=== PATIENT | female | born 1950 | race Hispanic/Latino ===

== ENCOUNTER 2017-02-19 12:37 | Emergency (ER) | payer MEDICARE, BC ==
[2017-02-19 12:37] VITALS: BMI 25.0
[2017-02-20] MEDS ORDERED: Acetaminophen 650mg/20.3ml solution UD ONE (06:51)
== END 2017-02-19 12:44 | disposition left against medical advice (07) ==
LOC: C.ER 12:37
DX: Z04.8 Encounter for examination and observation for other specified reasons (principal); Z02.9 Encounter for administrative examinations, unspecified

== ENCOUNTER 2017-02-20 06:12 | Inpatient (IN) | payer MEDICARE, BC ==
[2017-02-20 06:12] VITALS: BMI 25.0
[2017-02-20] MEDS ORDERED: Sodium Chloride 0.9% 1,000 ML IV ONE (06:46)
[2017-02-20] MEDS ORDERED: Acetaminophen 650mg/20.3ml solution UD PO STA (06:50)
--- NOTE | 2017-02-20 06:51 | C.PDOC ---
Time Seen by Provider: 02/20/17 06:46 Chief Complaint (Nursing): Trauma Past Medical History Vital Signs: Last Vital Signs Temp 97.5 F L 02/20/17 06:27 Pulse 76 02/20/17 06:27 Resp 16 02/20/17 06:27 BP 189/100 H 02/20/17 06:27 Pulse Ox 100 02/20/17 06:57 - Medical History PMH: Anemia, Anxiety, Arthritis, Bipolar Disorder, Dementia, Depression, HTN, Hypercholesterolemia, Migraine Denies: Diabetes, Hepatitis, Chronic Kidney Disease Surgical History: Tonsillectomy - [facility] Procedures VENTRICL SHUNT-ABDOMEN (02/10/14) Family History: States: Unknown Family Hx - Social History Hx Tobacco Use: No Hx Alcohol Use: No Hx Substance Use: No - Immunization History Hx Tetanus Toxoid Vaccination: No Hx Influenza Vaccination: Yes Hx Pneumococcal Vaccination: Yes ( is not sure) ED Course And Treatment O2 Sat by Pulse Oximetry: 100 Disposition Counseled Patient/Family Regarding: Studies Performed, Diagnosis - Disposition Disposition Time: 06:46
--- NOTE | 2017-02-20 06:53 | C.PDOC ---
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 Patient states she now has left hip pain and denies LOC, head injury, chest pain, or any other complaints at this time. Time Seen by Provider: 02/20/17 06:46 Chief Complaint (Nursing): Trauma History Per: Patient History/Exam Limitations: no limitations Onset/Duration Of Symptoms: Hrs Current Symptoms Are (Timing): Still Present Severity: Mild - Hip Description Of Injury: Tripped Past Medical History Reviewed: Historical Data, Nursing Documentation, Vital Signs Vital Signs: Last Vital Signs Temp 97.5 F L 02/20/17 06:27 Pulse 76 02/20/17 06:27 Resp 16 02/20/17 06:27 BP 189/100 H 02/20/17 06:27 Pulse Ox 100 02/20/17 06:58 - Medical History PMH: Anemia, Anxiety, Arthritis, Bipolar Disorder, Dementia, Depression, HTN, Hypercholesterolemia, Migraine Surgical History: Tonsillectomy - [facility] Procedures VENTRICL SHUNT-ABDOMEN (02/10/14) Family History: States: Unknown Family Hx - Social History Hx Tobacco Use: No Hx Alcohol Use: No Hx Substance Use: No - Immunization History Hx Tetanus Toxoid Vaccination: No Hx Influenza Vaccination: Yes Hx Pneumococcal Vaccination: Yes ( is not sure) Review Of Systems Constitutional: Negative for: Fever, Chills Cardiovascular: Negative for: Chest Pain, Palpitations Respiratory: Negative for: Cough, Shortness of Breath Gastrointestinal: Negative for: Nausea, Vomiting, Abdominal Pain Genitourinary: Negative for: Dysuria, Frequency Musculoskeletal: Positive for: Other (+left hip pain). Negative for: Neck Pain , Back Pain Neurological: Negative for: Weakness, Numbness Physical Exam - Physical Exam Appears: Non-toxic, No Acute Distress Skin: Warm, Dry Head: Atraumatic, Normacephalic Eye(s): bilateral: Normal Inspection Oral Mucosa: Moist Neck: Supple Chest: Symmetrical Respiratory: No Accessory Muscle Use Gastrointestinal/Abdominal: Soft, No Tenderness Extremity: Tenderness (+Tenderness to left leg), Capillary Refill (< 2 seconds) , Other (+Left leg is externally rotated) Pulses: Left Dorsalis Pedis: Normal, Right Dorsalis Pedis: Normal Neurological/Psych: Oriented x3, Normal Speech ED Course And Treatment O2 Sat by Pulse Oximetry: 100 (Room air) Pulse Ox Interpretation: Normal Progress Note: Hip X-ray, CXR, and Blood work ordered and reviewed. Patient treated with Tylenol and IV fluids. Disposition Counseled Patient/Family Regarding: Studies Performed, Diagnosis - Disposition Disposition Time: 06:46 Condition: UNKNOWN - Clinical Impression Clinical Impression: Fall - Scribe Statement The provider has reviewed the documentation as recorded by the Scribe Joyce Ford. Provider Attestation: All medical record entries made by the Scribe were at my direction and personally dictated by me. I have reviewed the chart and agree that the record accurately reflects my personal performance of the history, physical exam, medical decision making, and the department course for this patient. I have also personally directed, reviewed, and agree with the discharge instructions and disposition. Physician Patient Turnover Patient Signed Over To: Angelica Flores Handoff Comments: pending labs , xray and disposition
[2017-02-20] MEDS ORDERED: Sodium Chloride 0.9% 1,000 ML ONE (06:58)
[2017-02-20 07:21] LABS: BASO # 0.1 K/uL (0.0-0.2); BASO % 0.5 % (0.0-2.0); EOS # 0.2 K/uL (0.0-0.7); EOS % 1.3 % (0.0-4.0); HEMATOCRIT 34.7 % (34.0-47.0); LYMPH # 1.3 K/uL (1.0-4.3); LYMPH % 10.1 % (20.0-40.0); MEAN CELL VOLUME 89.9 fL (81.0-99.0); MEAN CORPUSCULAR HEMOGLOBIN 28.7 pg (27.0-31.0); MEAN PLATELET VOLUME 9.3 fL (7.2-11.7); MONO # 0.7 K/uL (0.0-0.8); MONO % 5.2 % (0.0-10.0); RED CELL DISTRIBUTION WIDTH 14.4 % (11.5-14.5); WHITE BLOOD COUNT 12.7 K/uL (4.8-10.8)
[2017-02-20 07:33] LABS: INR 0.9
[2017-02-20 07:41] LABS: CHLORIDE 101 mmol/L (98-107); POTASSIUM 4.9 mmol/L (3.6-5.2); SODIUM 142 mmol/L (132-148)
[2017-02-20 07:43] LABS: ALB/GLOB RATIO 1.2 (1.0-2.1); AST/SGOT 33 U/L (14-36); BILIRUBIN,TOTAL 0.6 mg/dL (0.2-1.3); BLOOD UREA NITROGEN 18 mg/dL (7-17); CARBON DIOXIDE 28 mmol/L (22-30); GFR AFRICAN-AMERICAN > 60; TOTAL PROTEIN 7.4 g/dL (6.3-8.3)
[2017-02-20 07:44] LABS: ALKALINE PHOSPHATASE 72 U/L (38-126); ALT/SGPT 18 U/L (9-52); CALCIUM 8.2 mg/dl (8.6-10.4); GLUCOSE,RANDOM 92 mg/dL (65-105)
[2017-02-20] MEDS ORDERED: Morphine 4 MG/ML VIAL ONE (08:07)
[2017-02-20 10:11] LABS: URINE BILIRUBIN NEGATIVE (NEGATIVE); URINE BLOOD NEGATIVE (NEGATIVE); URINE COLOR Colorless (YELLOW); URINE GLUCOSE (UA) NORMAL (Normal); URINE KETONE NEGATIVE (NEGATIVE); URINE LEUKOCYTE ESTERASE NEG Leu/uL (Negative); URINE PROTEIN NEGATIVE (NEGATIVE); URINE UROBILINOGEN NORMAL mg/dL (0.2-1.0); WBC URINE < 1 /hpf (0-5)
[2017-02-20] MEDS ORDERED: Dextrose 5%/0.45% NS 1,000 ML IV SCH (11:30)
--- NOTE | 2017-02-20 13:02 | CP.PCM.HP ---
History of Present Illness - History of Present Illness History of Present Illness: COMPREHENSIVE HISTORY & PHYSICAL EXAM HPI PT. FELL TODAY SUSTAINED INTERTRONCHERTRIC LEFT HIP FRACTURE. PER PT WAS OVERDOSING HER PSYCH. MEDS AND FELL 2 TIMES THIS AM PAST HIST. HTN/ANXIETY/DEPRESSION/R. SHOULDER INJURY/ PERSONAL HIST: Smoking. N Alcohol. N Allergy N Travel_- . FAMILY HIST : ROS : Constitutional: Negative for weight change, chills, night sweats, Eyes: Negative for redness, swelling, itching, discharge, vision changes, blurry vision, double vision, glaucoma, cataracts, Ears: Negative for hearing loss, ringing, , tinnitus, vertigo Nose: Negative for rhinorrhea, stuffiness, sniffing, itching, postnasal drip, discoloration, nasal congestion and epistaxis. Throat: Negative for throat clearing, sore throat, hoarseness, difficulty swallowing and difficulty speaking. Respiratory: Negative for cough, chest tightness, sputum or phlegm, chronic cough, hemoptysis, wheezing, snoring at night, pleuritic chest pain and daytime somnolence. Cardiovascular: Negative for chest pain, palpitations, orthopnea, PND, Edema of legs, leg cramps, angina, claudication, , irregular heartbeat, Neurology: Negative for irritability, muscle weakness, numbness and tingling, seizures, tremors, migraines, slurred speech, syncope, memory loss, mood changes , recurrent headaches Gastrointestinal: Negative for difficulty swallowing, diarrhea, constipation, black stools, rectal bleeding, nausea, flatulence, reflux, poor appetite, changes in bowel habits, abdominal pain Genitourinary: Negative for frequent urination, hematuria, discharge, incontinence, urinary retention, frequent UTI, Psychiatric: Negative for depression, anxiety/panic, suicidal tendencies, Musculoskeletal LEFT HIP PAIN Skin: Negative for rash, ulcers, itching, dry skin and pigmented lesions. P/E: Constitutional: Appears stated age and in no apparent distress. Head: Normocephalic. Ears: External ear canals patent without inflammation. Tympanic membranes intact with normal light reflex and landmark. Eyes: Pupils are central, bilaterally equal, symmetrical and reacts to light with normal movements and no icterus or pallor. Nose: External nares are patent. Mucosa is pink Mouth-Throat: Good general appearance and condition. No post-pharyngeal/oropharyngeal erythema and tonsillar hypertrophy. Good dental hygiene. Neck-Lymphatic: Neck is supple with normal ROM, no thyromegaly, lymph nodes or masses. JVD is normal with no carotid bruit. Lungs: Clear to percussion and auscultation with bilateral normal air entry. Cardiovascular: S1 and S2 are normal with no murmurs, gallops and rub. GI Exam: No hepatomegaly. Abdomen is soft and non-tender. No Organomegaly , masses or hernias are evident and bowel sounds are normal and active. Neurology: Higher function and all cranial nerves intact, with no gross motor or sensory deficit. Superficial and deep reflexes are normal with downwards planters. No cerebellar deficit with normal gait. Musculoskeletal LEFT HIP DECREASE ROM WITH PAIN PULSES INTAKE Extremities: Homans sign absent. Intact pulses with no pitting edema, calf tenderness or skin color changes. Skin: No rash, eruptions or abnormal skin pigmentation LAB/RADIOLOGY: ASSESMENT : LEFT HIP FRACTURE HTN ANXIETY PLAN: ORTHO EVAL FOR LEFT HIP REPLACEMENT/REPAIR PSYCH. EVAL FOR ADJUSTEMENT OF MEDS Present on Admission - Present on Admission Any Indicators Present on Admission: No Past Patient History - Past Medical History & Family History Past Medical History?: Yes - Past Social History Smoking Status: Never Smoked - CARDIAC Hx Hypercholesterolemia: Yes Hx Hypertension: Yes - PULMONARY Hx Respiratory Disorders: No Hx Tuberculosis: No - NEUROLOGICAL Hx Dementia: Yes Hx Migraine: Yes - HEENT Hx HEENT Problems: No Hx Deafness: Yes (Bilateral hearing loss, doesn't wear hearing aids) - RENAL Hx Chronic Kidney Disease: No - ENDOCRINE/METABOLIC Hx Endocrine Disorders: No - HEMATOLOGICAL/ONCOLOGICAL Hx Anemia: Yes - INTEGUMENTARY Hx Dermatological Problems: No - MUSCULOSKELETAL/RHEUMATOLOGICAL Hx Arthritis: Yes Hx Falls: Yes - PSYCHIATRIC Hx Anxiety: Yes Hx Bipolar Disorder: Yes Hx Depression: Yes Hx Substance Use: No - SURGICAL HISTORY Hx Tonsillectomy: Yes Other/Comment: Ventroperitoneal shunt, bunion sx - ANESTHESIA Hx Anesthesia: Yes Hx Anesthesia Reactions: No Hx Malignant Hyperthermia: No Meds Allergies/Adverse Reactions: Allergies Allergy/AdvReac Type Severity Reaction Status Date / Time pregabalin [From Lyrica] Allergy RASH Verified 02/20/17 06:38 Results - Vital Signs Recent Vital Signs: Last Vital Signs Temp 97.5 F L 02/20/17 10:30 Pulse 79 04/05/17 10:30 Resp 20 02/20/17 10:30 BP 186/98 H 02/20/17 10:30 Pulse Ox 98 02/20/17 10:30 - Labs Result Diagrams: 02/20/17 07:17 02/20/17 07:17 Labs: Laboratory Results - last 24 hr 02/20/17 02/20/17 08:19 08:38 Urine Color Colorless Urine Clarity Clear Urine pH 7.0 Ur Specific [place] 1.008 Urine Protein Negative Urine Glucose (UA) Normal Urine Ketones Negative Urine Blood Negative Urine Nitrate Negative Urine Bilirubin Negative Urine Urobilinogen Normal Ur Leukocyte Esterase Neg Urine WBC (Auto) < 1 Blood Type O POSITIVE Antibody Screen Negative
--- NOTE | 2017-02-20 13:11 | CP.PCM.PN ---
Subjective - Date & Time of Evaluation Date of Evaluation: 02/20/17 Time of Evaluation: 13:08 - Subjective Subjective: 66F complains of left hip pain after fall at home. She was unable to walk after the fall. Denies pain in other extremities. Denies neck or back or pain. Denies CP/SOB/LOC/dizziness preceding fall. PMH: HTN, chol, bipolar Objective - Vital Signs/Intake and Output Vital Signs (last 24 hours): Temp Pulse Resp BP Pulse Ox 97.5 F L 79 20 186/98 H 98 02/20/17 10:30 02/20/17 10:30 02/20/17 10:30 02/20/17 10:30 02/20/17 10:30 - Medications Medications: Current Medications Gabapentin (Neurontin) 600 mg PO TID [facility] Dextrose/Sodium Chloride (Dextrose 5%/0.45% Ns 1000 Ml) 1,000 mls @ 100 mls/hr IV .Q10H [facility] Last Admin: 02/20/17 11:59 Dose: 100 mls/hr Lisinopril (Zestril) 20 mg PO DAILY [facility] Last Admin: 02/20/17 12:00 Dose: 20 mg Morphine Sulfate (Morphine) 2 mg IVP Q4 PRN PRN Reason: Pain, moderate (4-7) Last Admin: 02/20/17 12:10 Dose: 2 mg Pantoprazole Sodium (Protonix Inj) 40 mg IVP DAILY [facility] Last Admin: 02/20/17 11:59 Dose: 40 mg Rosuvastatin Calcium (Crestor) 10 mg PO HS [facility] - Labs Labs: PT 10.5 SECONDS (9.7-12.2) 02/20/17 07:17 INR 0.9 02/20/17 07:17 APTT 34 SECONDS (21-34) 02/20/17 07:17 - Constitutional Appears: Well, No Acute Distress - Head Exam Head Exam: ATRAUMATIC, NORMAL INSPECTION - Extremities Exam Additional comments: Sensation intact +DP/PT pulses calves soft NT neg homans - Neurological Exam Neurological Exam: Alert, Awake, Oriented x3 Neuro motor strength exam: Left Lower Extremity: 5 (+ROM ankle/toes, sensation intact) - Psychiatric Exam Psychiatric exam: Normal Affect, Normal Mood - Skin Skin Exam: Dry, Intact, Normal Color, Warm Assessment and Plan - Assessment and Plan (Free Text) Assessment: left intertrochanteric hip fracture -NPO for ORIF today awaiting medical clearance -labs reviewed -nabil d/w Dr. García, agrees with above
--- NOTE | 2017-02-20 14:21 | RAD ---
PROCEDURE: Left Knee Radiographs. HISTORY: Pain. COMPARISON: None. FINDINGS: BONES: There is irregularity of the posterior tibial cortex in the lateral projection. There is no clear fracture evident in the frontal view. Cannot rule out nondisplaced fracture. No other fracture identified. JOINTS: Normal. No osteoarthritis. JOINT EFFUSION: None. OTHER FINDINGS: None. IMPRESSION: Questionable nondisplaced fracture posterior tibia. In the absence of a joint effusion/ hemarthrosis, this seems less likely. Nevertheless, additional radiographic evaluation is suggested.
--- NOTE | 2017-02-20 15:04 | RAD ---
PROCEDURE: Left femur HISTORY: s/p fall , r/o fx COMPARISON: Not available TECHNIQUE: Two views obtained portably FINDINGS: Comminuted mildly displaced intertrochanteric fracture of the left hip. No other fracture identified. No dislocation. IMPRESSION: Comminuted mildly displaced intertrochanteric fracture of the left hip.
--- NOTE | 2017-02-20 15:06 | RAD ---
PROCEDURE: Left Hip X-ray Radiographs. HISTORY: fall , left hip pain COMPARISON: None. FINDINGS: BONES: Comminuted, mildly displaced intertrochanteric fracture of the left hip. No significant angulation. No other pelvic fracture identified. JOINTS: Normal. SOFT TISSUES: Normal. OTHER FINDINGS: None. IMPRESSION: Comminuted mildly displaced intertrochanteric fracture of the left hip.
--- NOTE | 2017-02-20 15:07 | RAD ---
PROCEDURE: CHEST RADIOGRAPH, 1 VIEW HISTORY: SOB COMPARISON: 12/19/2014 FINDINGS: LUNGS: Clear. PLEURA: No pneumothorax or pleural fluid seen. CARDIOVASCULAR: Normal. OSSEOUS STRUCTURES: No significant abnormalities. VISUALIZED UPPER ABDOMEN: Normal. OTHER FINDINGS: None. IMPRESSION: No active disease.
--- NOTE | 2017-02-20 15:09 | CON ---
DATE: 02/20/2017 CHIEF COMPLAINT AND REASON FOR CONSULTATION: The patient referred by Dr. Pereyra for comanagement and evaluation. The patient has history of bipolar disorder. The patient was admitted here after she had fallen twice at home. The patient had left hip fracture and also referred for comanagement as patient is on multiple psych meds. HISTORY OF PRESENT ILLNESS: This is the case of a 66-year-old female who is well known to me with a long history of bipolar disorder. The patient was admitted after she fell twice at home and was noted also by her , Cyril , to have increasing periods of confusion. The patient has history of taking too much medication when she is more confused. She was recently readmitted at [facility], discharged 1 week ago when she was admitted there for increasing confusion as patient was taking too much psych medication. At home, after her discharge from the hospital, she was taking Seroquel 50 mg twice a day and also Neurontin and was also given brain medication. The patient tends to take more than was prescribed increasing her confusion. The patient also used to take before Neurontin 600 mg 6 times a day. The patient today will be going to the OR as the patient has left hip fracture. She is complaining of pain on moving her left hip, but less confused today. She was seen recently in my office and also complaining of pain and confusion. She was advised not to take too much Seroquel as her Seroquel dose was recently increased from 50 daily at bedtime to 50 mg twice a day. PAST PSYCHIATRIC HISTORY: Long history of bipolar disorder, multiple psych admissions, history of 3 at least suicidal attempts in the past, usually from drug overdose. ALLERGIES: THE PATIENT IS ALLERGIC TO LYRICA. DRUG AND ALCOHOL HISTORY: Denies any. PSYCHOSOCIAL HISTORY: The patient lives with her , Cyril. They have been for many years. The patient is disabled secondary to her psych problems. LIST OF CURRENT MEDICATIONS: The patient is on Crestor, morphine, Neurontin 600 mg 3 times a day, Protonix and Zestril. VITAL SIGNS: Temperature is 97.5, pulse rate is 92, blood pressure is 184/80, respirations 20, oxygen saturation is 98%. REVIEW OF LABORATORIES: The patient's WBCs 12.7. Creatinine 0.7. Liver function tests are within normal limits. UA is negative. REVIEW OF SYSTEMS: GENERAL: The patient is more alert, verbal, less confused. The patient will be going for OR today. SKIN: No diaphoresis. HEENT: No headache. No blurring of vision. NECK: Supple. RESPIRATORY: No dyspnea. CARDIOVASCULAR: No chest pain. GASTROINTESTINAL: No nausea, no vomiting. EXTREMITIES: The patient complained of left hip pain. MUSCULOSKELETAL: Feels weak. NEUROLOGIC: Alert, oriented x 3. GENITOURINARY: No urinary problems. MENTAL STATUS EXAMINATION: Elderly female who looks stated age, alert, oriented x 3, was 5 feet 5 inches and weighs 145 pounds. Mood is calm. Affect is reactive. Speech spontaneous. Thought process coherent when seen. Thought content, the patient has agreed to go for surgery. No overt paranoia. No suicidal or homicidal ideation. No hallucinations. Attention and memory seem to be fair. Insight and judgment limited. Impulse control is fair at this time. IMPRESSION: History of left hip fracture as well as history of bipolar disorder , mixed, and possible metabolic encephalopathy secondary to excessive intake of her psych medication. PLAN AND RECOMMENDATION: The patient seen, meds reviewed. The patient will be going for OR today. We will discontinue all of her psych. We will keep her off Seroquel as well as Neurontin for now. The patient will be taking morphine for pain. The patient is manageable at this time. I will follow her up as needed. For now, we will keep her off her psych meds. Marciano Powell MD cc: [id number] TT: 02/20/2017 15:08:38 Confirmation # [id number] Dictation # [id number] en MTDD
[2017-02-20] MEDS ORDERED: Bupivacaine HCl 0.5% PF (10 ml) Inj ONE (18:01)
[2017-02-20] MEDS ORDERED: ceFAZolin IV 1 gm in Dextrose 50 ML IVPB ONE (18:01)
[2017-02-20] MEDS ORDERED: Dextrose 5%/0.45% NS 1,000 ML IV ONE (18:10)
[2017-02-20] MEDS ORDERED: Midazolam 2 MG/2 ML VIAL ONE (18:12)
[2017-02-20] MEDS ORDERED: Propofol 10 mg/ml Inj (20 ML) ONE (18:12)
[2017-02-20] MEDS ORDERED: Succinylcholine Chloride 20 mg/ml Syr (5 ml) IV ONE (18:38)
[2017-02-20] MEDS ORDERED: Rocuronium 10 mg/ml (5 ml) ONE (18:38)
[2017-02-20] MEDS ORDERED: Lactated Ringer's 1,000 ML IV ONE (19:33)
[2017-02-20] MEDS ORDERED: HYDROmorphone 0.5 mg/0.5 ml ISec IVP PRN (20:07)
[2017-02-20] MEDS ORDERED: Lactated Ringer's 1,000 ML IV SCH (20:15)
[2017-02-20 21:02] LABS: HEMATOCRIT 29.7 % (34.0-47.0); MEAN CELL VOLUME 89.6 fL (81.0-99.0); MEAN CORPUSCULAR HEMOGLOBIN 29.3 pg (27.0-31.0); MEAN CORPUSCULAR HGB CONC 32.7 g/dL (33.0-37.0); MEAN PLATELET VOLUME 9.1 fL (7.2-11.7); RED CELL DISTRIBUTION WIDTH 14.4 % (11.5-14.5); WHITE BLOOD COUNT 15.2 K/uL (4.8-10.8)
--- NOTE | 2017-02-20 21:10 | OP ---
PROCEDURE DATE: 02/20/2017 PREOPERATIVE DIAGNOSIS: Intertrochanteric fracture of the left hip. POSTOPERATIVE DIAGNOSES: Severely comminuted intertrochanteric fracture of the left hip with severe osteoporosis and osteopenia. PROCEDURE: Open reduction internal fixation of a comminuted intertrochanteric fracture of the hip with Synthes TFNA nail, insertion of a lag screw and insertion of distal interlocking screw. PROCEDURE: Prior to the procedure, the risks and benefits of surgery, problems and complications explained including malunion, nonunion, need for future surgery, permanent weakness, permanent numbness, possible loss of life and limb , failure of fixation, leg length difference, and need for future surgical procedures, blood clots, etc. The patient fully understood, agreeable, and all the complications were explained to the patient and the patient's , Cyril. The patient was brought to the operating room. The left hip was identified as the hip to be operated. The patient was placed on the fracture table. After induction of general anesthesia, the left hip was prepped and draped in the usual manner and the multiplanar fluoroscopy was used. At this point, an incision was made proximal to the greater trochanter of the left hip after identifying it on fluoroscopy. Dissection was carried down in layers and the tip of the greater trochanter was identified and a guidewire __for___ Synthes TFN nail was introduced into the trochanter into the shaft of the femur. The position of the guidewire was confirmed on x-ray. At this point, the proximal femur was reamed with a proximal entry of TFN nail. Reaming was done up to the lesser trochanter. At this point, the guidewire was removed and a flexible guidewire was introduced into the femur and a Synthes nail, 130 degree nail, 10 mm in diameter and 170 mm in length was introduced into the trochanter into the proximal shaft of the femur. Once the position of the anai was confirmed, using the proximal targeting device , a guidewire was introduced through the neck and head of the femur. A guidewire was introduced through the targeting device into the neck and head of the femur, into the subchondral bone. Position of the guidewire was confirmed on multiplanar fluoroscopy. At this point, the neck and head of the femur was reamed and under multiplanar fluoroscopy. It was decided to use an 85 mm lag screw, which was measured prior to reaming. The lag screw was introduced and locking of the proximal lag screw was inserted into the proximal targeting sleeve. Once the lag screw was locked, the lag screw could not be rotated. At this point, using a distal targeting sleeve, . Drilling was done. A 32 mm screw was introduced through the distal interlocking hole. The multiplanar fluoroscopy revealed satisfactory position of the distal interlocking screw. At this point, the wounds were thoroughly irrigated. Wounds were closed in layers. The patient tolerated the procedure well. The patient left the operating room to the recovery room in satisfactory condition. The wound was closed in layers. The multiplanar fluoroscopy revealed at the end of the procedure satisfactory internal fixation of the fracture. The patient tolerated the procedure well and left the operating room to the recovery room in satisfactory condition. Jolly García MD cc: [id number] TT: 02/20/2017 21:08:59 [employer] TRAN
[2017-02-21] MEDS: ceFAZolin IV 2 gm in Dextrose 50 ML IVPB SCH ×2 (02:03→11:45)
[2017-02-21] MEDS: Oxycodone/Acetaminophen 5/325 mg Tab PO PRN ×3 (03:27→18:10)
--- NOTE | 2017-02-21 07:23 | CP.PCM.PN ---
Subjective - Date & Time of Evaluation Date of Evaluation: 02/21/17 Time of Evaluation: 07:22 - Subjective Subjective: Patient complaining of low back pain. Tearful. Expressing herself poorly, and difficult to get her to explain what is wrong or localize pain. Denies CP/SOB/ dizziness, says pain in hip is ok. RN overnight said she was intermittently tearful, but stated then she didn't know why she was crying. Objective - Vital Signs/Intake and Output Vital Signs (last 24 hours): Temp Pulse Resp BP Pulse Ox 98.6 F 101 H 20 136/73 97 02/21/17 04:00 02/21/17 04:00 02/21/17 04:00 02/21/17 04:00 02/21/17 04:00 Intake and Output: 02/21/17 02/21/17 06:59 18:59 Intake Total 850 Output Total 1125 Balance -275 - Medications Medications: Current Medications Acetaminophen (Tylenol 325mg Tab) 650 mg PO Q4 PRN PRN Reason: Fever 101 degrees fahrenheit Docusate Sodium (Colace) 100 mg PO BID [facility] Enoxaparin Sodium (Lovenox) 40 mg SC Q24H [facility] Dextrose/Sodium Chloride (Dextrose 5%/0.45% Ns 1000 Ml) 1,000 mls @ 100 mls/hr IV .Q10H [facility] Last Admin: 02/20/17 11:59 Dose: 100 mls/hr Cefazolin Sodium/Dextrose (Ancef Iv 2 Gm Duplex) 50 mls @ 100 mls/hr IVPB Q8H [facility] Stop: 02/21/17 11:29 Last Admin: 02/21/17 02:03 Dose: 100 mls/hr Lactated Ringer's (Lactated Ringer's) 1,000 mls @ 100 mls/hr IV .Q10H [facility] Last Admin: 02/21/17 06:58 Dose: 100 mls/hr Lisinopril (Zestril) 20 mg PO DAILY [facility] Last Admin: 02/20/17 12:00 Dose: 20 mg Morphine Sulfate (Morphine) 2 mg IVP Q4 PRN PRN Reason: Pain, moderate (4-7) Last Admin: 02/21/17 01:38 Dose: 2 mg Ondansetron HCl (Zofran Inj) 4 mg IVP Q6H PRN PRN Reason: Nausea/Vomiting Oxycodone/Acetaminophen (Percocet 5/325 Mg Tab) 1 tab PO Q4 PRN PRN Reason: Pain, moderate (4-7) Stop: 02/23/17 18:59 Last Admin: 02/21/17 03:27 Dose: 1 tab Pantoprazole Sodium (Protonix Inj) 40 mg IVP DAILY [facility] Last Admin: 02/20/17 11:59 Dose: 40 mg Rosuvastatin Calcium (Crestor) 10 mg PO HS [facility] - Labs Labs: 02/20/17 20:57 PT 10.5 SECONDS (9.7-12.2) 02/20/17 07:17 INR 0.9 02/20/17 07:17 APTT 34 SECONDS (21-34) 02/20/17 07:17 - Extremities Exam Additional comments: sensation intact LLE, dressing intact, thigh soft, +DP pulse, calves soft NT neg homans low back: no swelling/discoloration/deformity. TTP to upper lumbar spine, no crepitus. NVID BLE, sensation intact 5/5 great toe ext/DF/PF, knee flex/ext to right - Neurological Exam Neuro motor strength exam: Left Lower Extremity: 5 (+DF/PF ankle, toes) Assessment and Plan (1) Displaced intertrochanteric fracture of left femur Assessment & Plan: POD#1 s/p left hip ORIF -PT/OT -VTE proph -d/c planning to rehab -OOB -d/w Dr. García, agrees with above -f/u am labs Status: Acute (2) Back pain Assessment & Plan: xrays ordered new complaint ? due to OR positioning Status: Acute
[2017-02-21 07:35] LABS: CHLORIDE 102 mmol/L (98-107); POTASSIUM 3.7 mmol/L (3.6-5.2); SODIUM 140 mmol/L (132-148)
[2017-02-21 07:37] LABS: BILIRUBIN,TOTAL 0.5 mg/dL (0.2-1.3); GFR AFRICAN-AMERICAN > 60
[2017-02-21 07:38] LABS: ALB/GLOB RATIO 1.2 (1.0-2.1); ALKALINE PHOSPHATASE 55 U/L (38-126); ALT/SGPT 22 U/L (9-52); AST/SGOT 22 U/L (14-36); BLOOD UREA NITROGEN 11 mg/dL (7-17); CARBON DIOXIDE 27 mmol/L (22-30); GLUCOSE,RANDOM 147 mg/dL (65-105); HEMATOCRIT 23.7 % (34.0-47.0); MEAN CELL VOLUME 88.7 fL (81.0-99.0); MEAN CORPUSCULAR HEMOGLOBIN 29.7 pg (27.0-31.0); MEAN CORPUSCULAR HGB CONC 33.5 g/dL (33.0-37.0); MEAN PLATELET VOLUME 9.6 fL (7.2-11.7); RED CELL DISTRIBUTION WIDTH 14.4 % (11.5-14.5); TOTAL PROTEIN 5.8 g/dL (6.3-8.3); WHITE BLOOD COUNT 10.7 K/uL (4.8-10.8)
[2017-02-21 07:39] LABS: CALCIUM 7.4 mg/dl (8.6-10.4)
--- NOTE | 2017-02-21 08:43 | RAD ---
PROCEDURE: HISTORY: post of ORIF COMPARISON: 02/20/2017 portable study at 11:48 hours TECHNIQUE: Four portable images postop FINDINGS: Patient is status post open reduction and internal fixation of a comminuted previously mildly displaced intertrochanteric left hip fracture. The intramedullary anai is distally transfixed by a horizontal single screw. An oblique compression screw transfixes the comminuted fracture with the proximal intramedullary anai. Less displacement of the prior mildly displaced lesser trochanteric fragment now Skin ruth and left subcutaneous mottled gas consistent with the recent post operative procedure. Arterial calcifications are noted. The distal femur is intact . IMPRESSION: Open reduction internal fixation of a prior left intertrochanteric fracture as detailed above
--- NOTE | 2017-02-21 09:02 | RAD ---
PROCEDURE: HISTORY: s/p left hip nail, pt in pacu COMPARISON: Left femur portable view same-day 2034 hours TECHNIQUE: Single portable view postop FINDINGS: Patient is status post open reduction and internal fixation of a comminuted previously mildly displaced intertrochanteric left hip fracture. The intramedullary anai is distally transfixed by a horizontal single screw. An oblique compression screw transfixes the comminuted fracture with the proximal intramedullary aani. Less displacement of the prior mildly displaced lesser trochanteric fragment now IMPRESSION: Status post open reduction and internal fixation of a comminuted previously mildly displaced intertrochanteric left hip fracture
--- NOTE | 2017-02-21 11:00 | RAD ---
PROCEDURE: Radiographs of the Lumbar Spine. HISTORY: low back pain, fall COMPARISON: No prior. FINDINGS: BONES: No compression vertebral body fracture suggest There is a vertical lucency over the superior L5 endplate on the lateral view. These images are limited. This is not an appearance of a typical vertebral body fracture. An artifact is statistically believe unlikely. When patient can tolerate consider rib repeat lumbar spine imaging Facet sclerotic arthrosis at L4-5 and L5-S1 suggested Partially visualized is a treated left intertrochanteric fracture with orthopedic hardware partially visualized DISC SPACES: Fairly well preserved OTHER FINDINGS: The thin tube projecting over the is consistent with a ventriculoperitoneal shunt IMPRESSION: No typical vertebral body compression fracture. The superior vertical lucency over the L5 is described above. If needed consider repeat lumbar spine imaging
--- NOTE | 2017-02-21 13:08 | CP.PCM.PN ---
Subjective - Date & Time of Evaluation Date of Evaluation: 02/21/17 Time of Evaluation: 13:06 - Subjective Subjective: CHIEF COMPLAINTS TODAY : POST OP PAIN HG DOWN TO 7.9 ROS. HEENT : N. Resp : No cough, wheezing ,pleuritic CP ,or hemoptysis Cardio : No anginal CP, PND, orthopnea, palpitation GI : No abd.pain, n/v ,diarrhea or GI bleeding . JACQUARD FIXER : No headache, vertigo, focal deficit. Musculoskel : No joint swelling , Derm : No rash Psych : Normal affect. Ext : No swelling ,calf pain PE. Pt. is alert awake in no distress. V.S As noted in the chart Head ,ear nose,throat and eyes : Normal. Neck : Supple with normal carotids. Lungs: Clear air entry. Heart : S1 & S2 normal with S4. No murmur. Abd : Soft non tender with normal bowel sounds. Neuro : Moves all ext. with no localized deficit. Ext : No edema with intact pulses.Non tender calves LEFT LEG POST OP Derm : No rashes or decubitus ulcer. LABS/RADIOLOGY: ASSESSMENT/PLAN : CHECK H/H [facility] Objective - Vital Signs/Intake and Output Vital Signs (last 24 hours): Temp Pulse Resp BP Pulse Ox 98.8 F 98 H 20 120/68 96 02/21/17 08:34 02/21/17 08:34 02/21/17 08:34 02/21/17 08:34 02/21/17 08:34 Intake and Output: 02/21/17 02/21/17 11:59 23:59 Intake Total 850 Output Total 450 Balance 400 - Medications Medications: Current Medications Acetaminophen (Tylenol 325mg Tab) 650 mg PO Q4 PRN PRN Reason: Fever 101 degrees fahrenheit Acetaminophen (Tylenol 325mg Tab) 650 mg PO ONCE ONE Stop: 02/21/17 14:01 Diphenhydramine HCl (Benadryl) 25 mg PO ONCE ONE Stop: 02/21/17 14:01 Docusate Sodium (Colace) 100 mg PO BID [facility] Last Admin: 02/21/17 10:12 Dose: 100 mg Enoxaparin Sodium (Lovenox) 40 mg SC Q24H [facility] Lisinopril (Zestril) 20 mg PO DAILY [facility] Last Admin: 04/06/17 10:13 Dose: 20 mg Morphine Sulfate (Morphine) 2 mg IVP Q4 PRN PRN Reason: Pain, moderate (4-7) Last Admin: 02/21/17 08:25 Dose: 2 mg Ondansetron HCl (Zofran Inj) 4 mg IVP Q6H PRN PRN Reason: Nausea/Vomiting Oxycodone/Acetaminophen (Percocet 5/325 Mg Tab) 1 tab PO Q4 PRN PRN Reason: Pain, moderate (4-7) Stop: 02/23/17 18:59 Last Admin: 02/21/17 10:59 Dose: 1 tab Pantoprazole Sodium (Protonix Inj) 40 mg IVP DAILY [facility] Last Admin: 02/20/17 11:59 Dose: 40 mg Pneumococcal Polyvalent Vaccine (Pneumovax 23 Vaccine) 0.5 ml IM .ONCE ONE Stop: 02/22/17 10:01 Rosuvastatin Calcium (Crestor) 10 mg PO HS [facility] - Labs Labs: 02/21/17 07:09 02/21/17 07:09 PT 10.5 SECONDS (9.7-12.2) 02/20/17 07:17 INR 0.9 02/20/17 07:17 APTT 34 SECONDS (21-34) 02/20/17 07:17
--- NOTE | 2017-02-21 13:49 | RAD ---
PROCEDURE: Intraoperative Fluoroscopy. HISTORY: LEFT HIP fracture FINDINGS: Fluoroscopic assistance was provided for left hip fracture repair.
--- NOTE | 2017-02-21 20:16 | PN ---
DATE: 02/21/2017 SUBJECTIVE: The patient is seen. The patient is crying today when seen, having labile mood, but les s confused. The patient is asking for psych medication. According to the staff, she has been very r estless, agitated. The patient is status post left hip fracture, status post ORIF and taking morphin e for pain. The patient has history of chronic neuropathy and was taking massive doses of Neurontin in the past. The patient was taking 600 mg of Neurontin 6 times a day and was recently given Seroque l 50 mg p.o. b.i.d., which made her confused. The patient was taken off psych meds prior to surgery, but needs to resume her medications slowly, as patient has history of bipolar disorder to avoid fart her decompensation. The patient states that she is not sleeping well and her mood is starting to bec ome very labile. VITAL SIGNS: Temperature 97.4, pulse rate is 102, blood pressure 135/68, respirations 20, oxygen sat s 97%. CURRENT MEDICATIONS: The patient is on morphine IV q. 4 p.r.n. The patient also is on oxycodone/acet aminophen 1 tab p.o. q. 4 hours p.r.n. VITAL SIGNS: Temperature is 97.4, pulse rate is 102, blood pressure 135/68, respirations 20, oxygen s at is 97%. REVIEW OF SYSTEMS: GENERAL: The patient is alert, verbal, crying, less confused, is complaining of pain in the left hip . SKIN: No diaphoresis. HEENT: No headache, no dizziness. NECK: Supple. RESPIRATORY: No dyspnea. CARDIOVASCULAR: No chest pain. GASTROINTESTINAL: No nausea, no vomiting. EXTREMITIES: Complaining of moderate pain in the left hip area. The patient is status post surgery. MUSCULOSKELETAL: Feels weak. NEUROLOGIC: Alert, oriented x 3, but mood is very labile. GENITOURINARY: No dysuria. MENTAL STATUS EXAMINATION: Elderly female, looks stated age, oriented x 3. Mood is labile. Affect is reactive, complaining of pain. Thought process is less confused. Thought content: The patient i s complaining of anxiety and severe pain, wants to resume Neurontin as well as the psych meds as juan ent is not sleeping. No paranoia. No suicidal or homicidal ideation. Attention and memory seem to be fair. Insight and judgment limited. Impulse control is fair at this time. IMPRESSION: History of bipolar disorder, mixed, as well as possible delirium from drug induced, impr oving, status post left hip fracture, status post open reduction internal fixation. PLAN AND RECOMMENDATIONS: The patient seen, meds reviewed. Will slowly introduce her psych meds. C ontinue her pain meds as ordered. However, will put her back on Neurontin 600 mg q. 8 hours for now, titrate accordingly. The patient used to take 600 six times a day before and they will put her back on her Seroquel XR 50 mg at bedtime. The patient needs her Seroquel for treatment for bipolar. Sam gical followup as needed. Continue treatment plan as outlined. Marciano Powell MD cc: [id number] TT: 02/21/2017 20:16:05 Confirmation # [id number] Dictation # [id number]
[2017-02-21] MEDS: Enoxaparin 40 mg Syringe SC SCH ×2 (20:41→20:47)
[2017-02-21] MEDS: Lidocaine 5% Patch TD SCH (20:41)
--- NOTE | 2017-02-21 20:52 | CON ---
DATE: 02/21/2017 Afebrile. No calf tenderness. Dressing is dry, and Homans' sign is negative. No palpable cords. The patient is receiving Lovenox. Hemoglobin is 7.9. At this point, will transfuse 2 units of packed RBC. The x-rays of the lumbar spine did not reveal any evidence of definite fractures or dislocations. X- rays of the left knee did not reveal any evidence of fractures____or_ dislocations. Subjective complaints of pain over the patellar area of the left knee. No swelling noted. X-rays are negative for fractures or dislocations. At this point, I will continue physical therapy. Will apply Lidoderm patches to the left knee. Will follow, and the plan is to give 2 units blood, and rehab planning. Will follow the patient. Jolly García MD cc: [id number] TT: 02/21/2017 20:51:45 Confirmation # [id number] Dictation # [id number] MTDD
[2017-02-21] MEDS ORDERED: QUEtiapine 50 mg XR Tab PO SCH (22:00)
--- NOTE | 2017-02-22 03:53 | CP.PCM.PN ---
Subjective - Date & Time of Evaluation Date of Evaluation: 02/22/17 Time of Evaluation: 02:00 - Subjective Subjective: House Doctor Note: Patient is post op with mckeon discontinued at 6 am this morning. As per nursing , patient only voided 40 cc or urine since. Patient encouraged to drink. On bladder scan 500 cc noted. Patient denies needing to pee. Straight cath order to empty bladder. If symptoms persist, patient many need mckeon placed. Dante Pineda, DO- PGY 2 Objective - Vital Signs/Intake and Output Vital Signs (last 24 hours): Temp Pulse Resp BP Pulse Ox 98.2 F 101 H 20 102/66 96 02/21/17 23:15 02/21/17 23:15 02/21/17 23:15 02/21/17 23:15 02/21/17 23:15 Intake and Output: 02/21/17 02/22/17 18:59 06:59 Intake Total 0 Balance 0 - Medications Medications: Current Medications Acetaminophen (Tylenol 325mg Tab) 650 mg PO Q4 PRN PRN Reason: Fever 101 degrees fahrenheit Docusate Sodium (Colace) 100 mg PO BID [facility] Last Admin: 02/21/17 18:11 Dose: 100 mg Enoxaparin Sodium (Lovenox) 40 mg SC Q24H [facility] Last Admin: 02/21/17 20:47 Dose: Not Given Gabapentin (Neurontin) 600 mg PO Q8 [facility] Last Admin: 02/21/17 21:34 Dose: 600 mg Lidocaine (Lidoderm) 1 ea TD DAILY [facility] Last Admin: 02/21/17 20:41 Dose: 1 ea Lisinopril (Zestril) 20 mg PO DAILY [facility] Last Admin: 02/21/17 10:13 Dose: 20 mg Morphine Sulfate (Morphine) 2 mg IVP Q4 PRN PRN Reason: Pain, moderate (4-7) Last Admin: 02/21/17 23:57 Dose: 2 mg Ondansetron HCl (Zofran Inj) 4 mg IVP Q6H PRN PRN Reason: Nausea/Vomiting Oxycodone/Acetaminophen (Percocet 5/325 Mg Tab) 1 tab PO Q4 PRN PRN Reason: Pain, moderate (4-7) Stop: 02/23/17 18:59 Last Admin: 02/21/17 18:10 Dose: 1 tab Pantoprazole Sodium (Protonix Inj) 40 mg IVP DAILY [facility] Last Admin: 02/21/17 11:30 Dose: Not Given Pneumococcal Polyvalent Vaccine (Pneumovax 23 Vaccine) 0.5 ml IM .ONCE ONE Stop: 02/22/17 10:01 Quetiapine Fumarate (Seroquel Xr) 50 mg PO HS [facility] Last Admin: 02/21/17 21:34 Dose: 50 mg Rosuvastatin Calcium (Crestor) 10 mg PO HS [facility] Last Admin: 02/21/17 21:34 Dose: 10 mg - Labs Labs: 02/21/17 07:09 02/21/17 07:09 PT 10.5 SECONDS (9.7-12.2) 02/20/17 07:17 INR 0.9 02/20/17 07:17 APTT 34 SECONDS (21-34) 02/20/17 07:17
[2017-02-22 07:30] LABS: MONO # 0.8 K/uL (0.0-0.8)
[2017-02-22 07:37] LABS: BASO % 0.2 % (0.0-2.0); EOS % 0.3 % (0.0-4.0); HEMATOCRIT 27.4 % (34.0-47.0); LYMPH # 0.9 K/uL (1.0-4.3); MEAN CORPUSCULAR HEMOGLOBIN 28.6 pg (27.0-31.0); MEAN CORPUSCULAR HGB CONC 33.3 g/dL (33.0-37.0); MEAN PLATELET VOLUME 9.6 fL (7.2-11.7); MONO % 7.5 % (0.0-10.0); NRBC % 0.1 % (0.0-2.0); PLATELET COUNT 119 K/uL (130-400); RED CELL DISTRIBUTION WIDTH 16.3 % (11.5-14.5); WHITE BLOOD COUNT 11.3 K/uL (4.8-10.8)
[2017-02-22 07:42] LABS: CHLORIDE 99 mmol/L (98-107)
[2017-02-22 07:43] LABS: POTASSIUM 3.4 mmol/L (3.6-5.2); SODIUM 137 mmol/L (132-148)
[2017-02-22 07:45] LABS: ALB/GLOB RATIO 1.1 (1.0-2.1); ALKALINE PHOSPHATASE 64 U/L (38-126); AST/SGOT 27 U/L (14-36); BILIRUBIN,TOTAL 0.6 mg/dL (0.2-1.3); BLOOD UREA NITROGEN 13 mg/dL (7-17); CARBON DIOXIDE 27 mmol/L (22-30); GFR AFRICAN-AMERICAN > 60; GLUCOSE,RANDOM 116 mg/dL (65-105); MEAN CELL VOLUME 85.8 fL (81.0-99.0); TOTAL PROTEIN 5.6 g/dL (6.3-8.3)
[2017-02-22 07:46] LABS: ALT/SGPT 22 U/L (9-52); CALCIUM 7.7 mg/dl (8.6-10.4)
[2017-02-22 08:32] LABS: NEUTROPHIL 79 % (50-75); TOTAL CELLS COUNTED 100
[2017-02-22 08:34] LABS: LARGE PLATELETS PRESENT
[2017-02-22] MEDS: Lidocaine 5% Patch TD SCH (09:43)
[2017-02-22] MEDS ORDERED: Pneumococcal 23-Valent Vaccine IM ONE (10:00)
--- NOTE | 2017-02-22 13:26 | CP.PCM.PN ---
Subjective - Date & Time of Evaluation Date of Evaluation: 02/22/17 Time of Evaluation: 13:22 - Subjective Subjective: CHIEF COMPLAINTS TODAY : POST OP PAIN HG up 9.1 after 1pc HAD URINARY RETENTION RELIEVED WITH ST. CATH 500 CC EXCESS CRYING ROS. HEENT : N. Resp : No cough, wheezing ,pleuritic CP ,or hemoptysis Cardio : No anginal CP, PND, orthopnea, palpitation GI : No abd.pain, n/v ,diarrhea or GI bleeding . 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 Musculoskel : No joint swelling , Derm : No rash Psych : Normal affect. Ext : No swelling ,calf pain PE. Pt. is alert awake in no distress. V.S As noted in the chart Head ,ear nose,throat and eyes : Normal. Neck : Supple with normal carotids. Lungs: Clear air entry. Heart : S1 & S2 normal with S4. No murmur. Abd : Soft non tender with normal bowel sounds. Neuro : Moves all ext. with no localized deficit. Ext : No edema with intact pulses.Non tender calves LEFT LEG POST OP Derm : No rashes or decubitus ulcer. LABS/RADIOLOGY: ASSESSMENT/PLAN : [facility] Objective - Vital Signs/Intake and Output Vital Signs (last 24 hours): Temp Pulse Resp BP Pulse Ox 98.4 F 104 H 20 145/72 97 02/22/17 07:58 02/22/17 07:58 02/22/17 07:58 02/22/17 07:58 02/22/17 07:58 Intake and Output: 02/22/17 02/22/17 11:59 23:59 Intake Total 150 Output Total 500 Balance -350 - Medications Medications: Current Medications Acetaminophen (Tylenol 325mg Tab) 650 mg PO Q4 PRN PRN Reason: Fever 101 degrees fahrenheit Docusate Sodium (Colace) 100 mg PO BID [facility] Last Admin: 02/22/17 09:53 Dose: 100 mg Enoxaparin Sodium (Lovenox) 40 mg SC Q24H [facility] Last Admin: 02/21/17 20:47 Dose: Not Given Gabapentin (Neurontin) 600 mg PO Q8 [facility] Last Admin: 02/22/17 09:52 Dose: 600 mg Lidocaine (Lidoderm) 1 ea TD DAILY [facility] Last Admin: 02/22/17 09:43 Dose: 1 ea Lisinopril (Zestril) 20 mg PO DAILY [facility] Last Admin: 02/22/17 09:53 Dose: 20 mg Morphine Sulfate (Morphine) 2 mg IVP Q4 PRN PRN Reason: Pain, moderate (4-7) Last Admin: 02/22/17 12:37 Dose: 2 mg Ondansetron HCl (Zofran Inj) 4 mg IVP Q6H PRN PRN Reason: Nausea/Vomiting Oxycodone/Acetaminophen (Percocet 5/325 Mg Tab) 1 tab PO Q4 PRN PRN Reason: Pain, moderate (4-7) Stop: 02/23/17 18:59 Last Admin: 02/21/17 18:10 Dose: 1 tab Pantoprazole Sodium (Protonix Inj) 40 mg IVP DAILY [facility] Last Admin: 02/22/17 09:53 Dose: 40 mg Quetiapine Fumarate (Seroquel Xr) 50 mg PO HS [facility] Last Admin: 02/21/17 21:34 Dose: 50 mg Rosuvastatin Calcium (Crestor) 10 mg PO HS [facility] Last Admin: 02/21/17 21:34 Dose: 10 mg - Labs Labs: 02/22/17 07:21 02/22/17 07:21 PT 10.5 SECONDS (9.7-12.2) 02/20/17 07:17 INR 0.9 02/20/17 07:17 APTT 34 SECONDS (21-34) 02/20/17 07:17
--- NOTE | 2017-02-22 14:48 | PN ---
DATE: 02/22/2017 SUBJECTIVE: The patient is seen. The patient is still exhibiting lability of mood, confusion and co mplaining of pain. The patient states she did not sleep well last night and was asking for readjustm ent of her psych meds. She also said she is also pain, but she cooperated with physical therapist to day; however, the nurse reported that patient was making some inappropriate remarks. VITAL SIGNS: Temperature is 98.4, pulse is 104, blood pressure is 145/72, respiration is 20, oxygen sat s 97%. REVIEW OF SYSTEMS: GENERAL: The patient is alert, verbal, less confused, complaining of pain, seen in her room. SKIN: No pruritus. HEENT: No headache, no dizziness. NECK: Supple. RESPIRATORY: No dyspnea. CARDIOVASCULAR: No chest pain. GASTROINTESTINAL: The patient is not complaining of nausea, vomiting. EXTREMITIES: Complaining of left hip pain. The patient is status post left hip fracture, status pos t ORIF. MUSCULOSKELETAL: Feels weak. NEUROLOGIC: Alert with periods of confusion. She is more alert today. MENTAL STATUS EXAMINATION: Elderly female, looks stated age, oriented x 3, less confused. Mood is i rritable. Affect is reactive. Speech spontaneous. Thought process is less confused. Thought harinder nt: The patient still asking for pain meds asking to have her psych medications readjusted as she is not sleeping. The patient is still exhibiting lability of mood, but less confused. No paranoia. N o suicidal or homicidal ideation. Attention and memory seem to be limited. Insight and judgment murillo ited. Impulse control is fair at this time. IMPRESSION: History of bipolar disorder with psychosis as well as left hip fracture, status post ope n reduction internal fixation, history of delirium, metabolic encephalopathy from excessive intake of her psychiatric medications. PLAN AND RECOMMENDATIONS: The patient seen, meds reviewed. Continue present management. Continue m orphine p.r.n. as ordered. Continue Neurontin 600 mg 3 times a day. I will not increase it to her p revious dose of 600 mg 6 times a day as the patient is on morphine. However, we continue her oxycodo ne for pain and also we will change the dose of the Seroquel to 100 mg at bedtime. Continue treatmen t plan as outlined. The patient is amenable to go for subacute rehab once medically cleared. Linda salazar, her mental status is still fluctuating at this time. I will recommend the patient to stay in the hospital for a few more days to have her meds readjusted psych avila as well as also once patient is m edically cleared. Marciano Powell MD cc: [phone] TT: 02/22/2017 14:48:17 Confirmation # [id number] Dictation # [id number]
--- NOTE | 2017-02-22 15:59 | VASCLAB ---
PROCEDURE: Lower Extremity Venous Duplex Exam. HISTORY: R/O DVT/clots/s/p ORIF to be done today PRIORS: None. TECHNIQUE: Bilateral common femoral, femoral, popliteal and posterior tibial, peroneal and great saphenous veins were evaluated. Flow was assessed with color Doppler, compressibility, assessment of phasic flow and augmentation response. Report prepared by food technologist. FINDINGS: RIGHT: 1. Common Femoral Vein: 1.1. Compressibility - Fully compressible: Thrombus - None : Flow - Phasic: Augmentation -Normal: Reflux - None. 2. Femoral Vein: 2.1. Compressibility - Fully compressible: Thrombus - None : Flow - Phasic: Augmentation -Normal: Reflux - None. 3. Popliteal Vein: 3.1. Compressibility - Fully compressible: Thrombus - None : Flow - Phasic: Augmentation -Normal: Reflux - None. 4. Posterior Tibial Vein: (distal view only) 4.1. Compressibility - Fully compressible: Thrombus - None: Flow - Phasic: Augmentation -Normal: Reflux - None. 5. Peroneal Vein: 5.1. Compressibility - not visualized 6. Great Saphenous Vein: 6.1. Compressibility - Fully compressible: Thrombus - None: Flow - Phasic: Augmentation - Normal: Reflux - None. LEFT: 1. Common Femoral Vein: 1.1. Compressibility - Fully compressible: Thrombus - None: Flow - Phasic: Augmentation -Normal: Reflux - None. 2. Femoral Vein: 2.1. Compressibility - Fully compressible: Thrombus - None: Flow - Phasic: Augmentation -Normal: Reflux - None. 3. Popliteal Vein: 3.1. Compressibility - Fully compressible: Thrombus - None : Flow - Phasic: Augmentation -Normal: Reflux - None. 4. Posterior Tibial Vein: (distal view only) 4.1. Compressibility - Fully compressible: Thrombus - None: Flow - Phasic: Augmentation -Normal: Reflux - None. 5. Peroneal Vein: 5.1. Compressibility - Fully compressible: Thrombus - None: Flow - Phasic: Augmentation -Normal: Reflux - None. 6. Great Saphenous Vein: 6.1. Compressibility - Fully compressible: Thrombus - None: Flow - Phasic: Augmentation - Normal: Reflux - None. OTHER FINDINGS: Right: Right posterior tibial veins could not be imaged proximally, due to small caliber vessels. Unable to visualize the right peroneal veins. Left: Left posterior tibial veins could not be imaged proximally, due to small caliber vessels. IMPRESSION: Right: No evidence of deep or superficial vein thrombosis of the right lower extremity. Normal valve function noted of the right side. Left: No evidence of deep or superficial vein thrombosis of the left lower extremity. Normal valve function noted of the left side.
[2017-02-22] MEDS: Oxycodone/Acetaminophen 5/325 mg Tab PO PRN ×2 (17:39→21:57)
[2017-02-22] MEDS: Enoxaparin 40 mg Syringe SC SCH (18:01)
--- NOTE | 2017-02-22 21:50 | CON ---
DATE: 02/22/2017 Dressings are changed. Surgical sites are clean. No drainage noted. No calf tenderness. Homans si gn is negative. No palpable cords. The patient is being mobilized in physical therapy. She may amb ulate weightbearing as tolerated, and no palpable cords. Venous labs are negative. I will discuss with regarding orthopedic management, and possible di scharge planning. Jolly García MD cc: [id number] TT: 02/22/2017 21:49:17 Confirmation # [id number] Dictation # [id number]
[2017-02-23] MEDS: Lidocaine 5% Patch TD SCH (09:27)
[2017-02-23] MEDS: Oxycodone/Acetaminophen 5/325 mg Tab PO PRN (12:58)
--- NOTE | 2017-02-23 13:32 | CP.PCM.PN ---
Subjective - Date & Time of Evaluation Date of Evaluation: 02/23/17 Time of Evaluation: 13:31 - Subjective Subjective: CHIEF COMPLAINTS TODAY : POST OP PAIN HG up 9.1 after 1pc ROS. HEENT : N. Resp : No cough, wheezing ,pleuritic CP ,or hemoptysis Cardio : No anginal CP, PND, orthopnea, palpitation GI : No abd.pain, n/v ,diarrhea or GI bleeding . PROJECT SYSTEMS ENGINEER : No headache, vertigo, focal deficit. Musculoskel : No joint swelling , Derm : No rash Psych : Normal affect. Ext : No swelling ,calf pain PE. Pt. is alert awake in no distress. V.S As noted in the chart Head ,ear nose,throat and eyes : Normal. Neck : Supple with normal carotids. Lungs: Clear air entry. Heart : S1 & S2 normal with S4. No murmur. Abd : Soft non tender with normal bowel sounds. Neuro : Moves all ext. with no localized deficit. Ext : No edema with intact pulses.Non tender calves LEFT LEG POST OP Derm : No rashes or decubitus ulcer. LABS/RADIOLOGY: ASSESSMENT/PLAN : [facility] Objective Objective - Vital Signs/Intake and Output Vital Signs (last 24 hours): Temp Pulse Resp BP Pulse Ox 98.6 F 107 H 20 116/69 100 02/23/17 08:49 02/23/17 08:49 02/23/17 08:49 02/23/17 08:49 02/23/17 08:49 Intake and Output: 02/23/17 02/23/17 11:59 23:59 Intake Total 50 Balance 50 - Medications Medications: Current Medications Acetaminophen (Tylenol 325mg Tab) 650 mg PO Q4 PRN PRN Reason: Fever 101 degrees fahrenheit Docusate Sodium (Colace) 100 mg PO BID [facility] Last Admin: 02/23/17 09:30 Dose: 100 mg Enoxaparin Sodium (Lovenox) 40 mg SC Q24H [facility] Last Admin: 02/22/17 18:01 Dose: 40 mg Gabapentin (Neurontin) 600 mg PO Q8 [facility] Last Admin: 02/23/17 05:13 Dose: 600 mg Lidocaine (Lidoderm) 1 ea TD DAILY [facility] Last Admin: 02/23/17 09:27 Dose: 1 ea Lisinopril (Zestril) 20 mg PO DAILY [facility] Last Admin: 02/23/17 09:30 Dose: 20 mg Morphine Sulfate (Morphine) 2 mg IVP Q4 PRN PRN Reason: Pain, moderate (4-7) Last Admin: 02/23/17 09:34 Dose: 2 mg Ondansetron HCl (Zofran Inj) 4 mg IVP Q6H PRN PRN Reason: Nausea/Vomiting Oxycodone/Acetaminophen (Percocet 5/325 Mg Tab) 1 tab PO Q4 PRN PRN Reason: Pain, moderate (4-7) Stop: 02/23/17 18:59 Last Admin: 02/23/17 12:58 Dose: 1 tab Pantoprazole Sodium (Protonix Inj) 40 mg IVP DAILY [facility] Last Admin: 02/23/17 09:26 Dose: 40 mg Quetiapine Fumarate (Seroquel) 100 mg PO [facility] Last Admin: 02/22/17 21:58 Dose: 100 mg Rosuvastatin Calcium (Crestor) 10 mg PO [facility] Last Admin: 02/22/17 21:58 Dose: 10 mg - Labs Labs: 02/22/17 07:21 02/22/17 07:21 PT 10.5 SECONDS (9.7-12.2) 02/20/17 07:17 INR 0.9 02/20/17 07:17 APTT 34 SECONDS (21-34) 02/20/17 07:17
--- NOTE | 2017-02-23 13:51 | PN ---
DATE: 02/23/2017 SUBJECTIVE: The patient is seen. The patient slept well last night and mood avila, she is much evelyne r, coherent. The patient states that she is feeling much better and mood is more stabilized with her current psych meds. The patient also is still willing to go for subacute rehab. She said she will be going to [facility] once medically cleared. Psych avila, the patient is improving and may go to the subacute rehab if she continues to improve in a day or 2. VITAL SIGNS: Temperature is 98.6, pulse rate is 107, blood pressure 116/69, respirations 20, oxygen sat is 100%. CURRENT MEDICATIONS: The patient is currently taking Neurontin 600 mg q. 8 hours as well as taking h er Seroquel 100 mg at bedtime for bipolar. The patient prefers to take Percocet instead of morphine, claiming that the morphine does not work, but she has been cooperative with physical therapy. REVIEW OF SYSTEMS: GENERAL: The patient is alert, oriented x 3, seen in her room. Pleasant, smiling when seen. SKIN: No diaphoresis. HEENT: No headache, no dizziness. NECK: Supple. RESPIRATORY: No dyspnea. CARDIOVASCULAR: No chest pain. GASTROINTESTINAL: No nausea, no vomiting. EXTREMITIES: Complaining of mild to moderate pain on her left lower extremity. The patient is statu s post surgery, but states that the pain is bearable now. She stated she prefers to take Percocet. No behavioral problems. MUSCULOSKELETAL: Still feels weak. NEUROLOGIC: Alert, oriented x 3. MENTAL STATUS EXAMINATION: Elderly female, looks stated age. Alert, oriented x 3. Mood is much catalina augustine. Affect is reactive. Speech spontaneous. Thought process coherent. Thought content: The juan ent is still willing to go for subacute rehab. No psychosis. No suicidal or homicidal ideation. At tention and memory seem to be fair. Insight and judgment fair. Impulse control is fair. IMPRESSION: History of bipolar disorder with psychosis as well as superimposed metabolic encephalopa thy secondary to excessive ingestion of psychiatric medications, status post left hip fracture, statu s post open reduction internal fixation. PLAN AND RECOMMENDATIONS: The patient seen, meds reviewed. Continue present psych meds. The patien t is stable to go for subacute rehab to [facility] once medically cleared. Marciano Powell MD cc: [id number] TT: 02/23/2017 13:50:00 Confirmation # [id number] Dictation # [id number]
[2017-02-23] MEDS ORDERED: Potassium Chloride 20 mEq ER Tab PO ONE (18:00)
[2017-02-23] MEDS: Enoxaparin 40 mg Syringe SC SCH (19:14)
[2017-02-23] MEDS ORDERED: Oxycodone/Acetaminophen 5/325 mg Tab PO STA (19:50)
[2017-02-24 07:51] LABS: CHLORIDE 100 mmol/L (98-107); SODIUM 141 mmol/L (132-148)
[2017-02-24 07:54] LABS: BLOOD UREA NITROGEN 16 mg/dL (7-17); CALCIUM 7.7 mg/dl (8.6-10.4); CARBON DIOXIDE 28 mmol/L (22-30); GFR AFRICAN-AMERICAN > 60; GLUCOSE,RANDOM 119 mg/dL (65-105)
--- NOTE | 2017-02-24 09:21 | CARD ---
APPROVED REPORT EKG Measurement Heart [id number] <Conclusion> Normal sinus rhythm Normal ECG
[2017-02-24] MEDS: Lidocaine 5% Patch TD SCH (09:39)
--- NOTE | 2017-02-24 12:12 | CON ---
DATE: 02/24/2017 Afebrile. No calf tenderness. No palpable clots. Bee's sign is negative. Ambulating in physical therapy, and the venous Dopplers are negative. This morning, the patient, from orthopedic point of view is ready for transfer to rehab center. We will follow Jolly García MD cc: [id number] TT: 02/24/2017 12:11:53 Confirmation # [id number] Dictation # [id number]
--- NOTE | 2017-02-24 14:23 | CP.PCM.PN ---
Subjective - Date & Time of Evaluation Date of Evaluation: 02/24/17 Time of Evaluation: 14:23 - Subjective Subjective: CHIEF COMPLAINTS TODAY : POST OP PAIN HG up 9.1 after 1pc ROS. HEENT : N. Resp : No cough, wheezing ,pleuritic CP ,or hemoptysis Cardio : No anginal CP, PND, orthopnea, palpitation GI : No abd.pain, n/v ,diarrhea or GI bleeding . 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 Musculoskel : No joint swelling , Derm : No rash Psych : Normal affect. Ext : No swelling ,calf pain PE. Pt. is alert awake in no distress. V.S As noted in the chart Head ,ear nose,throat and eyes : Normal. Neck : Supple with normal carotids. Lungs: Clear air entry. Heart : S1 & S2 normal with S4. No murmur. Abd : Soft non tender with normal bowel sounds. Neuro : Moves all ext. with no localized deficit. Ext : No edema with intact pulses.Non tender calves LEFT LEG POST OP Derm : No rashes or decubitus ulcer. LABS/RADIOLOGY: ASSESSMENT/PLAN : [facility] Objective - Vital Signs/Intake and Output Vital Signs (last 24 hours): Temp Pulse Resp BP Pulse Ox 98.6 F 100 H 20 118/66 100 02/24/17 07:00 02/24/17 07:30 02/24/17 07:00 02/24/17 07:00 02/24/17 07:00 - Medications Medications: Current Medications Acetaminophen (Tylenol 325mg Tab) 650 mg PO Q4 PRN PRN Reason: Fever 101 degrees fahrenheit Docusate Sodium (Colace) 100 mg PO BID [facility] Last Admin: 02/24/17 09:37 Dose: 100 mg Enoxaparin Sodium (Lovenox) 40 mg SC Q24H [facility] Last Admin: 02/23/17 19:14 Dose: 40 mg Gabapentin (Neurontin) 600 mg PO Q8 [facility] Last Admin: 02/24/17 13:18 Dose: 600 mg Lidocaine (Lidoderm) 1 ea TD DAILY [facility] Last Admin: 02/24/17 09:39 Dose: 1 ea Lisinopril (Zestril) 20 mg PO DAILY [facility] Last Admin: 02/24/17 09:37 Dose: 20 mg Ondansetron HCl (Zofran Inj) 4 mg IVP Q6H PRN PRN Reason: Nausea/Vomiting Oxycodone/Acetaminophen (Percocet 5/325 Mg Tab) 1 tab PO Q4H PRN PRN Reason: Pain, moderate (4-7) Stop: 02/27/17 11:43 Pantoprazole Sodium (Protonix Inj) 40 mg IVP DAILY [facility] Last Admin: 02/24/17 09:37 Dose: 40 mg Quetiapine Fumarate (Seroquel) 100 mg PO HS [facility] Last Admin: 02/23/17 21:59 Dose: 100 mg Rosuvastatin Calcium (Crestor) 10 mg PO HS [facility] Last Admin: 02/23/17 22:04 Dose: 10 mg - Labs Labs: 02/22/17 07:21 02/24/17 07:36 PT 10.5 SECONDS (9.7-12.2) 02/20/17 07:17 INR 0.9 02/20/17 07:17 APTT 34 SECONDS (21-34) 02/20/17 07:17
[2017-02-24] MEDS: Oxycodone/Acetaminophen 5/325 mg Tab PO PRN ×2 (14:33→20:42)
--- NOTE | 2017-02-24 15:11 | PN ---
DATE: 02/24/2017 SUBJECTIVE: The patient is seen. The patient states that she did not have a good night. She was co mplaining of pain. According to the patient, she was given morphine and she was asking for Percocet, because the patient states that morphine gives her side effects. She states she became confused las t night and was looking for her mother because she did not know where she was. The patient is back t o baseline. She said she only wants to take Percocet for pain in conjunction with her psych meds whi ch is Seroquel 100 mg at bedtime, and Neurontin 600 mg 3 times a day. The patient is awaiting medica l clearance to go to [facility] for subacute rehab, still complaining of left hip pain. PHYSICAL EXAMINATION: VITAL SIGNS: Temperature is 98.6, pulse is 100, blood pressure 118/66, respirations 20, oxygen sat i s 100%. REVIEW OF SYSTEMS: GENERAL: Alert, oriented x 3, seen in her room eating, still complaining of left hip pain. SKIN: No diaphoresis. HEENT: No headache, no dizziness. NECK: Supple. RESPIRATORY: No dyspnea. CARDIOVASCULAR: No chest pain. GASTROINTESTINAL: The patient is eating better. No nausea, no vomiting. EXTREMITIES: Complaining of left hip pain. MUSCULOSKELETAL: Feels weak. NEUROLOGIC: Alert, oriented x 3. GENITOURINARY: No urinary problems. MENTAL STATUS EXAMINATION: Elderly female who looks stated age, oriented x 3. Speech spontaneous. Mood is calmer. Affect is reactive. Speech spontaneous. Thought process coherent. Thought content : The patient states she did not have a good night because she was in pain. No paranoia. No suicid al or homicidal ideation. Attention and memory seems to be fair. Insight and judgment fair. Impuls e control is fair. IMPRESSION: History of bipolar disorder, mixed with psychosis as well as history of metabolic enceph alopathy due to excessive intake of her psych meds, left hip fracture, status post fall, status post open reduction internal fixation. PLAN AND RECOMMENDATIONS: The patient seen, meds reviewed. Continue present psych meds. We will sug gest not to give morphine p.r.n. for this patient as the morphine seems to make her more confused. T he patient may continue the Percocet p.r.n. which she has been taking in the past. Percocet seems to do well with her other psych medications. Psych avila, the patient can be transferred to [facility] for subacute rehab once cleared. Marciano Powell MD cc: [phone] TT: 02/24/2017 14:40:00 Confirmation # [id number] Dictation # [id number]
[2017-02-24] MEDS: Enoxaparin 40 mg Syringe SC SCH (19:04)
[2017-02-25] MEDS: Oxycodone/Acetaminophen 5/325 mg Tab PO PRN ×3 (03:03→17:52)
[2017-02-25 08:33] VITALS: RESP 18
[2017-02-25] MEDS: Lidocaine 5% Patch TD SCH (09:19)
[2017-02-25 11:34] LABS: BASO # 0.1 K/uL (0.0-0.2); BASO % 0.7 % (0.0-2.0); EOS # 0.2 K/uL (0.0-0.7); EOS % 1.5 % (0.0-4.0); LYMPH # 0.9 K/uL (1.0-4.3); MEAN CELL VOLUME 86.7 fL (81.0-99.0); MEAN CORPUSCULAR HEMOGLOBIN 27.9 pg (27.0-31.0); MEAN CORPUSCULAR HGB CONC 32.2 g/dL (33.0-37.0); MONO # 0.7 K/uL (0.0-0.8); MONO % 6.2 % (0.0-10.0); NRBC % 0.1 % (0.0-2.0); RED CELL DISTRIBUTION WIDTH 15.6 % (11.5-14.5); WHITE BLOOD COUNT 11.6 K/uL (4.8-10.8)
[2017-02-25 11:36] LABS: PLATELET COUNT 277 K/uL (130-400)
[2017-02-25 11:46] LABS: CHLORIDE 93 mmol/L (98-107)
[2017-02-25 11:47] LABS: SODIUM 137 mmol/L (132-148)
[2017-02-25 11:49] LABS: GFR AFRICAN-AMERICAN > 60
[2017-02-25 11:50] LABS: ALKALINE PHOSPHATASE 123 U/L (38-126); AST/SGOT 72 U/L (14-36); BILIRUBIN,TOTAL 0.8 mg/dL (0.2-1.3); BLOOD UREA NITROGEN 20 mg/dL (7-17); CARBON DIOXIDE 29 mmol/L (22-30); TOTAL PROTEIN 6.9 g/dL (6.3-8.3)
[2017-02-25 11:51] LABS: ALT/SGPT 63 U/L (9-52); CALCIUM 8.6 mg/dl (8.6-10.4); GLUCOSE,RANDOM 128 mg/dL (65-105)
[2017-02-25 11:56] LABS: EOSINOPHIL 2 % (0-4); NEUTROPHIL 84 % (50-75); TOTAL CELLS COUNTED 100
--- NOTE | 2017-02-25 12:55 | PN ---
DATE: 02/25/2017 SUBJECTIVE: The patient is seen. The patient is seen with her , Cyril. The patient will b e going hopefully today to [facility] for subacute. The patient is still complaining of left hip pain, but seems to be doing better with present meds. The patient is on Percocet and also Neurontin and taking also Seroquel for her bipolar and claims she is sleeping much better. VITAL SIGNS: Temperature is 98.5, pulse rate is 98, blood pressure 116/72, respirations 18, oxygen s aturation 95%. The patient is seen today sitting in a chair and wants to go back to bed. REVIEW OF SYSTEMS: GENERAL: The patient is alert, oriented x 3, seen in her room, still a little irritable. SKIN: No diaphoresis. HEENT: No headache, no dizziness. NECK: Supple. RESPIRATORY: No dyspnea. CARDIOVASCULAR: No chest pain. GASTROINTESTINAL: No nausea, no vomiting, no constipation. EXTREMITIES: Complaining of left hip pain. The patient is status post surgery. MUSCULOSKELETAL: Still feels weak. NEUROLOGIC: Alert, oriented x 3. GENITOURINARY: Not complaining of urinary problems. MENTAL STATUS EXAMINATION: Elderly female, looks stated age, alert, oriented x 3. Mood is calmer. Affect is reactive. Speech spontaneous. Thought process coherent. Thought content: The patient st ill wants to go to [facility] for subacute rehab. No paranoia. No suicidal or homicid al ideation. Attention and memory seem to be fair. Insight and judgment fair. Impulse control is f air. IMPRESSION: History of bipolar disorder with psychosis, stable, as well status post left hip fractur e, status post open reduction internal fixation, history of fall. PLAN AND RECOMMENDATIONS: The patient seen, meds reviewed. Continue present management. The patien t is stable to go for subacute rehab. I do suggest again to keep patient off morphine p.r.n., but ma y have Percocet p.r.n. for pain. The patient also can stay on Neurontin 800 mg t.i.d. The patient, as stated, used to take higher doses of Neurontin. With her condition and history of falls, patient may continue to have Neurontin 800 mg t.i.d. as well as Seroquel 100 mg at bedtime. I will follow he r in the correction as needed. Marciano Powell MD cc: [id number] TT: 02/25/2017 12:54:25 Confirmation # [id number] Dictation # [id number]
--- NOTE | 2017-02-25 13:39 | CP.PCM.PN ---
Subjective - Date & Time of Evaluation Date of Evaluation: 02/25/17 Time of Evaluation: 13:39 - Subjective Subjective: CHIEF COMPLAINTS TODAY : POST OP PAIN HG up 9.0 after 1pc ROS. HEENT : N. Resp : No cough, wheezing ,pleuritic CP ,or hemoptysis Cardio : No anginal CP, PND, orthopnea, palpitation GI : No abd.pain, n/v ,diarrhea or GI bleeding . 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 Musculoskel : No joint swelling , Derm : No rash Psych : Normal affect. Ext : No swelling ,calf pain PE. Pt. is alert awake in no distress. V.S As noted in the chart Head ,ear nose,throat and eyes : Normal. Neck : Supple with normal carotids. Lungs: Clear air entry. Heart : S1 & S2 normal with S4. No murmur. Abd : Soft non tender with normal bowel sounds. Neuro : Moves all ext. with no localized deficit. Ext : No edema with intact pulses.Non tender calves LEFT LEG POST OP Derm : No rashes or decubitus ulcer. LABS/RADIOLOGY: ASSESSMENT/PLAN : [facility] Objective - Vital Signs/Intake and Output Vital Signs (last 24 hours): Temp Pulse Resp BP Pulse Ox 98.5 F 98 H 18 116/72 95 02/25/17 07:25 02/25/17 07:30 02/25/17 07:25 02/25/17 07:25 02/25/17 07:25 - Medications Medications: Current Medications Acetaminophen (Tylenol 325mg Tab) 650 mg PO Q4 PRN PRN Reason: Fever 101 degrees fahrenheit Docusate Sodium (Colace) 100 mg PO BID [facility] Last Admin: 02/25/17 09:18 Dose: 100 mg Enoxaparin Sodium (Lovenox) 40 mg SC Q24H [facility] Last Admin: 02/24/17 19:04 Dose: 40 mg Gabapentin (Neurontin) 600 mg PO Q8 [facility] Last Admin: 02/25/17 13:33 Dose: 600 mg Lidocaine (Lidoderm) 1 ea TD DAILY [facility] Last Admin: 02/25/17 09:19 Dose: 1 ea Lisinopril (Zestril) 20 mg PO DAILY [facility] Last Admin: 02/25/17 09:18 Dose: 20 mg Ondansetron HCl (Zofran Inj) 4 mg IVP Q6H PRN PRN Reason: Nausea/Vomiting Oxycodone/Acetaminophen (Percocet 5/325 Mg Tab) 1 tab PO Q4H PRN PRN Reason: Pain, moderate (4-7) Stop: 02/27/17 11:43 Last Admin: 02/25/17 08:22 Dose: 1 tab Pantoprazole Sodium (Protonix Inj) 40 mg IVP DAILY [facility] Last Admin: 02/25/17 09:18 Dose: 40 mg Quetiapine Fumarate (Seroquel) 100 mg PO HS [facility] Last Admin: 02/24/17 21:44 Dose: 100 mg Rosuvastatin Calcium (Crestor) 10 mg PO HS [facility] Last Admin: 02/24/17 21:33 Dose: 10 mg - Labs Labs: 02/25/17 11:20 02/25/17 11:20 PT 10.5 SECONDS (9.7-12.2) 02/20/17 07:17 INR 0.9 02/20/17 07:17 APTT 34 SECONDS (21-34) 02/20/17 07:17
[2017-02-25 16:15] VITALS: BP 131/63; PULSE 96; TEMP 98.4; O2SAT 100
[2017-02-25] MEDS: Enoxaparin 40 mg Syringe SC SCH (19:29)
--- NOTE | 2017-02-26 07:58 | CP.PCM.PN ---
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 Pereyra pt stable for discharge to rehab D/W with Dr. Muñoz, stable for discharge to rehab from ortho standpoint , continue levenox 40 q x 4 weeks , repeat x-ray left hip 1 week from today and fax result to Dr. Muñoz office , ruth can be removed 1 week from now at rehab and f/u with Dr. Muñoz office after discharge from rehab All informations sent to Rehab facility to f/u Objective - Vital Signs/Intake and Output Vital Signs (last 24 hours): Temp Pulse Resp BP Pulse Ox 98.4 F 96 H 18 131/63 100 02/25/17 16:12 02/25/17 16:12 02/25/17 16:12 02/25/17 16:12 02/25/17 16:12 - Labs Labs: 02/25/17 11:20 02/25/17 11:20 PT 10.5 SECONDS (9.7-12.2) 02/20/17 07:17 INR 0.9 02/20/17 07:17 APTT 34 SECONDS (21-34) 02/20/17 07:17
--- NOTE | 2017-02-26 13:47 | CP.PCM.DIS ---
Provider - Provider Date of Admission: 02/20/17 08:08 Attending physician: Yanni Pereyra MD Time Spent in preparation of Discharge (in minutes): 35 Hospital Course - Lab Results Lab Results: Most Recent Lab Values WBC 11.6 K/uL (4.8-10.8) H 02/25/17 11:20 RBC 3.23 Mil/uL (3.80-5.20) L 02/25/17 11:20 Hgb 9.0 g/dL (11.0-16.0) L 02/25/17 11:20 Hct 28.0 % (34.0-47.0) L 02/25/17 11:20 MCV 86.7 fL (81.0-99.0) 02/25/17 11:20 MCH 27.9 pg (27.0-31.0) 02/25/17 11:20 MCHC 32.2 g/dL (33.0-37.0) L 02/25/17 11:20 RDW 15.6 % (11.5-14.5) H 02/25/17 11:20 Plt Count 277 K/uL (130-400) D 02/25/17 11:20 MPV 9.0 fL (7.2-11.7) 02/25/17 11:20 Neut % (Auto) 83.6 % (50.0-75.0) H 02/25/17 11:20 Lymph % (Auto) 8.0 % (20.0-40.0) L 02/25/17 11:20 Wood % (Auto) 6.2 % (0.0-10.0) 02/25/17 11:20 Eos % (Auto) 1.5 % (0.0-4.0) 02/25/17 11:20 Baso % (Auto) 0.7 % (0.0-2.0) 02/25/17 11:20 Neut # 9.7 K/uL (1.8-7.0) H 02/25/17 11:20 Lymph # 0.9 K/uL (1.0-4.3) L 02/25/17 11:20 Wood # 0.7 K/uL (0.0-0.8) 02/25/17 11:20 Eos # 0.2 K/uL (0.0-0.7) 02/25/17 11:20 Baso # 0.1 K/uL (0.0-0.2) 02/25/17 11:20 Neutrophils % (Manual) 84 % (50-75) H 02/25/17 11:20 Band Neutrophils % 1 % (0-2) 02/25/17 11:20 Lymphocytes % (Manual) 4 % (20-40) L 02/25/17 11:20 Monocytes % (Manual) 9 % (0-10) 02/25/17 11:20 Eosinophils % (Manual) 2 % (0-4) 02/25/17 11:20 Platelet Estimate Normal (NORMAL) 02/25/17 11:20 Large Platelets Present 02/22/17 07:21 Hypochromasia (manual) Slight 02/22/17 07:21 Poikilocytosis (manual Slight 02/22/17 07:21 Anisocytosis (manual) Slight 02/25/17 11:20 Ovalocytes Slight 02/25/17 11:20 Maggie Cells Slight 02/22/17 07:21 PT 10.5 SECONDS (9.7-12.2) 02/20/17 07:17 INR 0.9 02/20/17 07:17 APTT 34 SECONDS (21-34) 02/20/17 07:17 Sodium 137 mmol/L (132-148) 02/25/17 11:20 Potassium 4.0 mmol/L (3.6-5.2) 02/25/17 11:20 Chloride 93 mmol/L (98-107) L 02/25/17 11:20 Carbon Dioxide 29 mmol/L (22-30) 02/25/17 11:20 Anion Gap 19 (10-20) 02/25/17 11:20 BUN 20 mg/dL (7-17) H 02/25/17 11:20 Creatinine 0.7 MG/DL (0.7-1.2) 02/25/17 11:20 Est GFR ( Amer) > 60 02/25/17 11:20 Est GFR (Non-Af Amer) > 60 02/25/17 11:20 Random Glucose 128 mg/dL (65-105) H 02/25/17 11:20 Calcium 8.6 mg/dl (8.6-10.4) 02/25/17 11:20 Total Bilirubin 0.8 mg/dL (0.2-1.3) 02/25/17 11:20 AST 72 U/L (14-36) H D 02/25/17 11:20 ALT 63 U/L (9-52) H D 02/25/17 11:20 Alkaline Phosphatase 123 U/L (38-126) 02/25/17 11:20 Total Protein 6.9 g/dL (6.3-8.3) 02/25/17 11:20 Albumin 3.5 g/dL (3.5-5.0) 02/25/17 11:20 Globulin 3.4 gm/dL (2.2-3.9) 02/25/17 11:20 Albumin/Globulin Ratio 1.0 (1.0-2.1) 02/25/17 11:20 Urine Color Colorless (YELLOW) 02/20/17 08:38 Urine Clarity Clear (Clear) 02/20/17 08:38 Urine pH 7.0 (5.0-8.0) 02/20/17 08:38 Ur Specific [place] 1.008 (1.003-1.030) 02/20/17 08:38 Urine Protein Negative mg/dL (NEGATIVE) 02/20/17 08:38 Urine Glucose (UA) Normal mg/dL (Normal) 02/20/17 08:38 Urine Ketones Negative mg/dL (NEGATIVE) 02/20/17 08:38 Urine Blood Negative (NEGATIVE) 02/20/17 08:38 Urine Nitrate Negative (NEGATIVE) 02/20/17 08:38 Urine Bilirubin Negative (NEGATIVE) 02/20/17 08:38 Urine Urobilinogen Normal mg/dL (0.2-1.0) 02/20/17 08:38 Ur Leukocyte Esterase Neg [place]/uL (Negative) 02/20/17 08:38 Urine WBC (Auto) < 1 /hpf (0-5) 02/20/17 08:38 Blood Type O POSITIVE 02/20/17 08:19 Antibody Screen Negative 02/20/17 08:19 - Hospital Course Hospital Course: PT. FELL TODAY SUSTAINED INTERTRONCHERTRIC LEFT HIP FRACTURE. PER PT WAS OVERDOSING HER PSYCH. MEDS AND FELL 2 TIMES THIS AM PT UNDERWENT L ORIF AND REQUIRED 2 NITIS IF PC POST OP. PT RECOVERING ANDTRANS. TO DEBO Discharge Exam - Head Exam Head Exam: ATRAUMATIC, NORMAL INSPECTION Discharge Plan - Discharge Medications Prescriptions: Pantoprazole [Protonix EC Tab] 20 mg PO DAILY #30 ect - Follow Up Plan Condition: GOOD Disposition: HOME/ ROUTINE Instructions: Heart Healthy Diet (DC), Pain Management After Surgery (DC), Hip Fracture (GEN), ORIF of Hip Fracture (DC) Additional Instructions: Please admit patietn under Dr. Pereyra service Continue medication as pe r Med. REc Please f/u with office AFTER DISCHARGE FROM REHAB PLEASE REPEAT LEFT HIP AND PELVIS X -RAY 1 WEEK AFTER TODAY AND FAX RESULT TO DR. CASTANO OFFICE CAN REMOVE JITENDRA WHEN IS READY - 3 WEEKS FROM NOW . Referrals: Yanni Pereyra MD [Family Provider] - Jolly García MD [Staff Provider] -
== END 2017-02-25 21:00 | DRG 480 ==
LOC: C.ER 06:12 → C.9E 08:08 → C.6T 09:35
PROVIDERS: ADMIT Internal Medicine Cardiovascular Disease; ATTEND Internal Medicine Cardiovascular Disease
PROC: 0QS704Z Reposition Left Upper Femur with Internal Fixation Device, Open Approach (ICD-10-PCS; principal; 2017-02-20 15:30)
PROC: 30233N1 Transfusion of Nonautologous Red Blood Cells into Peripheral Vein, Percutaneous Approach (ICD-10-PCS; 2017-02-21)
DX: S72.142A Displaced intertrochanteric fracture of left femur, initial encounter for closed fracture (principal); G92 Toxic encephalopathy; T43.95XA Adverse effect of unspecified psychotropic drug, initial encounter; M25.562 Pain in left knee; F31.60 Bipolar disorder, current episode mixed, unspecified; G89.18 Other acute postprocedural pain; D64.9 Anemia, unspecified; M85.852 Other specified disorders of bone density and structure, left thigh; M81.0 Age-related osteoporosis without current pathological fracture; G62.9 Polyneuropathy, unspecified; I10 Essential (primary) hypertension; E78.00 Pure hypercholesterolemia, unspecified; M19.90 Unspecified osteoarthritis, unspecified site; G43.909 Migraine, unspecified, not intractable, without status migrainosus; W01.0XXA Fall on same level from slipping, tripping and stumbling without subsequent striking against object, initial encounter; Y92.009 Unspecified place in unspecified non-institutional (private) residence as the place of occurrence of the external cause; Z91.81 History of falling

== ENCOUNTER 2017-06-28 09:58 | Inpatient (IN) | payer MEDICARE, BC ==
[2017-06-28 09:59] VITALS: BMI 25.0
[2017-06-28] MEDS ORDERED: Sodium Chloride 0.9% 1,000 ML IV STA (10:36)
[2017-06-28 10:58] LABS: BASO # 0.1 K/uL (0.0-0.2); BASO % 0.5 % (0.0-2.0); EOS % 0.3 % (0.0-4.0); HEMATOCRIT 44.6 % (34.0-47.0); LYMPH # 1.5 K/uL (1.0-4.3); LYMPH % 10.5 % (20.0-40.0); MEAN CELL VOLUME 87.1 fL (81.0-99.0); MEAN CORPUSCULAR HGB CONC 32.1 g/dL (33.0-37.0); MONO # 0.9 K/uL (0.0-0.8); MONO % 6.2 % (0.0-10.0); NRBC % 0.1 % (0.0-2.0); RED CELL DISTRIBUTION WIDTH 14.7 % (11.5-14.5); WHITE BLOOD COUNT 14.5 K/uL (4.8-10.8)
[2017-06-28 11:10] LABS: ALB/GLOB RATIO 1.1 (1.0-2.1); ALKALINE PHOSPHATASE 124 U/L (38-126); ALT/SGPT 20 U/L (9-52); AST/SGOT 18 U/L (14-36); BILIRUBIN,TOTAL 0.9 mg/dL (0.2-1.3); BLOOD UREA NITROGEN 44 mg/dL (7-17); CALCIUM 9.5 mg/dl (8.6-10.4); CARBON DIOXIDE 18 mmol/L (22-30); CHLORIDE 105 mmol/L (98-107); GFR AFRICAN-AMERICAN 45; GLUCOSE,RANDOM 175 mg/dL (65-105); POTASSIUM 3.6 mmol/L (3.6-5.2); SODIUM 147 mmol/L (132-148); TOTAL PROTEIN 7.7 g/dL (6.3-8.3)
[2017-06-28] MEDS ORDERED: Sodium Chloride 0.9% 1,000 ML ONE (11:19)
--- NOTE | 2017-06-28 11:26 | CT ---
PROCEDURE: CT HEAD WITHOUT CONTRAST. HISTORY: ? syncope, fall, left amish eccymosis COMPARISON: Head CT without contrast 08/01/2015 TECHNIQUE: Axial computed tomography images were obtained through the head/brain without intravenous contrast. Radiation dose: Total exam DLP = 930 mGy-cm. This CT exam was performed using one or more of the following dose reduction techniques: Automated exposure control, adjustment of the mA and/or kV according to patient size, and/or use of iterative reconstruction technique. FINDINGS: HEMORRHAGE: There is no apparent acute intracranial hemorrhage identified although Trace bilateral subacute to chronic subdural hematomas are identified without significant mass effect. Both measure approximately limited chronic microangiopathy is reiterated as well as prior right parietal shunt catheter terminating at the medial left basal ganglia crossing the 3rd ventricle. No interval change in the ventricular volume is appreciated throughout. There is no hydrocephalus identified. Posterior fossa contents appear unremarkable the brainstem initially these appearance sinuses orbits and skullbase appear unremarkable. 4 mm greatest thickness. BRAIN: No mass effect or edema. As discussed above. VENTRICLES: As above. CALVARIUM: As above. PARANASAL SINUSES: Unremarkable as visualized. No significant inflammatory changes. MASTOID AIR CELLS: Unremarkable as visualized. No inflammatory changes. OTHER FINDINGS: None. IMPRESSION: 1. Stable unenhanced head CT without definite acute intracranial findings. Interval but subacute to chronic smooth minimal bilateral subdural hematomas are some appreciated without significant mass effect exerted on the bilateral frontal lobes. No acute intracranial hemorrhage. 2. No hydrocephalus appreciated. Ventricular shunt unchanged in appearance including termination. 3. Mild diffuse chronic microangiopathy again evident. No cortical edema appreciated at this time.
[2017-06-28 11:37] LABS: INR 1.1
--- NOTE | 2017-06-28 12:14 | C.PDOC ---
History Of Present Illness 67 year old female presents to the emergency department accompanied with her son for evaluation of possible syncopal episode two days ago. As per patient, she has a history of Bipolar Disorder and is taking many medications that can cause dizziness and lightheadedness. Patient lives alone and two days ago syncopized at home with no one to witness it. Patient's son states yesterday he took the patient home and saw ecchymosis on left temporal area. Patient notes right hip and lower back pain but denies headache, nausea, or vomiting. Time Seen by Provider: 06/28/17 10:22 Chief Complaint (Nursing): Hip Pain History Per: Patient, Family (son) History/Exam Limitations: no limitations Onset/Duration Of Symptoms: Days (2 days ago ) Current Symptoms Are (Timing): Still Present Recent travel outside of the [place]: No Additional History Per: Prior Records - Hip Description Of Injury: Other (syncopized) Past Medical History Reviewed: Historical Data, Nursing Documentation, Vital Signs Vital Signs: Last Vital Signs Temp 97.4 F L 06/28/17 10:07 Pulse 95 H 06/28/17 15:46 Resp 20 06/28/17 15:46 BP 151/70 H 06/28/17 15:46 Pulse Ox 99 06/28/17 15:46 - Medical History PMH: Anemia, Anxiety, Arthritis, Back Problems, Bipolar Disorder, Dementia, Depression, HTN, Hypercholesterolemia, Migraine Surgical History: Back Surgery, Tonsillectomy - [facility] Procedures REPOSITION LEFT UPPER FEMUR WITH INT FIX, OPEN APPROACH (02/20/17) TRANSFUSE NONAUT RED BLOOD CELLS IN PERIPH VEIN, PERC (02/20/17) VENTRICL SHUNT-ABDOMEN (02/10/14) Family History: States: Unknown Family Hx - Social History Hx Tobacco Use: No Hx Alcohol Use: No Hx Substance Use: No - Immunization History Hx Tetanus Toxoid Vaccination: No Hx Influenza Vaccination: Yes Hx Pneumococcal Vaccination: Yes ( is not sure) Review Of Systems Constitutional: Negative for: Fever, Chills Cardiovascular: Negative for: Chest Pain, Palpitations Respiratory: Negative for: Cough, Shortness of Breath Gastrointestinal: Negative for: Nausea, Vomiting, Abdominal Pain, Diarrhea Musculoskeletal: Positive for: Leg Pain (right hip pain ) Skin: Positive for: Bruising (left temportal area) Neurological: Positive for: Other (Unwitnessed syncope at home ). Negative for : Weakness, Numbness, Headache Psych: Positive for: Other (Bipolar disorder history) Physical Exam - Physical Exam Appears: Non-toxic, No Acute Distress, Other (Fruity smell from mouth ) Skin: Warm, Dry, Pale, Ecchymosis (to the left temporal area) Head: Atraumatic Eye(s): bilateral: Normal Inspection, PERRL, EOMI Oral Mucosa: Moist Neck: Supple Chest: Symmetrical Cardiovascular: Other (Sinus Tachycardia 113 bpm) Respiratory: Normal Breath Sounds, No Rhonchi, No Wheezing Gastrointestinal/Abdominal: Soft, No Tenderness, No Distention, No Guarding, No Rebound Back: Paraspinal Tenderness (right paralumbar tenderness ) Extremity: Tenderness (tenderness to the right buttock ), No Calf Tenderness, Capillary Refill (good capillary refill, less than two seconds ), No Swelling, Other (Left hip scar from previous surgery ) Neurological/Psych: Oriented x3, Normal Speech, Normal Cognition, Normal Cranial Nerves, Normal Motor, Normal Sensation, Normal Reflexes ED Course And Treatment - Laboratory Results Result Diagrams: 06/28/17 10:54 06/28/17 10:54 ECG Rhythm: Sinus Tachycardia (113 bpm, frequent PVC. ) ECG Interpretation: Abnormal Interpretation Of ECG: EKG is different from EKG on 02/24/2017 that was normal sinus rhythm. O2 Sat by Pulse Oximetry: 100 (room air ) - Radiology CXR: Interpreted by Me, Viewed By Me CXR Interpretation: Yes: No Acute Disease Nexus Criteria: Negative - Other Rad Right Hip X-Ray X-Ray: Interpreted by Me, Viewed By Me Interpretation: No fractures or dislocations. - CT Scan/US Head CT Other Rad Studies (CT/US): Read By Radiologist, Radiology Report Reviewed CT/US Interpretation: Accession No. : [id number]. Patient Name / ID : SIDNEY Dykes / [id number]. Exam Date : 06/28/2017 11:04:03 ( Approved ). Study Comment : Sex / Age : F / 67Y. Creator : Valdemar Rao MD. Dictator : Valdemar Rao MD. Headmaster/Mistress : Corporate Quality Manager : Valdemar Rao MD. Approver2 : Report Date : 06/28/2017 11:24:56. My Comment : . PROCEDURE: CT HEAD WITHOUT CONTRAST. HISTORY: ? syncope, fall, left samaritan eccymosis. COMPARISON: Head CT without contrast 08/01/2015. TECHNIQUE : Axial computed tomography images were obtained through the head/brain without intravenous contrast. Radiation dose: Total exam DLP = 930 mGy-cm. This CT exam was performed using one or more of the following dose reduction techniques: Automated exposure control, adjustment of the mA and/or kV according to patient size, and/or use of iterative reconstruction technique. FINDINGS: HEMORRHAGE: There is no apparent acute intracranial hemorrhage identified although Trace bilateral subacute to chronic subdural hematomas are identified without significant mass effect. Both measure approximately limited chronic microangiopathy is reiterated as well as prior right parietal shunt catheter terminating at the medial left basal ganglia crossing the 3rd ventricle. No interval change in the ventricular volume is appreciated throughout. There is no hydrocephalus identified. Posterior fossa contents appear unremarkable the brainstem initially these appearance sinuses orbits and skullbase appear unremarkable. 4 mm greatest thickness. BRAIN: No mass effect or edema. As discussed above. VENTRICLES: As above. CALVARIUM: As above. PARANASAL SINUSES: Unremarkable as visualized. No significant inflammatory changes. MASTOID AIR CELLS: Unremarkable as visualized. No inflammatory changes. OTHER FINDINGS: None. IMPRESSION: 1. Stable unenhanced head CT without definite acute intracranial findings. Interval but subacute to chronic smooth minimal bilateral subdural hematomas are some appreciated without significant mass effect exerted on the bilateral frontal lobes. No acute intracranial hemorrhage. 2. No hydrocephalus appreciated. Ventricular shunt unchanged in appearance including termination. 3. Mild diffuse chronic microangiopathy again evident. No cortical edema appreciated at this time. Progress Note: Full work up, CXR, EKG, UA, and Hip X-ray was ordered. Troponin test was positive. Case was d/w pt's PMD who accepted patient to telemetry. - Physician Consult Information Time Consulting Physician Contacted: 12:20 Physician Contacted: Yanni Pereyra Outcome Of Conversation: Dr. Pereyra is patient's PMD and assembler equipment and recommends to admits to Telemetry. Disposition - Disposition Disposition: HOSPITALIZED Disposition Time: 12:14 Condition: SERIOUS - Clinical Impression Clinical Impression: NSTEMI (non-ST elevated myocardial infarction), Subacute subdural hematoma, Renal insufficiency - Scribe Statement The provider has reviewed the documentation as recorded by the Scribe Terri Caputo All medical record entries made by the Scribe were at my direction and personally dictated by me. I have reviewed the chart and agree that the record accurately reflects my personal performance of the history, physical exam, medical decision making, and the department course for this patient. I have also personally directed, reviewed, and agree with the discharge instructions and disposition. Decision To Admit - Pt Status Changed To: Hospital Disposition Of: Inpatient - Admit Certification Admit to Inpatient:: After my assessment, the patient will require hospitalization for at least two midnights. This is because of the severity of symptoms shown, intensity of services needed, and/or the medical risk in this patient being treated as an outpatient. - InPatient: Physician Admission Certification: I certify that this patient requires 2 or more midnights of care for the following reason:: Patient with acute PR will need full admission. - . Bed Request Type: Telemetry Admitting Physician: Yanni Pereyra Patient Diagnosis: NSTEMI (non-ST elevated myocardial infarction), Subacute subdural hematoma, Renal insufficiency
--- NOTE | 2017-06-28 12:17 | RAD ---
PROCEDURE: Radiographs of the Lumbar Spine. HISTORY: fall COMPARISON: No prior. FINDINGS: BONES: Normal alignment. No listhesis. No fracture. DISC SPACES: Unremarkable. OTHER FINDINGS: DEMAND MANAGER shunt catheter IMPRESSION: Unremarkable radiographs of the lumbar spine.
--- NOTE | 2017-06-28 12:24 | RAD ---
PROCEDURE: Right Hip Radiographs. HISTORY: fall COMPARISON: None. FINDINGS: BONES: Normal. No fracture. Orthopedic hardware status post ORIF left intertrochanteric hip fracture. JOINTS: No evidence of arthritis. SOFT TISSUES: Normal. OTHER FINDINGS: None. IMPRESSION: No acute fracture.
--- NOTE | 2017-06-28 12:25 | RAD ---
PROCEDURE: CHEST RADIOGRAPH, 1 VIEW HISTORY: SOB COMPARISON: 02/20/2017 FINDINGS: LUNGS: Clear. PLEURA: No pneumothorax or pleural fluid seen. CARDIOVASCULAR: Normal. OSSEOUS STRUCTURES: No significant abnormalities. VISUALIZED UPPER ABDOMEN: Normal. OTHER FINDINGS: Ventriculoperitoneal shunt seen in soft tissues right-sided neck traveling right parasagittal likely over anterior chest wall. IMPRESSION: No active disease.
--- NOTE | 2017-06-28 13:49 | CP.PCM.HP ---
History of Present Illness - History of Present Illness History of Present Illness: COMPREHENSIVE HISTORY & PHYSICAL EXAM HPI 67 year old female presents to the emergency department accompanied with her son for evaluation of possible syncopal episode two days ago. As per patient, she has a history of Bipolar Disorder and is taking many medications that can cause dizziness and lightheadedness. CT HEAD SHOWED SUACUTE SUBDURAL AND TAILOR HELPER SHUNT TNI MILDLY POS THERE IS POSSIBILITY PT. IS OVERDOSING MEDS SHE HAS DONE IN PAST PAST HIST. TAILOR HELPER SHUNT IN 2014 FOR HYDROCEPHALUS /HTN/BIPOLAR /DEPRESSION /RECENT HIP FRACTURE PERSONAL HIST: Smoking. N Alcohol. N Allergy N Travel_- . FAMILY HIST : ROS : Constitutional: Negative for weight change, chills, night sweats Eyes: Negative for redness, swelling, itching, discharge, vision changes, blurry vision, double vision, glaucoma, cataracts, Ears: Negative for hearing loss, ringing, , tinnitus, vertigo Nose: Negative for rhinorrhea, stuffiness, sniffing, itching, postnasal drip, discoloration, nasal congestion and epistaxis. Throat: Negative for throat clearing, sore throat, hoarseness, difficulty swallowing and difficulty speaking. Respiratory: Negative for cough, , sputum production, chest tightness, wheezing, pleuritic chest pain ,daytime somnolence, chronic cough, hemoptysis, snoring at night, Cardiovascular: Negative for chest pain, palpitations, orthopnea, PND, Edema of legs, leg cramps, angina, claudication, , irregular heartbeat, Neurology: Negative for irritability, muscle weakness, numbness and tingling, seizures, tremors, migraines, slurred speech, syncope, memory loss, mood changes , recurrent headaches Gastrointestinal: Negative for difficulty swallowing, diarrhea, constipation, black stools, rectal bleeding, nausea, flatulence, reflux, poor appetite, changes in bowel habits, abdominal pain Genitourinary: Negative for frequent urination, hematuria, discharge, incontinence, urinary retention, frequent UTI, Psychiatric: Negative for depression, anxiety/panic, suicidal tendencies, Musculoskeletal: Negative for swollen joints, back pain, , neck pain, morning stiffness of joints, . Skin: Negative for rash, ulcers, itching, dry skin and pigmented lesions. P/E: Constitutional: Appears stated age and in no apparent distress. Head: Normocephalic. Ears: External ear canals patent without inflammation. Tympanic membranes intact with normal light reflex and landmark. Eyes: Pupils are central, bilaterally equal, symmetrical and reacts to light with normal movements and no icterus or pallor. Nose: External nares are patent. Mucosa is pink Mouth-Throat: Good general appearance and condition. No post-pharyngeal/oropharyngeal erythema and tonsillar hypertrophy. Good dental hygiene. Neck-Lymphatic: Neck is supple with normal ROM, no thyromegaly, lymph nodes or masses. JVD is normal with no carotid bruit. Lungs: Clear to percussion and auscultation with bilateral normal air entry. Cardiovascular: S1 and S2 are normal with no murmurs, gallops and rub. GI Exam: No hepatomegaly. Abdomen is soft and non-tender. No Organomegaly , masses or hernias are evident and bowel sounds are normal and active. Neurology: Higher function and all cranial nerves intact, with no gross motor or sensory deficit. Superficial and deep reflexes are normal with downwards planters. No cerebellar deficit with normal gait. Musculoskeletal: No tender spots with normal curvature of the spine with no swelling or restricted ROM of the small and large joints. Extremities: Homans sign absent. Intact pulses with no pitting edema, calf tenderness or skin color changes. Skin: No rash, eruptions or abnormal skin pigmentation LAB/RADIOLOGY: ASSESMENT : RECURRENT FALL NSTMI HTN BIPOLAR PLAN: SEE ORDERS Present on Admission - Present on Admission Any Indicators Present on Admission: No Past Patient History - Infectious Disease Hx of Infectious Diseases: None - Past Medical History & Family History Past Medical History?: Yes - Past Social History Smoking Status: Never Smoked - CARDIAC Hx Hypercholesterolemia: Yes Hx Hypertension: Yes - PULMONARY Hx Respiratory Disorders: No Hx Tuberculosis: No - NEUROLOGICAL Hx Dementia: Yes Hx Migraine: Yes - HEENT Hx HEENT Problems: Yes Hx Deafness: Yes (Bilateral hearing loss, doesn't wear hearing aids) - RENAL Hx Chronic Kidney Disease: No - ENDOCRINE/METABOLIC Hx Endocrine Disorders: No - HEMATOLOGICAL/ONCOLOGICAL Hx Anemia: Yes - INTEGUMENTARY Hx Dermatological Problems: No - MUSCULOSKELETAL/RHEUMATOLOGICAL Hx Arthritis: Yes - PSYCHIATRIC Hx Anxiety: Yes Hx Bipolar Disorder: Yes Hx Depression: Yes Hx Substance Use: No - SURGICAL HISTORY Hx Tonsillectomy: Yes - ANESTHESIA Hx Anesthesia: Yes Hx Anesthesia Reactions: No Hx Malignant Hyperthermia: No Meds Allergies/Adverse Reactions: Allergies Allergy/AdvReac Type Severity Reaction Status Date / Time pregabalin [From Lyrica] Allergy RASH Verified 06/28/17 10:08 Results - Vital Signs Recent Vital Signs: Last Vital Signs Temp 97.4 F L 06/28/17 10:07 Pulse 91 H 06/28/17 12:01 Resp 20 06/28/17 12:01 BP 173/92 H 06/28/17 12:01 Pulse Ox 100 06/28/17 12:54 - Labs Result Diagrams: 06/28/17 10:54 06/28/17 10:54
[2017-06-28] MEDS: Pantoprazole 20 mg EC Tab PO SCH (15:18)
[2017-06-28] MEDS: Sodium Chloride 0.45% 1,000 ML IV SCH ×2 (15:39→20:11)
[2017-06-28] MEDS: Lidocaine 5% Patch TD SCH (15:39)
[2017-06-28] MEDS ORDERED: Sodium Chloride 0.45% 1,000 ML IV ONE (15:41)
[2017-06-28] MEDS: Latanoprost 2.5 ml Opht Soln OU SCH (21:35)
[2017-06-28 23:05] LABS: RBC URINE 3 /hpf (0-3); TRANSITIONAL EPITHIAL 1 /hpf (0-3); URINE BACTERIA RARE (<OCC); URINE BILIRUBIN NEGATIVE (NEGATIVE); URINE BLOOD NEGATIVE (NEGATIVE); URINE COLOR Yellow (YELLOW); URINE GLUCOSE (UA) NORMAL (Normal); URINE KETONE 1+ mg/dL (NEGATIVE); URINE LEUKOCYTE ESTERASE 1+ Leu/uL (Negative); URINE PROTEIN NEGATIVE (NEGATIVE); URINE UROBILINOGEN NORMAL mg/dL (0.2-1.0); WBC URINE 23 /hpf (0-5)
[2017-06-29] MEDS: Sodium Chloride 0.45% 1,000 ML IV SCH ×3 (02:31→15:00)
[2017-06-29 08:06] LABS: BASO # 0.1 K/uL (0.0-0.2); BASO % 0.9 % (0.0-2.0); EOS # 0.2 K/uL (0.0-0.7); EOS % 1.6 % (0.0-4.0); HEMATOCRIT 37.9 % (34.0-47.0); LYMPH # 2.2 K/uL (1.0-4.3); LYMPH % 20.8 % (20.0-40.0); MEAN CELL VOLUME 86.6 fL (81.0-99.0); MEAN CORPUSCULAR HEMOGLOBIN 28.7 pg (27.0-31.0); MEAN CORPUSCULAR HGB CONC 33.1 g/dL (33.0-37.0); MEAN PLATELET VOLUME 9.8 fL (7.2-11.7); MONO # 0.9 K/uL (0.0-0.8); MONO % 8.4 % (0.0-10.0); RED CELL DISTRIBUTION WIDTH 14.6 % (11.5-14.5); WHITE BLOOD COUNT 10.5 K/uL (4.8-10.8)
[2017-06-29 08:35] LABS: ALKALINE PHOSPHATASE 87 U/L (38-126); ALT/SGPT 19 U/L (9-52); AST/SGOT 17 U/L (14-36); BILIRUBIN,TOTAL 0.5 mg/dL (0.2-1.3); BLOOD UREA NITROGEN 20 mg/dL (7-17); CALCIUM 8.6 mg/dl (8.6-10.4); CARBON DIOXIDE 25 mmol/L (22-30); CHLORIDE 109 mmol/L (98-107); GFR AFRICAN-AMERICAN > 60; GLUCOSE,RANDOM 102 mg/dL (65-105); POTASSIUM 3.6 mmol/L (3.6-5.2); SODIUM 146 mmol/L (132-148)
[2017-06-29] MEDS: Pantoprazole 20 mg EC Tab PO SCH (09:34)
[2017-06-29] MEDS: Lidocaine 5% Patch TD SCH (09:34)
--- NOTE | 2017-06-29 13:46 | CP.PCM.PN ---
Subjective - Date & Time of Evaluation Date of Evaluation: 06/29/17 Time of Evaluation: 13:43 - Subjective Subjective: CHIEF COMPLAINTS TODAY : LESS HEADACHE NO CP ROS. HEENT : N. Resp : No cough, wheezing ,pleuritic CP ,or hemoptysis Cardio : No anginal CP, PND, orthopnea, palpitation GI : No abd.pain, n/v ,diarrhea or GI bleeding . 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 Musculoskel : No joint swelling , Derm : No rash Psych : Normal affect. Ext : No swelling ,calf pain PE. Pt. is alert awake in no distress. V.S As noted in the chart Head ,ear nose,throat and eyes : Normal. BRUISES NOTED Neck : Supple with normal carotids. Lungs: Clear air entry. Heart : S1 & S2 normal with S4. No murmur. Abd : Soft non tender with normal bowel sounds. Neuro : Moves all ext. with no localized deficit. Ext : No edema with intact pulses.Non tender calves Derm : No rashes or decubitus ulcer. LABS/RADIOLOGY: [facility] ALL SETS POS ASSESSMENT/PLAN : NON STMI , NO CP, STABLE . ANTICOAGULATION ON HOLD DUE TO SUBDURAL SUBACTE LUKE SUBDURAL : CLEARANCE FROM NEUROSURGICAL PSYCH DISORDER ; MEDICATIONS PER PSYCH Objective - Vital Signs/Intake and Output Vital Signs (last 24 hours): Temp Pulse Resp BP Pulse Ox 97.5 F L 81 20 133/82 97 06/29/17 07:00 06/29/17 08:49 06/29/17 07:00 06/29/17 07:00 06/29/17 07:00 - Medications Medications: Current Medications Docusate Sodium (Colace) 100 mg PO BID [facility] Last Admin: 06/29/17 09:34 Dose: 100 mg Gabapentin (Neurontin) 600 mg PO Q8 [facility] Last Admin: 06/29/17 06:05 Dose: 600 mg Sodium Chloride (Sodium Chloride 0.45%) 1,000 mls @ 80 mls/hr IV .[id number] [facility] Last Admin: 06/29/17 11:14 Dose: 80 mls/hr Latanoprost (Xalatan Opht) 0 ml OU HS [facility] Last Admin: 06/28/17 21:35 Dose: 2.5 ml Lidocaine (Lidoderm) 1 ea TD DAILY [facility] Last Admin: 06/29/17 09:34 Dose: 1 ea Lisinopril (Zestril) 20 mg PO DAILY [facility] Last Admin: 06/29/17 09:34 Dose: 20 mg Pantoprazole Sodium (Protonix Ec Tab) 20 mg PO DAILY [facility] Last Admin: 06/29/17 09:34 Dose: 20 mg Quetiapine Fumarate (Seroquel) 100 mg PO HS [facility] Last Admin: 06/28/17 21:35 Dose: 100 mg Rosuvastatin Calcium (Crestor) 10 mg PO HS [facility] Last Admin: 06/28/17 21:34 Dose: 10 mg - Labs Labs: 06/29/17 07:56 06/29/17 07:56 PT 12.1 SECONDS (9.7-12.2) 06/28/17 11:26 INR 1.1 06/28/17 11:26 APTT 34 SECONDS (21-34) 06/28/17 11:26
[2017-06-29] MEDS: Latanoprost 2.5 ml Opht Soln OU SCH (21:47)
--- NOTE | 2017-06-29 23:12 | CP.PCM.PN ---
Subjective - Date & Time of Evaluation Date of Evaluation: 06/29/17 Time of Evaluation: 23:09 - Subjective Subjective: asked to eval FAMILY SERVICES COORDINATOR shunt CT shows no hydrocephalus, shunt in place bilat subdural hygromas present often seen withshunt in place no evidence that either shunt or subdural hygromas caused her complaints no indication of shunt failure or the subdural collection reqire evacuation Objective - Vital Signs/Intake and Output Vital Signs (last 24 hours): Temp Pulse Resp BP Pulse Ox 98.1 F 82 20 125/72 98 06/29/17 16:03 06/29/17 16:03 06/29/17 16:03 06/29/17 16:03 06/29/17 16:03 - Medications Medications: Current Medications Docusate Sodium (Colace) 100 mg PO BID [facility] Last Admin: 06/29/17 18:46 Dose: 100 mg Gabapentin (Neurontin) 600 mg PO Q8 [facility] Last Admin: 06/29/17 21:46 Dose: 600 mg Sodium Chloride (Sodium Chloride 0.45%) 1,000 mls @ 80 mls/hr IV .[id number] [facility] Last Admin: 06/29/17 15:00 Dose: Not Given Latanoprost (Xalatan Opht) 0 ml OU HS [facility] Last Admin: 06/29/17 21:47 Dose: 2.5 ml Lidocaine (Lidoderm) 1 ea TD DAILY [facility] Last Admin: 06/29/17 09:34 Dose: 1 ea Lisinopril (Zestril) 20 mg PO DAILY [facility] Last Admin: 06/29/17 09:34 Dose: 20 mg Pantoprazole Sodium (Protonix Ec Tab) 20 mg PO DAILY [facility] Last Admin: 06/29/17 09:34 Dose: 20 mg Quetiapine Fumarate (Seroquel) 100 mg PO HS [facility] Last Admin: 06/29/17 21:47 Dose: 100 mg Rosuvastatin Calcium (Crestor) 10 mg PO HS [facility] Last Admin: 06/29/17 21:47 Dose: 10 mg - Labs Labs: 06/29/17 07:56 06/29/17 07:56 PT 12.1 SECONDS (9.7-12.2) 06/28/17 11:26 INR 1.1 06/28/17 11:26 APTT 34 SECONDS (21-34) 06/28/17 11:26
[2017-06-30] MEDS: Sodium Chloride 0.45% 1,000 ML IV SCH ×3 (00:37→20:19)
[2017-06-30] MEDS: Pantoprazole 20 mg EC Tab PO SCH (10:58)
[2017-06-30] MEDS: Lidocaine 5% Patch TD SCH (11:13)
--- NOTE | 2017-06-30 14:19 | CP.PCM.PN ---
Subjective - Date & Time of Evaluation Date of Evaluation: 06/30/17 Time of Evaluation: 14:18 - Subjective Subjective: CHIEF COMPLAINTS TODAY : LESS HEADACHE NO CP ROS. HEENT : N. Resp : No cough, wheezing ,pleuritic CP ,or hemoptysis Cardio : No anginal CP, PND, orthopnea, palpitation GI : No abd.pain, n/v ,diarrhea or GI bleeding . 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 Musculoskel : No joint swelling , Derm : No rash Psych : Normal affect. Ext : No swelling ,calf pain PE. Pt. is alert awake in no distress. V.S As noted in the chart Head ,ear nose,throat and eyes : Normal. BRUISES NOTED Neck : Supple with normal carotids. Lungs: Clear air entry. Heart : S1 & S2 normal with S4. No murmur. Abd : Soft non tender with normal bowel sounds. Neuro : Moves all ext. with no localized deficit. Ext : No edema with intact pulses.Non tender calves Derm : No rashes or decubitus ulcer. LABS/RADIOLOGY: [facility] ALL SETS POS ASSESSMENT/PLAN : NEUROSURGICAL EVAL NOTED START ON SC HEPARIN CATH NEXT WEEK Objective - Vital Signs/Intake and Output Vital Signs (last 24 hours): Temp Pulse Resp BP Pulse Ox 97.4 F L 93 H 18 153/75 H 98 06/30/17 07:25 06/30/17 10:58 06/30/17 07:25 06/30/17 10:58 06/30/17 07:25 Intake and Output: 06/30/17 06/30/17 11:59 23:59 Intake Total 760 Balance 760 - Medications Medications: Current Medications Docusate Sodium (Colace) 100 mg PO BID [facility] Last Admin: 06/30/17 10:58 Dose: 100 mg Gabapentin (Neurontin) 600 mg PO Q8 [facility] Last Admin: 06/30/17 05:41 Dose: 600 mg Heparin Sodium (Porcine) (Heparin) 5,000 units SC Q8 [facility] Sodium Chloride (Sodium Chloride 0.45%) 1,000 mls @ 80 mls/hr IV .[id number] [facility] Last Admin: 06/30/17 00:37 Dose: 80 mls/hr Latanoprost (Xalatan Opht) 0 ml OU HS [facility] Last Admin: 06/29/17 21:47 Dose: 2.5 ml Lidocaine (Lidoderm) 1 ea TD DAILY [facility] Last Admin: 06/30/17 11:13 Dose: 1 ea Lisinopril (Zestril) 20 mg PO DAILY [facility] Last Admin: 06/30/17 10:58 Dose: 20 mg Pantoprazole Sodium (Protonix Ec Tab) 20 mg PO DAILY [facility] Last Admin: 06/30/17 10:58 Dose: 20 mg Quetiapine Fumarate (Seroquel) 100 mg PO HS [facility] Last Admin: 06/29/17 21:47 Dose: 100 mg Rosuvastatin Calcium (Crestor) 10 mg PO HS [facility] Last Admin: 06/29/17 21:47 Dose: 10 mg - Labs Labs: 06/29/17 07:56 06/29/17 07:56 PT 12.1 SECONDS (9.7-12.2) 06/28/17 11:26 INR 1.1 06/28/17 11:26 APTT 34 SECONDS (21-34) 06/28/17 11:26
--- NOTE | 2017-06-30 18:24 | CP.PCM.CON ---
History of Present Illness - History of Present Illness History of Present Illness: This is a 67 year old female who was consulted for Bipolar d/o to psychiatry. Chart was reviewed. Time Spend: 10 minutes. Pt stated that she does not want to talk with psychiatry and refuse the psychiatry help/consultation. This policy writer sales collaborate the information with the staff nurse Betty. Past Patient History - Infectious Disease Hx of Infectious Diseases: None - Past Medical History & Family History Past Medical History?: Yes - Past Social History Smoking Status: Never Smoked - CARDIAC Hx Cardiac Disorders: Yes Hx Hypercholesterolemia: Yes Hx Hypertension: Yes - PULMONARY Hx Respiratory Disorders: No - NEUROLOGICAL Hx Dementia: Yes Hx Migraine: Yes - HEENT Hx HEENT Problems: Yes Hx Deafness: Yes (Bilateral hearing loss, doesn't wear hearing aids) - RENAL Hx Chronic Kidney Disease: No - ENDOCRINE/METABOLIC Hx Endocrine Disorders: No - HEMATOLOGICAL/ONCOLOGICAL Hx Anemia: Yes - INTEGUMENTARY Hx Dermatological Problems: No - MUSCULOSKELETAL/RHEUMATOLOGICAL Hx Arthritis: Yes Hx Falls: Yes - PSYCHIATRIC Hx Anxiety: Yes Hx Bipolar Disorder: Yes Hx Depression: Yes Hx Substance Use: No - SURGICAL HISTORY Hx Tonsillectomy: Yes - ANESTHESIA Hx Anesthesia: Yes Hx Anesthesia Reactions: No Hx Malignant Hyperthermia: No Meds Allergies/Adverse Reactions: Allergies Allergy/AdvReac Type Severity Reaction Status Date / Time pregabalin [From Lyrica] Allergy RASH Verified 06/28/17 10:08 - Medications Medications: Current Medications Docusate Sodium (Colace) 100 mg PO BID [facility] Last Admin: 06/30/17 17:19 Dose: 100 mg Gabapentin (Neurontin) 600 mg PO Q8 [facility] Last Admin: 06/30/17 14:34 Dose: 600 mg Heparin Sodium (Porcine) (Heparin) 5,000 units SC Q8 [facility] Last Admin: 06/30/17 14:35 Dose: 5,000 units Sodium Chloride (Sodium Chloride 0.45%) 1,000 mls @ 80 mls/hr IV .[id number] [facility] Last Admin: 06/30/17 14:34 Dose: 80 mls/hr Latanoprost (Xalatan Opht) 0 ml OU HS [facility] Last Admin: 06/29/17 21:47 Dose: 2.5 ml Lidocaine (Lidoderm) 1 ea TD DAILY [facility] Last Admin: 06/30/17 11:13 Dose: 1 ea Lisinopril (Zestril) 20 mg PO DAILY [facility] Last Admin: 06/30/17 10:58 Dose: 20 mg Pantoprazole Sodium (Protonix Ec Tab) 20 mg PO DAILY [facility] Last Admin: 06/30/17 10:58 Dose: 20 mg Quetiapine Fumarate (Seroquel) 100 mg PO HS [facility] Last Admin: 06/29/17 21:47 Dose: 100 mg Rosuvastatin Calcium (Crestor) 10 mg PO HS [facility] Last Admin: 06/29/17 21:47 Dose: 10 mg Results - Vital Signs Recent Vital Signs: Last Vital Signs Temp 98.3 F 06/30/17 15:24 Pulse 82 06/30/17 15:30 Resp 20 06/30/17 15:24 BP 149/71 06/30/17 15:24 Pulse Ox 98 06/30/17 15:24 - Labs Result Diagrams: 06/29/17 07:56 06/29/17 07:56 Labs: Laboratory Results - last 24 hr 06/30/17 14:24 Urine Opiates Screen Negative Urine Methadone Screen Negative Ur Barbiturates Screen Negative Ur Phencyclidine Scrn Negative Ur Amphetamines Screen Negative U Benzodiazepines Scrn Negative U Oth Cocaine Metabols Negative U Cannabinoids Screen Negative Assessment & Plan - Assessment and Plan (Free Text) Plan: This is a 67 year old female who was consulted for Bipolar d/o to psychiatry. Chart was reviewed. Time Spend: 10 minutes. Pt stated that she does not want to talk with psychiatry and refuse the psychiatry help/consultation. This policy writer sales collaborate the information with the staff nurse Betty Please call Psych C/L if pt is in agreement for psychiatry help. - Date & Time Date: 06/30/17 Time: 16:30
[2017-06-30] MEDS: Latanoprost 2.5 ml Opht Soln OU SCH (21:15)
[2017-07-01] MEDS: Sodium Chloride 0.45% 1,000 ML IV SCH ×2 (03:29→18:21)
[2017-07-01] MEDS: Pantoprazole 20 mg EC Tab PO SCH (09:48)
[2017-07-01] MEDS: Lidocaine 5% Patch TD SCH (09:48)
--- NOTE | 2017-07-01 13:55 | CP.PCM.PN ---
Subjective - Date & Time of Evaluation Date of Evaluation: 07/01/17 Time of Evaluation: 13:54 - Subjective Subjective: CHIEF COMPLAINTS TODAY : LESS HEADACHE NO CP REFUSED PSYCH EVAL ROS. HEENT : N. Resp : No cough, wheezing ,pleuritic CP ,or hemoptysis Cardio : No anginal CP, PND, orthopnea, palpitation GI : No abd.pain, n/v ,diarrhea or GI bleeding . 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 Musculoskel : No joint swelling , Derm : No rash Psych : Normal affect. Ext : No swelling ,calf pain PE. Pt. is alert awake in no distress. V.S As noted in the chart Head ,ear nose,throat and eyes : Normal. BRUISES NOTED Neck : Supple with normal carotids. Lungs: Clear air entry. Heart : S1 & S2 normal with S4. No murmur. Abd : Soft non tender with normal bowel sounds. Neuro : Moves all ext. with no localized deficit. Ext : No edema with intact pulses.Non tender calves Derm : No rashes or decubitus ulcer. LABS/RADIOLOGY: [facility] ALL SETS POS ASSESSMENT/PLAN : NEUROSURGICAL EVAL NOTED START ON SC HEPARIN CATH IN AM Objective - Vital Signs/Intake and Output Vital Signs (last 24 hours): Temp Pulse Resp BP Pulse Ox 98.0 F 88 20 150/75 97 07/01/17 08:30 07/01/17 08:30 07/01/17 08:30 07/01/17 08:30 07/01/17 08:30 Intake and Output: 07/01/17 07/01/17 11:59 23:59 Intake Total 880 Balance 880 - Medications Medications: Current Medications Docusate Sodium (Colace) 100 mg PO BID [facility] Last Admin: 07/01/17 09:48 Dose: 100 mg Gabapentin (Neurontin) 600 mg PO Q8 [facility] Last Admin: 07/01/17 13:14 Dose: 600 mg Heparin Sodium (Porcine) (Heparin) 5,000 units SC Q8 [facility] Last Admin: 07/01/17 13:14 Dose: 5,000 units Sodium Chloride (Sodium Chloride 0.45%) 1,000 mls @ 80 mls/hr IV .[id number] [facility] Last Admin: 07/01/17 03:29 Dose: 80 mls/hr Latanoprost (Xalatan Opht) 0 ml OU HS [facility] Last Admin: 06/30/17 21:15 Dose: 2.5 ml Lidocaine (Lidoderm) 1 ea TD DAILY [facility] Last Admin: 07/01/17 09:48 Dose: 1 ea Lisinopril (Zestril) 20 mg PO DAILY [facility] Last Admin: 07/01/17 09:48 Dose: 20 mg Pantoprazole Sodium (Protonix Ec Tab) 20 mg PO DAILY [facility] Last Admin: 07/01/17 09:48 Dose: 20 mg Quetiapine Fumarate (Seroquel) 100 mg PO HS [facility] Last Admin: 06/30/17 21:15 Dose: 100 mg Rosuvastatin Calcium (Crestor) 10 mg PO HS [facility] Last Admin: 06/30/17 21:15 Dose: 10 mg - Labs Labs: 06/29/17 07:56 06/29/17 07:56 PT 12.1 SECONDS (9.7-12.2) 06/28/17 11:26 INR 1.1 06/28/17 11:26 APTT 34 SECONDS (21-34) 06/28/17 11:26
--- NOTE | 2017-07-01 21:02 | CARD ---
APPROVED REPORT EKG Measurement Heart [id number] <Conclusion> Sinus tachycardia with frequent premature ventricular complexes Left ventricular hypertrophy with repolarization abnormality Abnormal ECG
[2017-07-01] MEDS: Latanoprost 2.5 ml Opht Soln OU SCH (22:52)
[2017-07-02] MEDS: Sodium Chloride 0.45% 1,000 ML IV SCH (06:44)
[2017-07-02] MEDS: Lidocaine 5% Patch TD SCH (09:04)
[2017-07-02] MEDS: Pantoprazole 20 mg EC Tab PO SCH (12:43)
--- NOTE | 2017-07-02 13:59 | CP.PCM.PN ---
Subjective - Date & Time of Evaluation Date of Evaluation: 07/02/17 Time of Evaluation: 13:59 - Subjective Subjective: CHIEF COMPLAINTS TODAY : LESS HEADACHE NO CP REFUSED PSYCH EVAL ROS. HEENT : N. Resp : No cough, wheezing ,pleuritic CP ,or hemoptysis Cardio : No anginal CP, PND, orthopnea, palpitation GI : No abd.pain, n/v ,diarrhea or GI bleeding . 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 Musculoskel : No joint swelling , Derm : No rash Psych : Normal affect. Ext : No swelling ,calf pain PE. Pt. is alert awake in no distress. V.S As noted in the chart Head ,ear nose,throat and eyes : Normal. BRUISES NOTED Neck : Supple with normal carotids. Lungs: Clear air entry. Heart : S1 & S2 normal with S4. No murmur. Abd : Soft non tender with normal bowel sounds. Neuro : Moves all ext. with no localized deficit. Ext : No edema with intact pulses.Non tender calves Derm : No rashes or decubitus ulcer. LABS/RADIOLOGY: [facility] ALL SETS POS ASSESSMENT/PLAN : NEUROSURGICAL EVAL NOTED START ON SC HEPARIN CATH Objective - Vital Signs/Intake and Output Vital Signs (last 24 hours): Temp Pulse Resp BP Pulse Ox 98.1 F 85 18 162/88 H 97 07/02/17 08:15 07/02/17 12:00 07/02/17 08:15 07/02/17 08:15 07/02/17 08:15 Intake and Output: 07/02/17 07/02/17 11:59 23:59 Intake Total 760 Balance 760 - Medications Medications: Current Medications Docusate Sodium (Colace) 100 mg PO BID [facility] Last Admin: 07/02/17 12:42 Dose: Not Given Gabapentin (Neurontin) 600 mg PO Q8 [facility] Last Admin: 07/02/17 06:44 Dose: 600 mg Heparin Sodium (Porcine) (Heparin) 5,000 units SC Q8 [facility] Last Admin: 07/01/17 22:37 Dose: 5,000 units Latanoprost (Xalatan Opht) 0 ml OU HS [facility] Last Admin: 07/01/17 22:52 Dose: 2.5 ml Lidocaine (Lidoderm) 1 ea TD DAILY [facility] Last Admin: 07/02/17 09:04 Dose: 1 ea Lisinopril (Zestril) 20 mg PO DAILY [facility] Last Admin: 07/02/17 12:43 Dose: Not Given Pantoprazole Sodium (Protonix Ec Tab) 20 mg PO DAILY [facility] Last Admin: 07/02/17 12:43 Dose: Not Given Quetiapine Fumarate (Seroquel) 100 mg PO HS [facility] Last Admin: 07/01/17 22:38 Dose: 100 mg Rosuvastatin Calcium (Crestor) 10 mg PO HS [facility] Last Admin: 07/01/17 22:36 Dose: 10 mg Timolol Maleate (Timoptic 0.5% [facility]) 1 drop OD DAILY [facility] Last Admin: 07/02/17 09:04 Dose: 1 drop - Labs Labs: 06/29/17 07:56 06/29/17 07:56 PT 12.1 SECONDS (9.7-12.2) 06/28/17 11:26 INR 1.1 06/28/17 11:26 APTT 34 SECONDS (21-34) 06/28/17 11:26
[2017-07-02] MEDS ORDERED: Iohexol 350mg/ml 100 ML ONE (16:17)
[2017-07-02] MEDS: Latanoprost 2.5 ml Opht Soln OU SCH (21:10)
--- NOTE | 2017-07-02 22:49 | CARDCATH ---
INDICATION: The patient was admitted, 67 years old white woman with positive cardiac enzymes. The patient underwent left heart catheterization. DESCRIPTION OF PROCEDURE: Left heart catheterization was done to the right femoral artery and Angio-Seal was used post cath. A #6 introducer sheath was inserted without any complication. Toby were used for the right and left and pigtail for the LV angiogram. The left main is a normal vessel. LAD in the proximally, there is 30% lesion and then subsequently, there is moderate to high grade lesion of about 65%. The rest of the LAD is normal. Circumflex appears normal. There is no lesion in the main trunk or the branches. The ostia is the dominant vessel. There are no lesions in the main trunk or any of its branches. LV gram is normal. EF, more than 50%. ASSESSMENT: Proximal left anterior descending significant lesion with normal left ventriculogram. PLAN: We will get electric motor repairman to evaluate for angioplasty and stent. Yanni Pereyra MD
[2017-07-03] MEDS: Lidocaine 5% Patch TD SCH (09:06)
[2017-07-03] MEDS: Pantoprazole 20 mg EC Tab PO SCH (09:06)
--- NOTE | 2017-07-03 10:47 | CP.PCM.PN ---
Subjective - Date & Time of Evaluation Date of Evaluation: 07/03/17 Time of Evaluation: 10:44 - Subjective Subjective: Patient seen and evaluated Needs LAD intervention Needs clearance for ASA, Plavix and IV Heparin from Neuro surgeon Objective - Vital Signs/Intake and Output Vital Signs (last 24 hours): Temp Pulse Resp BP Pulse Ox 98 F 102 H 20 116/76 97 07/03/17 07:00 07/03/17 09:05 07/03/17 07:00 07/03/17 09:05 07/03/17 07:00 Intake and Output: 07/03/17 07/03/17 06:59 18:59 Intake Total 350 Output Total 1000 Balance -650 - Medications Medications: Current Medications Docusate Sodium (Colace) 100 mg PO BID [facility] Last Admin: 07/03/17 09:05 Dose: 100 mg Gabapentin (Neurontin) 600 mg PO Q8 [facility] Last Admin: 07/03/17 05:55 Dose: 600 mg Heparin Sodium (Porcine) (Heparin) 5,000 units SC Q8 [facility] Last Admin: 07/01/17 22:37 Dose: 5,000 units Heparin Sodium (Porcine) (Heparin) 5,000 units SC Q8 [facility] Last Admin: 07/03/17 05:55 Dose: 5,000 units Latanoprost (Xalatan Opht) 0 ml OU HS [facility] Last Admin: 07/02/17 21:10 Dose: 2.5 ml Lidocaine (Lidoderm) 1 ea TD DAILY [facility] Last Admin: 07/03/17 09:06 Dose: 1 ea Lisinopril (Zestril) 20 mg PO DAILY [facility] Last Admin: 07/03/17 09:05 Dose: 20 mg Pantoprazole Sodium (Protonix Ec Tab) 20 mg PO DAILY [facility] Last Admin: 07/03/17 09:06 Dose: 20 mg Quetiapine Fumarate (Seroquel) 100 mg PO HS [facility] Last Admin: 07/02/17 21:09 Dose: 100 mg Rosuvastatin Calcium (Crestor) 10 mg PO HS [facility] Last Admin: 07/02/17 21:08 Dose: 10 mg Timolol Maleate (Timoptic 0.5% Ophth Soln) 1 drop OD DAILY [facility] Last Admin: 07/03/17 09:06 Dose: 1 drop Tramadol HCl (Ultram) 50 mg PO Q8 PRN PRN Reason: headache /pain Last Admin: 07/02/17 19:54 Dose: 50 mg - Labs Labs: 06/29/17 07:56 06/29/17 07:56 PT 12.1 SECONDS (9.7-12.2) 06/28/17 11:26 INR 1.1 06/28/17 11:26 APTT 34 SECONDS (21-34) 06/28/17 11:26
--- NOTE | 2017-07-03 13:47 | CP.PCM.PN ---
Subjective - Date & Time of Evaluation Date of Evaluation: 07/03/17 Time of Evaluation: 13:45 - Subjective Subjective: CHIEF COMPLAINTS TODAY : S/P CATH SIG . LAD LESION FOR STENT ROS. HEENT : N. Resp : No cough, wheezing ,pleuritic CP ,or hemoptysis Cardio : No anginal CP, PND, orthopnea, palpitation GI : No abd.pain, n/v ,diarrhea or GI bleeding . 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 Musculoskel : No joint swelling , Derm : No rash Psych : Normal affect. Ext : No swelling ,calf pain PE. Pt. is alert awake in no distress. V.S As noted in the chart Head ,ear nose,throat and eyes : Normal. BRUISES NOTED Neck : Supple with normal carotids. Lungs: Clear air entry. Heart : S1 & S2 normal with S4. No murmur. Abd : Soft non tender with normal bowel sounds. Neuro : Moves all ext. with no localized deficit. Ext : No edema with intact pulses.Non tender calves R. GROIN OK, NO HEMATOMA Derm : No rashes or decubitus ulcer. LABS/RADIOLOGY: [facility] ALL SETS POS ASSESSMENT/PLAN : ONCE THE NEUROSURGERY CLEARS PT FOR HIGH DOSE ANTICOAGULATION , PT WILL GO FOR STENT PLACEMENT Objective - Vital Signs/Intake and Output Vital Signs (last 24 hours): Temp Pulse Resp BP Pulse Ox 98 F 81 20 116/76 97 07/03/17 07:00 07/03/17 12:15 07/03/17 07:00 07/03/17 09:05 07/03/17 07:00 Intake and Output: 07/03/17 07/03/17 11:59 23:59 Intake Total 100 Balance 100 - Medications Medications: Current Medications Docusate Sodium (Colace) 100 mg PO BID [facility] Last Admin: 07/03/17 09:05 Dose: 100 mg Gabapentin (Neurontin) 600 mg PO Q8 [facility] Last Admin: 07/03/17 05:55 Dose: 600 mg Heparin Sodium (Porcine) (Heparin) 5,000 units SC Q8 [facility] Last Admin: 07/01/17 22:37 Dose: 5,000 units Heparin Sodium (Porcine) (Heparin) 5,000 units SC Q8 [facility] Last Admin: 07/03/17 05:55 Dose: 5,000 units Latanoprost (Xalatan Opht) 0 ml OU HS [facility] Last Admin: 07/02/17 21:10 Dose: 2.5 ml Lidocaine (Lidoderm) 1 ea TD DAILY [facility] Last Admin: 07/03/17 09:06 Dose: 1 ea Lisinopril (Zestril) 20 mg PO DAILY [facility] Last Admin: 07/03/17 09:05 Dose: 20 mg Pantoprazole Sodium (Protonix Ec Tab) 20 mg PO DAILY [facility] Last Admin: 07/03/17 09:06 Dose: 20 mg Quetiapine Fumarate (Seroquel) 100 mg PO HS [facility] Last Admin: 07/02/17 21:09 Dose: 100 mg Rosuvastatin Calcium (Crestor) 10 mg PO HS [facility] Last Admin: 07/02/17 21:08 Dose: 10 mg Timolol Maleate (Timoptic 0.5% Oph Soln) 1 drop OD DAILY [facility] Last Admin: 07/03/17 09:06 Dose: 1 drop Tramadol HCl (Ultram) 50 mg PO Q8 PRN PRN Reason: headache /pain Last Admin: 07/02/17 19:54 Dose: 50 mg - Labs Labs: 06/29/17 07:56 06/29/17 07:56 PT 12.1 SECONDS (9.7-12.2) 06/28/17 11:26 INR 1.1 06/28/17 11:26 APTT 34 SECONDS (21-34) 06/28/17 11:26
[2017-07-03] MEDS: Latanoprost 2.5 ml Opht Soln OU SCH (22:18)
--- NOTE | 2017-07-04 14:08 | CP.PCM.PN ---
Subjective - Date & Time of Evaluation Date of Evaluation: 07/04/17 Time of Evaluation: 13:25 - Subjective Subjective: GAS WELL PUMPER NOTES 67 YR OLD FEMALE S/P CARDIAC CATH WITH SIGNIFICANT LAD LESION AND NEED PCI D/W DR. NAIR AND DR. GUERRA , SCHEDULE FOR PCI AT [facility] TOMORROW D/W [employer] PAT REF. TRANSPORTATION AND ANY AUTH . NEED FOR TRANSFER FOR PROCEDURE TO [facility] Objective - Vital Signs/Intake and Output Vital Signs (last 24 hours): Temp Pulse Resp BP Pulse Ox 97.9 F 85 20 135/76 95 07/04/17 07:10 07/04/17 07:10 07/04/17 07:10 07/04/17 07:10 07/04/17 07:10 - Medications Medications: Current Medications Docusate Sodium (Colace) 100 mg PO BID [facility] Last Admin: 07/03/17 18:38 Dose: 100 mg Gabapentin (Neurontin) 600 mg PO Q8 [facility] Last Admin: 07/04/17 06:04 Dose: 600 mg Heparin Sodium (Porcine) (Heparin) 5,000 units SC Q8 [facility] Last Admin: 07/01/17 22:37 Dose: 5,000 units Heparin Sodium (Porcine) (Heparin) 5,000 units SC Q8 [facility] Last Admin: 07/04/17 06:04 Dose: 5,000 units Latanoprost (Xalatan Opht) 0 ml OU HS [facility] Last Admin: 07/03/17 22:18 Dose: 2.5 ml Lidocaine (Lidoderm) 1 ea TD DAILY [facility] Last Admin: 07/03/17 09:06 Dose: 1 ea Lisinopril (Zestril) 20 mg PO DAILY [facility] Last Admin: 07/03/17 09:05 Dose: 20 mg Pantoprazole Sodium (Protonix Ec Tab) 20 mg PO DAILY [facility] Last Admin: 07/03/17 09:06 Dose: 20 mg Quetiapine Fumarate (Seroquel) 100 mg PO HS [facility] Last Admin: 07/03/17 22:15 Dose: 100 mg Rosuvastatin Calcium (Crestor) 10 mg PO HS [facility] Last Admin: 07/03/17 22:15 Dose: 10 mg Timolol Maleate (Timoptic 0.5% Ophth Soln) 1 drop OD DAILY [facility] Last Admin: 07/03/17 09:06 Dose: 1 drop Tramadol HCl (Ultram) 50 mg PO Q8 PRN PRN Reason: headache /pain Last Admin: 07/02/17 19:54 Dose: 50 mg - Labs Labs: 06/29/17 07:56 06/29/17 07:56 PT 12.1 SECONDS (9.7-12.2) 06/28/17 11:26 INR 1.1 06/28/17 11:26 APTT 34 SECONDS (21-34) 06/28/17 11:26
--- NOTE | 2017-07-04 14:16 | CP.PCM.PN ---
Subjective - Date & Time of Evaluation Date of Evaluation: 07/04/17 Time of Evaluation: 14:13 - Subjective Subjective: ANGIOPLASTY POSTPONED [facility] DECLINED TO DO THE PROCEDURE DUE TO PREEXISTING CRITERIA FOR [facility] PT. IS RESCHEDULED FOR AM IN [facility] [place] NO CP DOCUMENTED OF NOW GROIN STABLE Objective - Vital Signs/Intake and Output Vital Signs (last 24 hours): Temp Pulse Resp BP Pulse Ox 97.9 F 85 20 135/76 95 07/04/17 07:10 07/04/17 07:10 07/04/17 07:10 07/04/17 07:10 07/04/17 07:10 - Medications Medications: Current Medications Docusate Sodium (Colace) 100 mg PO BID [facility] Last Admin: 07/03/17 18:38 Dose: 100 mg Gabapentin (Neurontin) 600 mg PO Q8 [facility] Last Admin: 07/04/17 06:04 Dose: 600 mg Heparin Sodium (Porcine) (Heparin) 5,000 units SC Q8 [facility] Last Admin: 07/01/17 22:37 Dose: 5,000 units Heparin Sodium (Porcine) (Heparin) 5,000 units SC Q8 [facility] Last Admin: 07/04/17 06:04 Dose: 5,000 units Latanoprost (Xalatan Opht) 0 ml OU HS [facility] Last Admin: 07/03/17 22:18 Dose: 2.5 ml Lidocaine (Lidoderm) 1 ea TD DAILY [facility] Last Admin: 07/03/17 09:06 Dose: 1 ea Lisinopril (Zestril) 20 mg PO DAILY [facility] Last Admin: 07/03/17 09:05 Dose: 20 mg Pantoprazole Sodium (Protonix Ec Tab) 20 mg PO DAILY [facility] Last Admin: 07/03/17 09:06 Dose: 20 mg Quetiapine Fumarate (Seroquel) 100 mg PO HS [facility] Last Admin: 07/03/17 22:15 Dose: 100 mg Rosuvastatin Calcium (Crestor) 10 mg PO HS [facility] Last Admin: 07/03/17 22:15 Dose: 10 mg Timolol Maleate (Timoptic 0.5% Ophth Soln) 1 drop OD DAILY [facility] Last Admin: 07/03/17 09:06 Dose: 1 drop Tramadol HCl (Ultram) 50 mg PO Q8 PRN PRN Reason: headache /pain Last Admin: 07/02/17 19:54 Dose: 50 mg - Labs Labs: 06/29/17 07:56 06/29/17 07:56 PT 12.1 SECONDS (9.7-12.2) 06/28/17 11:26 INR 1.1 06/28/17 11:26 APTT 34 SECONDS (21-34) 06/28/17 11:26
[2017-07-04] MEDS: Lidocaine 5% Patch TD SCH (14:22)
--- NOTE | 2017-07-04 15:37 | PCM.PSYCH ---
Initial Psychiatric Evaluation - Initial Psychiatric Evaluation Type of Admission: Voluntary Legal Status: Capacity Chief Complaint (in patient's own words): I was having chest pain.' History of Present Illness and Precipitating Events: Pt is a 67 y/o CF female was admitted on the medical floor because of chest pain. She has a h/o Bipolar disorder with psychosis, dementia disorder and medical history of AV shunt, hypercholesterolemia, HTN, and hearing loss. As per the pt has been compliant with the medications and follow up. However she developed chest pain so she was escorted to the hospital. Pt reports anxiety but denies any feelings of hopelessness and helplessness. She denies any suicidal ideation or homicidal ideation. Patient denies any auditory or visual hallucinations or any psychotic symptoms. She denies any manic symptoms and denies any other substance abuse. PPHx: H/o multiple psychiatric admissions, h/o 3 suicide attempts. FHx: Father w/ bipolar disorder MHx: AV shunt, hypercholesterolemia, HTN, hearing loss (patient does not give an accurate medical history) All: Pregabalin SHx: Lives with her , has 1 adult son. d Current Medications: Active Medications Generic Name Dose Route Start Last Admin Trade Name Freq PRN Reason Stop Dose Admin Docusate Sodium 100 mg 06/28/17 18:00 07/04/17 14:19 Colace PO 100 mg BID [facility]TIS Administration Gabapentin 600 mg 06/28/17 14:00 07/04/17 14:19 Neurontin PO 600 mg Q8 [facility]TIS Administration Heparin Sodium (Porcine) 5,000 units 06/30/17 14:30 07/01/17 22:37 Heparin SC 5,000 units Q8 [facility]TIS Administration Heparin Sodium (Porcine) 5,000 units 07/02/17 22:00 07/04/17 14:19 Heparin SC 5,000 units Q8 [facility]TIS Administration Latanoprost 0 ml 06/28/17 22:00 07/03/17 22:18 Xalatan Opht OU 2.5 ml HS [facility]TIS Administration Lidocaine 1 ea 06/28/17 14:00 07/04/17 14:22 Lidoderm TD 1 ea DAILY [facility]TIS Administration Lisinopril 20 mg 06/28/17 14:00 07/04/17 14:19 Zestril PO 20 mg DAILY [facility]IS Administration Pantoprazole Sodium 20 mg 06/28/17 14:00 07/03/17 09:06 Protonix Ec Tab PO 20 mg DAILY [facility]IS Administration Quetiapine Fumarate 100 mg 06/28/17 22:00 07/03/17 22:15 Seroquel PO 100 mg HS [facility]TIS Administration Rosuvastatin Calcium 10 mg 06/28/17 22:00 07/03/17 22:15 Crestor PO 10 mg HS [facility]TIS Administration Timolol Maleate 1 drop 07/01/17 17:00 07/03/17 09:06 Timoptic 0.5% Ophth Soln OD 1 drop DAILY [facility] Administration Tramadol HCl 50 mg 07/02/17 19:10 07/02/17 19:54 Ultram PO 50 mg Q8 PRN Administration headache /pain Past Psychiatric History - Past Psychiatric History Previous Treatment History: Inpatient Pertinent Medical Hx (Current Medical&Sleep Prob, Allergies): Allergies Allergy/AdvReac Type Severity Reaction Status Date / Time pregabalin [From Lyrica] Allergy RASH Verified 06/28/17 10:08 Atorvastatin [Lipitor] 20 mg PO DAILY 10/21/16 Travoprost [Travatan Z] 2 drop OP DAILY 10/21/16 Acetaminophen [Tylenol 325mg tab] 650 mg PO Q4 PRN #0 tab 02/25/17 Docusate [Colace] 100 mg PO BID cap 02/25/17 Enoxaparin [Lovenox] 40 mg SC Q24H syr 02/25/17 Gabapentin [Neurontin] 600 mg PO Q8 tab 02/25/17 Lidocaine 5% [Lidoderm] 1 ea TD DAILY patch 02/25/17 Lisinopril [Zestril] 20 mg PO DAILY tab 02/25/17 Pantoprazole [Protonix EC Tab] 20 mg PO DAILY #30 ect 02/25/17 QUEtiapine [Seroquel] 100 mg PO HS tab 02/25/17 oxyCODONE/Acetaminophen [Percocet 5/325 mg Tab] 1 tab PO Q4H PRN #0 tab Timolol 0.5% Ophth [Timoptic 0.5% Ophth Soln] 1 drop OP DAILY 07/01/17 Review of Systems - Review of Systems All systems: reviewed and no additional remarkable complaints except - Psychiatric Psychiatric: Anxiety Mental Status Examination - Personal Presentation Personal Presentation: Looks stated age - Affect Affect: Constricted - Motor Activity Motor Activity: Calm - Reliability in Providing Information Reliability in Providing Information: Good - Speech Speech: Organized - Mood Mood: Anxious - Formal Thought Process Formal Thought Process: No Impairment - Obsessions/Compulsions Obsessions: No Compulsions: No - Cognitive Functions Orientation: Person, Place, Situation, Time Sensorium: Alert Attention/Concentration: Attentive Abstract Thinking: [place] Estimate of Intelligence: Below average Judgement: Imparied, as evidence by: Poor judgement, Imparied, as evidence by: Lack of insight into illness - Risk Risk: Diminished functioning - Strength & Assets Inventory Strength & Assets Inventory: Family support DSM 5 DX - DSM 5 DSM 5 Diagnosis: Bipolar disorder with psychosis Dementia d/o NOS - Recommended/Plan of Treatment Treatment Recommendations and Plan of Treatment: Bipolar disorder with psychosis Dementia d/o NOS Hold all psychotropics until her chest pain is ruled out. - Smoking Cessation Smoking Cessation Initiated: No
[2017-07-04] MEDS: Latanoprost 2.5 ml Opht Soln OU SCH (21:54)
[2017-07-04] MEDS: Pantoprazole 20 mg EC Tab PO SCH (21:54)
--- NOTE | 2017-07-04 22:05 | CP.PCM.PN ---
Subjective - Date & Time of Evaluation Date of Evaluation: 07/04/17 Time of Evaluation: 18:35 - Subjective Subjective: Patient seen and evaluated Denies chest pain and dyspnea [facility] did not accept the patient for PCI as patient has the diagnosis of Dementia( C Port contra indication) Patient re scheduled for PCI at [facility] Objective - Vital Signs/Intake and Output Vital Signs (last 24 hours): Temp Pulse Resp BP Pulse Ox 98.1 F 97 H 20 132/71 96 07/04/17 15:57 07/04/17 16:00 07/04/17 15:57 07/04/17 15:57 07/04/17 15:57 - Medications Medications: Current Medications Aspirin (Ecotrin) 81 mg PO DAILY [facility] Clopidogrel Bisulfate (Plavix) 75 mg PO DAILY [facility] Docusate Sodium (Colace) 100 mg PO BID [facility] Last Admin: 07/04/17 18:05 Dose: 100 mg Gabapentin (Neurontin) 600 mg PO Q8 [facility] Last Admin: 07/04/17 21:54 Dose: 600 mg Heparin Sodium (Porcine) (Heparin) 5,000 units SC Q8 [facility] Last Admin: 07/01/17 22:37 Dose: 5,000 units Heparin Sodium (Porcine) (Heparin) 5,000 units SC Q8 [facility] Last Admin: 07/04/17 21:55 Dose: Not Given Latanoprost (Xalatan Opht) 0 ml OU HS [facility] Last Admin: 07/04/17 21:54 Dose: 1 ml Lidocaine (Lidoderm) 1 ea TD DAILY [facility] Last Admin: 07/04/17 14:22 Dose: 1 ea Lisinopril (Zestril) 20 mg PO DAILY [facility] Last Admin: 07/04/17 14:19 Dose: 20 mg Pantoprazole Sodium (Protonix Ec Tab) 20 mg PO DAILY [facility] Last Admin: 07/04/17 21:54 Dose: 20 mg Quetiapine Fumarate (Seroquel) 100 mg PO HS [facility] Last Admin: 07/04/17 21:54 Dose: 100 mg Rosuvastatin Calcium (Crestor) 10 mg PO HS [facility] Last Admin: 07/04/17 21:54 Dose: 10 mg Timolol Maleate (Timoptic 0.5% Oph Soln) 1 drop OD DAILY [facility] Last Admin: 07/04/17 18:05 Dose: 1 drop Tramadol HCl (Ultram) 50 mg PO Q8 PRN PRN Reason: headache /pain Last Admin: 07/02/17 19:54 Dose: 50 mg - Labs Labs: 06/29/17 07:56 06/29/17 07:56 PT 12.1 SECONDS (9.7-12.2) 06/28/17 11:26 INR 1.1 06/28/17 11:26 APTT 34 SECONDS (21-34) 06/28/17 11:26 - Head Exam Head Exam: ATRAUMATIC, NORMAL INSPECTION, NORMOCEPHALIC - Eye Exam Eye Exam: EOMI, Normal appearance, PERRL - ENT Exam ENT Exam: Mucous Membranes Moist, Normal Exam - Neck Exam Neck Exam: Full ROM - Respiratory Exam Respiratory Exam: Clear to Ausculation Bilateral, NORMAL BREATHING PATTERN - Cardiovascular Exam Cardiovascular Exam: REGULAR RHYTHM, +S1, +S2 - GI/Abdominal Exam GI & Abdominal Exam: Soft, Normal Bowel Sounds - Extremities Exam Extremities Exam: Full ROM - Neurological Exam Neurological Exam: Alert, Awake, CN II-XII Intact, Oriented x3 - Psychiatric Exam Psychiatric exam: Normal Mood - Skin Skin Exam: Normal Color, Warm Assessment and Plan - Assessment and Plan (Free Text) Assessment: CAD s/p Cath For LAD PCI tomorrow Patient being taken to [facility] as [facility] refused to take the patient for PCI as patient does not meet C Port criteria (Dementia)
[2017-07-05 06:28] LABS: HEMATOCRIT 34.9 % (34.0-47.0); MEAN CELL VOLUME 86.9 fL (81.0-99.0); MEAN CORPUSCULAR HEMOGLOBIN 28.8 pg (27.0-31.0); MEAN CORPUSCULAR HGB CONC 33.1 g/dL (33.0-37.0); MEAN PLATELET VOLUME 9.6 fL (7.2-11.7); RED CELL DISTRIBUTION WIDTH 14.3 % (11.5-14.5); WHITE BLOOD COUNT 10.1 K/uL (4.8-10.8)
[2017-07-05 06:45] LABS: BLOOD UREA NITROGEN 17 mg/dL (7-17); CALCIUM 8.7 mg/dl (8.6-10.4); CARBON DIOXIDE 29 mmol/L (22-30); CHLORIDE 103 mmol/L (98-107); GFR AFRICAN-AMERICAN > 60; GLUCOSE,RANDOM 87 mg/dL (65-105); POTASSIUM 3.8 mmol/L (3.6-5.2); SODIUM 142 mmol/L (132-148)
[2017-07-05] MEDS: Lidocaine 5% Patch TD SCH (09:51)
[2017-07-05] MEDS: Pantoprazole 20 mg EC Tab PO SCH (09:52)
--- NOTE | 2017-07-05 13:49 | CP.PCM.DIS ---
Provider - Provider Date of Admission: 06/28/17 12:06 Attending physician: Yanni Pereyra MD Time Spent in preparation of Discharge (in minutes): 30 Hospital Course - Lab Results Lab Results: Most Recent Lab Values WBC 10.1 K/uL (4.8-10.8) 07/05/17 06:21 RBC 4.01 Mil/uL (3.80-5.20) 07/05/17 06:21 Hgb 11.5 g/dL (11.0-16.0) 07/05/17 06:21 Hct 34.9 % (34.0-47.0) 07/05/17 06:21 MCV 86.9 fL (81.0-99.0) 07/05/17 06:21 MCH 28.8 pg (27.0-31.0) 07/05/17 06:21 MCHC 33.1 g/dL (33.0-37.0) 07/05/17 06:21 RDW 14.3 % (11.5-14.5) 07/05/17 06:21 Plt Count 153 K/uL (130-400) 07/05/17 06:21 MPV 9.6 fL (7.2-11.7) 07/05/17 06:21 Neut % (Auto) 68.3 % (50.0-75.0) 06/29/17 07:56 Lymph % (Auto) 20.8 % (20.0-40.0) 06/29/17 07:56 [place] % (Auto) 8.4 % (0.0-10.0) 06/29/17 07:56 Eos % (Auto) 1.6 % (0.0-4.0) 06/29/17 07:56 Baso % (Auto) 0.9 % (0.0-2.0) 06/29/17 07:56 Neut # 7.2 K/uL (1.8-7.0) H 06/29/17 07:56 Lymph # 2.2 K/uL (1.0-4.3) 06/29/17 07:56 [place] # 0.9 K/uL (0.0-0.8) H 06/29/17 07:56 Eos # 0.2 K/uL (0.0-0.7) 06/29/17 07:56 Baso # 0.1 K/uL (0.0-0.2) 06/29/17 07:56 PT 11.5 SECONDS (9.7-12.2) 07/05/17 08:04 INR 1.0 07/05/17 08:04 APTT 34 SECONDS (21-34) 06/28/17 11:26 Sodium 142 mmol/L (132-148) 07/05/17 06:21 Potassium 3.8 mmol/L (3.6-5.2) 07/05/17 06:21 Chloride 103 mmol/L (98-107) 07/05/17 06:21 Carbon Dioxide 29 mmol/L (22-30) 07/05/17 06:21 Anion Gap 13 (10-20) 07/05/17 06:21 BUN 17 mg/dL (7-17) 07/05/17 06:21 Creatinine 0.7 MG/DL (0.7-1.2) 07/05/17 06:21 Est GFR ( Amer) > 60 07/05/17 06:21 Est GFR (Non-Af Amer) > 60 07/05/17 06:21 Random Glucose 87 mg/dL (65-105) 07/05/17 06:21 Calcium 8.7 mg/dl (8.6-10.4) 07/05/17 06:21 Total Bilirubin 0.5 mg/dL (0.2-1.3) 06/29/17 07:56 AST 17 U/L (14-36) 06/29/17 07:56 ALT 19 U/L (9-52) 06/29/17 07:56 Alkaline Phosphatase 87 U/L (38-126) 06/29/17 07:56 Total Creatine Kinase 130 U/L (30-135) 06/28/17 22:42 CK-MB (Mass) 7.25 ng/mL (0.0-3.38) H 06/28/17 22:42 Troponin I 0.2730 ng/mL (0.00-0.120) H* 06/28/17 10:54 Troponin I, Quant 1.0100 ng/mL (0.00-0.120) H* 06/28/17 22:42 Total Protein 6.0 g/dL (6.3-8.3) L 06/29/17 07:56 Albumin 3.0 g/dL (3.5-5.0) L D 06/29/17 07:56 Globulin 3.0 gm/dL (2.2-3.9) 06/29/17 07:56 Albumin/Globulin Ratio 1.0 (1.0-2.1) 06/29/17 07:56 Urine Color Yellow (YELLOW) 06/28/17 22:38 Urine Clarity Hazy (Clear) 06/28/17 22:38 Urine pH 5.0 (5.0-8.0) 06/28/17 22:38 Ur Specific [place] 1.016 (1.003-1.030) 06/28/17 22:38 Urine Protein Negative mg/dL (NEGATIVE) 06/28/17 22:38 Urine Glucose (UA) Normal mg/dL (Normal) 06/28/17 22:38 Urine Ketones 1+ mg/dL (NEGATIVE) H 06/28/17 22:38 Urine Blood Negative (NEGATIVE) 06/28/17 22:38 Urine Nitrate Negative (NEGATIVE) 06/28/17 22:38 Urine Bilirubin Negative (NEGATIVE) 06/28/17 22:38 Urine Urobilinogen Normal mg/dL (0.2-1.0) 06/28/17 22:38 Ur Leukocyte Esterase 1+ [place]/uL (Negative) H 06/28/17 22:38 Urine WBC (Auto) 23 /hpf (0-5) H 06/28/17 22:38 Urine RBC (Auto) 3 /hpf (0-3) 06/28/17 22:38 Ur Squamous Epith Cells 4 /hpf (0-5) 06/28/17 22:38 Ur Transition Epith Cell 1 /hpf (0-3) 06/28/17 22:38 Urine Bacteria Rare (<OCC) 06/28/17 22:38 Urine Opiates Screen Negative (NEGATIVE) 06/30/17 14:24 Urine Methadone Screen Negative (NEGATIVE) 06/30/17 14:24 Ur Barbiturates Screen Negative (NEGATIVE) 06/30/17 14:24 Ur Phencyclidine Scrn Negative (NEGATIVE) 06/30/17 14:24 Ur Amphetamines Screen Negative (NEGATIVE) 06/30/17 14:24 U Benzodiazepines Scrn Negative (NEGATIVE) 06/30/17 14:24 U Oth Cocaine Metabols Negative (NEGATIVE) 06/30/17 14:24 U Cannabinoids Screen Negative (NEGATIVE) 06/30/17 14:24 Serum Ketones Small (NEGATIVE) 06/28/17 10:54 - Hospital Course Hospital Course: 67 year old female presents to the emergency department accompanied with her son for evaluation of possible syncopal episode two days ago. As per patient, she has a history of Bipolar Disorder and is taking many medications that can cause dizziness and lightheadedness. CT HEAD SHOWED [employer] [facility] [employer] [facility] ATTENDANT SHUNT TNI MILDLY POS THERE IS POSSIBILITY PT. IS OVERDOSING MEDS SHE HAS DONE IN PAST PT. REFUSED PSYCH EVAL TNI WERE POS CARDIAC CATH SHOWED PROX. LAD PT TRANSFERRED TO [facility] FOR STENT Discharge Exam - Head Exam Head Exam: ATRAUMATIC, NORMAL INSPECTION, NORMOCEPHALIC Discharge Plan - Follow Up Plan Condition: SERIOUS Disposition: HOME/ ROUTINE
[2017-07-05] MEDS: Latanoprost 2.5 ml Opht Soln OU SCH (22:53)
[2017-07-06] MEDS ORDERED: Oxycodone/Acetaminophen 5/325 mg Tab PO ONE (08:00)
[2017-07-06] MEDS ORDERED: Lidocaine 1% Inj (20ml) INFIL ONE ×2 (08:00→08:17)
[2017-07-06] MEDS: Lidocaine 5% Patch TD SCH (09:40)
[2017-07-06] MEDS: Pantoprazole 20 mg EC Tab PO SCH (09:51)
--- NOTE | 2017-07-06 13:48 | CP.PCM.PN ---
Subjective - Date & Time of Evaluation Date of Evaluation: 07/06/17 Time of Evaluation: 13:47 - Subjective Subjective: DUE TO BED SITUATION ,PT WAS BROUGHT BACK TO HAD SMALL LEAK IN GROIN WILL OBSERVE 48 HRS DUE TO HIGH DOSE ANTICOAGULATION AND CH. SUBDURAL Objective - Vital Signs/Intake and Output Vital Signs (last 24 hours): Temp Pulse Resp BP Pulse Ox 98.1 F 80 20 107/72 97 07/06/17 08:58 07/06/17 08:58 07/06/17 08:58 07/06/17 08:58 07/06/17 08:58 Intake and Output: 07/06/17 07/06/17 11:59 23:59 Intake Total 120 Balance 120 - Medications Medications: Current Medications Aspirin (Ecotrin) 81 mg PO DAILY [facility] Last Admin: 07/06/17 09:51 Dose: 81 mg Clopidogrel Bisulfate (Plavix) 75 mg PO DAILY [facility] Last Admin: 07/05/17 09:52 Dose: 75 mg Docusate Sodium (Colace) 100 mg PO BID [facility] Last Admin: 07/06/17 09:50 Dose: 100 mg Gabapentin (Neurontin) 600 mg PO Q8H [facility] Last Admin: 07/06/17 06:22 Dose: 600 mg Heparin Sodium (Porcine) (Heparin) 5,000 units SC Q12 [facility] Last Admin: 07/06/17 09:15 Dose: Not Given Latanoprost (Xalatan Opht) 0 ml OU HS [facility] Last Admin: 07/05/17 22:53 Dose: 2.5 ml Lidocaine (Lidoderm) 1 ea TD DAILY [facility] Last Admin: 07/06/17 09:40 Dose: 1 ea Lisinopril (Zestril) 20 mg PO DAILY [facility] Last Admin: 07/06/17 09:50 Dose: 20 mg Pantoprazole Sodium (Protonix Ec Tab) 20 mg PO DAILY [facility] Last Admin: 07/06/17 09:51 Dose: 20 mg Quetiapine Fumarate (Seroquel) 100 mg PO HS [facility] Last Admin: 07/05/17 22:52 Dose: 100 mg Rosuvastatin Calcium (Crestor) 10 mg PO HS [facility] Last Admin: 07/05/17 22:52 Dose: 10 mg Timolol Maleate (Timoptic 0.5% Ophth Soln) 1 drop OD DAILY [facility] Last Admin: 07/06/17 09:40 Dose: 1 drop Tramadol HCl (Ultram) 50 mg PO Q8 PRN PRN Reason: headache /pain - Labs Labs: 07/05/17 06:21 07/05/17 06:21 PT 11.5 SECONDS (9.7-12.2) 07/05/17 08:04 INR 1.0 07/05/17 08:04 APTT 34 SECONDS (21-34) 06/28/17 11:26
[2017-07-06] MEDS: Latanoprost 2.5 ml Opht Soln OU SCH (22:08)
--- NOTE | 2017-07-06 23:47 | CP.PCM.PN ---
Subjective - Date & Time of Evaluation Date of Evaluation: 07/06/17 Time of Evaluation: 07:30 - Subjective Subjective: Called as patient having oozing from the Groin Applied one stich and oozing stopped Denies chest pain and dyspnea Objective - Vital Signs/Intake and Output Vital Signs (last 24 hours): Temp Pulse Resp BP Pulse Ox 98.5 F 82 20 113/61 97 07/06/17 15:20 07/06/17 15:20 07/06/17 15:20 07/06/17 15:20 07/06/17 15:20 - Medications Medications: Current Medications Aspirin (Ecotrin) 81 mg PO DAILY [facility] Last Admin: 07/06/17 09:51 Dose: 81 mg Clopidogrel Bisulfate (Plavix) 75 mg PO DAILY [facility] Last Admin: 07/05/17 09:52 Dose: 75 mg Docusate Sodium (Colace) 100 mg PO BID [facility] Last Admin: 07/06/17 18:00 Dose: 100 mg Gabapentin (Neurontin) 600 mg PO Q8H [facility] Last Admin: 07/06/17 22:18 Dose: 600 mg Heparin Sodium (Porcine) (Heparin) 5,000 units SC Q12 [facility] Last Admin: 07/06/17 22:09 Dose: 5,000 units Latanoprost (Xalatan Opht) 0 ml OU HS [facility] Last Admin: 07/06/17 22:08 Dose: 2.5 ml Lidocaine (Lidoderm) 1 ea TD DAILY [facility] Last Admin: 07/06/17 09:40 Dose: 1 ea Lisinopril (Zestril) 20 mg PO DAILY [facility] Last Admin: 07/06/17 09:50 Dose: 20 mg Pantoprazole Sodium (Protonix Ec Tab) 20 mg PO DAILY [facility] Last Admin: 07/06/17 09:51 Dose: 20 mg Quetiapine Fumarate (Seroquel) 100 mg PO HS [facility] Last Admin: 07/06/17 22:12 Dose: 100 mg Rosuvastatin Calcium (Crestor) 10 mg PO HS [facility] Last Admin: 07/06/17 22:09 Dose: 10 mg Timolol Maleate (Timoptic 0.5% Ophth Soln) 1 drop OD DAILY [facility] Last Admin: 07/06/17 09:40 Dose: 1 drop Tramadol HCl (Ultram) 50 mg PO Q8 PRN PRN Reason: headache /pain - Labs Labs: 08/18/17 06:21 07/05/17 06:21 PT 11.5 SECONDS (9.7-12.2) 07/05/17 08:04 INR 1.0 07/05/17 08:04 APTT 34 SECONDS (21-34) 06/28/17 11:26 - Head Exam Head Exam: ATRAUMATIC, NORMAL INSPECTION, NORMOCEPHALIC - Eye Exam Eye Exam: EOMI, Normal appearance, PERRL Pupil Exam: NORMAL ACCOMODATION, PERRL - ENT Exam ENT Exam: Mucous Membranes Moist, Normal Exam - Neck Exam Neck Exam: Full ROM, Normal Inspection - Respiratory Exam Respiratory Exam: Clear to Ausculation Bilateral, NORMAL BREATHING PATTERN - Cardiovascular Exam Cardiovascular Exam: REGULAR RHYTHM, RRR, +S1, +S2 - GI/Abdominal Exam GI & Abdominal Exam: Soft, Normal Bowel Sounds - Extremities Exam Extremities Exam: Full ROM, Normal Capillary Refill, Normal Inspection - Neurological Exam Neurological Exam: Alert, Awake, CN II-XII Intact, Oriented x3 - Skin Skin Exam: Dry, Warm (Left groin oozing which stopped after a stich) Assessment and Plan - Assessment and Plan (Free Text) Assessment: 1. CAD s/p LAD stent 2. HTN 3. Hyperlipidemia ASA 81, Statins for life Plavix 75 daily for 1 year Further mgt as per Dr. Pereyra
[2017-07-07] MEDS: Pantoprazole 20 mg EC Tab PO SCH (09:29)
[2017-07-07] MEDS: Lidocaine 5% Patch TD SCH (10:10)
--- NOTE | 2017-07-07 15:05 | CP.PCM.PN ---
Subjective - Date & Time of Evaluation Date of Evaluation: 07/07/17 Time of Evaluation: 15:04 - Subjective Subjective: NO FURTHER LEAK IN GROIN NO CP D/C HOME PER IC Objective - Vital Signs/Intake and Output Vital Signs (last 24 hours): Temp Pulse Resp BP Pulse Ox 98.4 F 109 H 20 102/70 96 07/07/17 10:09 07/07/17 10:09 07/07/17 10:09 07/07/17 10:09 07/07/17 10:09 Intake and Output: 07/07/17 07/07/17 11:59 23:59 Intake Total 240 Balance 240 - Medications Medications: Current Medications Aspirin (Ecotrin) 81 mg PO DAILY [facility] Last Admin: 07/07/17 09:26 Dose: 81 mg Clopidogrel Bisulfate (Plavix) 75 mg PO DAILY [facility] Last Admin: 07/05/17 09:52 Dose: 75 mg Docusate Sodium (Colace) 100 mg PO BID [facility] Last Admin: 07/07/17 09:26 Dose: 100 mg Gabapentin (Neurontin) 600 mg PO Q8H [facility] Last Admin: 07/07/17 14:25 Dose: 600 mg Heparin Sodium (Porcine) (Heparin) 5,000 units SC Q12 [facility] Last Admin: 07/07/17 10:12 Dose: 5,000 units Latanoprost (Xalatan Opht) 0 ml OU HS [facility] Last Admin: 07/06/17 22:08 Dose: 2.5 ml Lidocaine (Lidoderm) 1 ea TD DAILY [facility] Last Admin: 07/07/17 10:10 Dose: 1 ea Lisinopril (Zestril) 20 mg PO DAILY [facility] Last Admin: 07/07/17 09:26 Dose: 20 mg Pantoprazole Sodium (Protonix Ec Tab) 20 mg PO DAILY [facility] Last Admin: 07/07/17 09:29 Dose: 20 mg Quetiapine Fumarate (Seroquel) 100 mg PO HS [facility] Last Admin: 07/06/17 22:12 Dose: 100 mg Rosuvastatin Calcium (Crestor) 10 mg PO HS [facility] Last Admin: 07/06/17 22:09 Dose: 10 mg Timolol Maleate (Timoptic 0.5% Ophth Soln) 1 drop OD DAILY [facility] Last Admin: 07/07/17 10:15 Dose: 1 drop Tramadol HCl (Ultram) 50 mg PO Q8 PRN PRN Reason: headache /pain Last Admin: 07/07/17 02:57 Dose: 50 mg - Labs Labs: 07/05/17 06:21 07/05/17 06:21 PT 11.5 SECONDS (9.7-12.2) 07/05/17 08:04 INR 1.0 07/05/17 08:04 APTT 34 SECONDS (21-34) 06/28/17 11:26
[2017-07-07] MEDS: Latanoprost 2.5 ml Opht Soln OU SCH (21:44)
--- NOTE | 2017-07-07 23:09 | CP.PCM.PN ---
Subjective - Date & Time of Evaluation Date of Evaluation: 07/07/17 Time of Evaluation: 08:30 - Subjective Subjective: Patient seen and evaluated Denies chest pain and dyspnea Left groin suture removed No hematoma or bleeding noted Objective - Vital Signs/Intake and Output Vital Signs (last 24 hours): Temp Pulse Resp BP Pulse Ox 98.1 F 87 18 112/66 97 07/07/17 16:08 07/07/17 16:08 07/07/17 16:08 07/07/17 16:08 07/07/17 16:08 - Medications Medications: Current Medications Aspirin (Ecotrin) 81 mg PO DAILY [facility] Last Admin: 07/07/17 09:26 Dose: 81 mg Clopidogrel Bisulfate (Plavix) 75 mg PO DAILY [facility] Last Admin: 07/05/17 09:52 Dose: 75 mg Docusate Sodium (Colace) 100 mg PO BID [facility] Last Admin: 07/07/17 18:00 Dose: 100 mg Gabapentin (Neurontin) 600 mg PO Q8H [facility] Last Admin: 07/07/17 22:25 Dose: 600 mg Heparin Sodium (Porcine) (Heparin) 5,000 units SC Q12 [facility] Last Admin: 07/07/17 21:45 Dose: 5,000 units Latanoprost (Xalatan Opht) 0 ml OU HS [facility] Last Admin: 07/07/17 21:44 Dose: 2.5 ml Lidocaine (Lidoderm) 1 ea TD DAILY [facility] Last Admin: 07/07/17 10:10 Dose: 1 ea Lisinopril (Zestril) 20 mg PO DAILY [facility] Last Admin: 07/07/17 09:26 Dose: 20 mg Pantoprazole Sodium (Protonix Ec Tab) 20 mg PO DAILY [facility] Last Admin: 07/07/17 09:29 Dose: 20 mg Quetiapine Fumarate (Seroquel) 100 mg PO HS [facility] Last Admin: 07/07/17 21:44 Dose: 100 mg Rosuvastatin Calcium (Crestor) 10 mg PO HS [facility] Last Admin: 07/07/17 21:44 Dose: 10 mg Timolol Maleate (Timoptic 0.5% Ophth Soln) 1 drop OD DAILY [facility] Last Admin: 07/07/17 10:15 Dose: 1 drop Tramadol HCl (Ultram) 50 mg PO Q8 PRN PRN Reason: headache /pain Last Admin: 07/07/17 02:57 Dose: 50 mg - Labs Labs: 07/05/17 06:21 07/05/17 06:21 PT 11.5 SECONDS (9.7-12.2) 07/05/17 08:04 INR 1.0 07/05/17 08:04 APTT 34 SECONDS (21-34) 06/28/17 11:26 - Head Exam Head Exam: ATRAUMATIC, NORMAL INSPECTION - Eye Exam Eye Exam: EOMI, Normal appearance, PERRL - ENT Exam ENT Exam: Mucous Membranes Moist, Normal Exam - Neck Exam Neck Exam: Normal Inspection - Respiratory Exam Respiratory Exam: Clear to Ausculation Bilateral, NORMAL BREATHING PATTERN - Cardiovascular Exam Cardiovascular Exam: REGULAR RHYTHM, +S1, +S2 - GI/Abdominal Exam GI & Abdominal Exam: Soft, Normal Bowel Sounds - Extremities Exam Extremities Exam: Full ROM, Normal Capillary Refill - Psychiatric Exam Psychiatric exam: Normal Mood - Skin Skin Exam: Warm Assessment and Plan - Assessment and Plan (Free Text) Assessment: CAD s/p LAD PCI Follow up with Dr. Pereyra for cardiology and medicine
[2017-07-08 00:31] VITALS: RESP 20
[2017-07-08 01:08] VITALS: O2SAT 97
[2017-07-08 08:16] VITALS: BP 102/64; TEMP 98
[2017-07-08 09:47] VITALS: PULSE 87
[2017-07-08] MEDS: Lidocaine 5% Patch TD SCH (11:36)
[2017-07-08] MEDS: Pantoprazole 20 mg EC Tab PO SCH (11:41)
--- NOTE | 2017-07-08 12:05 | CP.PCM.PN ---
Subjective - Date & Time of Evaluation Date of Evaluation: 07/08/17 Time of Evaluation: 12:03 - Subjective Subjective: PT CLEARED FOR D/C BY DR GUERRA. RX GIVEN FOR ASA, PLAVIX; ALREADY ON A STATIN. PT STATES SHE DOES NOT NEED REFILL RX . WILL SEE DR. NAIR IN THE OFFICE THIS WEEK. NO BLEEDING NOTED TO LEFT GROIN, NONTENDER. NO FURTHER ORDERS. WAITING FOR TO PICK HER UP. Objective - Vital Signs/Intake and Output Vital Signs (last 24 hours): Temp Pulse Resp BP Pulse Ox 98.0 F 87 20 102/64 97 07/08/17 07:10 07/08/17 07:55 07/08/17 07:10 07/08/17 07:10 07/08/17 07:10 Intake and Output: 07/08/17 07/08/17 06:59 18:59 Intake Total 560 Balance 560 - Medications Medications: Current Medications Aspirin (Ecotrin) 81 mg PO DAILY [facility] Last Admin: 07/08/17 11:35 Dose: 81 mg Clopidogrel Bisulfate (Plavix) 75 mg PO DAILY [facility] Last Admin: 07/05/17 09:52 Dose: 75 mg Docusate Sodium (Colace) 100 mg PO BID [facility] Last Admin: 07/08/17 11:35 Dose: 100 mg Gabapentin (Neurontin) 600 mg PO Q8H [facility] Last Admin: 07/08/17 06:35 Dose: 600 mg Heparin Sodium (Porcine) (Heparin) 5,000 units SC Q12 [facility] Last Admin: 07/08/17 11:34 Dose: 5,000 units Latanoprost (Xalatan Opht) 0 ml OU HS [facility] Last Admin: 07/07/17 21:44 Dose: 2.5 ml Lidocaine (Lidoderm) 1 ea TD DAILY [facility] Last Admin: 07/08/17 11:36 Dose: 1 ea Lisinopril (Zestril) 20 mg PO DAILY [facility] Last Admin: 07/08/17 11:35 Dose: 20 mg Pantoprazole Sodium (Protonix Ec Tab) 20 mg PO DAILY [facility] Last Admin: 07/08/17 11:41 Dose: 20 mg Quetiapine Fumarate (Seroquel) 100 mg PO HS [facility] Last Admin: 07/07/17 21:44 Dose: 100 mg Rosuvastatin Calcium (Crestor) 10 mg PO HS [facility] Last Admin: 07/07/17 21:44 Dose: 10 mg Timolol Maleate (Timoptic 0.5% Oph Soln) 1 drop OD DAILY [facility] Last Admin: 07/08/17 11:42 Dose: 1 drop Tramadol HCl (Ultram) 50 mg PO Q8 PRN PRN Reason: headache /pain Last Admin: 07/08/17 11:33 Dose: 50 mg - Labs Labs: 07/05/17 06:21 07/05/17 06:21 PT 11.5 SECONDS (9.7-12.2) 07/05/17 08:04 INR 1.0 07/05/17 08:04 APTT 34 SECONDS (21-34) 06/28/17 11:26
--- NOTE | 2017-07-08 14:02 | CP.PCM.DIS ---
Provider - Provider Date of Admission: 06/28/17 12:06 Attending physician: Yanni Pereyra MD Time Spent in preparation of Discharge (in minutes): 30 Hospital Course - Lab Results Lab Results: Most Recent Lab Values WBC 10.1 K/uL (4.8-10.8) 07/05/17 06:21 RBC 4.01 Mil/uL (3.80-5.20) 07/05/17 06:21 Hgb 11.5 g/dL (11.0-16.0) 07/05/17 06:21 Hct 34.9 % (34.0-47.0) 07/05/17 06:21 MCV 86.9 fL (81.0-99.0) 07/05/17 06:21 MCH 28.8 pg (27.0-31.0) 07/05/17 06:21 MCHC 33.1 g/dL (33.0-37.0) 07/05/17 06:21 RDW 14.3 % (11.5-14.5) 07/05/17 06:21 Plt Count 153 K/uL (130-400) 07/05/17 06:21 MPV 9.6 fL (7.2-11.7) 07/05/17 06:21 Neut % (Auto) 68.3 % (50.0-75.0) 06/29/17 07:56 Lymph % (Auto) 20.8 % (20.0-40.0) 06/29/17 07:56 [place] % (Auto) 8.4 % (0.0-10.0) 06/29/17 07:56 Eos % (Auto) 1.6 % (0.0-4.0) 06/29/17 07:56 Baso % (Auto) 0.9 % (0.0-2.0) 06/29/17 07:56 Neut # 7.2 K/uL (1.8-7.0) H 06/29/17 07:56 Lymph # 2.2 K/uL (1.0-4.3) 06/29/17 07:56 [place] # 0.9 K/uL (0.0-0.8) H 06/29/17 07:56 Eos # 0.2 K/uL (0.0-0.7) 06/29/17 07:56 Baso # 0.1 K/uL (0.0-0.2) 06/29/17 07:56 PT 11.5 SECONDS (9.7-12.2) 07/05/17 08:04 INR 1.0 07/05/17 08:04 APTT 34 SECONDS (21-34) 06/28/17 11:26 Sodium 142 mmol/L (132-148) 07/05/17 06:21 Potassium 3.8 mmol/L (3.6-5.2) 07/05/17 06:21 Chloride 103 mmol/L (98-107) 07/05/17 06:21 Carbon Dioxide 29 mmol/L (22-30) 07/05/17 06:21 Anion Gap 13 (10-20) 07/05/17 06:21 BUN 17 mg/dL (7-17) 07/05/17 06:21 Creatinine 0.7 MG/DL (0.7-1.2) 07/05/17 06:21 Est GFR ( Amer) > 60 07/05/17 06:21 Est GFR (Non-Af Amer) > 60 07/05/17 06:21 Random Glucose 87 mg/dL (65-105) 07/05/17 06:21 Calcium 8.7 mg/dl (8.6-10.4) 07/05/17 06:21 Total Bilirubin 0.5 mg/dL (0.2-1.3) 06/29/17 07:56 AST 17 U/L (14-36) 06/29/17 07:56 ALT 19 U/L (9-52) 06/29/17 07:56 Alkaline Phosphatase 87 U/L (38-126) 06/29/17 07:56 Total Creatine Kinase 130 U/L (30-135) 06/28/17 22:42 CK-MB (Mass) 7.25 ng/mL (0.0-3.38) H 06/28/17 22:42 Troponin I 0.2730 ng/mL (0.00-0.120) H* 06/28/17 10:54 Troponin I, Quant 1.0100 ng/mL (0.00-0.120) H* 06/28/17 22:42 Total Protein 6.0 g/dL (6.3-8.3) L 06/29/17 07:56 Albumin 3.0 g/dL (3.5-5.0) L D 06/29/17 07:56 Globulin 3.0 gm/dL (2.2-3.9) 06/29/17 07:56 Albumin/Globulin Ratio 1.0 (1.0-2.1) 06/29/17 07:56 Urine Color Yellow (YELLOW) 06/28/17 22:38 Urine Clarity Hazy (Clear) 06/28/17 22:38 Urine pH 5.0 (5.0-8.0) 06/28/17 22:38 Ur Specific [place] 1.016 (1.003-1.030) 06/28/17 22:38 Urine Protein Negative mg/dL (NEGATIVE) 06/28/17 22:38 Urine Glucose (UA) Normal mg/dL (Normal) 06/28/17 22:38 Urine Ketones 1+ mg/dL (NEGATIVE) H 06/28/17 22:38 Urine Blood Negative (NEGATIVE) 06/28/17 22:38 Urine Nitrate Negative (NEGATIVE) 06/28/17 22:38 Urine Bilirubin Negative (NEGATIVE) 06/28/17 22:38 Urine Urobilinogen Normal mg/dL (0.2-1.0) 06/28/17 22:38 Ur Leukocyte Esterase 1+ [place]/uL (Negative) H 06/28/17 22:38 Urine WBC (Auto) 23 /hpf (0-5) H 06/28/17 22:38 Urine RBC (Auto) 3 /hpf (0-3) 06/28/17 22:38 Ur Squamous Epith Cells 4 /hpf (0-5) 06/28/17 22:38 Ur Transition Epith Cell 1 /hpf (0-3) 06/28/17 22:38 Urine Bacteria Rare (<OCC) 06/28/17 22:38 Urine Opiates Screen Negative (NEGATIVE) 06/30/17 14:24 Urine Methadone Screen Negative (NEGATIVE) 06/30/17 14:24 Ur Barbiturates Screen Negative (NEGATIVE) 06/30/17 14:24 Ur Phencyclidine Scrn Negative (NEGATIVE) 06/30/17 14:24 Ur Amphetamines Screen Negative (NEGATIVE) 06/30/17 14:24 U Benzodiazepines Scrn Negative (NEGATIVE) 06/30/17 14:24 U Oth Cocaine Metabols Negative (NEGATIVE) 06/30/17 14:24 U Cannabinoids Screen Negative (NEGATIVE) 06/30/17 14:24 Serum Ketones Small (NEGATIVE) 06/28/17 10:54 - Hospital Course Hospital Course: 67 year old female presents to the emergency department accompanied with her son for evaluation of possible syncopal episode two days ago. As per patient, she has a history of Bipolar Disorder and is taking many medications that can cause dizziness and lightheadedness. 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 IS OVERDOSING MEDS SHE HAS DONE IN PAST PT. REFUSED PSYCH EVAL TNI WERE POS CARDIAC CATH SHOWED PROX. LAD PT TRANSFERRED TO [facility] FOR STENT POST CATH PT HAD MILD OOZING FROM GROIN REQUIRING A STICH IC CLEARED PT FOR DISCHRAGE WITH NO BLEEDING OR HEMATOMA Discharge Exam - Head Exam Head Exam: ATRAUMATIC, NORMAL INSPECTION Discharge Plan - Discharge Medications Prescriptions: Aspirin [Ecotrin] 81 mg PO DAILY #30 Clopidogrel [Plavix] 75 mg PO DAILY #30 tab - Follow Up Plan Condition: SERIOUS Disposition: HOME/ ROUTINE Instructions: Aspirin (By mouth), Clopidogrel (By mouth), Myocardial Infarction (DC), Coronary Artery Disease (DC), Left Heart Catheterization (DC), Acute Kidney Injury (DC), Heart Healthy Diet (DC), Subdural Hematoma (DC) Additional Instructions: FOLLOW UP WITH DR. PEREYRA IN THE OFFICE THIS WEEK---CALL TO MAKE YOUR APPT. CONTINUE YOUR HOME MEDICATIONS USUAL. DUE TO YOU HEART, YOU NEED TO CONTINUE A BABY ASPIRIN, PLAVIX, AND LIPITOR ONCE A DAY. BEFORE YOU ARE DUE FOR A REFILL, CONTACT DR. PEREYRA. FOR ANY OTHER CONCERNS OR QUESTIONS, CONTACT DR. PEREYRA'S OFFICE. Referrals: Valdemar Parikh MD [Staff Provider] - Radha Nam MD [Staff Provider] - Yanni Pereyra MD [Staff Provider] - Derick Mauro MD [Staff Provider] -
== END 2017-07-08 13:14 | disposition home or self-care (01) | DRG 281 ==
LOC: C.ER 09:58 → C.9E 12:06 → C.6T 18:03
PROVIDERS: ADMIT Internal Medicine Cardiovascular Disease; ATTEND Internal Medicine Cardiovascular Disease
PROC: B2151ZZ Fluoroscopy of Left Heart using Low Osmolar Contrast (ICD-10-PCS; 2017-07-02)
PROC: B2111ZZ Fluoroscopy of Multiple Coronary Arteries using Low Osmolar Contrast (ICD-10-PCS; 2017-07-02)
PROC: 4A023N7 Measurement of Cardiac Sampling and Pressure, Left Heart, Percutaneous Approach (ICD-10-PCS; principal; 2017-07-02 15:30)
DX: I21.4 Non-ST elevation (NSTEMI) myocardial infarction (principal); I97.410 Intraoperative hemorrhage and hematoma of a circulatory system organ or structure complicating a cardiac catheterization; F03.90 Unspecified dementia, unspecified severity, without behavioral disturbance, psychotic disturbance, mood disturbance, and anxiety; I25.10 Atherosclerotic heart disease of native coronary artery without angina pectoris; I10 Essential (primary) hypertension; D18.1 Lymphangioma, any site; F29 Unspecified psychosis not due to a substance or known physiological condition; F31.9 Bipolar disorder, unspecified; F41.9 Anxiety disorder, unspecified; N28.9 Disorder of kidney and ureter, unspecified; E78.5 Hyperlipidemia, unspecified; H91.93 Unspecified hearing loss, bilateral; Z79.02 Long term (current) use of antithrombotics/antiplatelets; Z98.2 Presence of cerebrospinal fluid drainage device; M19.90 Unspecified osteoarthritis, unspecified site; D64.9 Anemia, unspecified

== ENCOUNTER 2018-01-24 08:22 | Inpatient (IN) | payer MEDICARE, BC ==
[2018-01-24 08:23] VITALS: BMI 25.0
[2018-01-24 09:50] LABS: BASO % 0.4 % (0.0-2.0); EOS # 0.1 K/uL (0.0-0.7); HEMOGLOBIN 12.4 g/dL (11.0-16.0); LYMPH # 1.4 K/uL (1.0-4.3); LYMPH % 10.9 % (20.0-40.0); MEAN CELL VOLUME 86.9 fL (81.0-99.0); MEAN CORPUSCULAR HEMOGLOBIN 28.8 pg (27.0-31.0); MEAN CORPUSCULAR HGB CONC 33.2 g/dL (33.0-37.0); MEAN PLATELET VOLUME 9.6 fL (7.2-11.7); MONO # 0.6 K/uL (0.0-0.8); MONO % 4.7 % (0.0-10.0); NEUT # 10.4 K/uL (1.8-7.0); RBC 4.31 Mil/uL (3.80-5.20); WHITE BLOOD COUNT 12.6 K/uL (4.8-10.8)
[2018-01-24 09:58] LABS: INR 1.1; PROTHROMBIN TIME 11.8 SECONDS (9.7-12.2)
[2018-01-24 10:04] LABS: ALB/GLOB RATIO 1.1 (1.0-2.1); ALBUMIN 3.9 g/dL (3.5-5.0); ALT/SGPT 22 U/L (9-52); AST/SGOT 23 U/L (14-36); BLOOD UREA NITROGEN 17 mg/dL (7-17); GFR AFRICAN-AMERICAN > 60; GFR NON-AFRICAN AMERICAN > 60; LIPASE 73 U/L (23-300)
--- NOTE | 2018-01-24 10:20 | C.PDOC ---
History Of Present Illness 67 y/o female with a PMHx of CVA, bipolar, and depression, presents complaining of blood in the stool for 1 day. Reports 4-5 episodes over the past 24 hours. Patient describes blood as gelatinous with clotting, bright red in color. Bleeding is associated with diffuse abdominal pain. Otherwise denies fevers, chills, nausea, vomiting, or diarrhea. Also reports having intermittent chest pain yesterday, but no pain today. Patient has been taking Ibuprofen and Tylenol for a shoulder injury, denies taking any blood thinners. Also reports feeling weak and dizzy when attempting bowel movements. Time Seen by Provider: 01/24/18 08:57 Chief Complaint (Nursing): Abdominal Pain History Per: Patient History/Exam Limitations: no limitations Onset/Duration Of Symptoms: Days (x1) Current Symptoms Are (Timing): Still Present Past Medical History Reviewed: Historical Data, Nursing Documentation, Vital Signs Vital Signs: Last Vital Signs Temp 97.4 F L 01/27/18 08:43 Pulse 87 01/27/18 08:43 Resp 20 01/27/18 08:43 BP 158/81 H 01/27/18 08:43 Pulse Ox 100 01/27/18 08:43 - Medical History PMH: Anemia, Anxiety, Arthritis, Back Problems, Bipolar Disorder, CVA, Dementia , Depression, HTN, Hypercholesterolemia, Migraine Denies: Diabetes, Hepatitis, Chronic Kidney Disease Surgical History: Back Surgery, Tonsillectomy - [facility] Procedures FLUOROSCOPY OF LEFT HEART USING LOW OSMOLAR CONTRAST (06/28/17) FLUOROSCOPY OF MULT COR ART USING L OSM CONTRAST (06/28/17) MEASURE OF CARDIAC SAMPL & PRESSURE, L HEART, PERC APPROACH (06/28/17) REPOSITION LEFT UPPER FEMUR WITH INT FIX, OPEN APPROACH (02/20/17) TRANSFUSE NONAUT RED BLOOD CELLS IN PERIPH VEIN, PERC (02/20/17) VENTRICL SHUNT-ABDOMEN (02/10/14) Family History: States: Unknown Family Hx - Social History Hx Tobacco Use: No Hx Alcohol Use: No Hx Substance Use: No - Immunization History Hx Tetanus Toxoid Vaccination: (unk) Hx Influenza Vaccination: Yes Hx Pneumococcal Vaccination: (unk) Review Of Systems Except As Marked, All Systems Reviewed And Found Negative. Cardiovascular: Positive for: Chest Pain (intermittent) Gastrointestinal: Positive for: Abdominal Pain, Hematochezia Physical Exam - Physical Exam Appears: Non-toxic, No Acute Distress Skin: Normal Color, Warm, Dry Head: Atraumatic, Normacephalic Eye(s): bilateral: Normal Inspection, PERRL, EOMI Nose: Normal Oral Mucosa: Moist Neck: Normal ROM, Supple Chest: Symmetrical Cardiovascular: Rhythm Regular, No Murmur Respiratory: Normal Breath Sounds, No Accessory Muscle Use Gastrointestinal/Abdominal: Soft, Tenderness (to left lower quadrant), No Distention, No Guarding, No Rebound Rectal: Rectal Tone (Normal sphincter tone), Heme Positive, Hemorrhoids ( External hemorrhoids, non-bleeding) Extremity: Bilateral: Atraumatic, Normal Color And Temperature, Normal ROM Neurological/Psych: Oriented x3, Normal Speech ED Course And Treatment - Laboratory Results Result Diagrams: 01/27/18 07:24 01/27/18 07:24 ECG: Interpreted By Me, Viewed By Me ECG Rhythm: Sinus Rhythm (at 93 bpm, with normal intervals, normal axis. No ST or T wave abnormalities) O2 Sat by Pulse Oximetry: 96 (RA) Pulse Ox Interpretation: Normal - CT Scan/US CT abd/pelvis Other Rad Studies (CT/US): Read By Radiologist, Radiology Report Reviewed CT/US Interpretation: FINDINGS: There is limited evaluation of the solid organs without the administration of IV contrast. LOWER THORAX: No visible consolidation, pleural effusion, or pneumothorax. Dense mitral annulus calcification. Small hiatal hernia/distal esophageal wall thickening. LIVER: Unremarkable unenhanced appearance. GALLBLADDER AND BILE DUCTS: Decompressed gallbladder appears otherwise unremarkable. PANCREAS: Unremarkable unenhanced appearance. SPLEEN: Unremarkable unenhanced appearance. ADRENALS: Unremarkable unenhanced appearance. KIDNEYS AND URETERS: No hydronephrosis or obstructing renal calculus. BLADDER: Decompressed urinary bladder limits evaluation. REPRODUCTIVE: Uterus is present. APPENDIX: The appendix appears within normal limits of caliber. No secondary signs of acute appendicitis. BOWEL: The stomach is nondistended. Lack of oral contrast limits evaluation for bowel pathology. The bowel loops appear within normal limits of caliber without evidence of intestinal obstruction. Marked wall thickening of the left/ rectosigmoid colon appears consistent with colitis (i.e. Infectious, inflammatory, ischemic) ; correlate clinically. PERITONEUM: Small pelvic free fluid. No definite free air. LYMPH NODES: No bulky lymphadenopathy identified. VASCULATURE: Atherosclerotic calcifications the aorta branches. No aortic aneurysm. BONES: Intratrochanteric anai and screw fixation partially imaged, left hip. OTHER FINDINGS: Partially imaged catheter, likely related to BOARDMARKER shunt. IMPRESSION: Marked wall thickening of the left/rectosigmoid colon appears consistent with colitis (i.e. Infectious, inflammatory, ischemic) ; correlate clinically. Additional findings as above. Medical Decision Making Medical Decision Making: Guaiac positive. Initial Impression: Abdominal pain Time: 9:32 Initial Plan: * EKG * CMP * Lipase * Troponin I * CBC * PTT * Prothrombin time * Urinalysis * Protonix 40 mg IVP * CT abd/pelvis 10:46 Urine shows (+) leuks and RBC. Patient started on IV zosyn. Labs reviewed: Troponin positive. 11:21 Discussed case w/ Dr. Pereyra, patient will be admitted inpatient to his service for colitis, UTI, and NSTEMI. Infectious disease, Dr. Phylicia Holliday, will consult pt in the hospital. Disposition Counseled Patient/Family Regarding: Studies Performed, Diagnosis - Disposition Disposition: HOSPITALIZED Disposition Time: 11:25 Condition: FAIR - Clinical Impression Clinical Impression: NSTEMI (non-ST elevated myocardial infarction), Colitis - Scribe Statement The provider has reviewed the documentation as recorded by the Scribe (Liza Loza) Provider Attestation: All medical record entries made by the Scribe were at my direction and personally dictated by me. I have reviewed the chart and agree that the record accurately reflects my personal performance of the history, physical exam, medical decision making, and the department course for this patient. I have also personally directed, reviewed, and agree with the discharge instructions and disposition. Decision To Admit - Pt Status Changed To: Hospital Disposition Of: Inpatient - Admit Certification Admit to Inpatient:: After my assessment, the patient will require hospitalization for at least two midnights. This is because of the severity of symptoms shown, intensity of services needed, and/or the medical risk in this patient being treated as an outpatient. - InPatient: Physician Admission Certification:: patient admitted to telemetry - . Bed Request Type: Telemetry Patient Diagnosis: NSTEMI (non-ST elevated myocardial infarction), Colitis
[2018-01-24 10:29] LABS: SQUAMOUS EPITHIAL 11 /hpf (0-5); URINE AMORPHOUS SEDIMENT RARE /ul (<OCC); URINE BACTERIA RARE (<OCC); URINE BILIRUBIN 1+ (NEGATIVE); URINE BLOOD 1+ (NEGATIVE); URINE CLARITY Hazy (Clear); URINE COLOR Yellow (YELLOW); URINE GLUCOSE (UA) NORMAL (Normal); URINE LEUKOCYTE ESTERASE 2+ Leu/uL (Negative); URINE PROTEIN 1+ mg/dL (NEGATIVE); URINE UROBILINOGEN NORMAL mg/dL (0.2-1.0)
[2018-01-24] MEDS ORDERED: Piperacillin/Tazobact 3.375 GM in Sodium Chloride 100 ML IVPB STA (10:46)
--- NOTE | 2018-01-24 11:09 | CT ---
PROCEDURE: CT Abdomen and Pelvis without Oral or IV contrast. HISTORY: abd pain COMPARISON: None available TECHNIQUE: Contiguous axial images of the abdomen and pelvis. No oral or IV contrast administered. Coronal and Sagittal reformats generated and reviewed. Radiation dose: Total exam DLP = 379.39 mGy-cm. This CT exam was performed using one or more of the following dose reduction techniques: Automated exposure control, adjustment of the mA and/or kV according to patient size, and/or use of iterative reconstruction technique. FINDINGS: There is limited evaluation of the solid organs without the administration of IV contrast. LOWER THORAX: No visible consolidation, pleural effusion, or pneumothorax. Dense mitral annulus calcification. Small hiatal hernia/distal esophageal wall thickening. LIVER: Unremarkable unenhanced appearance. GALLBLADDER AND BILE DUCTS: Decompressed gallbladder appears otherwise unremarkable. PANCREAS: Unremarkable unenhanced appearance. SPLEEN: Unremarkable unenhanced appearance. ADRENALS: Unremarkable unenhanced appearance. KIDNEYS AND URETERS: No hydronephrosis or obstructing renal calculus. BLADDER: Decompressed urinary bladder limits evaluation. REPRODUCTIVE: Uterus is present. APPENDIX: The appendix appears within normal limits of caliber. No secondary signs of acute appendicitis. BOWEL: The stomach is nondistended. Lack of oral contrast limits evaluation for bowel pathology. The bowel loops appear within normal limits of caliber without evidence of intestinal obstruction. Marked wall thickening of the left/rectosigmoid colon appears consistent with colitis (i.e. Infectious, inflammatory, ischemic) ; correlate clinically. PERITONEUM: Small pelvic free fluid. No definite free air. LYMPH NODES: No bulky lymphadenopathy identified. VASCULATURE: Atherosclerotic calcifications the aorta branches. No aortic aneurysm. BONES: Intratrochanteric anai and screw fixation partially imaged, left hip. 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 IMPRESSION: Marked wall thickening of the left/rectosigmoid colon appears consistent with colitis (i.e. Infectious, inflammatory, ischemic) ; correlate clinically. Additional findings as above.
--- NOTE | 2018-01-24 11:31 | RAD ---
HISTORY: chest pain COMPARISON: Chest x-ray performed 06/28/17 TECHNIQUE: Chest, one view. 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 LUNGS: No focal consolidation. Please note that chest x-ray has limited sensitivity for the detection of pulmonary masses. PLEURA: No significant pleural effusion identified. No definite pneumothorax . CARDIOVASCULAR: Heart size appears within normal limits. Dense atherosclerotic calcification of the aortic knob. OSSEOUS STRUCTURES: No acute osseous abnormality identified. VISUALIZED UPPER ABDOMEN: Unremarkable. OTHER FINDINGS: None. IMPRESSION: No acute findings identified. See above.
[2018-01-24] MEDS ORDERED: Piperacillin/Tazobact 3.375 gm 100 ML IVPB ONE (11:34)
--- NOTE | 2018-01-24 14:06 | CP.PCM.HP ---
History of Present Illness - History of Present Illness History of Present Illness: COMPREHENSIVE HISTORY & PHYSICAL EXAM HPI COUPLE OF DAYS C/O DIARRHEA MIXED WITH BLOOD . NO PAIN /N/V . EVALUATED IN ER , CT SHOWED COLITIS IN SIGMOID AREA ALSO HAS ATYPICAL CP WITH POS TNI PAST HIST. H/O CAD WITH STENT IN LAD , LAST YEAR HTN BIPOLAR WITH MAJOR DEPRESSIVE DISORDER WITH PAST SUICIDAL ATTEMPT MULTIPLE JT PAINS ON NARCOTICS FROZEN SHOULDER PERSONAL HIST: Smoking. N Alcohol. N Allergy N Travel_- . FAMILY HIST : ROS : Constitutional: Negative for weight change, chills, night sweats, fatigue and usage of assist device. Eyes: Negative for redness, swelling, itching, discharge, vision changes, blurry vision, double vision, glaucoma, cataracts, Ears: Negative for hearing loss, ringing, , tinnitus, vertigo Nose: Negative for rhinorrhea, stuffiness, sniffing, itching, postnasal drip, discoloration, nasal congestion and epistaxis. Throat: Negative for throat clearing, sore throat, hoarseness, difficulty swallowing and difficulty speaking. Respiratory: Negative for cough, , sputum production, chest tightness, wheezing, pleuritic chest pain ,daytime somnolence, chronic cough, hemoptysis, snoring at night, Cardiovascular: Negative for , Edema of legs, leg cramps, angina, claudication , , irregular heartbeat, Neurology: Negative for irritability, muscle weakness, numbness and tingling, seizures, tremors, migraines, slurred speech, syncope, memory loss, mood changes , recurrent headaches Gastrointestinal: Negative for difficulty swallowing, diarrhea, constipation, nausea, flatulence, reflux, poor appetite, changes in bowel habits, abdominal pain Genitourinary: Negative for frequent urination, hematuria, discharge, incontinence, urinary retention, frequent UTI, Psychiatric: Negative for depression, anxiety/panic, suicidal tendencies, Musculoskeletal: Negative for swollen joints, back pain, , neck pain, morning stiffness of joints, . Skin: Negative for rash, ulcers, itching, dry skin and pigmented lesions. P/E: Constitutional: Appears stated age and in no apparent distress. Head: Normocephalic. Ears: External ear canals patent without inflammation. Tympanic membranes intact with normal light reflex and landmark. Eyes: Pupils are central, bilaterally equal, symmetrical and reacts to light with normal movements and no icterus or pallor. Nose: External nares are patent. Mucosa is pink Mouth-Throat: Good general appearance and condition. No post-pharyngeal/oropharyngeal erythema and tonsillar hypertrophy. Good dental hygiene. Neck-Lymphatic: Neck is supple with normal ROM, no thyromegaly, lymph nodes or masses. JVD is normal with no carotid bruit. Lungs: Clear to percussion and auscultation with bilateral normal air entry. Cardiovascular: S1 and S2 are normal with no murmurs, gallops and rub. GI Exam: No hepatomegaly. Abdomen is soft and non-tender. No Organomegaly , masses or hernias are evident and bowel sounds are normal and active. Neurology: Higher function and all cranial nerves intact, with no gross motor or sensory deficit. Superficial and deep reflexes are normal with downwards planters. No cerebellar deficit with normal gait. Musculoskeletal: No tender spots with normal curvature of the spine with no swelling . BOTH SHOULDER RESTRICTED ROM Extremities: Homans sign absent. Intact pulses with no pitting edema, calf tenderness or skin color changes. Skin: No rash, eruptions or abnormal skin pigmentation LAB/RADIOLOGY: ASSESMENT : COLITIS A/W BLOODY DIARRHEA, INFECTIOUS VS INFLAMMATORY POS TNI WITH CP , PAST H/O LAD STENT HTN MULTIPLE JOINT PAINS PLAN: SEE ORDERS Past Patient History - Infectious Disease Hx of Infectious Diseases: None - Past Medical History & Family History Past Medical History?: Yes - Past Social History Smoking Status: Never Smoked - CARDIAC Hx Hypercholesterolemia: Yes Hx Hypertension: Yes - PULMONARY Hx Respiratory Disorders: No - NEUROLOGICAL Hx Dementia: Yes Hx Migraine: Yes - HEENT Hx HEENT Problems: Yes Hx Deafness: Yes (Bilateral hearing loss, doesn't wear hearing aids) - RENAL Hx Chronic Kidney Disease: No - ENDOCRINE/METABOLIC Hx Endocrine Disorders: No - HEMATOLOGICAL/ONCOLOGICAL Hx Anemia: Yes - INTEGUMENTARY Hx Dermatological Problems: No - MUSCULOSKELETAL/RHEUMATOLOGICAL Hx Arthritis: Yes - PSYCHIATRIC Hx Anxiety: Yes Hx Bipolar Disorder: Yes Hx Depression: Yes Hx Substance Use: No - SURGICAL HISTORY Hx Tonsillectomy: Yes - ANESTHESIA Hx Anesthesia: Yes Hx Anesthesia Reactions: No Hx Malignant Hyperthermia: No Meds Allergies/Adverse Reactions: Allergies Allergy/AdvReac Type Severity Reaction Status Date / Time pregabalin [From Lyrica] Allergy RASH Verified 01/24/18 08:30 Results - Vital Signs Recent Vital Signs: Last Vital Signs Temp 98 F 01/24/18 08:29 Pulse 92 H 01/24/18 11:24 Resp 14 01/24/18 11:24 BP 166/87 H 01/24/18 11:24 Pulse Ox 96 01/24/18 11:49 - Labs Result Diagrams: 01/24/18 09:44 01/24/18 09:44 Labs: Laboratory Results - last 24 hr 01/24/18 01/24/18 01/24/18 09:44 09:44 09:44 WBC 12.6 H RBC 4.31 Hgb 12.4 Hct 37.5 MCV 86.9 MCH 28.8 MCHC 33.2 RDW 15.0 H Plt Count 219 MPV 9.6 Neut % (Auto) 83.0 H Lymph % (Auto) 10.9 L [place] % (Auto) 4.7 Eos % (Auto) 1.0 Baso % (Auto) 0.4 Neut # (Auto) 10.4 H Lymph # (Auto) 1.4 [place] # (Auto) 0.6 Eos # (Auto) 0.1 Baso # (Auto) 0.0 PT 11.8 INR 1.1 APTT 41 H Sodium 146 Potassium 4.0 Chloride 105 Carbon Dioxide 26 Anion Gap 19 BUN 17 Creatinine 0.7 Est GFR ( Amer) > 60 Est GFR (Non-Af Amer) > 60 Random Glucose 118 H Calcium 9.0 Total Bilirubin 0.4 AST 23 ALT 22 Alkaline Phosphatase 103 Troponin I 0.3050 H* Total Protein 7.3 Albumin 3.9 Globulin 3.4 Albumin/Globulin Ratio 1.1 Lipase 73 Urine Color Urine Clarity Urine pH Ur Specific [place] Urine Protein Urine Glucose (UA) Urine Ketones Urine Blood Urine Nitrate Urine Bilirubin Urine Urobilinogen Ur Leukocyte Esterase Urine WBC (Auto) Urine RBC (Auto) Ur Squamous Epith Cells Amorphous Sediment Urine Bacteria 01/24/18 10:12 WBC RBC Hgb Hct MCV MCH MCHC RDW Plt Count MPV Neut % (Auto) Lymph % (Auto) [place] % (Auto) Eos % (Auto) Baso % (Auto) Neut # (Auto) Lymph # (Auto) [place] # (Auto) Eos # (Auto) Baso # (Auto) PT INR APTT Sodium Potassium Chloride Carbon Dioxide Anion Gap BUN Creatinine Est GFR ( Amer) Est GFR (Non-Af Amer) Random Glucose Calcium Total Bilirubin AST ALT Alkaline Phosphatase Troponin I Total Protein Albumin Globulin Albumin/Globulin Ratio Lipase Urine Color Yellow Urine Clarity Hazy Urine pH 5.0 Ur Specific [place] 1.025 Urine Protein 1+ H Urine Glucose (UA) Normal Urine Ketones Negative Urine Blood 1+ H Urine Nitrate Negative Urine Bilirubin 1+ H Urine Urobilinogen Normal Ur Leukocyte Esterase 2+ H Urine WBC (Auto) 8 H Urine RBC (Auto) 5 H Ur Squamous Epith Cells 11 H Amorphous Sediment Rare H Urine Bacteria Rare
[2018-01-24 17:40] LABS: CK-MB 2.49 ng/mL (0.0-3.38); TROPONIN I 0.227 ng/mL (0.00-0.120)
[2018-01-24] MEDS: Acetaminophen-Codeine 300/30 mg Tab PO PRN (19:24)
--- NOTE | 2018-01-24 20:39 | CP.PCM.CON ---
History of Present Illness - History of Present Illness History of Present Illness: INFECTIOUS DISEASE CONSULT; HPI; 67 y/o female with a PMHx of CVA, bipolar, and depression, presents complaining of blood in the stool for 1 day. Reports 4-5 episodes over the past 24 hours. Patient describes blood as gelatinous with clotting, bright red in color. Bleeding is associated with diffuse abdominal pain. Patient denies fevers, chills, nausea, vomiting, or diarrhea. Also reports having intermittent chest pain since yesterday, but no pain today. Patient has been taking Ibuprofen and Tylenol for a shoulder injury, denies taking any blood thinners. Also reports feeling weak and dizzy when attempting bowel movements. Patient presently complaining of abdominal pain mainly localized left lower quadrant. PATIENT DENIES ANY PREVIOUS SUCH EPISODES IN THE PAST OR ANY HISTORY OF INFLAMMATORY BOWEL DISEASE. INFECTIOUS DISEASE CONSULTATION REQUESTED BY PMD FOR BLOODY DIARRHEAND LOWER ABDOMINAL PAIN. CT ABDOMEN AND PELVIS W/O BY MOUTH OR iv CONTRAST 01/24/18 CONSISTENT WITH MARKED WALL THICKENING OF LEFT RECTOSIGMOID COLON :? -COLITIS QUESTIONABLE INFECTIOUS/ INFLAMMATORY OR ISCHEMIC. PATIENT WAS GIVEN A DOSE OF zOSYN 3.3751. ALSO PATIENT'S TRIPONIN ARE +VE X2. pATIENT PRESENTLY DENIES CHEST PAIN OR SHORTNESS OF BREATH PMH: Anemia, Anxiety, Arthritis, Back Problems, Bipolar Disorder, CVA, Dementia , Depression, HTN, Hypercholesterolemia, Migraine Denies: Diabetes, Hepatitis, Chronic Kidney Disease Surgical History: Back Surgery, Tonsillectomy - [facility] Procedures FLUOROSCOPY OF LEFT HEART USING LOW OSMOLAR CONTRAST (06/28/17) FLUOROSCOPY OF MULT COR ART USING L OSM CONTRAST (06/28/17) MEASURE OF CARDIAC SAMPL & PRESSURE, L HEART, PERC APPROACH (06/28/17) REPOSITION LEFT UPPER FEMUR WITH INT FIX, OPEN APPROACH (02/20/17) TRANSFUSE NONAUT RED BLOOD CELLS IN PERIPH VEIN, PERC (02/20/17) VENTRICL SHUNT-ABDOMEN (02/10/14) Family History: States: Unknown Family Hx - Social History Hx Tobacco Use: No Hx Alcohol Use: No Hx Substance Use: No - Immunization History Hx Tetanus Toxoid Vaccination: (unk) Hx Influenza Vaccination: Yes Hx Pneumococcal Vaccination: (unk). Allergies; Pregabalin. Review of Systems - Constitutional Constitutional: absent: Chills, Fever - EENT Nose/Mouth/Throat: absent: Mouth Lesions, Sore Throat - Cardiovascular Cardiovascular: Chest Pain, Lightheadedness. absent: Dyspnea, Leg Edema - Respiratory Respiratory: absent: Cough, Hemoptysis - Gastrointestinal Gastrointestinal: Abdominal Pain, Bloating, Diarrhea, Excessive Flatus, Melena. absent: Nausea, Vomiting - Musculoskeletal Musculoskeletal: absent: Arthralgias - Neurological Neurological: Weakness - Psychiatric Psychiatric: Anxiety, Depression - Hematologic/Lymphatic Hematologic: As Per HPI. absent: Easy Bleeding, Lymphadenopathy Past Patient History - Infectious Disease Hx of Infectious Diseases: None - Past Medical History & Family History Past Medical History?: Yes - Past Social History Smoking Status: Never Smoked - CARDIAC Hx Hypercholesterolemia: Yes Hx Hypertension: Yes - PULMONARY Hx Respiratory Disorders: No - NEUROLOGICAL Hx Dementia: Yes Hx Migraine: Yes - HEENT Hx HEENT Problems: Yes Hx Deafness: Yes (Bilateral hearing loss, doesn't wear hearing aids) - RENAL Hx Chronic Kidney Disease: No - ENDOCRINE/METABOLIC Hx Endocrine Disorders: No - HEMATOLOGICAL/ONCOLOGICAL Hx Anemia: Yes - INTEGUMENTARY Hx Dermatological Problems: No - MUSCULOSKELETAL/RHEUMATOLOGICAL Hx Arthritis: Yes - PSYCHIATRIC Hx Anxiety: Yes Hx Bipolar Disorder: Yes Hx Depression: Yes Hx Substance Use: No - SURGICAL HISTORY Hx Tonsillectomy: Yes - ANESTHESIA Hx Anesthesia: Yes Hx Anesthesia Reactions: No Hx Malignant Hyperthermia: No Meds Allergies/Adverse Reactions: Allergies Allergy/AdvReac Type Severity Reaction Status Date / Time pregabalin [From Lyrica] Allergy RASH Verified 01/24/18 08:30 - Medications Medications: Current Medications Acetaminophen/Codeine Phosphate (Tylenol/Codeine 300 Mg/30 Mg) 1 ea PO Q6 PRN PRN Reason: Pain, moderate (4-7) Last Admin: 01/24/18 19:24 Dose: 1 ea Famotidine (Pepcid) 40 mg IVP Q12 [facility] Gabapentin (Neurontin) 600 mg PO Q8 [facility] Last Admin: 01/24/18 14:25 Dose: 600 mg Latanoprost (Xalatan Opht) 0 ml OU HS [facility] Lisinopril (Zestril) 20 mg PO DAILY [facility] Last Admin: 01/24/18 14:25 Dose: 20 mg Quetiapine Fumarate (Seroquel) 100 mg PO HS [facility] Rosuvastatin Calcium (Crestor) 10 mg PO HS [facility] Zolpidem Tartrate (Ambien) 5 mg PO HS PRN PRN Reason: Insomnia Physical Exam - Constitutional Appears: No Acute Distress - Head Exam Head Exam: NORMAL INSPECTION - Eye Exam Eye Exam: EOMI, PERRL. absent: Nystagmus - ENT Exam ENT Exam: Normal Oropharynx - Neck Exam Neck exam: Positive for: Normal Inspection - Respiratory Exam Respiratory Exam: Clear to Auscultation Bilateral, NORMAL BREATHING PATTERN - Cardiovascular Exam Cardiovascular Exam: REGULAR RHYTHM, +S1, +S2 - GI/Abdominal Exam GI & Abdominal Exam: Distended, Hypoactive Bowel Sounds, Soft, Tenderness (LLQ / LOWER ABDOMEN) - Extremities Exam Extremities exam: Positive for: pedal pulses present. Negative for: calf tenderness, pedal edema - Neurological Exam Neurological exam: Alert, CN II-XII Intact, Oriented x3 - Psychiatric Exam Psychiatric exam: Normal Mood - Skin Skin Exam: Normal Color, Warm Results - Vital Signs Recent Vital Signs: Last Vital Signs Temp 98.1 F 01/24/18 15:24 Pulse 86 01/24/18 16:00 Resp 20 01/24/18 15:24 BP 157/82 H 01/24/18 15:24 Pulse Ox 97 01/24/18 15:24 - Labs Result Diagrams: 01/24/18 09:44 01/24/18 09:44 Labs: Laboratory Results - last 24 hr 01/24/18 01/24/18 01/24/18 09:44 09:44 09:44 WBC 12.6 H RBC 4.31 Hgb 12.4 Hct 37.5 MCV 86.9 MCH 28.8 MCHC 33.2 RDW 15.0 H Plt Count 219 MPV 9.6 Neut % (Auto) 83.0 H Lymph % (Auto) 10.9 L [place] % (Auto) 4.7 Eos % (Auto) 1.0 Baso % (Auto) 0.4 Neut # (Auto) 10.4 H Lymph # (Auto) 1.4 [place] # (Auto) 0.6 Eos # (Auto) 0.1 Baso # (Auto) 0.0 PT 11.8 INR 1.1 APTT 41 H Sodium 146 Potassium 4.0 Chloride 105 Carbon Dioxide 26 Anion Gap 19 BUN 17 Creatinine 0.7 Est GFR ( Amer) > 60 Est GFR (Non-Af Amer) > 60 Random Glucose 118 H Calcium 9.0 Total Bilirubin 0.4 AST 23 ALT 22 Alkaline Phosphatase 103 Total Creatine Kinase CK-MB (Mass) Troponin I 0.3050 H* Total Protein 7.3 Albumin 3.9 Globulin 3.4 Albumin/Globulin Ratio 1.1 Lipase 73 Urine Color Urine Clarity Urine pH Ur Specific [place] Urine Protein Urine Glucose (UA) Urine Ketones Urine Blood Urine Nitrate Urine Bilirubin Urine Urobilinogen Ur Leukocyte Esterase Urine WBC (Auto) Urine RBC (Auto) Ur Squamous Epith Cells Amorphous Sediment Urine Bacteria 01/24/18 01/24/18 10:12 16:47 WBC RBC Hgb Hct MCV MCH MCHC RDW Plt Count MPV Neut % (Auto) Lymph % (Auto) [place] % (Auto) Eos % (Auto) Baso % (Auto) Neut # (Auto) Lymph # (Auto) [place] # (Auto) Eos # (Auto) Baso # (Auto) PT INR APTT Sodium Potassium Chloride Carbon Dioxide Anion Gap BUN Creatinine Est GFR ( Amer) Est GFR (Non-Af Amer) Random Glucose Calcium Total Bilirubin AST ALT Alkaline Phosphatase Total Creatine Kinase 45 CK-MB (Mass) 2.49 Troponin I 0.2270 H* Total Protein Albumin Globulin Albumin/Globulin Ratio Lipase Urine Color Yellow Urine Clarity Hazy Urine pH 5.0 Ur Specific [place] 1.025 Urine Protein 1+ H Urine Glucose (UA) Normal Urine Ketones Negative Urine Blood 1+ H Urine Nitrate Negative Urine Bilirubin 1+ H Urine Urobilinogen Normal Ur Leukocyte Esterase 2+ H Urine WBC (Auto) 8 H Urine RBC (Auto) 5 H Ur Squamous Epith Cells 11 H Amorphous Sediment Rare H Urine Bacteria Rare - Imaging and Cardiology CT scan - abdomen Status: Report reviewed by me (see report.) Assessment & Plan (1) Colitis Assessment and Plan: w/u for blood diarrhoea ordered. enteric precautions. PANCULTURES bLOOD CULTURES 2 SETS STAT STOOLS FOR c. DIFFICILE TOXIN. Patient got one dose of Zosyn 3.375 g x1 dosein ER. START iv ROCEPHIN 1 G EVERY 12 HOURLY 01/24/18. ADD IV fLAGYL 500 iv PIGGYBACK EVERY 8 HOURLY 01/24/18. FOLLOW-UP CULTURES TO ADJUST ANTIBIOTI. Status: Acute (2) NSTEMI (non-ST elevated myocardial infarction) Assessment and Plan: PATIENT HAS POSITIVE TROPONINS. PER PMD . Status: Acute (3) Hypertension Status: Acute (4) Mixed anxiety and depressive disorder Status: Acute (5) Depression Status: Acute
[2018-01-24] MEDS: Latanoprost 2.5 ml Opht Soln OU SCH (21:40)
[2018-01-24] MEDS: metroNIDAZOLE IV 500 mg/100 ml 500 MG/100 ML BAG IVPB SCH (22:53)
[2018-01-25 00:25] LABS: CK-MB 1.76 ng/mL (0.0-3.38); TROPONIN I 0.196 ng/mL (0.00-0.120)
[2018-01-25] MEDS: metroNIDAZOLE IV 500 mg/100 ml 500 MG/100 ML BAG IVPB SCH ×3 (05:28→21:46)
[2018-01-25 07:24] LABS: BASO # 0.1 K/uL (0.0-0.2); BASO % 0.7 % (0.0-2.0); EOS # 0.2 K/uL (0.0-0.7); EOS % 2.8 % (0.0-4.0); HEMOGLOBIN 11.6 g/dL (11.0-16.0); LYMPH # 1.9 K/uL (1.0-4.3); LYMPH % 24.2 % (20.0-40.0); MEAN CELL VOLUME 87.4 fL (81.0-99.0); MEAN CORPUSCULAR HEMOGLOBIN 29.7 pg (27.0-31.0); MEAN PLATELET VOLUME 9.5 fL (7.2-11.7); MONO # 0.7 K/uL (0.0-0.8); MONO % 8.6 % (0.0-10.0); NEUT # 5.1 K/uL (1.8-7.0); NEUT % 63.7 % (50.0-75.0); RBC 3.9 Mil/uL (3.80-5.20); RED CELL DISTRIBUTION WIDTH 14.5 % (11.5-14.5)
[2018-01-25 08:42] LABS: ALB/GLOB RATIO 1.2 (1.0-2.1); ALBUMIN 3.5 g/dL (3.5-5.0); ALT/SGPT 24 U/L (9-52); AST/SGOT 17 U/L (14-36); BLOOD UREA NITROGEN 14 mg/dL (7-17); CALCIUM 8.7 mg/dl (8.6-10.4); CK-MB 1.33 ng/mL (0.0-3.38); GFR AFRICAN-AMERICAN > 60; GFR NON-AFRICAN AMERICAN > 60
--- NOTE | 2018-01-25 09:20 | CP.PCM.CON ---
<Amber Ruiz - Last Filed: 01/25/18 11:35> History of Present Illness - History of Present Illness History of Present Illness: GI Fellow PGY4 Consult Note This is a 67 y/o female with a PMHx of CAD s/p LAD stent one year ago on aspirin and plavix, HTN, CVA, bipolar, and depression, presents to the ER with complaints of bloody diarrhea for one day duration. Reports 4-5 episodes over the past 24 hours. Patient describes blood as gelatinous with clotting, bright red in color. Bleeding is associated with diffuse abdominal pain. Also reports feeling weak and dizzy when having bowel movements. She also reports abdominal pain in left lower quadrant. CT imaging with rectosigmoid mural wall thickening concerning for colitis. Patient denies fevers, chills, nausea, vomiting, or constipation. She has also been having intermittent chest pain since yesterday, but no pain today. Patient does take Ibuprofen and Tylenol for a shoulder injury , but is not on any OAC and is taking plavix and aspirin at home. ROS: A 12pt ROS was negative except as above PmHx: As stated in HPI PsHx: As stated in HPI SHx: Denies tobacco, etoh or drugs FHx: Neg for colon cancer Past Patient History - Infectious Disease Hx of Infectious Diseases: None - Past Medical History & Family History Past Medical History?: Yes - Past Social History Smoking Status: Never Smoked - CARDIAC Hx Hypercholesterolemia: Yes Hx Hypertension: Yes - PULMONARY Hx Respiratory Disorders: No - NEUROLOGICAL Hx Dementia: Yes Hx Migraine: Yes - HEENT Hx HEENT Problems: Yes Hx Deafness: Yes (Bilateral hearing loss, doesn't wear hearing aids) - RENAL Hx Chronic Kidney Disease: No - ENDOCRINE/METABOLIC Hx Endocrine Disorders: No - HEMATOLOGICAL/ONCOLOGICAL Hx Anemia: Yes - INTEGUMENTARY Hx Dermatological Problems: No - MUSCULOSKELETAL/RHEUMATOLOGICAL Hx Arthritis: Yes - PSYCHIATRIC Hx Anxiety: Yes Hx Bipolar Disorder: Yes Hx Depression: Yes Hx Substance Use: No - SURGICAL HISTORY Hx Tonsillectomy: Yes - ANESTHESIA Hx Anesthesia: Yes Hx Anesthesia Reactions: No Hx Malignant Hyperthermia: No Meds Allergies/Adverse Reactions: Allergies Allergy/AdvReac Type Severity Reaction Status Date / Time pregabalin [From Lyrica] Allergy RASH Verified 01/24/18 08:30 - Medications Medications: Current Medications Acetaminophen/Codeine Phosphate (Tylenol/Codeine 300 Mg/30 Mg) 1 ea PO Q6 PRN PRN Reason: Pain, moderate (4-7) Last Admin: 01/24/18 19:24 Dose: 1 ea Famotidine (Pepcid) 40 mg IVP Q12 [facility] Last Admin: 01/25/18 09:03 Dose: 40 mg Gabapentin (Neurontin) 600 mg PO Q8 [facility] Last Admin: 01/25/18 05:28 Dose: 600 mg Metronidazole (Flagyl) 500 mg in 100 mls @ 100 mls/hr IVPB Q8H [facility] PRN Reason: Protocol Last Admin: 01/25/18 05:28 Dose: 100 mls/hr Ceftriaxone Sodium 1 gm/ (Sodium Chloride) 100 mls @ 100 mls/hr IVPB Q12H [facility] PRN Reason: Protocol Last Admin: 01/25/18 09:03 Dose: 100 mls/hr Latanoprost (Xalatan Opht) 0 ml OU HS [facility] Last Admin: 01/24/18 21:40 Dose: 2.5 ml Lisinopril (Zestril) 20 mg PO DAILY [facility] Last Admin: 01/25/18 09:03 Dose: 20 mg Quetiapine Fumarate (Seroquel) 100 mg PO HS [facility] Last Admin: 01/24/18 21:40 Dose: 100 mg Rosuvastatin Calcium (Crestor) 10 mg PO HS [facility] Last Admin: 01/24/18 21:40 Dose: 10 mg Zolpidem Tartrate (Ambien) 5 mg PO HS PRN PRN Reason: Insomnia Physical Exam - Constitutional Appears: Well, Non-toxic - Head Exam Head Exam: ATRAUMATIC, NORMAL INSPECTION, NORMOCEPHALIC - Eye Exam Eye Exam: EOMI, Normal appearance, PERRL Pupil Exam: PERRL - ENT Exam ENT Exam: Mucous Membranes Moist - Respiratory Exam Respiratory Exam: Clear to Auscultation Bilateral, NORMAL BREATHING PATTERN - Cardiovascular Exam Cardiovascular Exam: REGULAR RHYTHM - GI/Abdominal Exam GI & Abdominal Exam: Normal Bowel Sounds, Soft, Tenderness. absent: Distended, Firm, Guarding, Organomegaly - Extremities Exam Extremities exam: Positive for: full ROM, normal inspection - Back Exam Back exam: NORMAL INSPECTION - Neurological Exam Neurological exam: Alert, Oriented x3 - Psychiatric Exam Psychiatric exam: Normal Affect, Normal Mood - Skin Skin Exam: Dry, Intact, Normal Color, Warm Results - Vital Signs Recent Vital Signs: Last Vital Signs Temp 97.7 F 01/25/18 08:28 Pulse 82 01/25/18 08:28 Resp 20 01/25/18 08:28 BP 133/77 01/25/18 08:28 Pulse Ox 98 01/25/18 08:28 - Labs Result Diagrams: 01/25/18 07:00 01/25/18 07:00 Labs: Laboratory Results - last 24 hr 01/24/18 01/24/18 01/24/18 09:44 09:44 09:44 WBC 12.6 H RBC 4.31 Hgb 12.4 Hct 37.5 MCV 86.9 MCH 28.8 MCHC 33.2 RDW 15.0 H Plt Count 219 MPV 9.6 Neut % (Auto) 83.0 H Lymph % (Auto) 10.9 L [place] % (Auto) 4.7 Eos % (Auto) 1.0 Baso % (Auto) 0.4 Neut # (Auto) 10.4 H Lymph # (Auto) 1.4 [place] # (Auto) 0.6 Eos # (Auto) 0.1 Baso # (Auto) 0.0 PT 11.8 INR 1.1 APTT 41 H Sodium 146 Potassium 4.0 Chloride 105 Carbon Dioxide 26 Anion Gap 19 BUN 17 Creatinine 0.7 Est GFR ( Amer) > 60 Est GFR (Non-Af Amer) > 60 Random Glucose 118 H Calcium 9.0 Total Bilirubin 0.4 AST 23 ALT 22 Alkaline Phosphatase 103 Total Creatine Kinase CK-MB (Mass) Troponin I 0.3050 H* Total Protein 7.3 Albumin 3.9 Globulin 3.4 Albumin/Globulin Ratio 1.1 Lipase 73 Urine Color Urine Clarity Urine pH Ur Specific [place] Urine Protein Urine Glucose (UA) Urine Ketones Urine Blood Urine Nitrate Urine Bilirubin Urine Urobilinogen Ur Leukocyte Esterase Urine WBC (Auto) Urine RBC (Auto) Ur Squamous Epith Cells Amorphous Sediment Urine Bacteria 01/24/18 01/24/18 01/24/18 10:12 16:47 23:44 WBC RBC Hgb Hct MCV MCH MCHC RDW Plt Count MPV Neut % (Auto) Lymph % (Auto) [place] % (Auto) Eos % (Auto) Baso % (Auto) Neut # (Auto) Lymph # (Auto) [place] # (Auto) Eos # (Auto) Baso # (Auto) PT INR APTT Sodium Potassium Chloride Carbon Dioxide Anion Gap BUN Creatinine Est GFR ( Amer) Est GFR (Non-Af Amer) Random Glucose Calcium Total Bilirubin AST ALT Alkaline Phosphatase Total Creatine Kinase 45 39 CK-MB (Mass) 2.49 1.76 Troponin I 0.2270 H* 0.1960 H* Total Protein Albumin Globulin Albumin/Globulin Ratio Lipase Urine Color Yellow Urine Clarity Hazy Urine pH 5.0 Ur Specific [place] 1.025 Urine Protein 1+ H Urine Glucose (UA) Normal Urine Ketones Negative Urine Blood 1+ H Urine Nitrate Negative Urine Bilirubin 1+ H Urine Urobilinogen Normal Ur Leukocyte Esterase 2+ H Urine WBC (Auto) 8 H Urine RBC (Auto) 5 H Ur Squamous Epith Cells 11 H Amorphous Sediment Rare H Urine Bacteria Rare 01/25/18 01/25/18 07:00 07:00 WBC 8.0 RBC 3.90 Hgb 11.6 Hct 34.1 MCV 87.4 MCH 29.7 MCHC 34.0 RDW 14.5 Plt Count 185 MPV 9.5 Neut % (Auto) 63.7 Lymph % (Auto) 24.2 [place] % (Auto) 8.6 Eos % (Auto) 2.8 Baso % (Auto) 0.7 Neut # (Auto) 5.1 Lymph # (Auto) 1.9 [place] # (Auto) 0.7 Eos # (Auto) 0.2 Baso # (Auto) 0.1 PT INR APTT Sodium 148 Potassium 4.3 Chloride 108 H Carbon Dioxide 27 Anion Gap 17 BUN 14 Creatinine 0.7 Est GFR ( Amer) > 60 Est GFR (Non-Af Amer) > 60 Random Glucose 98 Calcium 8.7 Total Bilirubin 0.2 AST 17 ALT 24 Alkaline Phosphatase 88 Total Creatine Kinase 31 CK-MB (Mass) 1.33 Troponin I 0.1350 H* Total Protein 6.5 Albumin 3.5 Globulin 3.0 Albumin/Globulin Ratio 1.2 Lipase Urine Color Urine Clarity Urine pH Ur Specific [place] Urine Protein Urine Glucose (UA) Urine Ketones Urine Blood Urine Nitrate Urine Bilirubin Urine Urobilinogen Ur Leukocyte Esterase Urine WBC (Auto) Urine RBC (Auto) Ur Squamous Epith Cells Amorphous Sediment Urine Bacteria Assessment & Plan - Assessment and Plan (Free Text) Assessment: This is a 67yF presenting with abdominal pain and bloody diarrhea for one day. 1. Colitis-rectosigmoid mural thickening- ischemic vs infectious? 2. Abdominal pain and bloody diarrhea 3. Hx of CAD s/p LAD stent 1yr ago on plavix/aspirin 4. Elevated troponins, NSTEMI? Plan: -Continue supportive care with pain control and anti-emetics -Stool studies to r/o infectious etiology -IV abx Rocephin/Flagyl per ID -If continues to have rectal bleeding, recommend CT angio of abdomen -Elevated troponins NSTEMI?, further recs per cardiology -Okay to resume anti platelet plavix with hx of LAD stent, Hgb stable -Pt will need eventual colonoscopy -Will continue to follow closely <Stephen Conner - Last Filed: 01/25/18 16:11> Meds - Medications Medications: Current Medications Acetaminophen/Codeine Phosphate (Tylenol/Codeine 300 Mg/30 Mg) 1 ea PO Q6 PRN PRN Reason: Pain, moderate (4-7) Last Admin: 01/24/18 19:24 Dose: 1 ea Aspirin (Ecotrin) 81 mg PO DAILY [facility] Last Admin: 01/25/18 14:20 Dose: 81 mg Ciprofloxacin (Ciloxan 0.3% Oph Soln) 1 drop OU BID [facility] Last Admin: 01/25/18 12:09 Dose: 1 drop Clopidogrel Bisulfate (Plavix) 75 mg PO DAILY [facility] Last Admin: 01/25/18 14:20 Dose: 75 mg Famotidine (Pepcid) 40 mg IVP Q12 [facility] Last Admin: 01/25/18 09:03 Dose: 40 mg Gabapentin (Neurontin) 600 mg PO Q8 [facility] Last Admin: 01/25/18 13:42 Dose: 600 mg Metronidazole (Flagyl) 500 mg in 100 mls @ 100 mls/hr IVPB Q8H [facility] PRN Reason: Protocol Last Admin: 01/25/18 13:42 Dose: 100 mls/hr Ceftriaxone Sodium 1 gm/ (Sodium Chloride) 100 mls @ 100 mls/hr IVPB Q12H [facility] PRN Reason: Protocol Last Admin: 01/25/18 09:03 Dose: 100 mls/hr Vancomycin/Sodium Chloride (Vancomycin 1 Gm/Ns 200 Ml) 1 gm in 200 mls @ 133 mls/hr IVPB Q12H [facility] PRN Reason: Protocol Stop: 01/30/18 12:01 Last Admin: 01/25/18 12:09 Dose: 133 mls/hr Latanoprost (Xalatan Opht) 0 ml OU HS [facility] Last Admin: 01/24/18 21:40 Dose: 2.5 ml Lisinopril (Zestril) 20 mg PO DAILY [facility] Last Admin: 01/25/18 09:03 Dose: 20 mg Quetiapine Fumarate (Seroquel) 100 mg PO HS [facility] Last Admin: 01/24/18 21:40 Dose: 100 mg Rosuvastatin Calcium (Crestor) 10 mg PO HS [facility] Last Admin: 01/24/18 21:40 Dose: 10 mg Zolpidem Tartrate (Ambien) 5 mg PO HS PRN PRN Reason: Insomnia Results - Vital Signs Recent Vital Signs: Last Vital Signs Temp 97.7 F 01/25/18 08:28 Pulse 82 01/25/18 08:28 Resp 20 01/25/18 08:28 BP 133/77 01/25/18 08:28 Pulse Ox 98 01/25/18 08:28 - Labs Result Diagrams: 01/25/18 07:00 01/25/18 07:00 Labs: Laboratory Results - last 24 hr 01/24/18 01/24/18 01/25/18 16:47 23:44 07:00 WBC 8.0 RBC 3.90 Hgb 11.6 Hct 34.1 MCV 87.4 MCH 29.7 MCHC 34.0 RDW 14.5 Plt Count 185 MPV 9.5 Neut % (Auto) 63.7 Lymph % (Auto) 24.2 [place] % (Auto) 8.6 Eos % (Auto) 2.8 Baso % (Auto) 0.7 Neut # (Auto) 5.1 Lymph # (Auto) 1.9 [place] # (Auto) 0.7 Eos # (Auto) 0.2 Baso # (Auto) 0.1 Sodium Potassium Chloride Carbon Dioxide Anion Gap BUN Creatinine Est GFR ( Amer) Est GFR (Non-Af Amer) Random Glucose Calcium Total Bilirubin AST ALT Alkaline Phosphatase Total Creatine Kinase 45 39 CK-MB (Mass) 2.49 1.76 Troponin I 0.2270 H* 0.1960 H* Total Protein Albumin Globulin Albumin/Globulin Ratio 01/25/18 07:00 WBC RBC Hgb Hct MCV MCH MCHC RDW Plt Count MPV Neut % (Auto) Lymph % (Auto) [place] % (Auto) Eos % (Auto) Baso % (Auto) Neut # (Auto) Lymph # (Auto) [place] # (Auto) Eos # (Auto) Baso # (Auto) Sodium 148 Potassium 4.3 Chloride 108 H Carbon Dioxide 27 Anion Gap 17 BUN 14 Creatinine 0.7 Est GFR ( Amer) > 60 Est GFR (Non-Af Amer) > 60 Random Glucose 98 Calcium 8.7 Total Bilirubin 0.2 AST 17 ALT 24 Alkaline Phosphatase 88 Total Creatine Kinase 31 CK-MB (Mass) 1.33 Troponin I 0.1350 H* Total Protein 6.5 Albumin 3.5 Globulin 3.0 Albumin/Globulin Ratio 1.2 Attending/Attestation - Attestation I have personally seen and examined this patient.: Yes I have fully participated in the care of the patient.: Yes I have reviewed all pertinent clinical information: Yes Notes (Text): 01/25/18 16:03 Patient seen with GI fellow. In a nutshell this is a 67 year old F presenting with abdominal pain and bloody diarrhea. CT reviewed showing rectosigmoid mural thickening- ischemic vs infectious? Will send stool infectious work up and continue antibiotics. Supportive care with pain control and anti-emetics. If continues to have rectal bleeding, recommend CT angio of abdomen. Will recommend resuming anti platelet plavix with hx of LAD stent, Hgb stable. Counselled regarding eventual colonoscopy in 6-8 months. Will continue to follow closely
[2018-01-25] MEDS: Vancomycin 1 gm/NS 200 ml 1 GM/200 ML BAG IVPB SCH (12:09)
[2018-01-25] MEDS: Ciprofloxacin 0.3% OPTH SOLN OU SCH ×2 (12:09→17:17)
--- NOTE | 2018-01-25 14:13 | CP.PCM.PN ---
Subjective - Date & Time of Evaluation Date of Evaluation: 01/25/18 Time of Evaluation: 14:11 - Subjective Subjective: CHIEF COMPLAINTS TODAY : NO CP NO BLOODY DIARRHEA ROS. HEENT : N. Resp : No cough, wheezing ,pleuritic CP ,or hemoptysis Cardio : No anginal CP, PND, orthopnea, palpitation GI : No abd.pain, n/v ,diarrhea or GI bleeding . 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 Musculoskel : No joint swelling , Derm : No rash Psych : Normal affect. Ext : No swelling ,calf pain PE. Pt. is alert awake in no distress. V.S As noted in the chart Head ,ear nose,throat and eyes : Normal. Neck : Supple with normal carotids. Lungs: Clear air entry. Heart : S1 & S2 normal with S4. No murmur. Abd : Soft non tender with normal bowel sounds. Neuro : Moves all ext. with no localized deficit. Ext : No edema with intact pulses.Non tender calves Derm : No rashes or decubitus ulcer. LABS/RADIOLOGY: BLD. CULT. POS , TNI POS , BORDERLINE ASSESSMENT/PLAN : IV AB CHANGED ASA+PLAVIX REORDERED SEPSIS , ETIOLOGY UNCLEAR Objective - Vital Signs/Intake and Output Vital Signs (last 24 hours): Temp Pulse Resp BP Pulse Ox 97.7 F 82 20 133/77 98 01/25/18 08:28 01/25/18 08:28 01/25/18 08:28 01/25/18 08:28 01/25/18 08:28 Intake and Output: 01/25/18 01/25/18 11:59 23:59 Intake Total 130 Balance 130 - Medications Medications: Current Medications Acetaminophen/Codeine Phosphate (Tylenol/Codeine 300 Mg/30 Mg) 1 ea PO Q6 PRN PRN Reason: Pain, moderate (4-7) Last Admin: 01/24/18 19:24 Dose: 1 ea Aspirin (Ecotrin) 81 mg PO DAILY [facility] Ciprofloxacin (Ciloxan 0.3% [facility] Soln) 1 drop OU BID [facility] Last Admin: 01/25/18 12:09 Dose: 1 drop Clopidogrel Bisulfate (Plavix) 75 mg PO DAILY [facility] Famotidine (Pepcid) 40 mg IVP Q12 [facility] Last Admin: 01/25/18 09:03 Dose: 40 mg Gabapentin (Neurontin) 600 mg PO Q8 [facility] Last Admin: 01/25/18 13:42 Dose: 600 mg Metronidazole (Flagyl) 500 mg in 100 mls @ 100 mls/hr IVPB Q8H [facility] PRN Reason: Protocol Last Admin: 01/25/18 13:42 Dose: 100 mls/hr Ceftriaxone Sodium 1 gm/ (Sodium Chloride) 100 mls @ 100 mls/hr IVPB Q12H [facility] PRN Reason: Protocol Last Admin: 01/25/18 09:03 Dose: 100 mls/hr Vancomycin/Sodium Chloride (Vancomycin 1 Gm/Ns 200 Ml) 1 gm in 200 mls @ 133 mls/hr IVPB Q12H [facility] PRN Reason: Protocol Stop: 01/30/18 12:01 Last Admin: 01/25/18 12:09 Dose: 133 mls/hr Latanoprost (Xalatan Opht) 0 ml OU HS [facility] Last Admin: 01/24/18 21:40 Dose: 2.5 ml Lisinopril (Zestril) 20 mg PO DAILY [facility] Last Admin: 01/25/18 09:03 Dose: 20 mg Quetiapine Fumarate (Seroquel) 100 mg PO HS [facility] Last Admin: 01/24/18 21:40 Dose: 100 mg Rosuvastatin Calcium (Crestor) 10 mg PO HS [facility] Last Admin: 01/24/18 21:40 Dose: 10 mg Zolpidem Tartrate (Ambien) 5 mg PO HS PRN PRN Reason: Insomnia - Labs Labs: 01/25/18 07:00 01/25/18 07:00 PT 11.8 SECONDS (9.7-12.2) 01/24/18 09:44 INR 1.1 01/24/18 09:44 APTT 41 SECONDS (21-34) H 01/24/18 09:44
--- NOTE | 2018-01-25 20:02 | CP.PCM.PN ---
Subjective - Date & Time of Evaluation Date of Evaluation: 01/25/18 Time of Evaluation: 20:02 - Subjective Subjective: CHIEF COMPLAINTS TODAY : AFEBRILE. c/o less abdominal pain and bloating. denies any further GI bleeding. ROS. HEENT : N. Resp : No cough, wheezing ,pleuritic CP ,or hemoptysis Cardio : No anginal CP, PND, orthopnea, palpitation GI : +VE ABDOMINAL PAIN, DIARRHOEA / RECTAL BLEEDING . 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 Musculoskel : No joint swelling , Derm : No rash Psych : Normal affect. Ext : No swelling ,calf pain PE. Pt. is alert awake in no distress. V.S As noted in the chart Head ,ear nose,throat and eyes : Normal. Neck : Supple with normal carotids. Lungs: Clear air entry. Heart : S1 & S2 normal with S4. No murmur. Abd : SOFT , MILD TENDERNESS LOWER ABDOMEN /LLQ with normal bowel sounds. Neuro : Moves all ext. with no localized deficit. Ext : No edema with intact pulses.Non tender calves Derm : No rashes or decubitus ulcer. LABS/RADIOLOGY: BLOOD CULTURE 1:2 SETS +VE GM +VE COOCI IN CHAINS? STREPTOCOCCI WBC 8.0 H/H STABLE Objective - Vital Signs/Intake and Output Vital Signs (last 24 hours): Temp Pulse Resp BP Pulse Ox 97.7 F 78 20 162/78 H 98 01/25/18 08:28 01/25/18 17:20 01/25/18 08:28 01/25/18 17:20 01/25/18 08:28 - Medications Medications: Current Medications Acetaminophen/Codeine Phosphate (Tylenol/Codeine 300 Mg/30 Mg) 1 ea PO Q6 PRN PRN Reason: Pain, moderate (4-7) Last Admin: 01/24/18 19:24 Dose: 1 ea Aspirin (Ecotrin) 81 mg PO DAILY [facility] Last Admin: 01/25/18 14:20 Dose: 81 mg Ciprofloxacin (Ciloxan 0.3% Op[facility] Soln) 1 drop OU BID [facility] Last Admin: 01/25/18 17:17 Dose: 1 drop Clopidogrel Bisulfate (Plavix) 75 mg PO DAILY [facility] Last Admin: 01/25/18 14:20 Dose: 75 mg Famotidine (Pepcid) 40 mg IVP Q12 [facility] Last Admin: 01/25/18 09:03 Dose: 40 mg Gabapentin (Neurontin) 600 mg PO Q8 [facility] Last Admin: 01/25/18 13:42 Dose: 600 mg Metronidazole (Flagyl) 500 mg in 100 mls @ 100 mls/hr IVPB Q8H [facility] PRN Reason: Protocol Last Admin: 01/25/18 13:42 Dose: 100 mls/hr Ceftriaxone Sodium 1 gm/ (Sodium Chloride) 100 mls @ 100 mls/hr IVPB Q12H [facility] PRN Reason: Protocol Last Admin: 01/25/18 09:03 Dose: 100 mls/hr Vancomycin/Sodium Chloride (Vancomycin 1 Gm/Ns 200 Ml) 1 gm in 200 mls @ 133 mls/hr IVPB Q12H [facility] PRN Reason: Protocol Stop: 01/30/18 12:01 Last Admin: 01/25/18 12:09 Dose: 133 mls/hr Latanoprost (Xalatan Opht) 0 ml OU HS [facility] Last Admin: 01/24/18 21:40 Dose: 2.5 ml Lisinopril (Zestril) 20 mg PO DAILY [facility] Last Admin: 01/25/18 09:03 Dose: 20 mg Quetiapine Fumarate (Seroquel) 100 mg PO HS [facility] Last Admin: 01/24/18 21:40 Dose: 100 mg Rosuvastatin Calcium (Crestor) 10 mg PO HS [facility] Last Admin: 01/24/18 21:40 Dose: 10 mg Zolpidem Tartrate (Ambien) 5 mg PO HS PRN PRN Reason: Insomnia - Labs Labs: 01/25/18 07:00 01/25/18 07:00 PT 11.8 SECONDS (9.7-12.2) 01/24/18 09:44 INR 1.1 01/24/18 09:44 APTT 41 SECONDS (21-34) H 01/24/18 09:44 Assessment and Plan (1) Colitis Status: Acute (2) NSTEMI (non-ST elevated myocardial infarction) Status: Acute (3) Hypertension Status: Acute (4) Mixed anxiety and depressive disorder Status: Acute (5) Depression Status: Acute - Assessment and Plan (Free Text) Assessment: IMPRESSION; -GRAM +VE BACTEREMIA ? STREPTOCOCCI. -COLITIS RECTOSIGMOID. -GI BLEEDING. -NSTEMI +VE TROPININS -HTN -ANXIETY /DEPRESSIVE DISORDER. PLAN; F/U CULTURES TO ADJUST ABX. CONTINUE iv ROCEPHIN 1 G EVERY 12 HOURLY 01/24/18 CONTINUE iv FLAGYL 500 EVERY 8 HOURLY.01/24/18 ADD iv VANCOMYCIN 1 G EVERY 12 HOURLY FOR GRAM-POSITIVE BACTEREMIA. ( identification pending.).01/25/18. F/U VANCO TROUGH 30 MIN PRIOR TO 4TH DOSE AND KEEP BETWEEN 10- 20MG/DL F/U DIARRHOEA W/U. GI ON BOARD.
[2018-01-25] MEDS: Latanoprost 2.5 ml Opht Soln OU SCH (21:49)
[2018-01-26] MEDS: Vancomycin 1 gm/NS 200 ml 1 GM/200 ML BAG IVPB SCH ×3 (00:19→23:28)
[2018-01-26] MEDS: metroNIDAZOLE IV 500 mg/100 ml 500 MG/100 ML BAG IVPB SCH ×3 (05:30→21:49)
[2018-01-26 08:11] LABS: BASO # 0.1 K/uL (0.0-0.2); BASO % 0.8 % (0.0-2.0); EOS # 0.3 K/uL (0.0-0.7); EOS % 2.8 % (0.0-4.0); HEMOGLOBIN 11.7 g/dL (11.0-16.0); LYMPH # 1.7 K/uL (1.0-4.3); LYMPH % 18.6 % (20.0-40.0); MEAN CELL VOLUME 87.4 fL (81.0-99.0); MEAN CORPUSCULAR HEMOGLOBIN 29.4 pg (27.0-31.0); MEAN CORPUSCULAR HGB CONC 33.7 g/dL (33.0-37.0); MEAN PLATELET VOLUME 9.1 fL (7.2-11.7); MONO # 0.6 K/uL (0.0-0.8); MONO % 6.6 % (0.0-10.0); NEUT # 6.4 K/uL (1.8-7.0); NEUT % 71.2 % (50.0-75.0); RBC 3.96 Mil/uL (3.80-5.20); RED CELL DISTRIBUTION WIDTH 14.7 % (11.5-14.5)
[2018-01-26 08:39] LABS: ALB/GLOB RATIO 1.1 (1.0-2.1); ALBUMIN 3.6 g/dL (3.5-5.0); ALT/SGPT 19 U/L (9-52); AST/SGOT 16 U/L (14-36); BLOOD UREA NITROGEN 20 mg/dL (7-17); CALCIUM 8.5 mg/dl (8.6-10.4); GFR AFRICAN-AMERICAN > 60; GFR NON-AFRICAN AMERICAN > 60
--- NOTE | 2018-01-26 09:27 | CP.PCM.PN ---
<Amber Ruiz - Last Filed: 01/26/18 11:38> Subjective - Date & Time of Evaluation Date of Evaluation: 01/26/18 Time of Evaluation: 10:30 - Subjective Subjective: GI Fellow PGY 4 Progress Note Pt seen and evaluated at bedside, pt doing a little better. No rectal bleeding per pt. Tolerating diet. ROS: A 12pt ROS was negative except above. Objective - Vital Signs/Intake and Output Vital Signs (last 24 hours): Temp Pulse Resp BP Pulse Ox 97.9 F 94 H 20 145/80 99 01/26/18 09:10 01/26/18 09:10 01/26/18 09:10 01/26/18 09:10 01/26/18 09:10 Intake and Output: 01/26/18 01/26/18 06:59 18:59 Intake Total Balance - Medications Medications: Current Medications Acetaminophen/Codeine Phosphate (Tylenol/Codeine 300 Mg/30 Mg) 1 ea PO Q6 PRN PRN Reason: Pain, moderate (4-7) Last Admin: 01/24/18 19:24 Dose: 1 ea Aspirin (Ecotrin) 81 mg PO DAILY [facility] Last Admin: 01/25/18 14:20 Dose: 81 mg Ciprofloxacin (Ciloxan 0.3% Oph Soln) 1 drop OU BID [facility] Last Admin: 01/25/18 17:17 Dose: 1 drop Clopidogrel Bisulfate (Plavix) 75 mg PO DAILY [facility] Last Admin: 01/25/18 14:20 Dose: 75 mg Famotidine (Pepcid) 40 mg IVP Q12 [facility] Last Admin: 01/25/18 21:47 Dose: 40 mg Gabapentin (Neurontin) 600 mg PO Q8 [facility] Last Admin: 01/26/18 05:30 Dose: 600 mg Metronidazole (Flagyl) 500 mg in 100 mls @ 100 mls/hr IVPB Q8H [facility] PRN Reason: Protocol Last Admin: 01/26/18 05:30 Dose: 100 mls/hr Ceftriaxone Sodium 1 gm/ (Sodium Chloride) 100 mls @ 100 mls/hr IVPB Q12H [facility] PRN Reason: Protocol Last Admin: 01/25/18 20:16 Dose: 100 mls/hr Vancomycin/Sodium Chloride (Vancomycin 1 Gm/Ns 200 Ml) 1 gm in 200 mls @ 133 mls/hr IVPB Q12H [facility] PRN Reason: Protocol Stop: 01/30/18 12:01 Last Admin: 01/26/18 00:19 Dose: 133 mls/hr Latanoprost (Xalatan Opht) 0 ml OU HS [facility] Last Admin: 01/25/18 21:49 Dose: 1 ml Lisinopril (Zestril) 20 mg PO DAILY [facility] Last Admin: 01/25/18 09:03 Dose: 20 mg Quetiapine Fumarate (Seroquel) 100 mg PO HS [facility] Last Admin: 01/25/18 21:49 Dose: 100 mg Rosuvastatin Calcium (Crestor) 10 mg PO HS [facility] Last Admin: 01/25/18 21:46 Dose: 10 mg Zolpidem Tartrate (Ambien) 5 mg PO HS PRN PRN Reason: Insomnia Last Admin: 01/25/18 21:45 Dose: 5 mg - Labs Labs: 01/26/18 08:02 01/26/18 08:02 PT 11.8 SECONDS (9.7-12.2) 01/24/18 09:44 INR 1.1 01/24/18 09:44 APTT 41 SECONDS (21-34) H 01/24/18 09:44 - Constitutional Appears: Non-toxic, No Acute Distress - Head Exam Head Exam: ATRAUMATIC, NORMAL INSPECTION, NORMOCEPHALIC - Eye Exam Eye Exam: EOMI, Normal appearance, PERRL - ENT Exam ENT Exam: Mucous Membranes Moist - Neck Exam Neck Exam: Full ROM, Normal Inspection - Respiratory Exam Respiratory Exam: Clear to Ausculation Bilateral, NORMAL BREATHING PATTERN - Cardiovascular Exam Cardiovascular Exam: REGULAR RHYTHM, RRR, +S1, +S2 - GI/Abdominal Exam GI & Abdominal Exam: Soft, Tenderness, Normal Bowel Sounds. absent: Distended, Guarding, Rigid, Organomegaly - Rectal Exam Rectal Exam: Deferred - Extremities Exam Extremities Exam: Full ROM, Normal Inspection - Back Exam Back Exam: NORMAL INSPECTION - Neurological Exam Neurological Exam: Alert, Awake, Oriented x3 - Psychiatric Exam Psychiatric exam: Normal Affect, Normal Mood - Skin Skin Exam: Dry, Intact, Normal Color, Warm Assessment and Plan - Assessment and Plan (Free Text) Assessment: This is a 67yF presenting with abdominal pain and bloody diarrhea for one day. 1. Colitis-rectosigmoid mural thickening- ischemic vs infectious? 2. Abdominal pain and bloody diarrhea 3. Hx of CAD s/p LAD stent 1yr ago on plavix/aspirin 4. Elevated troponins Plan: -Continue supportive care with pain control and anti-emetics -Stool studies pending infectious etiology -IV abx Rocephin/Flagyl/Vancomycin per ID, gram positive bacteremia -If continues to have rectal bleeding, recommend CT angio of abdomen -Elevated troponins, further recs per cardiology -Okay to resume anti platelet plavix with hx of LAD stent, Hgb stable -Pt will need outpt colonoscopy -Please call with any questions or concerns <Stephen Conner - Last Filed: 01/26/18 12:37> Objective - Vital Signs/Intake and Output Vital Signs (last 24 hours): Temp Pulse Resp BP Pulse Ox 97.9 F 94 H 20 145/80 99 01/26/18 09:10 01/26/18 09:10 01/26/18 09:10 01/26/18 09:10 01/26/18 09:10 Intake and Output: 01/26/18 01/26/18 06:59 18:59 Intake Total Balance - Medications Medications: Current Medications Acetaminophen/Codeine Phosphate (Tylenol/Codeine 300 Mg/30 Mg) 1 ea PO Q6 PRN PRN Reason: Pain, moderate (4-7) Last Admin: 01/26/18 10:22 Dose: 1 ea Aspirin (Ecotrin) 81 mg PO DAILY [facility] Last Admin: 01/26/18 10:19 Dose: 81 mg [facility] 1 drop OU BID [facility] Last Admin: 01/26/18 10:22 Dose: 1 drop Clopidogrel Bisulfate (Plavix) 75 mg PO DAILY [facility] Last Admin: 01/26/18 10:19 Dose: 75 mg Famotidine (Pepcid) 40 mg IVP Q12 [facility] Last Admin: 01/26/18 10:19 Dose: 40 mg Gabapentin (Neurontin) 600 mg PO Q8 [facility] Last Admin: 01/26/18 05:30 Dose: 600 mg Metronidazole (Flagyl) 500 mg in 100 mls @ 100 mls/hr IVPB Q8H [facility] PRN Reason: Protocol Last Admin: 01/26/18 05:30 Dose: 100 mls/hr Ceftriaxone Sodium 1 gm/ (Sodium Chloride) 100 mls @ 100 mls/hr IVPB Q12H [facility] PRN Reason: Protocol Last Admin: 01/26/18 10:19 Dose: 100 mls/hr Vancomycin/Sodium Chloride (Vancomycin 1 Gm/Ns 200 Ml) 1 gm in 200 mls @ 133 mls/hr IVPB Q12H [facility] PRN Reason: Protocol Stop: 01/30/18 12:01 Last Admin: 01/26/18 11:38 Dose: 133 mls/hr Latanoprost (Xalatan Opht) 0 ml OU HS [facility] Last Admin: 01/25/18 21:49 Dose: 1 ml Lisinopril (Zestril) 20 mg PO DAILY [facility] Last Admin: 01/26/18 10:19 Dose: 20 mg Quetiapine Fumarate (Seroquel) 100 mg PO HS [facility] Last Admin: 01/25/18 21:49 Dose: 100 mg Rosuvastatin Calcium (Crestor) 10 mg PO HS [facility] Last Admin: 01/25/18 21:46 Dose: 10 mg Zolpidem Tartrate (Ambien) 5 mg PO HS PRN PRN Reason: Insomnia Last Admin: 01/25/18 21:45 Dose: 5 mg - Labs Labs: 01/26/18 08:02 01/26/18 08:02 PT 11.8 SECONDS (9.7-12.2) 01/24/18 09:44 INR 1.1 01/24/18 09:44 APTT 41 SECONDS (21-34) H 01/24/18 09:44 Attending/Attestation - Attestation I have personally seen and examined this patient.: Yes I have fully participated in the care of the patient.: Yes I have reviewed all pertinent clinical information, including history, physical exam and plan: Yes Notes (Text): 01/26/18 12:36 Patient seen with GI fellow. In a nutshell this is a 67 year old F presenting with abdominal pain and bloody diarrhea which has since admission resolved. CT reviewed showing rectosigmoid mural thickening- ischemic vs infectious? Stool C diff is negative. Blood cultures positive for gram positive cocci. Supportive care with pain control and anti-emetics. Urine cultures pending. Will recommend resuming anti platelet plavix with hx of LAD stent, Hgb stable. Counselled regarding eventual colonoscopy in 6-8 months. Will continue to follow closely
[2018-01-26 09:30] LABS: C DIFF TOXIN A B NEGATIVE (NEGATIVE)
[2018-01-26] MEDS: Acetaminophen-Codeine 300/30 mg Tab PO PRN (10:22)
[2018-01-26] MEDS: Ciprofloxacin 0.3% OPTH SOLN OU SCH ×2 (10:22→17:44)
[2018-01-26 12:38] LABS: FECAL LEUKOCYTES NEGATIVE (NEGATIVE)
--- NOTE | 2018-01-26 15:42 | CP.PCM.PN ---
Subjective - Date & Time of Evaluation Date of Evaluation: 01/26/18 Time of Evaluation: 15:40 - Subjective Subjective: CHIEF COMPLAINTS TODAY : NO CP NO FURTHER BLOODY DIARRHEA ROS. HEENT : N. Resp : No cough, wheezing ,pleuritic CP ,or hemoptysis Cardio : No anginal CP, PND, orthopnea, palpitation GI : No abd.pain, n/v ,diarrhea or GI bleeding . 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 Musculoskel : No joint swelling , Derm : No rash Psych : Normal affect. Ext : No swelling ,calf pain PE. Pt. is alert awake in no distress. V.S As noted in the chart Head ,ear nose,throat and eyes : Normal. Neck : Supple with normal carotids. Lungs: Clear air entry. Heart : S1 & S2 normal with S4. No murmur. Abd : Soft non tender with normal bowel sounds. Neuro : Moves all ext. with no localized deficit. Ext : No edema with intact pulses.Non tender calves Derm : No rashes or decubitus ulcer. LABS/RADIOLOGY: BLD. CULT. POS , TNI POS , BORDERLINE ASSESSMENT/PLAN : IV AB FOR SEPSIS , ?ETIOLOGY FURTHER GI W/U ON HOLD IV AB Objective - Vital Signs/Intake and Output Vital Signs (last 24 hours): Temp Pulse Resp BP Pulse Ox 97.4 F L 76 20 163/88 H 95 01/26/18 15:19 01/26/18 15:19 01/26/18 15:19 01/26/18 15:19 01/26/18 15:19 Intake and Output: 01/26/18 01/26/18 11:59 23:59 Intake Total Balance - Medications Medications: Current Medications Acetaminophen/Codeine Phosphate (Tylenol/Codeine 300 Mg/30 Mg) 1 ea PO Q6 PRN PRN Reason: Pain, moderate (4-7) Last Admin: 01/26/18 10:22 Dose: 1 ea Aspirin (Ecotrin) 81 mg PO DAILY [facility] Last Admin: 01/26/18 10:19 Dose: 81 mg Ciprofloxacin (Ciloxan 0.3% Oph Soln) 1 drop OU BID [facility] Last Admin: 01/26/18 10:22 Dose: 1 drop Clopidogrel Bisulfate (Plavix) 75 mg PO DAILY [facility] Last Admin: 01/26/18 10:19 Dose: 75 mg Famotidine (Pepcid) 40 mg IVP Q12 [facility] Last Admin: 01/26/18 10:19 Dose: 40 mg Gabapentin (Neurontin) 600 mg PO Q8 [facility] Last Admin: 01/26/18 13:25 Dose: 600 mg Metronidazole (Flagyl) 500 mg in 100 mls @ 100 mls/hr IVPB Q8H [facility] PRN Reason: Protocol Last Admin: 01/26/18 13:26 Dose: 100 mls/hr Ceftriaxone Sodium 1 gm/ (Sodium Chloride) 100 mls @ 100 mls/hr IVPB Q12H [facility] PRN Reason: Protocol Last Admin: 01/26/18 10:19 Dose: 100 mls/hr Vancomycin/Sodium Chloride (Vancomycin 1 Gm/Ns 200 Ml) 1 gm in 200 mls @ 133 mls/hr IVPB Q12H [facility] PRN Reason: Protocol Stop: 01/30/18 12:01 Last Admin: 01/26/18 11:38 Dose: 133 mls/hr Latanoprost (Xalatan Opht) 0 ml OU HS [facility] Last Admin: 01/25/18 21:49 Dose: 1 ml Lisinopril (Zestril) 20 mg PO DAILY [facility] Last Admin: 01/26/18 10:19 Dose: 20 mg Quetiapine Fumarate (Seroquel) 100 mg PO HS [facility] Last Admin: 01/25/18 21:49 Dose: 100 mg Rosuvastatin Calcium (Crestor) 10 mg PO HS [facility] Last Admin: 01/25/18 21:46 Dose: 10 mg Zolpidem Tartrate (Ambien) 5 mg PO HS PRN PRN Reason: Insomnia Last Admin: 01/25/18 21:45 Dose: 5 mg - Labs Labs: 01/26/18 08:02 01/26/18 08:02 PT 11.8 SECONDS (9.7-12.2) 01/24/18 09:44 INR 1.1 01/24/18 09:44 APTT 41 SECONDS (21-34) H 01/24/18 09:44
[2018-01-26] MEDS: Latanoprost 2.5 ml Opht Soln OU SCH (21:48)
--- NOTE | 2018-01-26 23:01 | CARD ---
APPROVED REPORT EKG Measurement Heart [id number] <Conclusion> Normal sinus rhythm Normal ECG
--- NOTE | 2018-01-26 23:05 | CP.PCM.PN ---
Subjective - Date & Time of Evaluation Date of Evaluation: 01/26/18 Time of Evaluation: 23:05 - Subjective Subjective: CHIEF COMPLAINTS TODAY : AFEBRILE. c/o less abdominal pain . denies any further GI bleeding. DENIES DIARRHOEA. ROS. HEENT : N. 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 Musculoskel : No joint swelling , Derm : No rash Psych : Normal affect. Ext : No swelling ,calf pain PE. Pt. is alert awake in no distress. V.S As noted in the chart Head ,ear nose,throat and eyes : Normal. Neck : Supple with normal carotids. Lungs: Clear air entry. Heart : S1 & S2 normal with S4. No murmur. Abd : SOFT , MILD TENDERNESS LOWER ABDOMEN /LLQ with normal bowel sounds. Neuro : Moves all ext. with no localized deficit. Ext : No edema with intact pulses.Non tender calves Derm : No rashes or decubitus ulcer. LABS/RADIOLOGY: BLOOD CULTURE 1:2 SETS +VE GM +VE COOCI IN CHAINS? STREPTOCOCCI AND GRAM +VE BACILLI WBC 9.0 H/H 11.7 PLT 171 LFTS N STOOL -LEUKOCYTES/-VE. C.DIFFICILE TOXIN -VE Objective - Vital Signs/Intake and Output Vital Signs (last 24 hours): Temp Pulse Resp BP Pulse Ox 97.4 F L 76 20 163/88 H 95 01/26/18 15:19 01/26/18 15:19 01/26/18 15:19 01/26/18 15:19 01/26/18 15:19 - Medications Medications: Current Medications Acetaminophen/Codeine Phosphate (Tylenol/Codeine 300 Mg/30 Mg) 1 ea PO Q6 PRN PRN Reason: Pain, moderate (4-7) Last Admin: 01/26/18 10:22 Dose: 1 ea Aspirin (Ecotrin) 81 mg PO DAILY [facility] Last Admin: 01/26/18 10:19 Dose: 81 mg Ciprofloxacin (Ciloxan 0.3% Oph Soln) 1 drop OU BID [facility] Last Admin: 01/26/18 17:44 Dose: 1 drop Clopidogrel Bisulfate (Plavix) 75 mg PO DAILY [facility] Last Admin: 01/26/18 10:19 Dose: 75 mg Famotidine (Pepcid) 40 mg IVP Q12 [facility] Last Admin: 01/26/18 21:48 Dose: 40 mg Gabapentin (Neurontin) 600 mg PO Q8 [facility] Last Admin: 01/26/18 21:49 Dose: 600 mg Metronidazole (Flagyl) 500 mg in 100 mls @ 100 mls/hr IVPB Q8H [facility] PRN Reason: Protocol Last Admin: 01/26/18 21:49 Dose: 100 mls/hr Ceftriaxone Sodium 1 gm/ (Sodium Chloride) 100 mls @ 100 mls/hr IVPB Q12H [facility] PRN Reason: Protocol Last Admin: 01/26/18 21:46 Dose: 100 mls/hr Vancomycin/Sodium Chloride (Vancomycin 1 Gm/Ns 200 Ml) 1 gm in 200 mls @ 133 mls/hr IVPB Q12H [facility] PRN Reason: Protocol Stop: 01/30/18 12:01 Last Admin: 01/26/18 11:38 Dose: 133 mls/hr Latanoprost (Xalatan Opht) 0 ml OU HS [facility] Last Admin: 01/26/18 21:48 Dose: 1 ml Lisinopril (Zestril) 20 mg PO DAILY [facility] Last Admin: 01/26/18 10:19 Dose: 20 mg Quetiapine Fumarate (Seroquel) 100 mg PO HS [facility] Last Admin: 01/26/18 21:47 Dose: 100 mg Rosuvastatin Calcium (Crestor) 10 mg PO HS [facility] Last Admin: 01/26/18 21:45 Dose: 10 mg Zolpidem Tartrate (Ambien) 5 mg PO HS PRN PRN Reason: Insomnia Last Admin: 01/26/18 21:45 Dose: 5 mg - Labs Labs: 01/26/18 08:02 01/26/18 08:02 PT 11.8 SECONDS (9.7-12.2) 01/24/18 09:44 INR 1.1 01/24/18 09:44 APTT 41 SECONDS (21-34) H 01/24/18 09:44 Assessment and Plan (1) Colitis Status: Acute (2) NSTEMI (non-ST elevated myocardial infarction) Status: Acute (3) Hypertension Status: Acute (4) Mixed anxiety and depressive disorder Status: Acute (5) Depression Status: Acute - Assessment and Plan (Free Text) Assessment: IMPRESSION; -GRAM +VE BACTEREMIA ? STREPTOCOCCI. -COLITIS RECTOSIGMOID. -GI BLEEDING. -NSTEMI +VE TROPININS RT. EYE CONJUCTIVITIS -HTN -ANXIETY /DEPRESSIVE DISORDER. PLAN; F/U CULTURES TO ADJUST ABX. CONTINUE iv ROCEPHIN 1 G EVERY 12 HOURLY 01/24/18 CONTINUE iv FLAGYL 500 EVERY 8 HOURLY.01/24/18 ADD iv VANCOMYCIN 1 G EVERY 12 HOURLY FOR GRAM-POSITIVE BACTEREMIA. ( identification pending.).01/25/18. F/U VANCO TROUGH 30 MIN PRIOR TO 4TH DOSE AND KEEP BETWEEN 10- 20MG/DL CIPRO EYE DROPS 2 DROPS EACH EYE BID 01/25/18 X 5 DAYS F/U DIARRHOEA W/U. GI ON BOARD.
[2018-01-27] MEDS: metroNIDAZOLE IV 500 mg/100 ml 500 MG/100 ML BAG IVPB SCH ×3 (05:48→21:14)
[2018-01-27 07:34] LABS: BASO # 0.1 K/uL (0.0-0.2); BASO % 1.2 % (0.0-2.0); EOS # 0.3 K/uL (0.0-0.7); EOS % 4.4 % (0.0-4.0); HEMOGLOBIN 11.3 g/dL (11.0-16.0); LYMPH # 1.6 K/uL (1.0-4.3); LYMPH % 26.4 % (20.0-40.0); MEAN CORPUSCULAR HEMOGLOBIN 29.2 pg (27.0-31.0); MEAN CORPUSCULAR HGB CONC 33.6 g/dL (33.0-37.0); MEAN PLATELET VOLUME 9.1 fL (7.2-11.7); MONO # 0.4 K/uL (0.0-0.8); MONO % 7.4 % (0.0-10.0); NEUT # 3.6 K/uL (1.8-7.0); NEUT % 60.6 % (50.0-75.0); NRBC % 0.1 % (0.0-2.0); RBC 3.86 Mil/uL (3.80-5.20); RED CELL DISTRIBUTION WIDTH 14.4 % (11.5-14.5); WHITE BLOOD COUNT 5.9 K/uL (4.8-10.8)
[2018-01-27 07:48] LABS: ALB/GLOB RATIO 1.2 (1.0-2.1); ALBUMIN 3.3 g/dL (3.5-5.0); ALT/SGPT 23 U/L (9-52); AST/SGOT 13 U/L (14-36); BLOOD UREA NITROGEN 18 mg/dL (7-17); CALCIUM 8.2 mg/dl (8.6-10.4); GFR AFRICAN-AMERICAN > 60; GFR NON-AFRICAN AMERICAN > 60
[2018-01-27] MEDS: Ciprofloxacin 0.3% OPTH SOLN OU SCH ×2 (09:25→19:00)
[2018-01-27] MEDS: Acetaminophen-Codeine 300/30 mg Tab PO PRN ×2 (09:37→20:13)
[2018-01-27] MEDS: Vancomycin 1 gm/NS 200 ml 1 GM/200 ML BAG IVPB SCH (11:16)
--- NOTE | 2018-01-27 12:53 | CP.PCM.PN ---
Subjective - Date & Time of Evaluation Date of Evaluation: 01/27/18 Time of Evaluation: 12:51 - Subjective Subjective: CHIEF COMPLAINTS TODAY : NO FURTHER BLOODY DIARRHEA NO ABD PAIN ROS. HEENT : N. Resp : No cough, wheezing ,pleuritic CP ,or hemoptysis Cardio : No anginal CP, PND, orthopnea, palpitation GI : No abd.pain, n/v ,diarrhea or GI bleeding . 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 Musculoskel : No joint swelling , Derm : No rash Psych : Normal affect. Ext : No swelling ,calf pain PE. Pt. is alert awake in no distress. V.S As noted in the chart Head ,ear nose,throat and eyes : Normal. Neck : Supple with normal carotids. Lungs: Clear air entry. Heart : S1 & S2 normal with S4. No murmur. Abd : Soft non tender with normal bowel sounds. Neuro : Moves all ext. with no localized deficit. Ext : No edema with intact pulses.Non tender calves Derm : No rashes or decubitus ulcer. LABS/RADIOLOGY: FLORI POS ASSESSMENT/PLAN : IV AB WILL RESTART ANTICOAGULATION Objective - Vital Signs/Intake and Output Vital Signs (last 24 hours): Temp Pulse Resp BP Pulse Ox 97.4 F L 87 20 158/81 H 100 01/27/18 08:43 01/27/18 08:43 01/27/18 08:43 01/27/18 08:43 01/27/18 08:43 Intake and Output: 01/27/18 01/27/18 11:59 23:59 Intake Total 500 Balance 500 - Medications Medications: Current Medications Acetaminophen/Codeine Phosphate (Tylenol/Codeine 300 Mg/30 Mg) 1 ea PO Q6 PRN PRN Reason: Pain, moderate (4-7) Last Admin: 01/27/18 09:37 Dose: 1 ea Aspirin (Ecotrin) 81 mg PO DAILY [facility] Last Admin: 01/27/18 09:25 Dose: 81 mg Ciprofloxacin (Ciloxan 0.3% Oph Soln) 1 drop OU BID [facility] Last Admin: 01/27/18 09:25 Dose: 1 drop Clopidogrel Bisulfate (Plavix) 75 mg PO DAILY [facility] Last Admin: 01/27/18 09:25 Dose: 75 mg Famotidine (Pepcid) 40 mg IVP Q12 [facility] Last Admin: 01/27/18 09:25 Dose: 40 mg Gabapentin (Neurontin) 600 mg PO Q8 [facility] Last Admin: 01/27/18 05:48 Dose: 600 mg Metronidazole (Flagyl) 500 mg in 100 mls @ 100 mls/hr IVPB Q8H [facility] PRN Reason: Protocol Last Admin: 01/27/18 05:48 Dose: 100 mls/hr Ceftriaxone Sodium 1 gm/ (Sodium Chloride) 100 mls @ 100 mls/hr IVPB Q12H [facility] PRN Reason: Protocol Last Admin: 01/27/18 08:46 Dose: 100 mls/hr Vancomycin HCl (Vancocin 750mg/Ns 150 Ml) 150 mls @ 166.6 mls/hr IV Q12H [facility] PRN Reason: Protocol Stop: 02/01/18 23:01 Latanoprost (Xalatan Opht) 0 ml OU HS [facility] Last Admin: 01/26/18 21:48 Dose: 1 ml Lisinopril (Zestril) 20 mg PO DAILY [facility] Last Admin: 01/27/18 09:25 Dose: 20 mg Quetiapine Fumarate (Seroquel) 100 mg PO HS [facility] Last Admin: 01/26/18 21:47 Dose: 100 mg Rosuvastatin Calcium (Crestor) 10 mg PO HS [facility] Last Admin: 01/26/18 21:45 Dose: 10 mg Zolpidem Tartrate (Ambien) 5 mg PO HS PRN PRN Reason: Insomnia Last Admin: 01/26/18 21:45 Dose: 5 mg - Labs Labs: 01/27/18 07:24 01/27/18 07:24 PT 11.8 SECONDS (9.7-12.2) 01/24/18 09:44 INR 1.1 01/24/18 09:44 APTT 41 SECONDS (21-34) H 01/24/18 09:44
--- NOTE | 2018-01-27 13:06 | CP.PCM.PN ---
<Ron Trevizo - Last Filed: 01/27/18 13:30> Subjective - Date & Time of Evaluation Date of Evaluation: 01/27/18 Time of Evaluation: 07:00 - Subjective Subjective: GI Fellow PGY 4 Progress Note Pt seen and evaluated at bedside, pt doing a little better. No rectal bleeding per pt. Tolerating diet. ROS: A 12pt ROS was negative except above. Objective - Vital Signs/Intake and Output Vital Signs (last 24 hours): Temp Pulse Resp BP Pulse Ox 97.4 F L 87 20 158/81 H 100 01/27/18 08:43 01/27/18 08:43 01/27/18 08:43 01/27/18 08:43 01/27/18 08:43 Intake and Output: 01/27/18 01/27/18 06:59 18:59 Intake Total 500 Balance 500 - Medications Medications: Current Medications Acetaminophen/Codeine Phosphate (Tylenol/Codeine 300 Mg/30 Mg) 1 ea PO Q6 PRN PRN Reason: Pain, moderate (4-7) Last Admin: 01/27/18 09:37 Dose: 1 ea Aspirin (Ecotrin) 81 mg PO DAILY [facility] Last Admin: 01/27/18 09:25 Dose: 81 mg Ciprofloxacin (Ciloxan 0.3% [facility] Soln) 1 drop OU BID [facility] Last Admin: 01/27/18 09:25 Dose: 1 drop Clopidogrel Bisulfate (Plavix) 75 mg PO DAILY [facility] Last Admin: 01/27/18 09:25 Dose: 75 mg Famotidine (Pepcid) 40 mg IVP Q12 [facility] Last Admin: 01/27/18 09:25 Dose: 40 mg Gabapentin (Neurontin) 600 mg PO Q8 [facility] Last Admin: 01/27/18 05:48 Dose: 600 mg Metronidazole (Flagyl) 500 mg in 100 mls @ 100 mls/hr IVPB Q8H [facility] PRN Reason: Protocol Last Admin: 01/27/18 05:48 Dose: 100 mls/hr Ceftriaxone Sodium 1 gm/ (Sodium Chloride) 100 mls @ 100 mls/hr IVPB Q12H [facility] PRN Reason: Protocol Last Admin: 01/27/18 08:46 Dose: 100 mls/hr Vancomycin HCl (Vancocin 750mg/Ns 150 Ml) 150 mls @ 166.6 mls/hr IV Q12H [facility] PRN Reason: Protocol Stop: 02/01/18 23:01 Latanoprost (Xalatan Opht) 0 ml OU HS [facility] Last Admin: 01/26/18 21:48 Dose: 1 ml Lisinopril (Zestril) 20 mg PO DAILY [facility] Last Admin: 01/27/18 09:25 Dose: 20 mg Quetiapine Fumarate (Seroquel) 100 mg PO HS [facility] Last Admin: 01/26/18 21:47 Dose: 100 mg Rosuvastatin Calcium (Crestor) 10 mg PO HS [facility] Last Admin: 01/26/18 21:45 Dose: 10 mg Zolpidem Tartrate (Ambien) 5 mg PO HS PRN PRN Reason: Insomnia Last Admin: 01/26/18 21:45 Dose: 5 mg - Labs Labs: 01/27/18 07:24 01/27/18 07:24 PT 11.8 SECONDS (9.7-12.2) 01/24/18 09:44 INR 1.1 01/24/18 09:44 APTT 41 SECONDS (21-34) H 01/24/18 09:44 - Constitutional Appears: Well, No Acute Distress - Head Exam Head Exam: ATRAUMATIC, NORMOCEPHALIC - Eye Exam Eye Exam: Normal appearance - ENT Exam ENT Exam: Mucous Membranes Moist, Normal Exam - Respiratory Exam Respiratory Exam: Clear to Ausculation Bilateral, NORMAL BREATHING PATTERN. absent: Rales, Rhonchi, Wheezes, Respiratory Distress - Cardiovascular Exam Cardiovascular Exam: REGULAR RHYTHM, +S1, +S2 - GI/Abdominal Exam GI & Abdominal Exam: Soft, Normal Bowel Sounds. absent: Guarding, Rigid, Tenderness, Organomegaly - Extremities Exam Extremities Exam: absent: Joint Swelling, Pedal Edema - Neurological Exam Neurological Exam: Alert, Altered - Psychiatric Exam Psychiatric exam: Normal Affect, Normal Mood - Skin Skin Exam: Dry, Intact, Normal Color, Warm Assessment and Plan - Assessment and Plan (Free Text) Assessment: This is a 67yF presenting with abdominal pain and bloody diarrhea for one day. 1. Colitis-rectosigmoid mural thickening- ischemic vs infectious? 2. Abdominal pain and bloody diarrhea 3. Hx of CAD s/p LAD stent 1yr ago on plavix/aspirin 4. Elevated troponins Plan: -Continue supportive care with pain control and anti-emetics -c.diff neg -hgb stable -IV abx Rocephin/Flagyl/Vancomycin per ID, gram positive bacteremia -If continues to have rectal bleeding, recommend CT angio of abdomen -Elevated troponins, further recs per cardiology -Okay to resume anti platelet and anticoag -Pt will need outpt colonoscopy -will sign off D/W Dr. Conner <Stephen Conner - Last Filed: 01/27/18 16:47> Objective - Vital Signs/Intake and Output Vital Signs (last 24 hours): Temp Pulse Resp BP Pulse Ox 97.3 F L 86 18 158/84 H 98 01/27/18 15:23 01/27/18 15:23 01/27/18 15:23 01/27/18 15:23 01/27/18 15:23 Intake and Output: 01/27/18 01/27/18 06:59 18:59 Intake Total 500 Balance 500 - Medications Medications: Current Medications Acetaminophen/Codeine Phosphate (Tylenol/Codeine 300 Mg/30 Mg) 1 ea PO Q6 PRN PRN Reason: Pain, moderate (4-7) Last Admin: 01/27/18 09:37 Dose: 1 ea Aspirin (Ecotrin) 81 mg PO DAILY [facility] Last Admin: 01/27/18 09:25 Dose: 81 mg Ciprofloxacin (Ciloxan 0.3% [facility]) 1 drop OU BID [facility] Last Admin: 01/27/18 09:25 Dose: 1 drop Clopidogrel Bisulfate (Plavix) 75 mg PO DAILY [facility] Last Admin: 01/27/18 09:25 Dose: 75 mg Famotidine (Pepcid) 40 mg IVP Q12 [facility] Last Admin: 01/27/18 09:25 Dose: 40 mg Gabapentin (Neurontin) 600 mg PO Q8 [facility] Last Admin: 01/27/18 13:20 Dose: 600 mg Metronidazole (Flagyl) 500 mg in 100 mls @ 100 mls/hr IVPB Q8H [facility] PRN Reason: Protocol Last Admin: 01/27/18 13:20 Dose: 100 mls/hr Ceftriaxone Sodium 1 gm/ (Sodium Chloride) 100 mls @ 100 mls/hr IVPB Q12H [facility] PRN Reason: Protocol Last Admin: 01/27/18 08:46 Dose: 100 mls/hr Vancomycin HCl (Vancocin 750mg/Ns 150 Ml) 150 mls @ 166.6 mls/hr IV Q12H [facility] PRN Reason: Protocol Stop: 02/01/18 23:01 Latanoprost (Xalatan Opht) 0 ml OU HS [facility] Last Admin: 01/26/18 21:48 Dose: 1 ml Lisinopril (Zestril) 20 mg PO DAILY [facility] Last Admin: 01/27/18 09:25 Dose: 20 mg Quetiapine Fumarate (Seroquel) 100 mg PO HS [facility] Last Admin: 01/26/18 21:47 Dose: 100 mg Rosuvastatin Calcium (Crestor) 10 mg PO HS [facility] Last Admin: 01/26/18 21:45 Dose: 10 mg Zolpidem Tartrate (Ambien) 5 mg PO HS PRN PRN Reason: Insomnia Last Admin: 01/26/18 21:45 Dose: 5 mg - Labs Labs: 01/27/18 07:24 01/27/18 07:24 PT 11.8 SECONDS (9.7-12.2) 01/24/18 09:44 INR 1.1 01/24/18 09:44 APTT 41 SECONDS (21-34) H 01/24/18 09:44 Attending/Attestation - Attestation I have personally seen and examined this patient.: Yes I have fully participated in the care of the patient.: Yes I have reviewed all pertinent clinical information, including history, physical exam and plan: Yes Notes (Text): 01/27/18 16:46 Patient seen with GI fellow. In a nutshell this is a 67 year old F presenting with abdominal pain and bloody diarrhea which has since admission resolved. CT reviewed showing recto sigmoid mural thickening- ischemic vs infectious? Stool C diff is negative. Blood cultures positive for gram positive cocci. Supportive care with pain control and anti-emetics. Urine cultures pending. Will recommend resuming anti platelet plavix with hx of LAD stent, Hgb stable. Counselled regarding eventual colonoscopy in 6-8 weeks. Will sign off now. Thank you for letting us participate in the care of your patient
--- NOTE | 2018-01-27 13:49 | CP.PCM.PN ---
Subjective - Date & Time of Evaluation Date of Evaluation: 01/27/18 Time of Evaluation: 13:49 - Subjective Subjective: CHIEF COMPLAINTS TODAY : AFEBRILE. c/o LESSABDOMINAL PAIN denies any further GI bleeding. DENIES DIARRHOEA. ROS. HEENT : N. 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 Musculoskel : No joint swelling , Derm : No rash Psych : Normal affect. Ext : No swelling ,calf pain PE. Pt. is alert awake in no distress. V.S As noted in the chart Head ,ear nose,throat and eyes : Normal. Neck : Supple with normal carotids. Lungs: Clear air entry. Heart : S1 & S2 normal with S4. No murmur. Abd : SOFT , MILD TENDERNESS LOWER ABDOMEN /LLQ with normal bowel sounds. Neuro : Moves all ext. with no localized deficit. Ext : No edema with intact pulses.Non tender calves Derm : No rashes or decubitus ulcer. LABS/RADIOLOGY: BLOOD CULTURE 1:2 SETS +VE GM +VE COOCI IN CHAINS? STREPTOCOCCI AND GRAM +VE BACILLI WBC 9.0 H/H 11.7 PLT 171 LFTS N STOOL -LEUKOCYTES/-VE. C.DIFFICILE TOXIN -VE Objective - Vital Signs/Intake and Output Vital Signs (last 24 hours): Temp Pulse Resp BP Pulse Ox 97.4 F L 87 20 158/81 H 96 01/27/18 08:43 01/27/18 08:43 01/27/18 08:43 01/27/18 08:43 01/27/18 13:24 Intake and Output: 01/27/18 01/27/18 06:59 18:59 Intake Total 500 Balance 500 - Medications Medications: Current Medications Acetaminophen/Codeine Phosphate (Tylenol/Codeine 300 Mg/30 Mg) 1 ea PO Q6 PRN PRN Reason: Pain, moderate (4-7) Last Admin: 01/27/18 09:37 Dose: 1 ea Aspirin (Ecotrin) 81 mg PO DAILY [facility] Last Admin: 01/27/18 09:25 Dose: 81 mg Ciprofloxacin (Ciloxan 0.3% [facility]) 1 drop OU BID [facility] Last Admin: 01/27/18 09:25 Dose: 1 drop Clopidogrel Bisulfate (Plavix) 75 mg PO DAILY [facility] Last Admin: 01/27/18 09:25 Dose: 75 mg Famotidine (Pepcid) 40 mg IVP Q12 [facility] Last Admin: 01/27/18 09:25 Dose: 40 mg Gabapentin (Neurontin) 600 mg PO Q8 [facility] Last Admin: 01/27/18 13:20 Dose: 600 mg Metronidazole (Flagyl) 500 mg in 100 mls @ 100 mls/hr IVPB Q8H [facility] PRN Reason: Protocol Last Admin: 01/27/18 13:20 Dose: 100 mls/hr Ceftriaxone Sodium 1 gm/ (Sodium Chloride) 100 mls @ 100 mls/hr IVPB Q12H [facility] PRN Reason: Protocol Last Admin: 01/27/18 08:46 Dose: 100 mls/hr Vancomycin HCl (Vancocin 750mg/Ns 150 Ml) 150 mls @ 166.6 mls/hr IV Q12H [facility] PRN Reason: Protocol Stop: 02/01/18 23:01 Latanoprost (Xalatan Opht) 0 ml OU HS [facility] Last Admin: 01/26/18 21:48 Dose: 1 ml Lisinopril (Zestril) 20 mg PO DAILY [facility] Last Admin: 01/27/18 09:25 Dose: 20 mg Quetiapine Fumarate (Seroquel) 100 mg PO HS [facility] Last Admin: 01/26/18 21:47 Dose: 100 mg Rosuvastatin Calcium (Crestor) 10 mg PO HS [facility] Last Admin: 01/26/18 21:45 Dose: 10 mg Zolpidem Tartrate (Ambien) 5 mg PO HS PRN PRN Reason: Insomnia Last Admin: 01/26/18 21:45 Dose: 5 mg - Labs Labs: 01/27/18 07:24 01/27/18 07:24 PT 11.8 SECONDS (9.7-12.2) 01/24/18 09:44 INR 1.1 01/24/18 09:44 APTT 41 SECONDS (21-34) H 01/24/18 09:44 Assessment and Plan (1) Colitis Status: Acute (2) NSTEMI (non-ST elevated myocardial infarction) Status: Acute (3) Hypertension Status: Acute (4) Mixed anxiety and depressive disorder Status: Acute (5) Depression Status: Acute - Assessment and Plan (Free Text) Assessment: IMPRESSION; -GRAM +VE BACTEREMIA ? STREPTOCOCCI/GRAM +BACILLI -COLITIS RECTOSIGMOID. -GI BLEEDING. -NSTEMI +VE TROPININS -RT. EYE CONJUCTIVITIS -HTN -ANXIETY /DEPRESSIVE DISORDER. PLAN; F/U CULTURES TO ADJUST ABX. CONTINUE iv ROCEPHIN 1 G EVERY 12 HOURLY 01/24/18 CONTINUE iv FLAGYL 500 EVERY 8 HOURLY.01/24/18 ADD iv VANCOMYCIN 1 G EVERY 12 HOURLY FOR GRAM-POSITIVE BACTEREMIA. ( identification pending.).01/25/18. F/U VANCO TROUGH 30 MIN PRIOR TO 4TH DOSE AND KEEP BETWEEN 10- 20MG/DL CIPRO EYE DROPS 2 DROPS EACH EYE BID 01/25/18 X 5 DAYS F/U DIARRHOEA W/U. GI F/U NOTED . CASE DISCUSSED WITH STAFF. PT WILL NEED PICC LINE IF BLOOD CULTURES +VE. AWAIT IDENTIFICATION OF BLOOD CULTURES TO [facility].
[2018-01-27] MEDS: Latanoprost 2.5 ml Opht Soln OU SCH (22:06)
[2018-01-27] MEDS: Vancomycin 750mg/NS 150 ml 150 ML IV SCH (22:09)
[2018-01-28] MEDS: metroNIDAZOLE IV 500 mg/100 ml 500 MG/100 ML BAG IVPB SCH ×3 (05:29→21:00)
[2018-01-28] MEDS: Acetaminophen-Codeine 300/30 mg Tab PO PRN ×3 (07:09→23:37)
[2018-01-28] MEDS: Ciprofloxacin 0.3% OPTH SOLN OU SCH ×2 (09:25→17:39)
[2018-01-28] MEDS: Vancomycin 750mg/NS 150 ml 150 ML IV SCH ×2 (10:58→22:29)
[2018-01-28 11:37] LABS: BASO # 0.1 K/uL (0.0-0.2); BASO % 1.3 % (0.0-2.0); EOS # 0.2 K/uL (0.0-0.7); EOS % 3.7 % (0.0-4.0); HEMOGLOBIN 10.8 g/dL (11.0-16.0); LYMPH # 1.3 K/uL (1.0-4.3); LYMPH % 24.2 % (20.0-40.0); MEAN CELL VOLUME 87.3 fL (81.0-99.0); MEAN CORPUSCULAR HEMOGLOBIN 28.8 pg (27.0-31.0); MEAN PLATELET VOLUME 9.7 fL (7.2-11.7); MONO # 0.5 K/uL (0.0-0.8); NEUT # 3.4 K/uL (1.8-7.0); NEUT % 60.8 % (50.0-75.0); RBC 3.74 Mil/uL (3.80-5.20); RED CELL DISTRIBUTION WIDTH 14.4 % (11.5-14.5); WHITE BLOOD COUNT 5.5 K/uL (4.8-10.8)
[2018-01-28 11:55] LABS: ALB/GLOB RATIO 1.2 (1.0-2.1); ALBUMIN 3.3 g/dL (3.5-5.0); ALT/SGPT 25 U/L (9-52); AST/SGOT 13 U/L (14-36); BLOOD UREA NITROGEN 17 mg/dL (7-17); CALCIUM 8.3 mg/dl (8.6-10.4); GFR AFRICAN-AMERICAN > 60; GFR NON-AFRICAN AMERICAN > 60
--- NOTE | 2018-01-28 14:00 | CP.PCM.PN ---
Subjective - Date & Time of Evaluation Date of Evaluation: 01/28/18 Time of Evaluation: 14:00 - Subjective Subjective: CHIEF COMPLAINTS TODAY : NO FURTHER BLOODY DIARRHEA NO ABD PAIN ROS. HEENT : N. Resp : No cough, wheezing ,pleuritic CP ,or hemoptysis Cardio : No anginal CP, PND, orthopnea, palpitation GI : No abd.pain, n/v ,diarrhea or GI bleeding . 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 Musculoskel : No joint swelling , Derm : No rash Psych : Normal affect. Ext : No swelling ,calf pain PE. Pt. is alert awake in no distress. V.S As noted in the chart Head ,ear nose,throat and eyes : Normal. Neck : Supple with normal carotids. Lungs: Clear air entry. Heart : S1 & S2 normal with S4. No murmur. Abd : Soft non tender with normal bowel sounds. Neuro : Moves all ext. with no localized deficit. Ext : No edema with intact pulses.Non tender calves Derm : No rashes or decubitus ulcer. LABS/RADIOLOGY: FLORI POS ASSESSMENT/PLAN : IV AB [facility] , [facility] Objective - Vital Signs/Intake and Output Vital Signs (last 24 hours): Temp Pulse Resp BP Pulse Ox 97.7 F 87 20 152/85 H 100 01/28/18 07:00 01/28/18 07:00 01/28/18 07:00 01/28/18 08:43 01/28/18 07:00 Intake and Output: 01/28/18 01/28/18 11:59 23:59 Intake Total 220 Balance 220 - Medications Medications: Current Medications Acetaminophen/Codeine Phosphate (Tylenol/Codeine 300 Mg/30 Mg) 1 ea PO Q6 PRN PRN Reason: Pain, moderate (4-7) Last Admin: 01/28/18 07:09 Dose: 1 ea Aspirin (Ecotrin) 81 mg PO DAILY [facility] Last Admin: 01/28/18 09:23 Dose: 81 mg Ciprofloxacin (Ciloxan 0.3% [facility]) 1 drop OU BID [facility] Last Admin: 01/28/18 09:25 Dose: 1 drop Clopidogrel Bisulfate (Plavix) 75 mg PO DAILY [facility] Last Admin: 01/28/18 09:23 Dose: 75 mg Famotidine (Pepcid) 40 mg IVP Q12 [facility] Last Admin: 01/28/18 09:23 Dose: 40 mg Gabapentin (Neurontin) 600 mg PO Q8 [facility] Last Admin: 01/28/18 13:02 Dose: 600 mg Metronidazole (Flagyl) 500 mg in 100 mls @ 100 mls/hr IVPB Q8H [facility] PRN Reason: Protocol Last Admin: 01/28/18 13:23 Dose: 100 mls/hr Ceftriaxone Sodium 1 gm/ (Sodium Chloride) 100 mls @ 100 mls/hr IVPB Q12H [facility] PRN Reason: Protocol Last Admin: 01/28/18 09:19 Dose: 100 mls/hr Vancomycin HCl (Vancocin 750mg/Ns 150 Ml) 150 mls @ 166.6 mls/hr IV Q12H [facility] PRN Reason: Protocol Stop: 02/01/18 23:01 Last Admin: 01/28/18 10:58 Dose: 166.6 mls/hr Latanoprost (Xalatan Opht) 0 ml OU HS [facility] Last Admin: 01/27/18 22:06 Dose: 2.5 ml Lisinopril (Zestril) 20 mg PO DAILY [facility] Last Admin: 01/28/18 09:23 Dose: 20 mg Quetiapine Fumarate (Seroquel) 100 mg PO HS [facility] Last Admin: 01/27/18 22:05 Dose: 100 mg Rosuvastatin Calcium (Crestor) 10 mg PO HS [facility] Last Admin: 01/27/18 22:05 Dose: 10 mg Zolpidem Tartrate (Ambien) 5 mg PO HS PRN PRN Reason: Insomnia Last Admin: 01/27/18 23:04 Dose: 5 mg - Labs Labs: 01/28/18 11:19 01/28/18 11:19 PT 11.8 SECONDS (9.7-12.2) 01/24/18 09:44 INR 1.1 01/24/18 09:44 APTT 41 SECONDS (21-34) H 01/24/18 09:44
[2018-01-28 17:55] LABS: SOURCE STOOL
--- NOTE | 2018-01-28 19:53 | CARD ---
APPROVED REPORT EXAM: Two-dimensional and M-mode echocardiogram with Doppler and color Doppler. Other Information Quality : GoodRhythm : INDICATION Non STEMI RISK FACTORS Hypertension 2D DIMENSIONS IVSd0.8 (0.7-1.1cm)LVDd3.9 (3.9-5.9cm) PWd1.0 (0.7-1.1cm)LVDs2.4 (2.5-4.0cm) FS (%) 38.6 %LVEF (%)69.5 (>50%) M-Mode DIMENSIONS Left Atrium (MM)3.54 (2.5-4.0cm)IVSd1.11 (0.7-1.1cm) Aortic Root2.92 (2.2-3.7cm)LVDd4.25 (4.0-5.6cm) Aortic Cusp Exc.2.02 (1.5-2.0cm)PWd0.85 (0.7-1.1cm) FS (%) 41 %LVDs2.51 (2.0-3.8cm) LVEF (%)72 (>50%) Mitral Valve MV E Txcmxjam847.3cm/sMV A Hqoynmug622.9cm/sE/A ratio0.7 TDI E/Lateral E'0.0E/Medial E'0.0 Tricuspid Valve TR Peak Kfhwetef186zm/sTR Peak Gr.74hnGzJGTU69nmSu LEFT VENTRICLE The left ventricle is normal size. There is normal left ventricular wall thickness. The left ventricular function is normal. The left ventricular ejection fraction is within the normal range. No regional wall motion abnormalities noted. Transmitral Doppler flow pattern is Grade I-abnormal relaxation pattern. No left ventricle thrombus noted on this study. There is no ventricular septal defect visualized. There is no left ventricular aneurysm. There is no mass noted in the left ventricle. RIGHT VENTRICLE The right ventricle is normal size. There is normal right ventricular wall thickness. The right ventricular systolic function is normal. ATRIA The left atrium size is normal. The right atrium size is normal. The interatrial septum is intact with no evidence for an atrial septal defect. AORTIC VALVE The aortic valve is normal in structure and function. No aortic regurgitation is present. There is no aortic valvular stenosis. There is no aortic valvular vegetation. MITRAL VALVE The mitral valve is normal in structure and function. There is no evidence of mitral valve prolapse. There is no mitral valve stenosis. Mitral regurgitation is mild. MV ERO 0.1 CM2 TRICUSPID VALVE The tricuspid valve is normal in structure and function. There is mild to moderate tricuspid regurgitation. Right ventricular systolic pressure is estimated at 30-40 mmHg. There is no tricuspid valve prolapse or vegetation. There is no tricuspid valve stenosis. PULMONIC VALVE The pulmonary valve is normal in structure and function. There is no pulmonic valvular regurgitation. There is no pulmonic valvular stenosis. GREAT VESSELS The aortic root is normal in size. The ascending aorta is normal in size. The pulmonary artery is normal. The IVC is normal in size and collapses >50% with inspiration. PERICARDIAL EFFUSION The pericardium appears normal. There is no pleural effusion. <Conclusion> The left ventricular function is normal. The left ventricular ejection fraction is within the normal range. No regional wall motion abnormalities noted. Mitral regurgitation is mild. MV ERO 0.1 CM2 There is mild to moderate tricuspid regurgitation. Right ventricular systolic pressure is estimated at 30-40 mmHg.
[2018-01-28] MEDS: Latanoprost 2.5 ml Opht Soln OU SCH (21:01)
--- NOTE | 2018-01-28 21:35 | CP.PCM.PN ---
Subjective - Date & Time of Evaluation Date of Evaluation: 01/28/18 Time of Evaluation: 21:35 - Subjective Subjective: CHIEF COMPLAINTS TODAY : AFEBRILE. denies any further GI bleeding. DENIES DIARRHOEA. ROS. HEENT : N. 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 Musculoskel : No joint swelling , Derm : No rash Psych : Normal affect. Ext : No swelling ,calf pain PE. Pt. is alert awake in no distress. V.S As noted in the chart Head ,ear nose,throat and eyes : Normal. Neck : Supple with normal carotids. Lungs: Clear air entry. Heart : S1 & S2 normal with S4. No murmur. Abd : SOFT , MILD TENDERNESS LOWER ABDOMEN /LLQ with normal bowel sounds. Neuro : Moves all ext. with no localized deficit. Ext : No edema with intact pulses.Non tender calves Derm : No rashes or decubitus ulcer. LABS/RADIOLOGY: BLOOD CULTURE 1:2 SETS +VE GM +VE COOCI IN CHAINS? STREPTOCOCCI AND GRAM +VE BACILLI -pending STOOL -LEUKOCYTES/-VE. C.DIFFICILE TOXIN -VE vanco trough 19.1 creat o.7/bun17 Objective - Vital Signs/Intake and Output Vital Signs (last 24 hours): Temp Pulse Resp BP Pulse Ox 97.8 F 87 21 165/82 H 97 01/28/18 15:30 01/28/18 16:00 01/28/18 15:30 01/28/18 15:30 01/28/18 15:30 Intake and Output: 01/28/18 01/29/18 18:59 06:59 Intake Total 680 Balance 680 - Medications Medications: Current Medications Acetaminophen/Codeine Phosphate (Tylenol/Codeine 300 Mg/30 Mg) 1 ea PO Q6 PRN PRN Reason: Pain, moderate (4-7) Last Admin: 01/28/18 16:04 Dose: 1 ea Aspirin (Ecotrin) 81 mg PO DAILY [facility] Last Admin: 01/28/18 09:23 Dose: 81 mg Ciprofloxacin (Ciloxan 0.3% [facility]) 1 drop OU BID [facility] Last Admin: 03/13/18 17:39 Dose: 1 drop Clopidogrel Bisulfate (Plavix) 75 mg PO DAILY [facility] Last Admin: 01/28/18 09:23 Dose: 75 mg Famotidine (Pepcid) 40 mg IVP Q12 [facility] Last Admin: 01/28/18 21:00 Dose: 40 mg Gabapentin (Neurontin) 600 mg PO Q8 [facility] Last Admin: 01/28/18 21:00 Dose: 600 mg Metronidazole (Flagyl) 500 mg in 100 mls @ 100 mls/hr IVPB Q8H [facility] PRN Reason: Protocol Last Admin: 01/28/18 21:00 Dose: 100 mls/hr Ceftriaxone Sodium 1 gm/ (Sodium Chloride) 100 mls @ 100 mls/hr IVPB Q12H [facility] PRN Reason: Protocol Last Admin: 01/28/18 20:59 Dose: 100 mls/hr Vancomycin HCl (Vancocin 750mg/Ns 150 Ml) 150 mls @ 166.6 mls/hr IV Q12H [facility] PRN Reason: Protocol Stop: 02/01/18 23:01 Last Admin: 01/28/18 10:58 Dose: 166.6 mls/hr Latanoprost (Xalatan Opht) 0 ml OU HS [facility] Last Admin: 01/28/18 21:01 Dose: 1 ml Lisinopril (Zestril) 20 mg PO DAILY [facility] Last Admin: 01/28/18 09:23 Dose: 20 mg Quetiapine Fumarate (Seroquel) 100 mg PO HS [facility] Last Admin: 01/28/18 21:00 Dose: 100 mg Rosuvastatin Calcium (Crestor) 10 mg PO HS [facility] Last Admin: 01/28/18 21:00 Dose: 10 mg Zolpidem Tartrate (Ambien) 5 mg PO HS PRN PRN Reason: Insomnia Last Admin: 01/28/18 21:26 Dose: 5 mg - Labs Labs: 01/28/18 11:19 01/28/18 11:19 PT 11.8 SECONDS (9.7-12.2) 01/24/18 09:44 INR 1.1 01/24/18 09:44 APTT 41 SECONDS (21-34) H 01/24/18 09:44 Assessment and Plan (1) Colitis Status: Acute (2) NSTEMI (non-ST elevated myocardial infarction) Status: Acute (3) Hypertension Status: Acute (4) Mixed anxiety and depressive disorder Status: Acute (5) Depression Status: Acute - Assessment and Plan (Free Text) Assessment: IMPRESSION; -GRAM +VE BACTEREMIA ? STREPTOCOCCI/GRAM +BACILLI -COLITIS RECTOSIGMOID. -GI BLEEDING. -NSTEMI +VE TROPININS -RT. EYE CONJUCTIVITIS -HTN -ANXIETY /DEPRESSIVE DISORDER. PLAN; F/U CULTURES TO ADJUST ABX. CONTINUE iv ROCEPHIN 1 G EVERY 12 HOURLY 01/24/18 CONTINUE iv FLAGYL 500 EVERY 8 HOURLY.01/24/18 ON iv VANCOMYCIN 1 G EVERY 12 HOURLY FOR GRAM-POSITIVE BACTEREMIA. ( identification pending.).01/25/18. CIPRO EYE DROPS 2 DROPS EACH EYE BID 01/25/18 X 5 DAYS F/U DIARRHOEA W/U. CASE DISCUSSED WITH STAFF. PT WILL NEED PICC LINE IF BLOOD CULTURES +VE.
[2018-01-29] MEDS: metroNIDAZOLE IV 500 mg/100 ml 500 MG/100 ML BAG IVPB SCH ×3 (05:44→21:14)
[2018-01-29 08:49] LABS: ALB/GLOB RATIO 1.1 (1.0-2.1); ALBUMIN 3.4 g/dL (3.5-5.0); ALT/SGPT 26 U/L (9-52); AST/SGOT 19 U/L (14-36); BLOOD UREA NITROGEN 20 mg/dL (7-17); CALCIUM 8.4 mg/dl (8.6-10.4); GFR AFRICAN-AMERICAN > 60; GFR NON-AFRICAN AMERICAN > 60
[2018-01-29] MEDS: Ciprofloxacin 0.3% OPTH SOLN OU SCH ×2 (09:09→17:52)
[2018-01-29] MEDS: Acetaminophen-Codeine 300/30 mg Tab PO PRN ×2 (09:15→18:52)
--- NOTE | 2018-01-29 11:49 | RAD ---
HISTORY: verify right PICC COMPARISON: Chest radiograph dated 01/24/2018. FINDINGS: LUNGS: No active pulmonary disease. PLEURA: No significant pleural effusion identified, no pneumothorax apparent. CARDIOVASCULAR: Atherosclerotic aortic calcifications. Cardiomediastinal silhouette within normal limits. OSSEOUS STRUCTURES: Unchanged. VISUALIZED UPPER ABDOMEN: Normal. OTHER FINDINGS: New right upper extremity PICC with catheter tip in the distal SVC. Right internal jugular access central venous catheter, unchanged. IMPRESSION: Right upper extremity PICC in satisfactory position. No other significant interval change.
[2018-01-29] MEDS: Vancomycin 750mg/NS 150 ml 150 ML IV SCH ×2 (12:01→13:26)
--- NOTE | 2018-01-29 13:29 | CP.PCM.PN ---
Subjective - Date & Time of Evaluation Date of Evaluation: 01/29/18 Time of Evaluation: 13:28 - Subjective Subjective: CHIEF COMPLAINTS TODAY : NO FURTHER BLOODY DIARRHEA NO ABD PAIN ROS. HEENT : N. Resp : No cough, wheezing ,pleuritic CP ,or hemoptysis Cardio : No anginal CP, PND, orthopnea, palpitation GI : No abd.pain, n/v ,diarrhea or GI bleeding . 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 Musculoskel : No joint swelling , Derm : No rash Psych : Normal affect. Ext : No swelling ,calf pain PE. Pt. is alert awake in no distress. V.S As noted in the chart Head ,ear nose,throat and eyes : Normal. Neck : Supple with normal carotids. Lungs: Clear air entry. Heart : S1 & S2 normal with S4. No murmur. Abd : Soft non tender with normal bowel sounds. Neuro : Moves all ext. with no localized deficit. Ext : No edema with intact pulses.Non tender calves Derm : No rashes or decubitus ulcer. LABS/RADIOLOGY: FLORI POS ASSESSMENT/PLAN : ECHO N LV EF NO VEGETATION IV AB [place] , [place] Objective - Vital Signs/Intake and Output Vital Signs (last 24 hours): Temp Pulse Resp BP Pulse Ox 97.5 F L 96 H 18 143/80 97 01/29/18 07:50 01/29/18 12:00 01/29/18 07:50 01/29/18 09:08 01/29/18 07:50 Intake and Output: 01/29/18 01/29/18 11:59 23:59 Intake Total 340 Balance 340 - Medications Medications: Current Medications Acetaminophen/Codeine Phosphate (Tylenol/Codeine 300 Mg/30 Mg) 1 ea PO Q6 PRN PRN Reason: Pain, moderate (4-7) Last Admin: 01/29/18 09:15 Dose: 1 ea Aspirin (Ecotrin) 81 mg PO DAILY [facility] Last Admin: 01/29/18 09:10 Dose: 81 mg Ciprofloxacin (Ciloxan 0.3% Oph Soln) 1 drop OU BID [facility] Last Admin: 01/29/18 09:09 Dose: 1 drop Clopidogrel Bisulfate (Plavix) 75 mg PO DAILY [facility] Last Admin: 01/29/18 09:10 Dose: 75 mg Famotidine (Pepcid) 40 mg IVP Q12 [facility] Last Admin: 01/29/18 09:10 Dose: 40 mg Gabapentin (Neurontin) 600 mg PO Q8 [facility] Last Admin: 01/29/18 05:48 Dose: 600 mg Metronidazole (Flagyl) 500 mg in 100 mls @ 100 mls/hr IVPB Q8H [facility] PRN Reason: Protocol Last Admin: 01/29/18 05:44 Dose: 100 mls/hr Ceftriaxone Sodium 1 gm/ (Sodium Chloride) 100 mls @ 100 mls/hr IVPB Q12H [facility] PRN Reason: Protocol Last Admin: 01/29/18 09:09 Dose: 100 mls/hr Vancomycin HCl (Vancocin 750mg/Ns 150 Ml) 150 mls @ 166.6 mls/hr IV Q12H [facility] PRN Reason: Protocol Stop: 02/01/18 23:01 Last Admin: 01/29/18 13:26 Dose: 166.6 mls/hr Latanoprost (Xalatan Opht) 0 ml OU HS [facility] Last Admin: 01/28/18 21:01 Dose: 1 ml Lisinopril (Zestril) 20 mg PO DAILY [facility] Last Admin: 01/29/18 09:10 Dose: 20 mg Quetiapine Fumarate (Seroquel) 100 mg PO HS [facility] Last Admin: 01/28/18 21:00 Dose: 100 mg Rosuvastatin Calcium (Crestor) 10 mg PO HS [facility] Last Admin: 01/28/18 21:00 Dose: 10 mg Zolpidem Tartrate (Ambien) 5 mg PO HS PRN PRN Reason: Insomnia Last Admin: 01/28/18 21:26 Dose: 5 mg - Labs Labs: 01/28/18 11:19 01/29/18 08:21 PT 11.8 SECONDS (9.7-12.2) 01/24/18 09:44 INR 1.1 01/24/18 09:44 APTT 41 SECONDS (21-34) H 01/24/18 09:44
[2018-01-29 16:28] VITALS: RESP 20
[2018-01-29] MEDS: Latanoprost 2.5 ml Opht Soln OU SCH (21:14)
--- NOTE | 2018-01-29 23:40 | CP.PCM.PN ---
Subjective - Date & Time of Evaluation Date of Evaluation: 01/29/18 Time of Evaluation: 23:39 - Subjective Subjective: CHIEF COMPLAINTS TODAY : AFEBRILE. DENIES DIARRHOEA, DENIES FURTHUR RECTAL BLEEDING ROS. HEENT : N. 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 Musculoskel : No joint swelling , Derm : No rash Psych : Normal affect. Ext : No swelling ,calf pain PE. Pt. is alert awake in no distress. V.S As noted in the chart Head ,ear nose,throat and eyes : Normal. Neck : Supple with normal carotids. Lungs: Clear air entry. Heart : S1 & S2 normal with S4. No murmur. Abd : SOFT , MILD TENDERNESS LOWER ABDOMEN /LLQ with normal bowel sounds. Neuro : Moves all ext. with no localized deficit. Ext : No edema with intact pulses.Non tender calves Derm : No rashes or decubitus ulcer. LABS/RADIOLOGY: BLOOD CULTURE 1:2 SETS +VE MICROCOCCUS SP./ ACINITOBACTER LWOFFI S- IMIPENEM. STOOL -LEUKOCYTES/-VE. C.DIFFICILE TOXIN -VE Objective - Vital Signs/Intake and Output Vital Signs (last 24 hours): Temp Pulse Resp BP Pulse Ox 97.3 F L 93 H 20 153/77 H 99 01/29/18 15:27 01/29/18 16:15 01/29/18 15:27 01/29/18 15:27 01/29/18 15:27 Intake and Output: 01/29/18 01/30/18 18:59 06:59 Intake Total 850 200 Balance 850 200 - Medications Medications: Current Medications Acetaminophen/Codeine Phosphate (Tylenol/Codeine 300 Mg/30 Mg) 1 ea PO Q6 PRN PRN Reason: Pain, moderate (4-7) Last Admin: 01/29/18 18:52 Dose: 1 ea Aspirin (Ecotrin) 81 mg PO DAILY [facility] Last Admin: 01/29/18 09:10 Dose: 81 mg Ciprofloxacin (Ciloxan 0.3% Oph Soln) 1 drop OU BID [facility] Last Admin: 01/29/18 17:52 Dose: 1 drop Clopidogrel Bisulfate (Plavix) 75 mg PO DAILY [facility] Last Admin: 01/29/18 09:10 Dose: 75 mg Famotidine (Pepcid) 40 mg IVP Q12 [facility] Last Admin: 01/29/18 21:11 Dose: 40 mg Gabapentin (Neurontin) 600 mg PO Q8 [facility] Last Admin: 01/29/18 21:12 Dose: 600 mg Metronidazole (Flagyl) 500 mg in 100 mls @ 100 mls/hr IVPB Q8H [facility] PRN Reason: Protocol Last Admin: 01/29/18 21:14 Dose: 100 mls/hr Ceftriaxone Sodium 1 gm/ (Sodium Chloride) 100 mls @ 100 mls/hr IVPB Q12H [facility] PRN Reason: Protocol Last Admin: 01/29/18 21:13 Dose: 100 mls/hr Latanoprost (Xalatan Opht) 0 ml OU HS [facility] Last Admin: 01/29/18 21:14 Dose: 1 ml Lisinopril (Zestril) 20 mg PO DAILY [facility] Last Admin: 01/29/18 09:10 Dose: 20 mg Quetiapine Fumarate (Seroquel) 100 mg PO HS [facility] Last Admin: 01/29/18 21:12 Dose: 100 mg Rosuvastatin Calcium (Crestor) 10 mg PO HS [facility] Last Admin: 01/29/18 21:12 Dose: 10 mg Zolpidem Tartrate (Ambien) 5 mg PO HS PRN PRN Reason: Insomnia Last Admin: 01/29/18 21:13 Dose: 5 mg - Labs Labs: 01/28/18 11:19 01/29/18 08:21 PT 11.8 SECONDS (9.7-12.2) 01/24/18 09:44 INR 1.1 01/24/18 09:44 APTT 41 SECONDS (21-34) H 01/24/18 09:44 Assessment and Plan (1) Colitis Status: Acute (2) NSTEMI (non-ST elevated myocardial infarction) Status: Acute (3) Hypertension Status: Acute (4) Mixed anxiety and depressive disorder Status: Acute (5) Depression Status: Acute - Assessment and Plan (Free Text) Assessment: IMPRESSION; -MICROCOCCUS SP/ACINITOBACTER LWOFFI SP -COLITIS RECTOSIGMOID. -GI BLEEDING. -NSTEMI +VE TROPININS -RT. EYE CONJUCTIVITIS -HTN -ANXIETY /DEPRESSIVE DISORDER. PLAN; START IV PRIMAXIN 500MG IV Q 8HRLY 01/29/18 X 14 DAYS TILL - 02/12/18. CONTINUE PO FLAGYL 250MG PO TID X 5 DAYS, 01/29/18- 02/03/18. F/U CBC .DIFF.BMP. LFTS M /F X 2WKS. CASE DISCUSSED WITH BIOTECHNOLOGIST MS WYNN PMD. PER GI PT WILL NEED COLONOSCOPY AFTER 6 WKS. DC iv ROCEPHIN 1 G EVERY 12 HOURLY 01/24/18-01/29/18 DC iv FLAGYL 500 EVERY 8 HOURLY.01/24/18 DC iv VANCOMYCIN 01/25/18.- 01/29/18
[2018-01-30] MEDS: metroNIDAZOLE IV 500 mg/100 ml 500 MG/100 ML BAG IVPB SCH (05:20)
[2018-01-30 08:27] VITALS: TEMP 98.8; O2SAT 99
[2018-01-30] MEDS: Acetaminophen-Codeine 300/30 mg Tab PO PRN (08:39)
[2018-01-30 10:16] VITALS: BP 119/70
[2018-01-30] MEDS: Ciprofloxacin 0.3% OPTH SOLN OU SCH (10:17)
[2018-01-30 11:29] LABS: BASO # 0.1 K/uL (0.0-0.2); BASO % 1.2 % (0.0-2.0); EOS # 0.3 K/uL (0.0-0.7); EOS % 3.4 % (0.0-4.0); HEMOGLOBIN 11.8 g/dL (11.0-16.0); LYMPH # 1.3 K/uL (1.0-4.3); MEAN CELL VOLUME 87.5 fL (81.0-99.0); MEAN CORPUSCULAR HEMOGLOBIN 28.8 pg (27.0-31.0); MEAN CORPUSCULAR HGB CONC 32.9 g/dL (33.0-37.0); MONO # 0.5 K/uL (0.0-0.8); MONO % 6.8 % (0.0-10.0); NEUT # 5.7 K/uL (1.8-7.0); NEUT % 71.6 % (50.0-75.0); RBC 4.08 Mil/uL (3.80-5.20); RED CELL DISTRIBUTION WIDTH 14.1 % (11.5-14.5); WHITE BLOOD COUNT 7.9 K/uL (4.8-10.8)
[2018-01-30 11:45] LABS: BLOOD UREA NITROGEN 18 mg/dL (7-17); CALCIUM 8.7 mg/dl (8.6-10.4); GFR AFRICAN-AMERICAN > 60; GFR NON-AFRICAN AMERICAN > 60
--- NOTE | 2018-01-30 12:12 | CP.PCM.PN ---
Subjective - Date & Time of Evaluation Date of Evaluation: 01/30/18 Time of Evaluation: 10:45 - Subjective Subjective: Patient seen today, states feels better, denies any chest pain, sob, abdominal pain, N/V/D a febrile today labs- WNL Objective - Vital Signs/Intake and Output Vital Signs (last 24 hours): Temp Pulse Resp BP Pulse Ox 98.8 F 108 H 20 119/70 99 01/30/18 08:26 01/30/18 10:16 01/30/18 08:26 01/30/18 10:16 01/30/18 08:26 Intake and Output: 01/30/18 01/30/18 06:59 18:59 Intake Total 420 Balance 420 - Medications Medications: Current Medications Acetaminophen/Codeine Phosphate (Tylenol/Codeine 300 Mg/30 Mg) 1 ea PO Q6 PRN PRN Reason: Pain, moderate (4-7) Last Admin: 01/30/18 08:39 Dose: 1 ea Aspirin (Ecotrin) 81 mg PO DAILY [facility] Last Admin: 01/30/18 10:17 Dose: 81 mg Ciprofloxacin (Ciloxan 0.3% Ophth Soln) 1 drop OU BID [facility] Last Admin: 01/30/18 10:17 Dose: 1 drop Clopidogrel Bisulfate (Plavix) 75 mg PO DAILY [facility] Last Admin: 01/30/18 10:17 Dose: 75 mg Famotidine (Pepcid) 40 mg IVP Q12 [facility] Last Admin: 01/30/18 10:16 Dose: 40 mg Gabapentin (Neurontin) 600 mg PO Q8 [facility] Last Admin: 01/30/18 05:25 Dose: 600 mg Metronidazole (Flagyl) 500 mg in 100 mls @ 100 mls/hr IVPB Q8H [facility] PRN Reason: Protocol Last Admin: 01/30/18 05:20 Dose: 100 mls/hr Imipenem/Cilastatin Sodium 500 (mg/ Sodium Chloride) 100 mls @ 100 mls/hr IVPB Q8H [facility] PRN Reason: Protocol Last Admin: 01/30/18 10:17 Dose: 100 mls/hr Latanoprost (Xalatan Opht) 0 ml OU HS [facility] Last Admin: 01/29/18 21:14 Dose: 1 ml Lisinopril (Zestril) 20 mg PO DAILY [facility] Last Admin: 01/30/18 10:17 Dose: 20 mg Quetiapine Fumarate (Seroquel) 100 mg PO HS [facility] Last Admin: 01/29/18 21:12 Dose: 100 mg Rosuvastatin Calcium (Crestor) 10 mg PO HS [facility] Last Admin: 01/29/18 21:12 Dose: 10 mg Zolpidem Tartrate (Ambien) 5 mg PO HS PRN PRN Reason: Insomnia Last Admin: 01/29/18 21:13 Dose: 5 mg - Labs Labs: 01/30/18 11:17 01/30/18 11:17 PT 11.8 SECONDS (9.7-12.2) 01/24/18 09:44 INR 1.1 01/24/18 09:44 APTT 41 SECONDS (21-34) H 01/24/18 09:44 - Constitutional Appears: Well, No Acute Distress - ENT Exam ENT Exam: Mucous Membranes Moist - Respiratory Exam Respiratory Exam: Clear to Ausculation Bilateral, NORMAL BREATHING PATTERN - Cardiovascular Exam Cardiovascular Exam: REGULAR RHYTHM, +S1, +S2 - GI/Abdominal Exam GI & Abdominal Exam: Soft, Normal Bowel Sounds - Neurological Exam Neurological Exam: Alert, Awake, Oriented x3 Assessment and Plan - Assessment and Plan (Free Text) Assessment: A/P 67 yr old female with PMHx of CVA, bipolar, and depression, admitted with diarrhea and blood in the stool /chest pain/ NSTEMI / sigmoid colitis blood culture - + ve s/p PICC LINE placement repeat blood culture- negative for 24 hrs D/W Dr. Katherine Holliday , cleared fro discharge to [facility] today and continue primaxin 500 mg ivbp q 8hrs x 14 days and flagyl 259 mg po tid x 5 days and repaet cbc, bmp and LFT x 2/weeks D/W Dr. Pereyra , stable for discharge to [facility] today and Dr. Pereyra will follow the patient at [facility] Discharge plan discussed with patient, who understands and agrees with plan
--- NOTE | 2018-01-30 13:29 | CP.PCM.PN ---
Subjective - Date & Time of Evaluation Date of Evaluation: 01/30/18 Time of Evaluation: 13:29 - Subjective Subjective: CHIEF COMPLAINTS TODAY : AFEBRILE. DENIES DIARRHOEA, DENIES FURTHUR RECTAL BLEEDING. awaiting subacute rehabilitation. ROS. HEENT : N. 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 Musculoskel : No joint swelling , Derm : No rash Psych : Normal affect. Ext : No swelling ,calf pain PE. Pt. is alert awake in no distress. V.S As noted in the chart Head ,ear nose,throat and eyes : Normal. Neck : Supple with normal carotids. Lungs: Clear air entry. Heart : S1 & S2 normal with S4. No murmur. Abd : SOFT , MILD TENDERNESS LOWER ABDOMEN /LLQ with normal bowel sounds. Neuro : Moves all ext. with no localized deficit. Ext : No edema with intact pulses.Non tender calves Derm : No rashes or decubitus ulcer. LABS/RADIOLOGY: repeat blood cultures -ve growth to date. BLOOD CULTURE 1:2 SETS +VE MICROCOCCUS SP./ ACINITOBACTER LWOFFI S- IMIPENEM. STOOL -LEUKOCYTES/-VE. C.DIFFICILE TOXIN -VE Objective - Vital Signs/Intake and Output Vital Signs (last 24 hours): Temp Pulse Resp BP Pulse Ox 98.8 F 108 H 20 119/70 99 01/30/18 08:26 01/30/18 10:16 01/30/18 08:26 01/30/18 10:16 01/30/18 08:26 Intake and Output: 01/30/18 01/30/18 06:59 18:59 Intake Total 420 Balance 420 - Medications Medications: Current Medications Acetaminophen/Codeine Phosphate (Tylenol/Codeine 300 Mg/30 Mg) 1 ea PO Q6 PRN PRN Reason: Pain, moderate (4-7) Last Admin: 01/30/18 08:39 Dose: 1 ea Aspirin (Ecotrin) 81 mg PO DAILY [facility] Last Admin: 01/30/18 10:17 Dose: 81 mg Ciprofloxacin (Ciloxan 0.3% Oph Soln) 1 drop OU BID [facility] Last Admin: 03/15/18 10:17 Dose: 1 drop Clopidogrel Bisulfate (Plavix) 75 mg PO DAILY [facility] Last Admin: 01/30/18 10:17 Dose: 75 mg Famotidine (Pepcid) 40 mg IVP Q12 [facility] Last Admin: 01/30/18 10:16 Dose: 40 mg Gabapentin (Neurontin) 600 mg PO Q8 [facility] Last Admin: 01/30/18 05:25 Dose: 600 mg Metronidazole (Flagyl) 500 mg in 100 mls @ 100 mls/hr IVPB Q8H [facility] PRN Reason: Protocol Last Admin: 01/30/18 05:20 Dose: 100 mls/hr Imipenem/Cilastatin Sodium 500 (mg/ Sodium Chloride) 100 mls @ 100 mls/hr IVPB Q8H [facility] PRN Reason: Protocol Last Admin: 01/30/18 10:17 Dose: 100 mls/hr Latanoprost (Xalatan Opht) 0 ml OU HS [facility] Last Admin: 01/29/18 21:14 Dose: 1 ml Lisinopril (Zestril) 20 mg PO DAILY [facility] Last Admin: 01/30/18 10:17 Dose: 20 mg Quetiapine Fumarate (Seroquel) 100 mg PO HS [facility] Last Admin: 01/29/18 21:12 Dose: 100 mg Rosuvastatin Calcium (Crestor) 10 mg PO HS [facility] Last Admin: 01/29/18 21:12 Dose: 10 mg Zolpidem Tartrate (Ambien) 5 mg PO HS PRN PRN Reason: Insomnia Last Admin: 01/29/18 21:13 Dose: 5 mg - Labs Labs: 01/30/18 11:17 01/30/18 11:17 PT 11.8 SECONDS (9.7-12.2) 01/24/18 09:44 INR 1.1 01/24/18 09:44 APTT 41 SECONDS (21-34) H 01/24/18 09:44 Assessment and Plan (1) Colitis Status: Acute (2) NSTEMI (non-ST elevated myocardial infarction) Status: Acute (3) Hypertension Status: Acute (4) Mixed anxiety and depressive disorder Status: Acute (5) Depression Status: Acute - Assessment and Plan (Free Text) Assessment: IMPRESSION; -MICROCOCCUS SP/ACINITOBACTER [place] SP -COLITIS RECTOSIGMOID. -GI BLEEDING. -NSTEMI +VE TROPININS -RT. EYE CONJUCTIVITIS -HTN -ANXIETY /DEPRESSIVE DISORDER. PLAN; continue IV PRIMAXIN 500MG IV Q 8HRLY 01/29/18 X 14 DAYS TILL - 02/12/18. CONTINUE PO FLAGYL 250MG PO TID X 5 DAYS, 01/29/18- 02/03/18. F/U CBC .DIFF.BMP. LFTS M /F X 2WKS. CASE DISCUSSED WITH COLORS CUSTODIAN MS KINGSLEY HARRIS. PER GI PT WILL NEED COLONOSCOPY AFTER 6 WKS.
--- NOTE | 2018-01-30 13:49 | CP.PCM.DIS ---
Provider - Provider Date of Admission: 01/24/18 11:30 Attending physician: Yanni Pereyra MD Time Spent in preparation of Discharge (in minutes): 35 Hospital Course - Lab Results Lab Results: Micro Results 01/24/18 10:30 Blood Blood Culture - Final NO GROWTH AFTER 5 DAYS 01/24/18 10:30 Blood Gram Stain - Final TEST NOT PERFORMED 01/28/18 17:21 Blood Blood Culture - Preliminary NO GROWTH AFTER 24 HOURS 01/28/18 17:21 Blood Blood Culture - Preliminary NO GROWTH AFTER 24 HOURS 01/24/18 11:00 Blood S.aureus & Coag-Neg Staph PNA FISH - Final 01/24/18 11:00 Blood Blood Culture - Final Micrococcus Species Acinetobacter Lwoffii 01/24/18 11:00 Blood Gram Stain - Final 01/25/18 06:30 Stool Stool Culture - Final NO SALMONELLA, SHIGELLA OR CAMPYLOBACTER ISOLATED. 01/25/18 06:30 Stool Ova and Parasite Concentrate Exam - Final 01/24/18 23:37 Urine,Clean Catch Urine Culture - Final No Growth (<1,000 CFU/ML) Most Recent Lab Values WBC 7.9 K/uL (4.8-10.8) 01/30/18 11:17 RBC 4.08 Mil/uL (3.80-5.20) 01/30/18 11:17 Hgb 11.8 g/dL (11.0-16.0) 01/30/18 11:17 Hct 35.7 % (34.0-47.0) 01/30/18 11:17 MCV 87.5 fL (81.0-99.0) 01/30/18 11:17 MCH 28.8 pg (27.0-31.0) 01/30/18 11:17 MCHC 32.9 g/dL (33.0-37.0) L 01/30/18 11:17 RDW 14.1 % (11.5-14.5) 01/30/18 11:17 Plt Count 149 K/uL (130-400) 01/30/18 11:17 MPV 10.0 fL (7.2-11.7) 01/30/18 11:17 Neut % (Auto) 71.6 % (50.0-75.0) 01/30/18 11:17 Lymph % (Auto) 17.0 % (20.0-40.0) L 01/30/18 11:17 [place]rell % (Auto) 6.8 % (0.0-10.0) 01/30/18 11:17 Eos % (Auto) 3.4 % (0.0-4.0) 01/30/18 11:17 Baso % (Auto) 1.2 % (0.0-2.0) 01/30/18 11:17 Neut # (Auto) 5.7 K/uL (1.8-7.0) 01/30/18 11:17 Lymph # (Auto) 1.3 K/uL (1.0-4.3) 01/30/18 11:17 Terrell # (Auto) 0.5 K/uL (0.0-0.8) 01/30/18 11:17 Eos # (Auto) 0.3 K/uL (0.0-0.7) 01/30/18 11:17 Baso # (Auto) 0.1 K/uL (0.0-0.2) 01/30/18 11:17 Differential Comment 01/27/18 07:24 PT 11.8 SECONDS (9.7-12.2) 01/24/18 09:44 INR 1.1 01/24/18 09:44 APTT 41 SECONDS (21-34) H 01/24/18 09:44 Sodium 145 mmol/L (132-148) 01/30/18 11:17 Potassium 3.9 mmol/L (3.6-5.2) 01/30/18 11:17 Chloride 105 mmol/L (98-107) 01/30/18 11:17 Carbon Dioxide 29 mmol/L (22-30) 01/30/18 11:17 Anion Gap 15 (10-20) 01/30/18 11:17 BUN 18 mg/dL (7-17) H 01/30/18 11:17 Creatinine 0.7 mg/dL (0.7-1.2) 01/30/18 11:17 Est GFR ( Amer) > 60 01/30/18 11:17 Est GFR (Non-Af Amer) > 60 01/30/18 11:17 Random Glucose 124 mg/dL (65-105) H 01/30/18 11:17 Calcium 8.7 mg/dl (8.6-10.4) 01/30/18 11:17 Total Bilirubin 0.3 mg/dL (0.2-1.3) 01/29/18 08:21 AST 19 U/L (14-36) 01/29/18 08:21 ALT 26 U/L (9-52) 01/29/18 08:21 Alkaline Phosphatase 74 U/L (38-126) 01/29/18 08:21 Total Creatine Kinase 31 U/L (30-135) 01/25/18 07:00 CK-MB (Mass) 1.33 ng/mL (0.0-3.38) 01/25/18 07:00 Troponin I 0.1350 ng/mL (0.00-0.120) H* 01/25/18 07:00 Total Protein 6.4 g/dL (6.3-8.3) 01/29/18 08:21 Albumin 3.4 g/dL (3.5-5.0) L 01/29/18 08:21 Globulin 3.0 gm/dL (2.2-3.9) 01/29/18 08:21 Albumin/Globulin Ratio 1.1 (1.0-2.1) 01/29/18 08:21 Lipase 73 U/L (23-300) 01/24/18 09:44 Urine Color Yellow (YELLOW) 01/24/18 10:12 Urine Clarity Hazy (Clear) 01/24/18 10:12 Urine pH 5.0 (5.0-8.0) 01/24/18 10:12 Ur Specific [place] 1.025 (1.003-1.030) 01/24/18 10:12 Urine Protein 1+ mg/dL (NEGATIVE) H 01/24/18 10:12 Urine Glucose (UA) Normal mg/dL (Normal) 01/24/18 10:12 Urine Ketones Negative mg/dL (NEGATIVE) 01/24/18 10:12 Urine Blood 1+ (NEGATIVE) H 01/24/18 10:12 Urine Nitrate Negative (NEGATIVE) 01/24/18 10:12 Urine Bilirubin 1+ (NEGATIVE) H 01/24/18 10:12 Urine Urobilinogen Normal mg/dL (0.2-1.0) 01/24/18 10:12 Ur Leukocyte Esterase 2+ [place]/uL (Negative) H 01/24/18 10:12 Urine WBC (Auto) 8 /hpf (0-5) H 01/24/18 10:12 Urine RBC (Auto) 5 /hpf (0-3) H 01/24/18 10:12 Ur Squamous Epith Cells 11 /hpf (0-5) H 01/24/18 10:12 Amorphous Sediment Rare /ul (<OCC) H 01/24/18 10:12 Urine Bacteria Rare (<OCC) 01/24/18 10:12 Stool Leukocytes, Qual Negative (NEGATIVE) 01/24/18 06:30 Stl Cryptosporidium Ag Not detected (Not detected) 01/24/18 06:30 Vancomycin Trough 10.8 ug/mL (5.0-10.0) H 01/29/18 11:11 C. difficile Ag & Toxin Negative (NEGATIVE) 01/24/18 06:30 Cryptosp/Giardia Source Stool 01/24/18 06:30 Giardia Antigen Not detected (Not Detected) 01/24/18 06:30 - Hospital Course Hospital Course: COUPLE OF DAYS C/O DIARRHEA MIXED WITH BLOOD . NO PAIN /N/V . EVALUATED IN ER , CT SHOWED COLITIS IN SIGMOID AREA ALSO HAS ATYPICAL CP WITH POS TNI PAST HIST. H/O CAD WITH STENT IN LAD , LAST YEAR HTN BIPOLAR WITH MAJOR DEPRESSIVE DISORDER WITH PAST SUICIDAL ATTEMPT MULTIPLE JT PAINS ON NARCOTICS FROZEN SHOULDER GI W/U NEG , COLONOSCOPY POSTPONED BLOOD CULTURE POS FOR ACENETOBACTER F. PT HAD NO FURTHER BLOODY DIARRHEA TRANSFERRED TO REHAB FOR IV PRIMAXIN Discharge Exam - Head Exam Head Exam: ATRAUMATIC, NORMOCEPHALIC Discharge Plan - Discharge Medications Prescriptions: Metronidazole [Flagyl] 250 mg PO TID 5 Days tablet - Follow Up Plan Condition: FAIR Disposition: HOME/ ROUTINE Instructions: Diarrhea in Adolescents and Adults, Heart Healthy Diet, Urinary Tract Infection, Adult (DC), Heart Attack (DC) Additional Instructions: Please admit patient under Dr. Pereyra service- call Dr. Pereyra upon patient arrival to the facility Continue Primaxin 500 mg IVBP q 8hrs x 14 days - last dose 02/09/2018 continue flagyl 250 mg po TID x 5 days last dose - 02/03/2018 Please repeat cbc, bmp , LFT 2 /WEEK PLEASE F/U WITH GI IN 6 MONTHS AFTER DISCHARGE FROM [facility] Referrals: Phylicia Holliday MD [Staff Provider] - Yanni Pereyra MD [Staff Provider] -
[2018-01-30 14:03] VITALS: PULSE 101
== END 2018-01-30 14:16 | DRG 871 ==
LOC: C.ER 08:22 → C.9E 11:30 → C.6T 11:58
PROVIDERS: ADMIT Internal Medicine Cardiovascular Disease; ATTEND Internal Medicine Cardiovascular Disease
PROC: 02HV33Z Insertion of Infusion Device into Superior Vena Cava, Percutaneous Approach (ICD-10-PCS; principal; 2018-01-29)
DX: A41.9 Sepsis, unspecified organism (principal); I21.4 Non-ST elevation (NSTEMI) myocardial infarction; F03.90 Unspecified dementia, unspecified severity, without behavioral disturbance, psychotic disturbance, mood disturbance, and anxiety; A09 Infectious gastroenteritis and colitis, unspecified; B96.89 Other specified bacterial agents as the cause of diseases classified elsewhere; I10 Essential (primary) hypertension; I25.10 Atherosclerotic heart disease of native coronary artery without angina pectoris; F31.9 Bipolar disorder, unspecified; F41.8 Other specified anxiety disorders; M75.00 Adhesive capsulitis of unspecified shoulder; E78.00 Pure hypercholesterolemia, unspecified; H10.9 Unspecified conjunctivitis; H91.93 Unspecified hearing loss, bilateral; I25.2 Old myocardial infarction; Z86.73 Personal history of transient ischemic attack (TIA), and cerebral infarction without residual deficits; Z95.5 Presence of coronary angioplasty implant and graft; Z91.5 Personal history of self-harm

== ENCOUNTER 2018-07-05 11:14 | Observation (INO) | payer MEDICARE, BC ==
[2018-07-05 11:15] VITALS: BMI 25.0
--- NOTE | 2018-07-05 13:04 | C.PDOC ---
History Of Present Illness 68 year old female presents to ED complaining of increasing right hip pain. Per , she had a right hip replacement this past February and is taking oxycontin , but pain still persists. Denies any new trauma. Time Seen by Provider: 07/05/18 12:44 Chief Complaint (Nursing): Hip Pain History Per: Family History/Exam Limitations: no limitations Onset/Duration Of Symptoms: Days Current Symptoms Are (Timing): Still Present Recent travel outside of the [place]: No - Hip Description Of Injury: Other (hip replacement) Past Medical History Reviewed: Historical Data, Nursing Documentation, Vital Signs Vital Signs: Last Vital Signs Temp 98.8 F 07/05/18 17:51 Pulse 122 H 07/05/18 17:51 Resp 18 07/05/18 15:11 BP 187/104 H 07/05/18 17:51 Pulse Ox 96 07/05/18 17:51 - Medical History PMH: Anemia, Anxiety, Arthritis, Back Problems, Bipolar Disorder, CVA, Dementia , Depression, HTN, Hypercholesterolemia, Migraine Denies: Diabetes, Hepatitis, Chronic Kidney Disease Surgical History: Back Surgery, Tonsillectomy - [facility] Procedures FLUOROSCOPY OF LEFT HEART USING LOW OSMOLAR CONTRAST (06/28/17) FLUOROSCOPY OF MULT COR ART USING L OSM CONTRAST (06/28/17) INSERTION OF INFUSION DEV INTO SUP VENA CAVA, PERC APPROACH (01/24/18) MEASURE OF CARDIAC SAMPL & PRESSURE, L HEART, PERC APPROACH (06/28/17) REPOSITION LEFT UPPER FEMUR WITH INT FIX, OPEN APPROACH (02/20/17) TRANSFUSE NONAUT RED BLOOD CELLS IN PERIPH VEIN, PERC (02/20/17) VENTRICL SHUNT-ABDOMEN (02/10/14) Family History: States: No Known Family Hx - Social History Hx Tobacco Use: No Hx Alcohol Use: No Hx Substance Use: No - Immunization History Hx Tetanus Toxoid Vaccination: (unk) Hx Influenza Vaccination: Yes Hx Pneumococcal Vaccination: (unk) Review Of Systems Except As Marked, All Systems Reviewed And Found Negative. Musculoskeletal: Positive for: Other (hip pain) Psych: Positive for: Other (constantly crying ) Physical Exam - Physical Exam Appears: Non-toxic, No Acute Distress Skin: Warm, Dry Head: Atraumatic, Normacephalic Eye(s): bilateral: Normal Inspection, PERRL, EOMI Neck: Supple Chest: Symmetrical Cardiovascular: Rhythm Regular Respiratory: Normal Breath Sounds Gastrointestinal/Abdominal: Soft, No Tenderness Neurological/Psych: Oriented x3 Gait: Steady Additional Physical Exam Comments: Physical exam was limited due to patient not cooperating and giving no details to questions asked. Patient was just crying consistently. ED Course And Treatment - Laboratory Results Result Diagrams: 07/05/18 15:27 07/05/18 15:27 O2 Sat by Pulse Oximetry: 98 (RA) Pulse Ox Interpretation: Normal - Other Rad R hip X-Ray: Read By Radiologist Interpretation: Accession No. : [id number]. Patient Name / ID : SIDNEY LUA / [id number]. Exam Date : 07/05/2018 14:14:25 ( Approved ). Study Comment : Sex / Age : F / [id number]. Creator : Sean Pepper MD. Dictator : Sean Pepper MD. Spray Ii Painter : Mud Grinder : Sean Pepper MD. Approver2 : Report Date : 07/05/2018 15:26:30. My Comment : . Pelvis and right hip two views. History: Pain. Comparison: None available. Findings: Technically limited study. Right hip: Three screws traversing a chronic fracture deformity of the right proximal femur. Right femoral head appears located. No evidence of acute displaced fracture or dislocation. Degenerative changes in the lower lumbar spine and pubic symphysis. Status post left total hip arthroplasty. Prominent vascular calcifications. Impression: Postsurgical changes of the bilateral hips. If pain persists, consider correlation with MRI. Medical Decision Making Medical Decision Making: Impression: Hip Pain Patient given 2mg morphine IM for pain, with no relief. Still wailing, crying in pain, becoming aggressive. 2mg ativan and 5mg haldol IM given. Patient became calmer but still complained of pain. Additional 4mg morphine IM given. On re-eval patient sleeping comfortably. XR done of right hip with post- surgical changes and hardware noted, but no new fracture or dislocation. states that he is uncomfortable taking the patient home because of her pain. Case discussed with Dr. Pereyra who agrees to admit the patient for observation. Disposition - Disposition Disposition: HOME/ ROUTINE Disposition Time: 17:25 Condition: STABLE Additional Instructions: CHANELL LITTLE, thank you for letting us take care of you today. Your provider was Lorenza Schulte MD and you were treated for RT HIP PAIN. The emergency medical care you received today was directed at your acute symptoms. If you were prescribed any medication, please fill it and take as directed. It may take several days for your symptoms to resolve. Return to the Emergency Department if your symptoms worsen, do not improve, or if you have any other problems. Please contact your doctor or call one of the physicians/clinics you have been referred to that are listed on the Patient Visit Information form that is included in your discharge packet. Bring any paperwork you were given at discharge with you along with any medications you are taking to your follow up visit. Our treatment cannot replace ongoing medical care by a primary care provider outside of the emergency department. Thank you for allowing the [facility] team to be part of your care today. If you had an X-Ray or CT scan: A Radiologist will review the ED reading if any change in treatment is needed we will contact you. If you had a blood, urine, or wound culture: It will take several days for the results, if any change in treatment is needed we will contact you. If you had an STI test: It will take 48 hours for the results. Please call after 1 week if you have not heard back. Instructions: Hip Pain (DC) Forms: [employer] (Belarusian) - Clinical Impression Clinical Impression: Hip pain - Scribe Statement The provider has reviewed the documentation as recorded by the Scribe Sahib Jer Provider Attestation: CHANELL LITTLE, thank you for letting us take care of you today. Your provider was Lorenza Schulte MD and you were treated for RT HIP PAIN. The emergency medical care you received today was directed at your acute symptoms. If you were prescribed any medication, please fill it and take as directed. It may take several days for your symptoms to resolve. Return to the Emergency Department if your symptoms worsen, do not improve, or if you have any other problems. Please contact your doctor or call one of the physicians/clinics you have been referred to that are listed on the Patient Visit Information form that is included in your discharge packet. Bring any paperwork you were given at discharge with you along with any medications you are taking to your follow up visit. Our treatment cannot replace ongoing medical care by a primary care provider outside of the emergency department. Thank you for allowing the [facility] team to be part of your care today. If you had an X-Ray or CT scan: A Radiologist will review the ED reading if any change in treatment is needed we will contact you. If you had a blood, urine, or wound culture: It will take several days for the results, if any change in treatment is needed we will contact you. If you had an STI test: It will take 48 hours for the results. Please call after 1 week if you have not heard back.
[2018-07-05] MEDS ORDERED: Morphine 4 MG/ML VIAL ONE (15:04)
--- NOTE | 2018-07-05 15:27 | RAD ---
Pelvis and right hip two views History: Pain. Comparison: None available. Findings: Technically limited study. Right hip: Three screws traversing a chronic fracture deformity of the right proximal femur. Right femoral head appears located. No evidence of acute displaced fracture or dislocation. Degenerative changes in the lower lumbar spine and pubic symphysis. Status post left total hip arthroplasty. Prominent vascular calcifications. Impression: Postsurgical changes of the bilateral hips. If pain persists, consider correlation with MRI.
[2018-07-05 15:31] LABS: BASO # 0.1 K/uL (0.0-0.2); BASO % 0.6 % (0.0-2.0); EOS # 0.1 K/uL (0.0-0.7); HEMOGLOBIN 13.5 g/dL (11.0-16.0); LYMPH # 1.4 K/uL (1.0-4.3); MEAN CELL VOLUME 87.7 fL (81.0-99.0); MEAN CORPUSCULAR HEMOGLOBIN 28.5 pg (27.0-31.0); MEAN CORPUSCULAR HGB CONC 32.5 g/dL (33.0-37.0); MEAN PLATELET VOLUME 9.3 fL (7.2-11.7); MONO # 0.5 K/uL (0.0-0.8); MONO % 5.4 % (0.0-10.0); NEUT # 6.8 K/uL (1.8-7.0); RBC 4.74 Mil/uL (3.80-5.20); RED CELL DISTRIBUTION WIDTH 16.2 % (11.5-14.5); WHITE BLOOD COUNT 8.9 K/uL (4.8-10.8)
[2018-07-05 15:59] LABS: SQUAMOUS EPITHIAL 74 /hpf (0-5); URINE BACTERIA FEW (<OCC); URINE BILIRUBIN NEGATIVE (NEGATIVE); URINE BLOOD NEGATIVE (NEGATIVE); URINE CLARITY Hazy (Clear); URINE COLOR Yellow (YELLOW); URINE GLUCOSE (UA) NORMAL (Normal); URINE LEUKOCYTE ESTERASE 1+ Leu/uL (Negative); URINE PROTEIN NEGATIVE (NEGATIVE); URINE UROBILINOGEN NORMAL mg/dL (0.2-1.0)
[2018-07-05 16:07] LABS: ALB/GLOB RATIO 1.2 (1.0-2.1); ALBUMIN 4.3 g/dL (3.5-5.0); ALT/SGPT 20 U/L (9-52); AST/SGOT 17 U/L (14-36); BLOOD UREA NITROGEN 19 mg/dL (7-17); CALCIUM 9.3 mg/dl (8.6-10.4); GFR AFRICAN-AMERICAN > 60; GFR NON-AFRICAN AMERICAN > 60
--- NOTE | 2018-07-05 20:51 | CP.PCM.HP ---
History of Present Illness - History of Present Illness History of Present Illness: COMPREHENSIVE HISTORY & PHYSICAL EXAM Patient was admitted from emergency room for pain management for 2 lower extremities especially of the knees. HPI A few days ago patient was discharged after 6 weeks of stay in the rehab center after fracture of the right hip patient was seen outpatient ambulating without any much pain patient has round the clock on narcotic medication but as per the patient patient experienced pain in both knees increase in intensity and severity patient was unable to walk or function. Patient took the medications which were prescribed to her without any effect patient was evaluated in the ER and admit her for further pain management. PAST HIST. History of hypertension history of multiple joint pains especially of the both shoulders and knees and bilateral hip fracture with prosthesis. PERSONAL HIST: Smoking. N Alcohol. N Allergy N Travel_- . FAMILY HIST : ROS : Constitutional: Negative for weight change, chills, night sweats, fatigue and usage of assist device. Eyes: Negative for redness, swelling, itching, discharge, vision changes, blurry vision, double vision, glaucoma, cataracts, Ears: Negative for hearing loss, ringing, , tinnitus, vertigo Nose: Negative for rhinorrhea, stuffiness, sniffing, itching, postnasal drip, discoloration, nasal congestion and epistaxis. Throat: Negative for throat clearing, sore throat, hoarseness, difficulty swallowing and difficulty speaking. Respiratory: Negative for cough, , sputum production, chest tightness, wheezing, pleuritic chest pain ,daytime somnolence, chronic cough, hemoptysis, snoring at night, Cardiovascular: Negative for chest pain, palpitations, orthopnea, PND, Edema of legs, leg cramps, angina, claudication, , irregular heartbeat, Neurology: Negative for irritability, muscle weakness, numbness and tingling, seizures, tremors, migraines, slurred speech, syncope, memory loss, mood changes , recurrent headaches Gastrointestinal: Negative for difficulty swallowing, diarrhea, constipation, black stools, rectal bleeding, nausea, flatulence, reflux, poor appetite, changes in bowel habits, abdominal pain Genitourinary: Negative for frequent urination, hematuria, discharge, incontinence, urinary retention, frequent UTI, Psychiatric: Negative for depression, anxiety/panic, suicidal tendencies, Musculoskeletal: Bilateral knee pain and swelling.. Skin: Negative for rash, ulcers, itching, dry skin and pigmented lesions. P/E: Constitutional: Appears stated age and in no apparent distress. Head: Normocephalic. Ears: External ear canals patent without inflammation. Tympanic membranes intact with normal light reflex and landmark. Eyes: Pupils are central, bilaterally equal, symmetrical and reacts to light with normal movements and no icterus or pallor. Nose: External nares are patent. Mucosa is pink Mouth-Throat: Good general appearance and condition. No post-pharyngeal/oropharyngeal erythema and tonsillar hypertrophy. Good dental hygiene. Neck-Lymphatic: Neck is supple with normal ROM, no thyromegaly, lymph nodes or masses. JVD is normal with no carotid bruit. Lungs: Clear to percussion and auscultation with bilateral normal air entry. Cardiovascular: S1 and S2 are normal with no murmurs, gallops and rub. GI Exam: No hepatomegaly. Abdomen is soft and non-tender. No Organomegaly , masses or hernias are evident and bowel sounds are normal and active. Neurology: Higher function and all cranial nerves intact, with no gross motor or sensory deficit. Superficial and deep reflexes are normal with downwards planters. No cerebellar deficit with normal gait. Musculoskeletal: Both the hip joints have normal range of motion without any pain. Both the knees are swollen and tender with decreased range of motion with pain lower extremities there is no swelling of the joints are normal except both shoulders which possibly Prozac Extremities: Homans sign absent. Intact pulses with no pitting edema, calf tenderness or skin color changes. Skin: No rash, eruptions or abnormal skin pigmentation LAB/RADIOLOGY: ASSESMENT : Bilateral severe osteoarthritis of the knees. Recent history of right hip fracture. History of remote fracture of the left hip with prosthesis. Hypertension PLAN: We will continue [id number] narcotics and when necessary morphine patient is already on anti-inflammatory. Present on Admission - Present on Admission Any Indicators Present on Admission: No Past Patient History - Infectious Disease Hx of Infectious Diseases: None - Past Medical History & Family History Past Medical History?: Yes - Past Social History Smoking Status: Never Smoked - CARDIAC Hx Hypercholesterolemia: Yes Hx Hypertension: Yes - PULMONARY Hx Respiratory Disorders: No - NEUROLOGICAL Hx Dementia: Yes Hx Migraine: Yes - HEENT Hx HEENT Problems: Yes Hx Deafness: Yes (Bilateral hearing loss, doesn't wear hearing aids) - RENAL Hx Chronic Kidney Disease: No - ENDOCRINE/METABOLIC Hx Endocrine Disorders: No - HEMATOLOGICAL/ONCOLOGICAL Hx Anemia: Yes - INTEGUMENTARY Hx Dermatological Problems: No - MUSCULOSKELETAL/RHEUMATOLOGICAL Hx Arthritis: Yes - PSYCHIATRIC Hx Anxiety: Yes Hx Bipolar Disorder: Yes Hx Depression: Yes Hx Substance Use: No - SURGICAL HISTORY Hx Tonsillectomy: Yes - ANESTHESIA Hx Anesthesia: Yes Hx Anesthesia Reactions: No Hx Malignant Hyperthermia: No Meds Allergies/Adverse Reactions: Allergies Allergy/AdvReac Type Severity Reaction Status Date / Time pregabalin [From Lyrica] Allergy RASH Verified 01/24/18 08:30 Results - Vital Signs Recent Vital Signs: Last Vital Signs Temp 98 F 07/05/18 20:38 Pulse 83 07/05/18 20:38 Resp 18 07/05/18 20:38 BP 168/79 H 07/05/18 20:38 Pulse Ox 18 L 07/05/18 20:38 - Labs Result Diagrams: 07/05/18 15:27 07/05/18 15:27 Labs: Laboratory Results - last 24 hr 07/05/18 07/05/18 07/05/18 15:27 15:27 15:27 WBC 8.9 RBC 4.74 Hgb 13.5 Hct 41.6 MCV 87.7 MCH 28.5 MCHC 32.5 L RDW 16.2 H Plt Count 208 MPV 9.3 Neut % (Auto) 77.0 H Lymph % (Auto) 16.0 L [place] % (Auto) 5.4 Eos % (Auto) 1.0 Baso % (Auto) 0.6 Neut # (Auto) 6.8 Lymph # (Auto) 1.4 [place] # (Auto) 0.5 Eos # (Auto) 0.1 Baso # (Auto) 0.1 Sodium 148 Potassium 3.7 Chloride 105 Carbon Dioxide 29 Anion Gap 18 BUN 19 H Creatinine 0.6 L Est GFR ( Amer) > 60 Est GFR (Non-Af Amer) > 60 Random Glucose 113 H Calcium 9.3 Total Bilirubin 0.4 AST 17 ALT 20 Alkaline Phosphatase 115 Total Protein 7.8 Albumin 4.3 Globulin 3.5 Albumin/Globulin Ratio 1.2 Urine Color Yellow Urine Clarity Hazy Urine pH 6.0 Ur Specific [place] 1.018 Urine Protein Negative Urine Glucose (UA) Normal Urine Ketones Negative Urine Blood Negative Urine Nitrate Negative Urine Bilirubin Negative Urine Urobilinogen Normal Ur Leukocyte Esterase 1+ H Urine WBC (Auto) 5 Urine RBC (Auto) 2 Ur Squamous Epith Cells 74 H Urine Bacteria Few H
[2018-07-05] MEDS: Latanoprost 2.5 ml Opht Soln OU SCH (23:03)
[2018-07-05 23:35] VITALS: RESP 20
[2018-07-06] MEDS ORDERED: Ciprofloxacin 0.3% OPTH SOLN OU SCH (10:00)
--- NOTE | 2018-07-06 15:47 | CP.PCM.PN ---
Subjective - Date & Time of Evaluation Date of Evaluation: 07/06/18 Time of Evaluation: 15:45 - Subjective Subjective: CHIEF COMPLAINTS TODAY : Patient has rest pain in both knees ambulating with pain. ROS. HEENT : N. Resp : No cough, wheezing ,pleuritic CP ,or hemoptysis Cardio : No anginal CP, PND, orthopnea, palpitation GI : No abd.pain, n/v ,diarrhea or GI bleeding . HOSPITAL CHIEF FINANCIAL OFFICER : No headache, vertigo, focal deficit. Musculoskel : No joint swelling , Derm : No rash Psych : Normal affect. Ext : No swelling ,calf pain PE. Pt. is alert awake in no distress. V.S As noted in the chart Head ,ear nose,throat and eyes : Normal. Neck : Supple with normal carotids. Lungs: Clear air entry. Heart : S1 & S2 normal with S4. No murmur. Abd : Soft non tender with normal bowel sounds. Neuro : Moves all ext. with no localized deficit. Ext : No edema with intact pulses.Non tender calves both the knees are tender with painful range of motion Derm : No rashes or decubitus ulcer. LABS/RADIOLOGY: ASSESSMENT/PLAN : Continue physical therapy pain management. Objective - Vital Signs/Intake and Output Vital Signs (last 24 hours): Temp Pulse Resp BP Pulse Ox 98.6 F 88 20 125/77 95 07/06/18 08:00 07/06/18 08:00 07/06/18 08:00 07/06/18 08:00 07/06/18 08:00 - Medications Medications: Current Medications Aspirin (Ecotrin) 81 mg PO DAILY [facility] Last Admin: 07/06/18 09:30 Dose: 81 mg Clopidogrel Bisulfate (Plavix) 75 mg PO DAILY [facility] Last Admin: 07/06/18 09:30 Dose: 75 mg Famotidine (Pepcid) 40 mg IVP Q12 [facility] Last Admin: 07/06/18 09:30 Dose: 40 mg Gabapentin (Neurontin) 600 mg PO Q8 [facility] Last Admin: 07/06/18 13:29 Dose: 600 mg Latanoprost (Xalatan Opht) 1 ml OU HS [facility] Last Admin: 07/05/18 23:03 Dose: Not Given Lisinopril (Zestril) 20 mg PO DAILY [facility] Last Admin: 07/06/18 09:30 Dose: 20 mg Morphine Sulfate (Morphine) 2 mg IVP Q4 PRN PRN Reason: Pain, severe (8-10) Last Admin: 07/05/18 20:29 Dose: 2 mg Ofloxacin (Ocuflox Ophth 0.3%) 1 drop OU BID [facility] Quetiapine Fumarate (Seroquel) 100 mg PO HS [facility] Last Admin: 07/05/18 21:43 Dose: 100 mg Zolpidem Tartrate (Ambien) 5 mg PO HS PRN PRN Reason: Insomnia Last Admin: 07/05/18 21:43 Dose: 5 mg - Labs Labs: 07/05/18 15:27 07/05/18 15:27
[2018-07-06] MEDS: OFLOXACIN 0.3% OU SCH (18:35)
[2018-07-06] MEDS: OPTH OU SCH (18:35)
[2018-07-06] MEDS: Latanoprost 2.5 ml Opht Soln OU SCH (21:39)
[2018-07-07] MEDS: OFLOXACIN 0.3% OU SCH ×2 (09:39→17:22)
[2018-07-07] MEDS: OPTH OU SCH ×2 (09:39→17:22)
--- NOTE | 2018-07-07 13:47 | CP.PCM.PN ---
Subjective - Date & Time of Evaluation Date of Evaluation: 07/07/18 Time of Evaluation: 13:47 - Subjective Subjective: CHIEF COMPLAINTS TODAY : Patient has rest pain in both knees ambulating with pain. ROS. HEENT : N. Resp : No cough, wheezing ,pleuritic CP ,or hemoptysis Cardio : No anginal CP, PND, orthopnea, palpitation GI : No abd.pain, n/v ,diarrhea or GI bleeding . 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 Musculoskel : No joint swelling , Derm : No rash Psych : Normal affect. Ext : No swelling ,calf pain PE. Pt. is alert awake in no distress. V.S As noted in the chart Head ,ear nose,throat and eyes : Normal. Neck : Supple with normal carotids. Lungs: Clear air entry. Heart : S1 & S2 normal with S4. No murmur. Abd : Soft non tender with normal bowel sounds. Neuro : Moves all ext. with no localized deficit. Ext : No edema with intact pulses.Non tender calves both the knees are tender with painful range of motion Derm : No rashes or decubitus ulcer. LABS/RADIOLOGY: ASSESSMENT/PLAN : Continue physical therapy pain management. Objective - Vital Signs/Intake and Output Vital Signs (last 24 hours): Temp Pulse Resp BP Pulse Ox 97.8 F 82 20 143/66 97 07/07/18 08:35 07/07/18 08:35 07/07/18 08:35 07/07/18 08:35 07/07/18 12:41 - Medications Medications: Current Medications Acetaminophen (Tylenol 325mg Tab) 650 mg PO Q8H PRN PRN Reason: Pain, moderate (4-7) Last Admin: 07/07/18 12:24 Dose: 650 mg Aspirin (Ecotrin) 81 mg PO DAILY [facility] Last Admin: 07/07/18 09:37 Dose: 81 mg Clopidogrel Bisulfate (Plavix) 75 mg PO DAILY [facility] Last Admin: 07/07/18 09:37 Dose: 75 mg Famotidine (Pepcid) 40 mg IVP Q12 [facility] Last Admin: 07/07/18 09:37 Dose: 40 mg Gabapentin (Neurontin) 600 mg PO Q8 [facility] Last Admin: 07/07/18 13:15 Dose: 600 mg Latanoprost (Xalatan Opht) 1 ml OU HS [facility] Last Admin: 07/06/18 21:39 Dose: 1 ml Lisinopril (Zestril) 20 mg PO DAILY [facility] Last Admin: 07/07/18 10:16 Dose: 20 mg Morphine Sulfate (Morphine) 2 mg IVP Q4 PRN PRN Reason: Pain, severe (8-10) Last Admin: 07/07/18 09:38 Dose: 2 mg Ofloxacin (Ocuflox Ophth 0.3%) 1 drop OU BID [facility] Last Admin: 07/07/18 09:39 Dose: 1 drop Quetiapine Fumarate (Seroquel) 100 mg PO [facility] Last Admin: 07/06/18 21:38 Dose: 100 mg Zolpidem Tartrate (Ambien) 5 mg PO HS PRN PRN Reason: Insomnia Last Admin: 07/06/18 21:38 Dose: 5 mg - Labs Labs: 07/05/18 15:27 07/05/18 15:27
[2018-07-07] MEDS: Latanoprost 2.5 ml Opht Soln OU SCH (21:56)
[2018-07-08 08:10] VITALS: TEMP 98.1
[2018-07-08] MEDS: OPTH OU SCH ×2 (11:00→17:46)
[2018-07-08] MEDS: OFLOXACIN 0.3% OU SCH ×2 (11:00→17:46)
--- NOTE | 2018-07-08 12:48 | CP.PCM.PN ---
Subjective - Date & Time of Evaluation Date of Evaluation: 07/08/18 Time of Evaluation: 12:48 - Subjective Subjective: CHIEF COMPLAINTS TODAY : Patient has rest pain in both knees ambulating with pain. ROS. HEENT : N. Resp : No cough, wheezing ,pleuritic CP ,or hemoptysis Cardio : No anginal CP, PND, orthopnea, palpitation GI : No abd.pain, n/v ,diarrhea or GI bleeding . HARPOONER : No headache, vertigo, focal deficit. Musculoskel : No joint swelling , Derm : No rash Psych : Normal affect. Ext : No swelling ,calf pain PE. Pt. is alert awake in no distress. V.S As noted in the chart Head ,ear nose,throat and eyes : Normal. Neck : Supple with normal carotids. Lungs: Clear air entry. Heart : S1 & S2 normal with S4. No murmur. Abd : Soft non tender with normal bowel sounds. Neuro : Moves all ext. with no localized deficit. Ext : No edema with intact pulses.Non tender calves both the knees are tender with painful range of motion Derm : No rashes or decubitus ulcer. LABS/RADIOLOGY: ASSESSMENT/PLAN : Continue physical therapy pain management. Objective - Vital Signs/Intake and Output Vital Signs (last 24 hours): Temp Pulse Resp BP Pulse Ox 98.1 F 88 20 147/85 95 07/08/18 08:08 07/08/18 08:08 07/08/18 08:08 07/08/18 08:08 07/08/18 08:08 Intake and Output: 07/08/18 07/08/18 11:59 23:59 Intake Total 300 Balance 300 - Medications Medications: Current Medications Acetaminophen (Tylenol 325mg Tab) 650 mg PO Q8H PRN PRN Reason: Pain, moderate (4-7) Last Admin: 07/08/18 08:28 Dose: 650 mg Aspirin (Ecotrin) 81 mg PO DAILY [facility] Last Admin: 07/08/18 10:11 Dose: 81 mg Clopidogrel Bisulfate (Plavix) 75 mg PO DAILY [facility] Last Admin: 07/08/18 10:12 Dose: 75 mg Famotidine (Pepcid) 40 mg IVP Q12 [facility] Last Admin: 07/08/18 10:12 Dose: 40 mg Gabapentin (Neurontin) 600 mg PO Q8 [facility] Last Admin: 07/08/18 05:58 Dose: 600 mg Latanoprost (Xalatan Opht) 1 ml OU HS [facility] Last Admin: 07/07/18 21:56 Dose: 1 ml Lisinopril (Zestril) 20 mg PO DAILY [facility] Last Admin: 07/08/18 10:11 Dose: 20 mg Morphine Sulfate (Morphine) 2 mg IVP Q4 PRN PRN Reason: Pain, severe (8-10) Last Admin: 07/08/18 10:39 Dose: 2 mg Ofloxacin (Ocuflox Ophth 0.3%) 1 drop OU BID [facility] Last Admin: 07/08/18 11:00 Dose: 1 drop Quetiapine Fumarate (Seroquel) 100 mg PO HS [facility] Last Admin: 07/07/18 21:53 Dose: 100 mg Zolpidem Tartrate (Ambien) 5 mg PO HS PRN PRN Reason: Insomnia Last Admin: 07/07/18 22:01 Dose: 5 mg - Labs Labs: 07/05/18 15:27 07/05/18 15:27
--- NOTE | 2018-07-08 16:10 | CP.PCM.PN ---
Subjective - Date & Time of Evaluation Date of Evaluation: 07/08/18 Time of Evaluation: 11:00 - Subjective Subjective: Alert, awake, ambulatory with walker, NAD. Objective - Vital Signs/Intake and Output Vital Signs (last 24 hours): Temp Pulse Resp BP Pulse Ox 98.1 F 88 20 147/85 95 07/08/18 08:08 07/08/18 08:08 07/08/18 08:08 07/08/18 08:08 07/08/18 08:08 Intake and Output: 07/08/18 07/08/18 06:59 18:59 Intake Total 300 Balance 300 - Medications Medications: Current Medications Acetaminophen (Tylenol 325mg Tab) 650 mg PO Q8H PRN PRN Reason: Pain, moderate (4-7) Last Admin: 07/08/18 08:28 Dose: 650 mg Aspirin (Ecotrin) 81 mg PO DAILY [facility] Last Admin: 07/08/18 10:11 Dose: 81 mg Clopidogrel Bisulfate (Plavix) 75 mg PO DAILY [facility] Last Admin: 07/08/18 10:12 Dose: 75 mg Enoxaparin Sodium (Lovenox) 40 mg SC DAILY [facility] Famotidine (Pepcid) 40 mg IVP Q12 [facility] Last Admin: 07/08/18 10:12 Dose: 40 mg Gabapentin (Neurontin) 600 mg PO Q8 [facility] Last Admin: 07/08/18 13:27 Dose: 600 mg Latanoprost (Xalatan Opht) 1 ml OU HS [facility] Last Admin: 07/07/18 21:56 Dose: 1 ml Lisinopril (Zestril) 20 mg PO DAILY [facility] Last Admin: 07/08/18 10:11 Dose: 20 mg Morphine Sulfate (Morphine) 2 mg IVP Q4 PRN PRN Reason: Pain, severe (8-10) Last Admin: 07/08/18 15:44 Dose: 2 mg Ofloxacin (Ocuflox Ophth 0.3%) 1 drop OU BID [facility] Last Admin: 07/08/18 11:00 Dose: 1 drop Quetiapine Fumarate (Seroquel) 100 mg PO HS [facility] Last Admin: 07/07/18 21:53 Dose: 100 mg Zolpidem Tartrate (Ambien) 5 mg PO HS PRN PRN Reason: Insomnia Last Admin: 08/20/18 22:01 Dose: 5 mg - Labs Labs: 07/05/18 15:27 07/05/18 15:27 Assessment and Plan - Assessment and Plan (Free Text) Assessment: 68 YEAR OLD FEMALE ADMITTED WITH HIP PAIN, SEEN AND EXAMINED. Alert, awake, able to walk with walker . Pain controlled with present meds. No DEBO days left as per casework specialist. Discussed with DR Pereyra, plan to discharge home with [facility] care. Advised to follow up with PMD in 1 week.
[2018-07-08] MEDS ORDERED: Enoxaparin 40 mg Syringe SC SCH (16:15)
[2018-07-08 16:27] VITALS: BP 159/88; PULSE 84; O2SAT 99
== END 2018-07-08 20:53 | disposition home or self-care (01) ==
LOC: C.ER 11:14 → C.9E 17:25 → C.3T 20:11
PROVIDERS: ADMIT Internal Medicine Cardiovascular Disease; ATTEND Internal Medicine Cardiovascular Disease
DX: M25.551 Pain in right hip (principal); I10 Essential (primary) hypertension; H91.93 Unspecified hearing loss, bilateral; F31.9 Bipolar disorder, unspecified; F03.90 Unspecified dementia, unspecified severity, without behavioral disturbance, psychotic disturbance, mood disturbance, and anxiety; Z86.73 Personal history of transient ischemic attack (TIA), and cerebral infarction without residual deficits; Z96.649 Presence of unspecified artificial hip joint
CPT/HCPCS: 73502; 80053; 81001; 82948; 85025; 96372; 96374; 96375; 96376; 97116; 97162; 99285; G0378; G8978; G8979; J1630; J1650; J2060; J2270

== ENCOUNTER 2018-09-29 15:30 | Inpatient (IN) | payer MEDICARE, BC ==
[2018-09-29 15:30] VITALS: BMI 24.1
--- NOTE | 2018-09-29 15:47 | C.PDOC ---
History Of Present Illness RECENT ADMISSION FOR DETOX from pain and sleep medication. ~ Psych Hx: Bipolar Disorder diagnosed 30+ years ago. pt states she is complaint with medication, cannot remember the name. She is on Paxil only Traumatic Hx: Denies Family psych Hx: Denies Medical Hx: Hx of B/L hip fractures, Peripheral neuropathy, Cervical spondylosis Past Medical History Vital Signs: Last Vital Signs Temp 97.6 F 09/29/18 15:43 Pulse 90 09/29/18 15:43 Resp 16 09/29/18 15:43 BP 111/69 09/29/18 15:43 Pulse Ox 96 09/29/18 15:43 - Medical History PMH: Anemia, Anxiety, Arthritis, Back Problems, Bipolar Disorder, CVA, Dementia, Depression, HTN, Hypercholesterolemia, Migraine Denies: Diabetes, Hepatitis, HIV, Chronic Kidney Disease, Seizures, Sexually Transmitted Disease Surgical History: Back Surgery, Tonsillectomy - [facility] Procedures DETOXIFICATION SERVICES FOR SUBSTANCE ABUSE TREATMENT (08/05/18) FLUOROSCOPY OF LEFT HEART USING LOW OSMOLAR CONTRAST (06/28/17) FLUOROSCOPY OF MULT COR ART USING L OSM CONTRAST (06/28/17) GROUP RESTAURANT WORKER FOR SUBSTANCE ABUSE TREATMENT, PSYCHOEDUCATION (08/05/18) INDIV PSYCHOTHERAPY FOR SUBSTANCE ABUSE TREATMENT, SUPPORT (08/05/18) INSERTION OF INFUSION DEV INTO SUP VENA CAVA, PERC APPROACH (01/24/18) MEASURE OF CARDIAC SAMPL & PRESSURE, L HEART, PERC APPROACH (06/28/17) MEDICATION MANAGEMENT (08/05/18) REPOSITION LEFT UPPER FEMUR WITH INT FIX, OPEN APPROACH (02/20/17) TRANSFUSE NONAUT RED BLOOD CELLS IN PERIPH VEIN, PERC (02/20/17) VENTRICL SHUNT-ABDOMEN (02/10/14) - Social History Hx Tobacco Use: No Hx Alcohol Use: No Hx Substance Use: Yes - Immunization History Hx Tetanus Toxoid Vaccination: Yes Hx Influenza Vaccination: Yes Hx Pneumococcal Vaccination: Yes ED Course And Treatment O2 Sat by Pulse Oximetry: 96 Progress - Data Reviewed Data Reviewed: Old records
--- NOTE | 2018-09-29 16:05 | C.PDOC ---
History Of Present Illness 68 year old female with a MHx of bilateral hip fractures, peripheral neuropathy, cervical spondylosis and a PSYCHx history of Bipolar Disorder (dx 30+ years ago) presents to the ED for detox from pain and sleep medication. Per , shes been taking my Ambien after he noticed some of his pills were missing (10- 10mg). The notes the patient has been experiencing increased sleepiness, lethargic since yesterday which isnt her usual way. He also reports recent admission for detox from pain and sleep medication, the patient is no longer on Ambien, she is now on Seroquel and another unknown pain medication. The patient notes she is compliant with her medication for Bipolar but is not able to recall the medication name, only on Paxil. The patient denies SI/SA, and ingestion of other medications. LIMITED DUE TO CLIN COND, DEMENTIA PER , "SHE'S BEEN TAKING MY AMBIEN". NOTICED SOME OF HIS AMBIEN PILLS ARE MISSING (10-10 MG). INCR SLEEPINESS, LETHARGY SINCE YEST "WHICH ISN'T HER USUAL WAY". RECENT ADMISSION FOR DETOX from pain and sleep medication. STATES PT NO LONGER ON AMBIEN, NOW ON SEROQUEL AND OTHER UNK PAIN MED. PT DENIES SI/SA, OTHER INGESTION. ~ Psych Hx: Bipolar Disorder diagnosed 30+ years ago. pt states she is complaint with medication, cannot remember the name. She is on Paxil only Traumatic Hx: Denies Family psych Hx: Denies Medical Hx: Hx of B/L hip fractures, Peripheral neuropathy, Cervical spondylosis EXAM MILD DIST NONTOXIC HEENT PERRLA PSYCH SLEEPY BUT AROUSE TO LIGHT STIM, APPROPRIATE INTERACTIVE. +MOD INTOX. NO ACTIVE PSYCHOSIS, SI CTA B/L NO W/R/R CV RRR NEURO NO FOCAL DEF AO2 REMAINDER NEG MDM 93%RA, IMPROVES TO >95% WHEN PT AROUSED. FAMILY REQUESTING ADMISSION DUE TO CONCERN FOR AMBIEN INTOX Time Seen by Provider: 09/29/18 15:46 Chief Complaint (Nursing): Medical Clearance History Per: Patient History/Exam Limitations: no limitations Past Medical History Reviewed: Historical Data, Nursing Documentation, Vital Signs Vital Signs: Last Vital Signs Temp 97.6 F 09/29/18 15:43 Pulse 90 09/29/18 15:43 Resp 16 09/29/18 15:43 BP 111/69 09/29/18 15:43 Pulse Ox 96 09/29/18 15:43 - Medical History PMH: Anemia, Anxiety, Arthritis, Back Problems, Bipolar Disorder, CVA, Dementia (PER SPOUSE), Depression, HTN, Hypercholesterolemia, Migraine Denies: Diabetes, Hepatitis, HIV, Chronic Kidney Disease, Seizures, Sexually Transmitted Disease Surgical History: Back Surgery, Tonsillectomy - [facility] Procedures DETOXIFICATION SERVICES FOR SUBSTANCE ABUSE TREATMENT (08/05/18) FLUOROSCOPY OF LEFT HEART USING LOW OSMOLAR CONTRAST (06/28/17) FLUOROSCOPY OF MULT COR ART USING L OSM CONTRAST (06/28/17) GROUP PAINTER SIGN MAINTENANCE FOR SUBSTANCE ABUSE TREATMENT, PSYCHOEDUCATION (08/05/18) INDIV PSYCHOTHERAPY FOR SUBSTANCE ABUSE TREATMENT, SUPPORT (08/05/18) INSERTION OF INFUSION DEV INTO SUP VENA CAVA, PERC APPROACH (01/24/18) MEASURE OF CARDIAC SAMPL & PRESSURE, L HEART, PERC APPROACH (06/28/17) MEDICATION MANAGEMENT (08/05/18) REPOSITION LEFT UPPER FEMUR WITH INT FIX, OPEN APPROACH (02/20/17) TRANSFUSE NONAUT RED BLOOD CELLS IN PERIPH VEIN, PERC (02/20/17) VENTRICL SHUNT-ABDOMEN (02/10/14) Family History: States: Unknown Family Hx - Social History Hx Tobacco Use: No Hx Alcohol Use: No Hx Substance Use: Yes - Immunization History Hx Tetanus Toxoid Vaccination: Yes Hx Influenza Vaccination: Yes Hx Pneumococcal Vaccination: Yes Review Of Systems Except As Marked, All Systems Reviewed And Found Negative. Review Of Systems: ROS cannot be obtained secondary to pt's inabilty to answer questions. (Limited to due clinical condition, dementia.) Psych: Positive for: Other (detox from pain and sleep medication.). Negative for: Suicidal ideation Physical Exam - Physical Exam Appears: Non-toxic, Other (moderate distress.) Skin: Normal Color, Warm, Dry Head: Atraumatic, Normacephalic Eye(s): bilateral: Normal Inspection, PERRL Ear(s): Bilateral: Normal Nose: Normal, No Discharge Oral Mucosa: Moist Throat: Normal, No Erythema, No Exudate Chest: Symmetrical, No Deformity Cardiovascular: Rhythm Regular, No Murmur Respiratory: Normal Breath Sounds (bilaterally.), No Rales, No Rhonchi, No Wheezing, Other (clear to auscultation.) Gastrointestinal/Abdominal: Normal Exam, Soft, No Tenderness Neurological/Psych: No Oriented x3 (alert and oriented x2.), Other (No focal deficit. No active psychosis, SI. Appropriate interactive. Sleepy but arouse to light stimulation. Moderate intox.) ED Course And Treatment - Laboratory Results Result Diagrams: 09/29/18 16:51 09/29/18 16:51 ECG Rhythm: Sinus Rhythm Interpretation Of ECG: normal intervals. Rate From EC O2 Sat by Pulse Oximetry: 96 Pulse Ox Interpretation: Normal Progress - Re-Evaluation Re-evaluation Note: 09/29/18 16:[address] Pereyra., labs are pending, will admit. 09/29/18 16:55 CT HEAD REQUESTED BY PMD. EXAM UNCH PRIOR. VSS - Data Reviewed Data Reviewed: Lab, Diagnostic imaging, EKG, Old records Medical Decision Making Medical Decision Making: Plan: -EKG Blood sent. CXR O2 via nasal cannula Disposition Counseled Patient/Family Regarding: Studies Performed, Diagnosis - Disposition Disposition: HOSPITALIZED Disposition Time: 18:41 Condition: SERIOUS Forms: [employer] ([employer]) - Clinical Impression Clinical Impression: Ambien use disorder, mild, abuse, Overdose of sleeping tabs, Sleepiness - Scribe Statement The provider has reviewed the documentation as recorded by the Scribe (Kasey Vela) Provider Attestation: All medical record entries made by the Scribe were at my direction and personally dictated by me. I have reviewed the chart and agree that the record accurately reflects my personal performance of the history, physical exam, medical decision making, and the department course for this patient. I have also personally directed, reviewed, and agree with the discharge instructions and disposition.
--- NOTE | 2018-09-29 16:42 | RAD ---
Date of service: 09/29/2018 PROCEDURE: CHEST RADIOGRAPH, 1 VIEW HISTORY: Overdosed COMPARISON: 01/29/2018 FINDINGS: LUNGS: The lungs are well inflated and clear. PLEURA: No pneumothorax or pleural effusion. CARDIOVASCULAR: The heart is normal in size. No aortic atherosclerotic calcifications present. OSSEOUS STRUCTURES: Within normal limits for the patient's age. VISUALIZED UPPER ABDOMEN: Normal. OTHER FINDINGS: None. IMPRESSION: No acute findings.
[2018-09-29 16:57] LABS: BASO # 0.1 K/uL (0.0-0.2); BASO % 0.6 % (0.0-2.0); EOS # 0.1 K/uL (0.0-0.7); EOS % 0.9 % (0.0-4.0); HEMOGLOBIN 12.7 g/dL (11.0-16.0); LYMPH # 1.5 K/uL (1.0-4.3); MEAN CELL VOLUME 87.1 fL (81.0-99.0); MEAN CORPUSCULAR HEMOGLOBIN 28.7 pg (27.0-31.0); MEAN CORPUSCULAR HGB CONC 32.9 g/dL (33.0-37.0); MEAN PLATELET VOLUME 9.8 fL (7.2-11.7); MONO # 0.7 K/uL (0.0-0.8); MONO % 7.1 % (0.0-10.0); NEUT # 7.2 K/uL (1.8-7.0); NEUT % 75.4 % (50.0-75.0); RBC 4.41 Mil/uL (3.80-5.20); RED CELL DISTRIBUTION WIDTH 14.8 % (11.5-14.5); WHITE BLOOD COUNT 9.6 K/uL (4.8-10.8)
[2018-09-29 17:10] LABS: ALB/GLOB RATIO 1.2 (1.0-2.1); ALBUMIN 3.8 g/dL (3.5-5.0); ALT/SGPT 19 U/L (9-52); AST/SGOT 15 U/L (14-36); BLOOD UREA NITROGEN 21 mg/dL (7-17); CALCIUM 8.8 mg/dl (8.6-10.4); GFR NON-AFRICAN AMERICAN 49
[2018-09-29 17:16] LABS: ACETAMINOPHEN < 10.0 ug/mL (10.0-30.0); SALICYLATE < 1.0 mg/dL 1
[2018-09-29 18:01] LABS: BARBITURATES, UR NEGATIVE (NEGATIVE); BENZODIAZEPINES, UR NEGATIVE (NEGATIVE); OPIATES, UR NEGATIVE (NEGATIVE); PHENCYCLIDINE, UR NEGATIVE (NEGATIVE)
--- NOTE | 2018-09-29 18:30 | CT ---
Date of service: 09/29/2018 PROCEDURE: CT HEAD WITHOUT CONTRAST. HISTORY: AMS COMPARISON: Noncontrast head CT performed 06/28/17 TECHNIQUE: Axial computed tomography images were obtained through the head/brain without intravenous contrast. Radiation dose: Total exam DLP = 1156.16 mGy-cm. This CT exam was performed using one or more of the following dose reduction techniques: Automated exposure control, adjustment of the mA and/or kV according to patient size, and/or use of iterative reconstruction technique. FINDINGS: HEMORRHAGE: Bilateral heterogeneous subdural hematomas likely representing subacute to chronic blood products without significant mass effect. BRAIN: No mass effect or edema. Scattered periventricular and subcortical white matter hypodensities, which are nonspecific, but often seen with chronic microvascular ischemic disease. Please note that MRI with diffusion imaging is more sensitive in the detection of acute ischemic event. VENTRICLES: Right parietal approach [employer] ENGINEER shunt catheter terminates at the level of the medial left basal ganglia crossing the 3rd ventricle as on prior study. No interval change in ventricular volume appreciated. No hydrocephalus. CALVARIUM: Unremarkable. PARANASAL SINUSES: Unremarkable as visualized. No significant inflammatory changes. MASTOID AIR CELLS: Unremarkable as visualized. No inflammatory changes. OTHER FINDINGS: None. IMPRESSION: Bilateral subacute to chronic subdural hematomas without significant mass effect. Right parietal approach WATER RES[employer] ENGINEER shunt catheter terminates at the level of the medial left basal ganglia crossing the 3rd ventricle as on prior study. No interval change in ventricular volume appreciated. No hydrocephalus. Nonspecific white matter changes.
--- NOTE | 2018-09-29 19:02 | CP.PCM.HP ---
History of Present Illness - History of Present Illness History of Present Illness: 68 year old female with a MHx of bilateral hip fractures, peripheral neuropathy, cervical spondylosis and a PSYCHx history of Bipolar Disorder (dx 30+ years ago) presents to the ED for detox from pain and sleep medication. Per , shes been taking my Ambien after he noticed some of his pills were missing (10- 10mg). The notes the patient has been experiencing increased sleepiness, lethargic since yesterday . He also reports recent admission for detox from pain and sleep medication, the patient is no longer on Ambien, she is now on Seroquel and another unknown pain medication. The patient notes she is compliant with her medication for Bipolar but is not able to recall the medication name, only on Paxil. Present on Admission - Present on Admission Any Indicators Present on Admission: No Review of Systems - Review of Systems All systems: reviewed and no additional remarkable complaints except Review of Systems: PERIODS OF LETHARGY Past Patient History - Infectious Disease Hx of Infectious Diseases: None - Past Medical History & Family History Past Medical History?: Yes - Past Social History Smoking Status: Never Smoked - CARDIAC Hx Hypercholesterolemia: Yes Hx Hypertension: Yes - PULMONARY Hx Tuberculosis: No - NEUROLOGICAL Hx Dementia: Yes (PER SPOUSE) Hx Migraine: Yes Hx Seizures: No - HEENT Hx HEENT Problems: Yes Hx Deafness: Yes (Bilateral hearing loss, doesn't wear hearing aids) - RENAL Hx Chronic Kidney Disease: No - ENDOCRINE/METABOLIC Hx Endocrine Disorders: No - HEMATOLOGICAL/ONCOLOGICAL Hx Anemia: Yes Hx Human Immunodeficiency Virus (HIV): No - INTEGUMENTARY Hx Dermatological Problems: No - MUSCULOSKELETAL/RHEUMATOLOGICAL Hx Arthritis: Yes - GENITOURINARY/GYNECOLOGICAL Hx Sexually Transmitted Disorders: No - PSYCHIATRIC Hx Anxiety: Yes Hx Bipolar Disorder: Yes Hx Depression: Yes Hx Substance Use: Yes - SURGICAL HISTORY Hx Tonsillectomy: Yes - ANESTHESIA Hx Anesthesia: Yes Hx Anesthesia Reactions: No Hx Malignant Hyperthermia: No Meds Allergies/Adverse Reactions: Allergies Allergy/AdvReac Type Severity Reaction Status Date / Time pregabalin [From Lyrica] Allergy PSYCHOSIS Verified 08/05/18 17:25 Physical Exam - Constitutional Appears: Well - Head Exam Head Exam: NORMAL INSPECTION - Eye Exam Eye Exam: EOMI, Normal appearance, PERRL - ENT Exam ENT Exam: Mucous Membranes Moist, Normal Exam - Neck Exam Neck exam: Positive for: Normal Inspection - Respiratory Exam Respiratory Exam: Clear to Auscultation Bilateral, NORMAL BREATHING PATTERN - Cardiovascular Exam Cardiovascular Exam: REGULAR RHYTHM - GI/Abdominal Exam GI & Abdominal Exam: Normal Bowel Sounds, Soft. absent: Tenderness - Rectal Exam Rectal Exam: Deferred - Extremities Exam Extremities exam: Positive for: normal inspection - Back Exam Back exam: NORMAL INSPECTION - Neurological Exam Neurological exam: Abnormal Gait, Altered, Reflexes Normal - Skin Skin Exam: Dry, Intact, Normal Color, Warm Results - Vital Signs Recent Vital Signs: Last Vital Signs Temp 98.4 F 09/29/18 17:27 Pulse 86 09/29/18 17:27 Resp 14 09/29/18 17:27 BP 115/57 L 09/29/18 17:27 Pulse Ox 96 09/29/18 18:45 - Labs Result Diagrams: 09/29/18 16:51 09/29/18 16:51 Labs: Laboratory Results - last 24 hr 09/29/18 09/29/18 09/29/18 16:51 16:51 16:51 WBC 9.6 RBC 4.41 Hgb 12.7 Hct 38.5 MCV 87.1 MCH 28.7 MCHC 32.9 L RDW 14.8 H Plt Count 185 MPV 9.8 Neut % (Auto) 75.4 H Lymph % (Auto) 16.0 L [place] % (Auto) 7.1 Eos % (Auto) 0.9 Baso % (Auto) 0.6 Neut # (Auto) 7.2 H Lymph # (Auto) 1.5 [place] # (Auto) 0.7 Eos # (Auto) 0.1 Baso # (Auto) 0.1 Sodium 141 Potassium 3.7 Chloride 102 Carbon Dioxide 28 Anion Gap 15 BUN 21 H Creatinine 1.1 Est GFR ( Amer) 59 Est GFR (Non-Af Amer) 49 Random Glucose 97 Calcium 8.8 Total Bilirubin 0.5 AST 15 ALT 19 Alkaline Phosphatase 75 Total Protein 7.0 Albumin 3.8 Globulin 3.2 Albumin/Globulin Ratio 1.2 Salicylates < 1.0 Urine Opiates Screen Urine Methadone Screen Acetaminophen < 10.0 L Ur Barbiturates Screen Ur Phencyclidine Scrn Ur Amphetamines Screen U Benzodiazepines Scrn U Oth Cocaine Metabols U Cannabinoids Screen Alcohol, Quantitative < 10 09/29/18 17:40 WBC RBC Hgb Hct MCV MCH MCHC RDW Plt Count MPV Neut % (Auto) Lymph % (Auto) [place] % (Auto) Eos % (Auto) Baso % (Auto) Neut # (Auto) Lymph # (Auto) [place] # (Auto) Eos # (Auto) Baso # (Auto) Sodium Potassium Chloride Carbon Dioxide Anion Gap BUN Creatinine Est GFR ( Amer) Est GFR (Non-Af Amer) Random Glucose Calcium Total Bilirubin AST ALT Alkaline Phosphatase Total Protein Albumin Globulin Albumin/Globulin Ratio Salicylates Urine Opiates Screen Negative Urine Methadone Screen Negative Acetaminophen Ur Barbiturates Screen Negative Ur Phencyclidine Scrn Negative Ur Amphetamines Screen Negative U Benzodiazepines Scrn Negative U Oth Cocaine Metabols Negative U Cannabinoids Screen Negative Alcohol, Quantitative Assessment & Plan (1) Ambien use disorder, mild, abuse Status: Acute Comment: OBSERVE ON TELE AND VS AND LAB. CT HEAD (2) Overdose of sleeping tabs Status: Acute (3) Chronic pain Status: Chronic (4) Depression Status: Chronic (5) H/O hydrocephalus Status: Chronic (6) H/O ventricular shunt Status: Chronic (7) NSTEMI (non-ST elevated myocardial infarction) Status: Chronic (8) Subacute subdural hematoma Status: Chronic (9) Diabetes Status: Acute (10) HTN (hypertension) Status: Acute
[2018-09-30] MEDS ORDERED: Gadodiamide 287 MG/ML VIAL (15ML) IV ONE (11:55)
--- NOTE | 2018-09-30 12:43 | MRI ---
Date of service: 09/30/2018 PROCEDURE: MRI BRAIN WITH AND WITHOUT CONTRAST HISTORY: ABNORMAL CT OF HEAD COMPARISON: 09/29/2018 CT TECHNIQUE: Multiplanar, multisequence MR images of the brain were obtained with and without intravenous contrast enhancement. 12 cc of Omniscan FINDINGS: HEMORRHAGE: Chronic bilateral and falcine subdural hygromas are seen which demonstrate enhancement. This type of pattern can be seen with intracranial hypotension. In this case it may be related to placement of the ventricular shunt. The finding can be seen after lumbar puncture or shunt placement or chronic CSF leak. Clinical correlation is suggested DWI: No evidence of an acute or early subacute infarction. BRAIN PARENCHYMA: No mass,mass effect or edema. Mild chronic microvascular changes ENHANCEMENT: As above VENTRICLES: The ventricles are decompressed by a right parietal shunt catheter which traverses the 3rd ventricle. CRANIUM: Unremarkable. ORBITS: Grossly unremarkable. PARANASAL SINUSES/MASTOIDS: Clear VASCULAR SYSTEM: Skull base flow voids intact. OTHER FINDINGS: The enhancing subdural hygroma also extends along the clivus and ventral upper cervical spine. IMPRESSION: Chronic bilateral and falcine subdural hygromas are seen which demonstrate enhancement. This type of pattern can be seen with intracranial hypotension. In this case it may be related to placement of the ventricular shunt. The finding can be seen after lumbar puncture or shunt placement or chronic CSF leak. Clinical correlation is suggested
--- NOTE | 2018-09-30 14:30 | CP.PCM.PN ---
Subjective - Date & Time of Evaluation Date of Evaluation: 09/30/18 Time of Evaluation: 14:28 - Subjective Subjective: CHIEF COMPLAINTS TODAY : More alert Pain all over after a fall ROS. HEENT : N. Resp : No cough, wheezing ,pleuritic CP ,or hemoptysis Cardio : No anginal CP, PND, orthopnea, palpitation GI : No abd.pain, n/v ,diarrhea or GI bleeding . CARDBOARD INSERTER : No headache, vertigo, focal deficit. Musculoskel : No joint swelling , Derm : No rash Psych : Normal affect. Ext : No swelling ,calf pain PE. Pt. is alert awake in no distress. V.S As noted in the chart Head ,ear nose,throat and eyes : Normal. Neck : Supple with normal carotids. Lungs: Clear air entry. Heart : S1 & S2 normal with S4. No murmur. Abd : Soft non tender with normal bowel sounds. Neuro : Moves all ext. with no localized deficit. Ext : No edema with intact pulses.Non tender calves ext. bruising Derm : No rashes or decubitus ulcer. LABS/RADIOLOGY:Mri of brain nothing acute ASSESSMENT/PLAN : Cont . observation Will d/w for rehab Objective - Vital Signs/Intake and Output Vital Signs (last 24 hours): Temp Pulse Resp BP Pulse Ox 97.4 F L 87 18 107/65 97 09/30/18 07:05 09/30/18 07:59 09/30/18 07:05 09/30/18 07:05 09/30/18 07:05 - Medications Medications: Current Medications Acetaminophen (Tylenol 325mg Tab) 650 mg PO Q6 PRN PRN Reason: Pain, moderate (4-7) Last Admin: 09/30/18 11:02 Dose: 650 mg Amlodipine Besylate (Norvasc) 5 mg PO DAILY [facility] Last Admin: 09/30/18 09:54 Dose: 5 mg Aspirin (Ecotrin) 81 mg PO DAILY [facility] Last Admin: 09/30/18 09:54 Dose: 81 mg Clopidogrel Bisulfate (Plavix) 75 mg PO DAILY [facility] Last Admin: 09/30/18 09:54 Dose: 75 mg Enoxaparin Sodium (Lovenox) 40 mg SC DAILY [facility] Famotidine (Pepcid) 20 mg PO DAILY [facility] Last Admin: 09/30/18 09:54 Dose: 20 mg Gabapentin (Neurontin) 300 mg PO TID [facility] Last Admin: 09/30/18 13:27 Dose: 300 mg Latanoprost (Xalatan Opht) 0 ml OU HS [facility] Lisinopril (Zestril) 20 mg PO DAILY [facility] Last Admin: 09/30/18 09:56 Dose: 20 mg Paroxetine HCl (Paxil) 10 mg PO DAILY [facility] Last Admin: 09/30/18 09:54 Dose: 10 mg Quetiapine Fumarate (Seroquel) 100 mg PO HS [facility] Trazodone HCl (Desyrel) 50 mg PO HS PRN PRN Reason: Insomnia - Labs Labs: 09/29/18 16:51 09/29/18 16:51 Assessment and Plan (1) Ambien use disorder, mild, abuse Status: Acute (2) Overdose of sleeping tabs Status: Acute (3) Chronic pain Status: Chronic (4) Depression Status: Chronic (5) H/O hydrocephalus Status: Chronic (6) H/O ventricular shunt Status: Chronic (7) NSTEMI (non-ST elevated myocardial infarction) Status: Chronic (8) Subacute subdural hematoma Status: Chronic (9) Diabetes Status: Acute (10) HTN (hypertension) Status: Acute
[2018-09-30] MEDS: Enoxaparin 40 mg Syringe SC SCH (14:35)
[2018-09-30] MEDS ORDERED: Latanoprost 2.5 ml Opht Soln OU SCH (22:00)
[2018-10-01 08:39] VITALS: BP 119/63; PULSE 79; RESP 18; TEMP 98; O2SAT 97
[2018-10-01] MEDS ORDERED: Enoxaparin 40 mg Syringe SC SCH (10:00)
[2018-10-01] MEDS: Enoxaparin 40 mg Syringe SC SCH (11:03)
--- NOTE | 2018-10-01 11:40 | CP.PCM.PN ---
Subjective - Date & Time of Evaluation Date of Evaluation: 10/01/18 Time of Evaluation: 10:15 - Subjective Subjective: Patient seen today awake , alert, oriented, denies any headache, n/v, c/o mild R hip pain , improved with tylenol oob ambulating with walker labs and vss - reviewed - stable Objective - Vital Signs/Intake and Output Vital Signs (last 24 hours): Temp Pulse Resp BP Pulse Ox 98.0 F 79 18 119/63 97 10/01/18 07:00 10/01/18 07:00 10/01/18 07:00 10/01/18 07:00 10/01/18 07:00 - Medications Medications: Current Medications Acetaminophen (Tylenol 325mg Tab) 650 mg PO Q6 PRN PRN Reason: Pain, moderate (4-7) Last Admin: 10/01/18 06:44 Dose: 650 mg Amlodipine Besylate (Norvasc) 5 mg PO DAILY [facility] Last Admin: 10/01/18 11:02 Dose: 5 mg Aspirin (Ecotrin) 81 mg PO DAILY [facility] Last Admin: 10/01/18 11:03 Dose: 81 mg Clopidogrel Bisulfate (Plavix) 75 mg PO DAILY [facility] Last Admin: 10/01/18 11:02 Dose: 75 mg Enoxaparin Sodium (Lovenox) 40 mg SC DAILY [facility] Last Admin: 10/01/18 11:03 Dose: 40 mg Famotidine (Pepcid) 20 mg PO DAILY [facility] Last Admin: 10/01/18 11:02 Dose: 20 mg Gabapentin (Neurontin) 300 mg PO TID [facility] Last Admin: 10/01/18 11:02 Dose: 300 mg Latanoprost (Xalatan Opht) 0 ml OU HS [facility] Last Admin: 09/30/18 21:38 Dose: 1 ml Lisinopril (Zestril) 20 mg PO DAILY [facility] Last Admin: 10/01/18 11:03 Dose: 20 mg Paroxetine HCl (Paxil) 10 mg PO DAILY [facility] Last Admin: 10/01/18 11:02 Dose: 10 mg Quetiapine Fumarate (Seroquel) 100 mg PO HS [facility] Last Admin: 09/30/18 21:08 Dose: 100 mg Trazodone HCl (Desyrel) 50 mg PO HS PRN PRN Reason: Insomnia Last Admin: 09/30/18 21:39 Dose: 50 mg - Labs Labs: 09/29/18 16:51 09/29/18 16:51 Assessment and Plan - Assessment and Plan (Free Text) Assessment: A/P 68 year old female with a MHx of bilateral hip fractures, peripheral neuropathy, cervical spondylosis and a Bipolar Disorder admitted with AMS and lethargy and questionable Ambien is order patient is alert, and oriented and ambulating CT- done - no changes from previous MRI - Chronic bilateral and falcine subdural hygromas are seen which demonstrate enhancement. This type of pattern can be seen with intracranial hypotension. In this case it may be related to placement of the ventricular sh unt. D/W Dr. Pereyra cleared for discharge home today and f/u lala Pereyra office in 1 week and resume all home medications Discharge plan discussed with patient , who understands and agrees with plan
--- NOTE | 2018-10-01 13:22 | CP.PCM.DIS ---
Provider - Provider Date of Admission: 09/29/18 18:45 Attending physician: Yanni Pereyra MD Time Spent in preparation of Discharge (in minutes): 30 Diagnosis - Discharge Diagnosis (1) Ambien use disorder, mild, abuse Status: Acute (2) Overdose of sleeping tabs Status: Acute (3) Chronic pain Status: Chronic (4) Depression Status: Chronic (5) H/O hydrocephalus Status: Chronic (6) H/O ventricular shunt Status: Chronic (7) NSTEMI (non-ST elevated myocardial infarction) Status: Chronic (8) Subacute subdural hematoma Status: Chronic (9) Diabetes Status: Acute (10) HTN (hypertension) Status: Acute Hospital Course - Lab Results Lab Results: Micro Results 09/29/18 22:47 Blood Blood Culture - Preliminary NO GROWTH AFTER 24 HOURS Most Recent Lab Values WBC 9.6 K/uL (4.8-10.8) 09/29/18 16:51 RBC 4.41 Mil/uL (3.80-5.20) 09/29/18 16:51 Hgb 12.7 g/dL (11.0-16.0) 09/29/18 16:51 Hct 38.5 % (34.0-47.0) 09/29/18 16:51 MCV 87.1 fL (81.0-99.0) 09/29/18 16:51 MCH 28.7 pg (27.0-31.0) 09/29/18 16:51 MCHC 32.9 g/dL (33.0-37.0) L 09/29/18 16:51 RDW 14.8 % (11.5-14.5) H 09/29/18 16:51 Plt Count 185 K/uL (130-400) 09/29/18 16:51 MPV 9.8 fL (7.2-11.7) 09/29/18 16:51 Neut % (Auto) 75.4 % (50.0-75.0) H 09/29/18 16:51 Lymph % (Auto) 16.0 % (20.0-40.0) L 09/29/18 16:51 [place] % (Auto) 7.1 % (0.0-10.0) 09/29/18 16:51 Eos % (Auto) 0.9 % (0.0-4.0) 09/29/18 16:51 Baso % (Auto) 0.6 % (0.0-2.0) 09/29/18 16:51 Neut # (Auto) 7.2 K/uL (1.8-7.0) H 09/29/18 16:51 Lymph # (Auto) 1.5 K/uL (1.0-4.3) 09/29/18 16:51 [place] # (Auto) 0.7 K/uL (0.0-0.8) 09/29/18 16:51 Eos # (Auto) 0.1 K/uL (0.0-0.7) 09/29/18 16:51 Baso # (Auto) 0.1 K/uL (0.0-0.2) 09/29/18 16:51 Sodium 141 mmol/L (132-148) 09/29/18 16:51 Potassium 3.7 mmol/L (3.6-5.2) 09/29/18 16:51 Chloride 102 mmol/L (98-107) 09/29/18 16:51 Carbon Dioxide 28 mmol/L (22-30) 09/29/18 16:51 Anion Gap 15 (10-20) 09/29/18 16:51 BUN 21 mg/dL (7-17) H 09/29/18 16:51 Creatinine 1.1 mg/dL (0.7-1.2) 09/29/18 16:51 Est GFR ( Amer) 59 09/29/18 16:51 Est GFR (Non-Af Amer) 49 09/29/18 16:51 POC Glucose (mg/dL) 95 mg/dL (65-110) 09/29/18 15:47 Random Glucose 97 mg/dL (65-105) 09/29/18 16:51 Calcium 8.8 mg/dl (8.6-10.4) 09/29/18 16:51 Total Bilirubin 0.5 mg/dL (0.2-1.3) 09/29/18 16:51 AST 15 U/L (14-36) 09/29/18 16:51 ALT 19 U/L (9-52) 09/29/18 16:51 Alkaline Phosphatase 75 U/L (38-126) 11/12/18 16:51 Total Protein 7.0 g/dL (6.3-8.3) 09/29/18 16:51 Albumin 3.8 g/dL (3.5-5.0) 09/29/18 16:51 Globulin 3.2 gm/dL (2.2-3.9) 09/29/18 16:51 Albumin/Globulin Ratio 1.2 (1.0-2.1) 09/29/18 16:51 Salicylates < 1.0 mg/dL 1 09/29/18 16:51 Urine Opiates Screen Negative (NEGATIVE) 09/29/18 17:40 Urine Methadone Screen Negative (NEGATIVE) 09/29/18 17:40 Acetaminophen < 10.0 ug/mL (10.0-30.0) L 09/29/18 16:51 Ur Barbiturates Screen Negative (NEGATIVE) 09/29/18 17:40 Ur Phencyclidine Scrn Negative (NEGATIVE) 09/29/18 17:40 Ur Amphetamines Screen Negative (NEGATIVE) 09/29/18 17:40 U Benzodiazepines Scrn Negative (NEGATIVE) 09/29/18 17:40 U Oth Cocaine Metabols Negative (NEGATIVE) 09/29/18 17:40 U Cannabinoids Screen Negative (NEGATIVE) 09/29/18 17:40 Alcohol, Quantitative < 10 mg/dl (0-10) 09/29/18 16:51 - Hospital Course Hospital Course: 68 year old female with a MHx of bilateral hip fractures, peripheral neuropathy, cervical spondylosis and a PSYCHx history of Bipolar Disorder (dx 30+ years ago) presents to the ED for detox from pain and sleep medication. Per , shes been taking my Ambien after he noticed some of his pills were missing (10- 10mg). The notes the patient has been experiencing increased sleepiness, lethargic since yesterday . He also reports recent admission for detox from pain and sleep medication, the patient is no longer on Ambien, she is now on Seroquel and another unknown pain medication. The patient notes she is compliant with her medication for Bipolar but is not able to recall the medication name, only on Paxil. Patient was admitted on the regular medical floor. No sedatives or tranquilizers or pain narcotic medications were given. The following day patient's mental status improved to normal level patient was oriented in time place and person with no complaints. Patient was observed for another 24 hours and discharge. Patient will continue her present medication will be followed an outpatient. The CAT scan of the head and MRI did not show any acute changes of any stroke. Discharge Exam - Head Exam Head Exam: NORMAL INSPECTION Discharge Plan - Follow Up Plan Condition: SERIOUS Disposition: HOME/ ROUTINE Instructions: Heart Healthy Diet, Altered Mental Status (DC) Additional Instructions: Please follow up with Dr. Pereyra office in 1 week please continue medication as per med. rec Tylenol for pain Referrals: Yanni Pereyra MD [Staff Provider] -
--- NOTE | 2018-10-01 21:37 | CARD ---
APPROVED REPORT Date of service: 09/29/2018 EKG Measurement Heart [id number] <Conclusion> Sinus rhythm with occasional premature ventricular complexes Otherwise normal ECG
== END 2018-10-01 14:38 | disposition home or self-care (01) | DRG 918 ==
LOC: C.ER 15:30 → C.9E 18:45 → C.6T 20:02
PROVIDERS: ADMIT Internal Medicine Cardiovascular Disease; ATTEND Internal Medicine Cardiovascular Disease
DX: T42.6X1A Poisoning by other antiepileptic and sedative-hypnotic drugs, accidental (unintentional), initial encounter (principal); F13.10 Sedative, hypnotic or anxiolytic abuse, uncomplicated; E11.9 Type 2 diabetes mellitus without complications; E78.00 Pure hypercholesterolemia, unspecified; F03.90 Unspecified dementia, unspecified severity, without behavioral disturbance, psychotic disturbance, mood disturbance, and anxiety; F31.9 Bipolar disorder, unspecified; G62.9 Polyneuropathy, unspecified; M47.812 Spondylosis without myelopathy or radiculopathy, cervical region; G89.29 Other chronic pain; I10 Essential (primary) hypertension; Z86.73 Personal history of transient ischemic attack (TIA), and cerebral infarction without residual deficits; Z98.2 Presence of cerebrospinal fluid drainage device

== ENCOUNTER 2018-10-05 09:47 | Observation (INO) | payer MEDICARE, BC ==
[2018-10-05 09:51] VITALS: BMI 24.1
[2018-10-05 10:49] LABS: BASO % 0.7 % (0.0-2.0); EOS # 0.1 K/uL (0.0-0.7); EOS % 2.1 % (0.0-4.0); HEMOGLOBIN 12.1 g/dL (11.0-16.0); LYMPH # 1.1 K/uL (1.0-4.3); LYMPH % 15.7 % (20.0-40.0); MEAN CELL VOLUME 88.3 fL (81.0-99.0); MEAN CORPUSCULAR HEMOGLOBIN 29.4 pg (27.0-31.0); MEAN CORPUSCULAR HGB CONC 33.3 g/dL (33.0-37.0); MEAN PLATELET VOLUME 9.6 fL (7.2-11.7); MONO # 0.5 K/uL (0.0-0.8); MONO % 7.3 % (0.0-10.0); NEUT # 5.2 K/uL (1.8-7.0); NEUT % 74.2 % (50.0-75.0); RBC 4.13 Mil/uL (3.80-5.20); RED CELL DISTRIBUTION WIDTH 14.4 % (11.5-14.5)
[2018-10-05 11:14] LABS: ALB/GLOB RATIO 1.2 (1.0-2.1); ALBUMIN 4.2 g/dL (3.5-5.0); ALT/SGPT 24 U/L (9-52); AST/SGOT 22 U/L (14-36); BLOOD UREA NITROGEN 29 mg/dL (7-17); CALCIUM 8.9 mg/dl (8.6-10.4); GFR NON-AFRICAN AMERICAN > 60
[2018-10-05] MEDS ORDERED: Sodium Chloride 0.9% 500 ML IV ONE (11:20)
[2018-10-05 11:38] LABS: SQUAMOUS EPITHIAL 1 /hpf (0-5); URINE BACTERIA RARE (<OCC); URINE BILIRUBIN NEGATIVE (NEGATIVE); URINE BLOOD NEGATIVE (NEGATIVE); URINE CLARITY Clear (Clear); URINE COLOR Yellow (YELLOW); URINE GLUCOSE (UA) NORMAL (Normal); URINE LEUKOCYTE ESTERASE 2+ Leu/uL (Negative); URINE PROTEIN 1+ mg/dL (NEGATIVE); URINE UROBILINOGEN NORMAL mg/dL (0.2-1.0)
--- NOTE | 2018-10-05 11:42 | C.PDOC ---
History Of Present Illness 68 year old female, with PMHx of bipolar disorder, dementia, HTN, hyperlipidemia, and anemia, is brought to ED by ambulance for evaluation of confusion, and shaking/tremors ongoing for the past few weeks but worse since this morning according to . Pt has history opiate use, and had underwent detoxification. As per , pt has not used opiates for almost a month now. Otherwise, denies chest pain, shortness of breath, abdominal pain, nausea, vomiting, diarrhea, or fever. Time Seen by Provider: 10/05/18 10:06 Chief Complaint (Nursing): Substance Abuse History Per: Patient History/Exam Limitations: no limitations Onset/Duration Of Symptoms: Days Current Symptoms Are (Timing): Still Present Suicide/Self Injury Attempted (Context): None Involuntary Hold By: None Additional History Per: Past Medical History Reviewed: Historical Data, Nursing Documentation, Vital Signs Vital Signs: Last Vital Signs Temp 98.5 F 10/05/18 10:00 Pulse 101 H 10/05/18 10:55 Resp 19 10/05/18 10:55 BP 156/71 H 10/05/18 10:55 Pulse Ox 96 10/05/18 10:55 - Medical History PMH: Anemia, Anxiety, Arthritis, Back Problems, Bipolar Disorder, CVA, Dementia, Depression, HTN, Hypercholesterolemia, Migraine Denies: Diabetes, Hepatitis, HIV, Chronic Kidney Disease, Seizures, Sexually Transmitted Disease Surgical History: Back Surgery, Tonsillectomy - [facility] Procedures DETOXIFICATION SERVICES FOR SUBSTANCE ABUSE TREATMENT (08/05/18) FLUOROSCOPY OF LEFT HEART USING LOW OSMOLAR CONTRAST (06/28/17) FLUOROSCOPY OF MULT COR ART USING L OSM CONTRAST (06/28/17) GROUP BI APPLICATION DEVELOPER FOR SUBSTANCE ABUSE TREATMENT, PSYCHOEDUCATION (08/05/18) INDIV PSYCHOTHERAPY FOR SUBSTANCE ABUSE TREATMENT, SUPPORT (08/05/18) INSERTION OF INFUSION DEV INTO SUP VENA CAVA, PERC APPROACH (01/24/18) MEASURE OF CARDIAC SAMPL & PRESSURE, L HEART, PERC APPROACH (06/28/17) MEDICATION MANAGEMENT (08/05/18) REPOSITION LEFT UPPER FEMUR WITH INT FIX, OPEN APPROACH (02/20/17) TRANSFUSE NONAUT RED BLOOD CELLS IN PERIPH VEIN, PERC (02/20/17) VENTRICL SHUNT-ABDOMEN (02/10/14) Family History: States: Unknown Family Hx - Social History Hx Tobacco Use: No Hx Alcohol Use: Yes Hx Substance Use: No - Immunization History Hx Tetanus Toxoid Vaccination: Yes Hx Influenza Vaccination: Yes Hx Pneumococcal Vaccination: Yes Review Of Systems Except As Marked, All Systems Reviewed And Found Negative. Constitutional: Negative for: Fever, Chills Cardiovascular: Negative for: Chest Pain Respiratory: Negative for: Shortness of Breath Gastrointestinal: Negative for: Nausea, Vomiting, Abdominal Pain, Diarrhea Neurological: Positive for: Confusion, Other (tremors). Negative for: Headache, Dizziness Physical Exam - Physical Exam Appears: Non-toxic, No Acute Distress, Other (bizarre affect) Skin: Normal Color, Warm, Dry Head: Normacephalic Eye(s): bilateral: Normal Inspection, PERRL, EOMI Oral Mucosa: Moist Neck: Normal ROM, Supple Cardiovascular: Rhythm Regular (mildly tachycardic), No Murmur Respiratory: Normal Breath Sounds, No Rales, No Rhonchi, No Wheezing Gastrointestinal/Abdominal: Soft, No Tenderness Extremity: Normal ROM, No Deformity Extremity: Bilateral: Atraumatic Neurological/Psych: No Oriented x3, Normal Speech, Other (awake, alert, oriented x2, mildly confused) Disoriented To: Person ED Course And Treatment - Laboratory Results Result Diagrams: 10/05/18 10:30 10/05/18 10:30 ECG: Interpreted By Me, Viewed By Me ECG Rhythm: Sinus Tachycardia ECG Interpretation: No Acute Changes Interpretation Of ECG: Normal axis. Occasional PVCs. No acute ST/T wave changes. Rate From EC (bpm) O2 Sat by Pulse Oximetry: 96 (RA) Pulse Ox Interpretation: Normal Progress Note: Blood work, Urinalysis, EKG, CXR was ordered and reviewed. Pt was given IV fluids. UA was consistent with UTI. Rocephin was ordered. Disposition - Disposition - Scribe Statement The provider has reviewed the documentation as recorded by the Scribe KP All medical record entries made by the Scribe were at my direction and personally dictated by me. I have reviewed the chart and agree that the record accurately reflects my personal performance of the history, physical exam, medical decision making, and the department course for this patient. I have also personally directed, reviewed, and agree with the discharge instructions and disposition.
[2018-10-05 12:03] LABS: BARBITURATES, UR NEGATIVE (NEGATIVE); BENZODIAZEPINES, UR NEGATIVE (NEGATIVE); OPIATES, UR NEGATIVE (NEGATIVE); PHENCYCLIDINE, UR NEGATIVE (NEGATIVE)
[2018-10-05] MEDS ORDERED: Sodium Chloride 0.9% 1,000 ML ONE (12:31)
[2018-10-05] MEDS ORDERED: cefTRIAXone IV 1 gm in Dextros 50 ML IV STA (12:56)
[2018-10-05] MEDS ORDERED: cefTRIAXone 1 gm 1 GM/100 ML BAG IVPB ONE (13:15)
--- NOTE | 2018-10-05 15:33 | CP.PCM.HP ---
History of Present Illness - History of Present Illness History of Present Illness: HPI 68 years old white woman has been admitted for possible sedative withdrawals and unspecified tremors and UTI. Few months ago patient was admitted on the psych floor for detox for narcotics and sedatives. After discharge patient was not taking any medication but last week patient allegedly took some Valium from her husbands bottle and presented to [facility] with change of mental status drowsiness. After 48 hours p atients mental condition improved she had no complaints and was discharged home. Today patient presents back again with change of mental status confusion disorientation and according to the delusional. Patient is also exhibiting abnormal involuntary movements of the upper and lower extremities. There is no evidence of seizures. PAST HIST. Patient has a history of hypertension coronary artery disease with stent hydrocephalus with [employer] shunt hygromas by the last MRI of the head, bilateral hip fractures right shoulder frozen. PERSONAL HIST: Smoking. N Alcohol. N Allergy N Travel_- . FAMILY HIST : ROS : Patient is confused and disoriented. Constitutional: P/E: Constitutional: Appears stated age and in no apparent distress. Head: Normocephalic. Ears: External ear canals patent without inflammation. Tympanic membranes intact with normal light reflex and landmark. Eyes: Pupils are central, bilaterally equal, symmetrical and reacts to light with normal movements and no icterus or pallor. Nose: External nares are patent. Mucosa is pink Mouth-Throat: Good general appearance and condition. No post-pharyngeal/oropharyngeal erythema and to nsillar hypertrophy. Good dental hygiene. Neck-Lymphatic: Neck is supple with normal ROM, no thyromegaly, lymph nodes or masses. JVD is normal with no carotid bruit. Lungs: Clear to percussion and auscultation with bilateral normal air entry. Cardiovascular: S1 and S2 are normal with no murmurs, gallops and rub. GI Exam: No hepatomegaly. Abdomen is soft and non-tender. No Organomegaly , masses or hernias are evident and bowel sounds are normal and active. Neurology: Higher function and all cranial nerves intact, with no gross motor or sensory deficit. Superficial and deep reflexes are normal with downwards planters. No cerebellar deficit with normal gait. Musculoskeletal: No tender spots with normal curvature of the spine with no swelling or restricted ROM of the small and large joints. Extremities: Homans sign absent. Intact pulses with no pitting edema, calf tenderness or skin color changes. Skin: No rash, eruptions or abnormal skin pigmentation LAB/RADIOLOGY: ASSESMENT : Acute urinary tract infection Change of mental status etiology is unclear Abnormal involuntary movements of the extremities Coronary artery disease hypertension Bilateral hip prosthesis PLAN: Patient will need a neuro and psych evaluation continue monitoring. IV antibiotics. Present on Admission - Present on Admission Any Indicators Present on Admission: No Past Patient History - Infectious Disease Hx of Infectious Diseases: None - Past Medical History & Family History Past Medical History?: Yes - Past Social History Smoking Status: Never Smoked - CARDIAC Hx Hypercholesterolemia: Yes Hx Hypertension: Yes - PULMONARY Hx Respiratory Disorders: No Hx Tuberculosis: No - NEUROLOGICAL Hx Dementia: Yes Hx Migraine: Yes Hx Seizures: No - HEENT Hx HEENT Problems: Yes Hx Deafness: Yes (Bilateral hearing loss, doesn't wear hearing aids) - RENAL Hx Chronic Kidney Disease: No - ENDOCRINE/METABOLIC Hx Endocrine Disorders: No - HEMATOLOGICAL/ONCOLOGICAL Hx Anemia: Yes Hx Human Immunodeficiency Virus (HIV): No - INTEGUMENTARY Hx Dermatological Problems: No - MUSCULOSKELETAL/RHEUMATOLOGICAL Hx Arthritis: Yes - GENITOURINARY/GYNECOLOGICAL Hx Sexually Transmitted Disorders: No - PSYCHIATRIC Hx Anxiety: Yes Hx Bipolar Disorder: Yes Hx Depression: Yes Hx Substance Use: No - SURGICAL HISTORY Hx Tonsillectomy: Yes - ANESTHESIA Hx Anesthesia: Yes Hx Anesthesia Reactions: No Hx Malignant Hyperthermia: No Meds Allergies/Adverse Reactions: Allergies Allergy/AdvReac Type Severity Reaction Status Date / Time pregabalin [From Lyrica] Allergy PSYCHOSIS Verified 10/05/18 10:05 Results - Vital Signs Recent Vital Signs: Last Vital Signs Temp 99.0 F 10/05/18 15:07 Pulse 101 H 10/05/18 15:07 Resp 16 10/05/18 15:07 BP 159/108 H 10/05/18 15:07 Pulse Ox 99 10/05/18 15:07 - Labs Result Diagrams: 10/05/18 10:30 10/05/18 10:30 Labs: Laboratory Results - last 24 hr 10/05/18 10/05/18 10/05/18 09:59 10:30 10:30 WBC 7.0 RBC 4.13 Hgb 12.1 Hct 36.5 MCV 88.3 MCH 29.4 MCHC 33.3 RDW 14.4 Plt Count 208 MPV 9.6 Neut % (Auto) 74.2 Lymph % (Auto) 15.7 L [place] % (Auto) 7.3 Eos % (Auto) 2.1 Baso % (Auto) 0.7 Neut # (Auto) 5.2 Lymph # (Auto) 1.1 [place] # (Auto) 0.5 Eos # (Auto) 0.1 Baso # (Auto) 0.0 Sodium 143 Potassium 3.8 Chloride 101 Carbon Dioxide 29 Anion Gap 17 BUN 29 H Creatinine 0.9 Est GFR ( Amer) > 60 Est GFR (Non-Af Amer) > 60 POC Glucose (mg/dL) 115 H Random Glucose 125 H Calcium 8.9 Total Bilirubin 0.4 AST 22 ALT 24 Alkaline Phosphatase 99 Total Protein 7.7 Albumin 4.2 Globulin 3.6 Albumin/Globulin Ratio 1.2 Urine Color Urine Clarity Urine pH Ur Specific [place] Urine Protein Urine Glucose (UA) Urine Ketones Urine Blood Urine Nitrate Urine Bilirubin Urine Urobilinogen Ur Leukocyte Esterase Urine WBC (Auto) Urine RBC (Auto) Ur Squamous Epith Cells Urine Bacteria Urine Opiates Screen Urine Methadone Screen Ur Barbiturates Screen Ur Phencyclidine Scrn Ur Amphetamines Screen U Benzodiazepines Scrn U Oth Cocaine Metabols U Cannabinoids Screen Alcohol, Quantitative < 10 10/05/18 10/05/18 11:25 11:25 WBC RBC Hgb Hct MCV MCH MCHC RDW Plt Count MPV Neut % (Auto) Lymph % (Auto) [place] % (Auto) Eos % (Auto) Baso % (Auto) Neut # (Auto) Lymph # (Auto) [place] # (Auto) Eos # (Auto) Baso # (Auto) Sodium Potassium Chloride Carbon Dioxide Anion Gap BUN Creatinine Est GFR ( Amer) Est GFR (Non-Af Amer) POC Glucose (mg/dL) Random Glucose Calcium Total Bilirubin AST ALT Alkaline Phosphatase Total Protein Albumin Globulin Albumin/Globulin Ratio Urine Color Yellow Urine Clarity Clear Urine pH 5.0 Ur Specific [place] 1.019 Urine Protein 1+ H Urine Glucose (UA) Normal Urine Ketones Negative Urine Blood Negative Urine Nitrate Positive H Urine Bilirubin Negative Urine Urobilinogen Normal Ur Leukocyte Esterase 2+ H Urine WBC (Auto) 82 H Urine RBC (Auto) 1 Ur Squamous Epith Cells 1 Urine Bacteria Rare Urine Opiates Screen Negative Urine Methadone Screen Negative Ur Barbiturates Screen Negative Ur Phencyclidine Scrn Negative Ur Amphetamines Screen Negative U Benzodiazepines Scrn Negative U Oth Cocaine Metabols Negative U Cannabinoids Screen Negative Alcohol, Quantitative
[2018-10-05 20:58] VITALS: RESP 20
[2018-10-06] MEDS: Enoxaparin 40 mg Syringe SC SCH (09:17)
[2018-10-06] MEDS ORDERED: Influenza Vaccine 60 MCG/0.5 ML SYR (3 yr & up) IM ONE (10:49)
--- NOTE | 2018-10-06 12:23 | CARD ---
APPROVED REPORT Date of service: 10/05/2018 EKG Measurement Heart [id number] <Conclusion> Sinus tachycardia with frequent premature ventricular complexes Otherwise normal ECG
--- NOTE | 2018-10-06 12:36 | PCM.PSYCH ---
Initial Psychiatric Evaluation - Initial Psychiatric Evaluation Type of Admission: Voluntary History of Present Illness and Precipitating Events: Pt is a 68 y/o WF who is , living in a house with her . Pt has retired from work. She has an adult son; she is known from a detox admission where she detoxed from opioids. [facility]. She is a poor historian, is disoriented No longer using opioids. Pt denies SI/HI. However, she is anxious Pt denies paranoia and other psychotic sxs Pt denies smoking. Denies heroin, marijuana or any other substance use. ~ Psych Hx: Bipolar Disorder diagnosed 30+ years ago. pt states she is complaint with medication, cannot remember the name. She is on Paxil only Traumatic Hx: Denies Family psych Hx: Denies Medical Hx: Hx of B/L hip fractures, Peripheral neuropathy, Cervical spondylosis Legal Hx: denies Current Medications: Active Medications Generic Name Dose Route Start Last Admin Trade Name Freq PRN Reason Stop Dose Admin Amlodipine Besylate 5 mg 10/06/18 10:00 10/06/18 09:17 Norvasc PO 5 mg DAILY [facility] Administration Clopidogrel Bisulfate 75 mg 10/06/18 10:00 10/06/18 09:17 Plavix PO 75 mg DAILY [facility] Administration Enoxaparin Sodium 40 mg 10/06/18 10:00 10/06/18 09:17 Lovenox SC 40 mg DAILY [facility] Administration Famotidine 20 mg 10/06/18 10:00 10/06/18 09:16 Pepcid PO 20 mg DAILY [facility] Administration Latanoprost 0 ml 10/06/18 22:00 Xalatan Opht OU HS [facility] Lisinopril 20 mg 10/06/18 10:00 10/06/18 09:16 Zestril PO 20 mg DAILY [facility] Administration Paroxetine HCl 10 mg 10/06/18 10:00 10/06/18 09:16 Paxil PO 10 mg DAILY [facility] Administration Quetiapine Fumarate 100 mg 10/05/18 22:00 10/05/18 21:43 Seroquel PO 100 mg HS [facility] Administration Tramadol HCl 50 mg 10/05/18 18:23 10/06/18 03:02 Ultram PO 50 mg TID PRN Administration Pain, severe (8-10) Trazodone HCl 50 mg 10/05/18 18:28 10/05/18 21:43 Desyrel PO 50 mg HS PRN Administration Insomnia Past Psychiatric History - Past Psychiatric History Previous Treatment History: Intensive Outpatient Pertinent Medical Hx (Current Medical&Sleep Prob, Allergies): Allergies Allergy/AdvReac Type Severity Reaction Status Date / Time pregabalin [From Lyrica] Allergy PSYCHOSIS Verified 10/05/18 10:05 Aspirin [Ecotrin] 81 mg PO DAILY tabec 01/30/18 Clopidogrel [Plavix] 75 mg PO DAILY tab 01/30/18 Latanoprost 0.005% Opht [Xalatan Opht] 0 ml OU HS bottle 01/30/18 Lisinopril [Zestril] 20 mg PO DAILY tab 01/30/18 QUEtiapine [Seroquel] 100 mg PO HS tab 01/30/18 Famotidine [Pepcid] 20 mg PO DAILY #0 tab 08/08/18 PARoxetine [Paxil] 10 mg PO DAILY tab 08/08/18 amLODIPine [Norvasc] 5 mg PO DAILY tab 08/08/18 traZODone [Desyrel] 50 mg PO HS PRN #30 tab 08/08/18 Gabapentin [Neurontin] 300 mg PO TID #90 tab 10/01/18 Review of Systems - Review of Systems Systems not reviewed;Unavailable: Altered Mental Status
--- NOTE | 2018-10-06 13:45 | CP.PCM.PN ---
Subjective - Date & Time of Evaluation Date of Evaluation: 10/06/18 Time of Evaluation: 13:35 - Subjective Subjective: CHIEF COMPLAINTS TODAY : MORE ALERT AND ORIENTED ROS. HEENT : N. Resp : No cough, wheezing ,pleuritic CP ,or hemoptysis Cardio : No anginal CP, PND, orthopnea, palpitation GI : No abd.pain, n/v ,diarrhea or GI bleeding . [employer] : No headache, vertigo, focal deficit. Musculoskel : No joint swelling , Derm : No rash Psych : Normal affect. Ext : No swelling ,calf pain PE. Pt. is alert awake in no distress. V.S As noted in the chart Head ,ear nose,throat and eyes : Normal. Neck : Supple with normal carotids. Lungs: Clear air entry. Heart : S1 & S2 normal with S4. No murmur. Abd : Soft non tender with normal bowel sounds. Neuro : Moves all ext. with no localized deficit. Ext : No edema with intact pulses.Non tender calves Derm : No rashes or decubitus ulcer. LABS/RADIOLOGY: URINE C/S PENDING ASSESSMENT/PLAN : IV AB PSYCH. EVAL. Objective - Vital Signs/Intake and Output Vital Signs (last 24 hours): Temp Pulse Resp BP Pulse Ox 98.7 F 96 H 20 154/76 H 97 10/06/18 07:00 10/06/18 10:52 10/06/18 07:00 10/06/18 09:16 10/06/18 12:00 Intake and Output: 10/06/18 10/06/18 11:59 23:59 Intake Total 240 Balance 240 - Medications Medications: Current Medications Amlodipine Besylate (Norvasc) 5 mg PO DAILY [facility] Last Admin: 10/06/18 09:17 Dose: 5 mg Clopidogrel Bisulfate (Plavix) 75 mg PO DAILY [facility] Last Admin: 10/06/18 09:17 Dose: 75 mg Enoxaparin Sodium (Lovenox) 40 mg SC DAILY [facility] Last Admin: 10/06/18 09:17 Dose: 40 mg Famotidine (Pepcid) 20 mg PO DAILY [facility] Last Admin: 10/06/18 09:16 Dose: 20 mg Latanoprost (Xalatan Opht) 0 ml OU HS [facility] Lisinopril (Zestril) 20 mg PO DAILY [facility] Last Admin: 10/06/18 09:16 Dose: 20 mg Paroxetine HCl (Paxil) 10 mg PO DAILY [facility] Last Admin: 10/06/18 09:16 Dose: 10 mg Quetiapine Fumarate (Seroquel) 100 mg PO HS [facility] Last Admin: 10/05/18 21:43 Dose: 100 mg Tramadol HCl (Ultram) 50 mg PO TID PRN PRN Reason: Pain, severe (8-10) Last Admin: 10/06/18 03:02 Dose: 50 mg Trazodone HCl (Desyrel) 50 mg PO HS PRN PRN Reason: Insomnia Last Admin: 10/05/18 21:43 Dose: 50 mg - Labs Labs: 10/05/18 10:30 10/05/18 10:30
--- NOTE | 2018-10-06 17:46 | CP.PCM.CON ---
History of Present Illness - History of Present Illness History of Present Illness: HPI: 68-year-old female with past medical history of multiple medical problems including bipolar disorder, dementia, hypertension, hyperlipidemia, cad WITH STENT, HYDROCEPHALUS WITH SHUNT, AND HYGROMAS REPORTED,anemia, arthritis who was admitted [facility] on 10/05/18 because of confusion, shaking tremors ongoing for the past few days and worse since this morning as reported. Patient has history of opiate use and had underwent detoxification. Patient has not used opiates for almost a month now. Infectious disease consult requested by PMD for possible ACUTE UTI as urinalysis was consistent with pyuria with wbc's of 82 and 2+ urinary nitrates.. Patient unable to tell if she had fevers or chills but does report some shaking tremors. Patient was started on IV Rocephin and received only one dose in the ER. No UA or urine culture was able to be collected because of the patient's mental status and forgetfulness. PMH: Anemia, Anxiety, Arthritis, Back Problems, Bipolar Disorder, CVA, Dementia, Depression, HTN, Hypercholesterolemia, Migraine Denies: Diabetes, Hepatitis, HIV, Chronic Kidney Disease, Seizures, Sexually Transmitted Disease Surgical History: BILATERAL HIP FRACTURES, RIGHT SHOULDER FROZEN,TONSILLECTOMY, BACK SURGERY. WOMENS [employer] SHUNT WITH HYDROCEPHALUS, CAD WITH STENT. - [facility] Procedures DETOXIFICATION SERVICES FOR SUBSTANCE ABUSE TREATMENT (08/05/18) FLUOROSCOPY OF LEFT HEART USING LOW OSMOLAR CONTRAST (06/28/17) FLUOROSCOPY OF MULT COR ART USING L OSM CONTRAST (06/28/17) GROUP MANUFACTURING GROUP LEADER FOR SUBSTANCE ABUSE TREATMENT, PSYCHOEDUCATION (08/05/18) INDIV PSYCHOTHERAPY FOR SUBSTANCE ABUSE TREATMENT, SUPPORT (08/05/18) INSERTION OF INFUSION DEV INTO SUP VENA CAVA, PERC APPROACH (01/24/18) MEASURE OF CARDIAC SAMPL & PRESSURE, L HEART, PERC APPROACH (06/28/17) MEDICATION MANAGEMENT (08/05/18) REPOSITION LEFT UPPER FEMUR WITH INT FIX, OPEN APPROACH (02/20/17) TRANSFUSE NONAUT RED BLOOD CELLS IN PERIPH VEIN, PERC (02/20/17) VENTRICL SHUNT-ABDOMEN (02/10/14) Family History: States: Unknown Family Hx - Social History Hx Tobacco Use: No Hx Alcohol Use: Yes Hx Substance Use: No - Immunization History Hx Tetanus Toxoid Vaccination: Yes Hx Influenza Vaccination: Yes Hx Pneumococcal Vaccination: Yes ALLERGY; PREGABALIN. Review of Systems - Review of Systems Systems not reviewed;Unavailable: Other (FORGETFUL.) Past Patient History - Infectious Disease Hx of Infectious Diseases: None - Past Medical History & Family History Past Medical History?: Yes - Past Social History Smoking Status: Never Smoked - CARDIAC Hx Hypercholesterolemia: Yes Hx Hypertension: Yes - PULMONARY Hx Respiratory Disorders: No Hx Tuberculosis: No - NEUROLOGICAL Hx Dementia: Yes Hx Migraine: Yes Hx Seizures: No - HEENT Hx HEENT Problems: Yes Hx Deafness: Yes (Bilateral hearing loss, doesn't wear hearing aids) - RENAL Hx Chronic Kidney Disease: No - ENDOCRINE/METABOLIC Hx Endocrine Disorders: No - HEMATOLOGICAL/ONCOLOGICAL Hx Anemia: Yes Hx Human Immunodeficiency Virus (HIV): No - INTEGUMENTARY Hx Dermatological Problems: No - MUSCULOSKELETAL/RHEUMATOLOGICAL Hx Arthritis: Yes - GENITOURINARY/GYNECOLOGICAL Hx Sexually Transmitted Disorders: No - PSYCHIATRIC Hx Anxiety: Yes Hx Bipolar Disorder: Yes Hx Depression: Yes Hx Substance Use: No - SURGICAL HISTORY Hx Tonsillectomy: Yes - ANESTHESIA Hx Anesthesia: Yes Hx Anesthesia Reactions: No Hx Malignant Hyperthermia: No Meds Allergies/Adverse Reactions: Allergies Allergy/AdvReac Type Severity Reaction Status Date / Time pregabalin [From Lyrica] Allergy PSYCHOSIS Verified 10/05/18 10:05 - Medications Medications: Current Medications Amlodipine Besylate (Norvasc) 5 mg PO DAILY [facility] Last Admin: 10/06/18 09:17 Dose: 5 mg Clopidogrel Bisulfate (Plavix) 75 mg PO DAILY [facility] Last Admin: 10/06/18 09:17 Dose: 75 mg Enoxaparin Sodium (Lovenox) 40 mg SC DAILY [facility] Last Admin: 10/06/18 09:17 Dose: 40 mg Famotidine (Pepcid) 20 mg PO DAILY [facility] Last Admin: 10/06/18 09:16 Dose: 20 mg Latanoprost (Xalatan Opht) 0 ml OU HS [facility] Lisinopril (Zestril) 20 mg PO DAILY [facility] Last Admin: 10/06/18 09:16 Dose: 20 mg Paroxetine HCl (Paxil) 10 mg PO DAILY [facility] Last Admin: 10/06/18 09:16 Dose: 10 mg Quetiapine Fumarate (Seroquel) 100 mg PO HS [facility] Last Admin: 10/05/18 21:43 Dose: 100 mg Tramadol HCl (Ultram) 50 mg PO TID PRN PRN Reason: Pain, severe (8-10) Last Admin: 10/06/18 03:02 Dose: 50 mg Trazodone HCl (Desyrel) 50 mg PO HS PRN PRN Reason: Insomnia Last Admin: 10/05/18 21:43 Dose: 50 mg Physical Exam - Constitutional Appears: No Acute Distress - Head Exam Head Exam: NORMAL INSPECTION - Eye Exam Eye Exam: EOMI, PERRL - ENT Exam ENT Exam: Normal Oropharynx - Neck Exam Neck exam: Positive for: Normal Inspection - Respiratory Exam Respiratory Exam: Clear to Auscultation Bilateral - Cardiovascular Exam Cardiovascular Exam: REGULAR RHYTHM, +S1, +S2 - GI/Abdominal Exam GI & Abdominal Exam: Normal Bowel Sounds, Soft. absent: Tenderness (MILD SUPRAPUBIC TENDERNESS) - Extremities Exam Extremities exam: Positive for: pedal pulses present. Negative for: calf tenderness, pedal edema - Neurological Exam Neurological exam: Alert (BUT CONFUSED AT TIMES.), Reflexes Normal - Psychiatric Exam Psychiatric exam: Anxious - Skin Skin Exam: Normal Color, Warm Results - Vital Signs Recent Vital Signs: Last Vital Signs Temp 98.0 F 10/06/18 15:00 Pulse 87 10/06/18 15:00 Resp 20 10/06/18 15:00 BP 175/46 H 10/06/18 15:00 Pulse Ox 99 10/06/18 15:00 - Labs Result Diagrams: 10/05/18 10:30 10/05/18 10:30 Assessment & Plan (1) Altered mental status Status: Acute (2) Acute UTI (urinary tract infection) Status: Acute (3) Acute lower UTI Assessment and Plan: pancultures u/a/urine [id number] Start IV Rocephin 1 g every 24 hourly after appropriate cultures 10/05/18. Follow-up cultures to adjust antibiotics. Status: Acute (4) Myoclonus Assessment and Plan: presently patient not having myoclonus. Patient is forgetful and confused at times and at times anxious. Patient seen by psychiatrist and orders appreciated. Status: Acute (5) CAD (coronary artery disease) Status: Acute (6) Hypertension Status: Acute (7) Opioid use disorder, severe, dependence Assessment and Plan: psychiatry on case. Status: Acute
[2018-10-06 20:32] LABS: SQUAMOUS EPITHIAL < 1 /hpf (0-5); URINE BACTERIA FEW (<OCC); URINE BILIRUBIN NEGATIVE (NEGATIVE); URINE BLOOD NEGATIVE (NEGATIVE); URINE CLARITY Clear (Clear); URINE COLOR Yellow (YELLOW); URINE GLUCOSE (UA) NORMAL (Normal); URINE LEUKOCYTE ESTERASE 1+ Leu/uL (Negative); URINE PROTEIN 1+ mg/dL (NEGATIVE); URINE UROBILINOGEN NORMAL mg/dL (0.2-1.0)
[2018-10-06] MEDS: cefTRIAXone IV 1 gm in Dextros 50 ML IVPB SCH (22:26)
[2018-10-06] MEDS: Latanoprost 2.5 ml Opht Soln OU SCH (22:28)
[2018-10-07 07:15] LABS: BASO % 0.7 % (0.0-2.0); EOS # 0.1 K/uL (0.0-0.7); EOS % 2.4 % (0.0-4.0); HEMOGLOBIN 11.2 g/dL (11.0-16.0); LYMPH # 1.3 K/uL (1.0-4.3); LYMPH % 22.4 % (20.0-40.0); MEAN CELL VOLUME 86.5 fL (81.0-99.0); MEAN CORPUSCULAR HEMOGLOBIN 28.7 pg (27.0-31.0); MEAN CORPUSCULAR HGB CONC 33.2 g/dL (33.0-37.0); MEAN PLATELET VOLUME 9.4 fL (7.2-11.7); MONO # 0.5 K/uL (0.0-0.8); NEUT # 3.9 K/uL (1.8-7.0); NEUT % 65.5 % (50.0-75.0); RBC 3.88 Mil/uL (3.80-5.20); RED CELL DISTRIBUTION WIDTH 14.2 % (11.5-14.5)
[2018-10-07 07:39] LABS: ALB/GLOB RATIO 1.1 (1.0-2.1); ALBUMIN 3.5 g/dL (3.5-5.0); ALT/SGPT 22 U/L (9-52); AST/SGOT 15 U/L (14-36); BLOOD UREA NITROGEN 12 mg/dL (7-17); CALCIUM 8.8 mg/dl (8.6-10.4); GFR NON-AFRICAN AMERICAN > 60
[2018-10-07] MEDS: Enoxaparin 40 mg Syringe SC SCH (11:39)
--- NOTE | 2018-10-07 14:10 | CP.PCM.PN ---
Subjective - Date & Time of Evaluation Date of Evaluation: 10/07/18 Time of Evaluation: 14:09 - Subjective Subjective: CHIEF COMPLAINTS TODAY : MORE ALERT AND ORIENTED AND AGITATED ROS. HEENT : N. Resp : No cough, wheezing ,pleuritic CP ,or hemoptysis Cardio : No anginal CP, PND, orthopnea, palpitation GI : No abd.pain, n/v ,diarrhea or GI bleeding . [employer] : No headache, vertigo, focal deficit. Musculoskel : No joint swelling , Derm : No rash Psych : Normal affect. Ext : No swelling ,calf pain PE. Pt. is alert awake in no distress. V.S As noted in the chart Head ,ear nose,throat and eyes : Normal. Neck : Supple with normal carotids. Lungs: Clear air entry. Heart : S1 & S2 normal with S4. No murmur. Abd : Soft non tender with normal bowel sounds. Neuro : Moves all ext. with no localized deficit. Ext : No edema with intact pulses.Non tender calves Derm : No rashes or decubitus ulcer. LABS/RADIOLOGY: URINE C/S PENDING ASSESSMENT/PLAN : IV AB PSYCH. EVAL. Objective - Vital Signs/Intake and Output Vital Signs (last 24 hours): Temp Pulse Resp BP Pulse Ox 98.4 F 96 H 20 177/85 H 97 10/07/18 07:00 10/07/18 13:23 10/07/18 07:00 10/07/18 07:00 10/07/18 07:00 Intake and Output: 10/07/18 10/07/18 11:59 23:59 Intake Total 240 Balance 240 - Medications Medications: Current Medications Amlodipine Besylate (Norvasc) 5 mg PO DAILY [facility] Last Admin: 10/07/18 11:39 Dose: 5 mg Clopidogrel Bisulfate (Plavix) 75 mg PO DAILY [facility] Last Admin: 10/07/18 11:40 Dose: 75 mg Enoxaparin Sodium (Lovenox) 40 mg SC DAILY [facility] Last Admin: 10/07/18 11:39 Dose: 40 mg Famotidine (Pepcid) 20 mg PO DAILY [facility] Last Admin: 10/07/18 11:40 Dose: 20 mg Ceftriaxone Sodium (Rocephin Iv 1 Gm Duplex) 50 mls @ 100 mls/hr IVPB Q24H [facility]; Protocol Last Admin: 10/06/18 22:26 Dose: 100 mls/hr Latanoprost (Xalatan Opht) 0 ml OU HS [facility] Last Admin: 10/06/18 22:28 Dose: 2.5 ml Lisinopril (Zestril) 20 mg PO DAILY [facility] Last Admin: 10/07/18 11:38 Dose: 20 mg Paroxetine HCl (Paxil) 10 mg PO DAILY [facility] Last Admin: 10/07/18 11:40 Dose: 10 mg Quetiapine Fumarate (Seroquel) 100 mg PO HS [facility] Last Admin: 10/06/18 22:25 Dose: 100 mg Tramadol HCl (Ultram) 50 mg PO TID PRN PRN Reason: Pain, severe (8-10) Last Admin: 10/06/18 03:02 Dose: 50 mg Trazodone HCl (Desyrel) 50 mg PO HS PRN PRN Reason: Insomnia Last Admin: 10/07/18 00:41 Dose: 50 mg - Labs Labs: 10/07/18 07:06 10/07/18 07:06
--- NOTE | 2018-10-07 14:12 | CP.PCM.PN ---
Subjective - Date & Time of Evaluation Date of Evaluation: 10/07/18 Time of Evaluation: 14:12 - Subjective Subjective: AFEBRILE, MORE RESPONSIVE AND AWAKE. DENIES ANY DYSURIA. CLEAN-CATCH ua AND URINE OBTAINED 10/06/18. oN iv ANTIBIOTICS. Objective - Vital Signs/Intake and Output Vital Signs (last 24 hours): Temp Pulse Resp BP Pulse Ox 98.4 F 96 H 20 177/85 H 97 10/07/18 07:00 10/07/18 13:23 10/07/18 07:00 10/07/18 07:00 10/07/18 07:00 Intake and Output: 10/07/18 10/07/18 06:59 18:59 Intake Total 240 Balance 240 - Medications Medications: Current Medications Amlodipine Besylate (Norvasc) 5 mg PO DAILY [facility] Last Admin: 10/07/18 11:39 Dose: 5 mg Clopidogrel Bisulfate (Plavix) 75 mg PO DAILY [facility] Last Admin: 10/07/18 11:40 Dose: 75 mg Enoxaparin Sodium (Lovenox) 40 mg SC DAILY [facility] Last Admin: 10/07/18 11:39 Dose: 40 mg Famotidine (Pepcid) 20 mg PO DAILY [facility] Last Admin: 10/07/18 11:40 Dose: 20 mg Ceftriaxone Sodium (Rocephin Iv 1 Gm Duplex) 50 mls @ 100 mls/hr IVPB Q24H [facility]; Protocol Last Admin: 10/06/18 22:26 Dose: 100 mls/hr Latanoprost (Xalatan Opht) 0 ml OU HS [facility] Last Admin: 10/06/18 22:28 Dose: 2.5 ml Lisinopril (Zestril) 20 mg PO DAILY [facility] Last Admin: 10/07/18 11:38 Dose: 20 mg Paroxetine HCl (Paxil) 10 mg PO DAILY [facility] Last Admin: 10/07/18 11:40 Dose: 10 mg Quetiapine Fumarate (Seroquel) 100 mg PO HS [facility] Last Admin: 10/06/18 22:25 Dose: 100 mg Tramadol HCl (Ultram) 50 mg PO TID PRN PRN Reason: Pain, severe (8-10) Last Admin: 10/06/18 03:02 Dose: 50 mg Trazodone HCl (Desyrel) 50 mg PO HS PRN PRN Reason: Insomnia Last Admin: 10/07/18 00:41 Dose: 50 mg - Labs Labs: 10/07/18 07:06 10/07/18 07:06 - Constitutional Appears: No Acute Distress - Head Exam Head Exam: NORMAL INSPECTION - Eye Exam Eye Exam: EOMI, PERRL - ENT Exam ENT Exam: Mucous Membranes Moist - Neck Exam Neck Exam: Normal Inspection - Respiratory Exam Respiratory Exam: Clear to Ausculation Bilateral - Cardiovascular Exam Cardiovascular Exam: REGULAR RHYTHM, +S1, +S2 - GI/Abdominal Exam GI & Abdominal Exam: Soft, Normal Bowel Sounds. absent: Tenderness - Extremities Exam Extremities Exam: absent: Calf Tenderness, Pedal Edema - Neurological Exam Neurological Exam: Awake, CN II-XII Intact, Normal Gait, Oriented x3, Reflexes Normal - Psychiatric Exam Psychiatric exam: Normal Mood - Skin Skin Exam: Normal Color, Warm Assessment and Plan (1) Altered mental status Assessment & Plan: patient much more responsive and awake. Patient does not appear confused at present. Anxious to go home. Will need psychiatry clearance for discharge. Status: Acute (2) Acute UTI (urinary tract infection) Assessment & Plan: CONTINUE IV Rocephin 1 g every 24 hourly after appropriate cultures 10/05/18. Follow-up cultures to adjust antibiotics. REPEAT ua MUCH CLEARER WITH DECREASING wbcS. Status: Acute (3) Myoclonus Assessment & Plan: no more myoclonus or agitation. Patient appears much Calmer , and not confused. Status: Acute (4) CAD (coronary artery disease) Status: Acute (5) Hypertension Status: Acute (6) Opioid use disorder, severe, dependence Assessment & Plan: patient is being followed by psychiatrist. Continue medications as suggested. Status: Acute
[2018-10-07] MEDS ORDERED: Potassium Chloride 20 mEq ER Tab PO ONE (21:00)
[2018-10-07] MEDS: cefTRIAXone IV 1 gm in Dextros 50 ML IVPB SCH (21:04)
[2018-10-07] MEDS: Latanoprost 2.5 ml Opht Soln OU SCH (21:04)
[2018-10-08 07:32] LABS: HEMOGLOBIN 12.2 g/dL (11.0-16.0); MEAN CELL VOLUME 86.9 fL (81.0-99.0); MEAN CORPUSCULAR HEMOGLOBIN 28.4 pg (27.0-31.0); MEAN CORPUSCULAR HGB CONC 32.7 g/dL (33.0-37.0); MEAN PLATELET VOLUME 9.5 fL (7.2-11.7); RBC 4.29 Mil/uL (3.80-5.20); RED CELL DISTRIBUTION WIDTH 14.3 % (11.5-14.5); WHITE BLOOD COUNT 7.2 K/uL (4.8-10.8)
[2018-10-08 07:56] LABS: ALB/GLOB RATIO 1.1 (1.0-2.1); ALBUMIN 3.6 g/dL (3.5-5.0); ALT/SGPT 23 U/L (9-52); AST/SGOT 17 U/L (14-36); BLOOD UREA NITROGEN 12 mg/dL (7-17); CALCIUM 8.7 mg/dl (8.6-10.4); GFR NON-AFRICAN AMERICAN > 60
[2018-10-08 08:21] VITALS: BP 177/83; TEMP 98.4; O2SAT 98
[2018-10-08] MEDS: Enoxaparin 40 mg Syringe SC SCH (10:03)
--- NOTE | 2018-10-08 11:45 | PCM.PYCHPN ---
Psychiatric Progress Note - Psychiatric Progress Note Patient seen today, length of contact: 15 min Problems Identified/Issues Discussed: Cleared for d/c Full note to follow
[2018-10-08 11:54] VITALS: PULSE 91
--- NOTE | 2018-10-08 12:21 | CP.PCM.PN ---
Subjective - Date & Time of Evaluation Date of Evaluation: 10/08/18 Time of Evaluation: 12:19 - Subjective Subjective: patient seen and examined at the bedside Objective - Vital Signs/Intake and Output Vital Signs (last 24 hours): Temp Pulse Resp BP Pulse Ox 98.4 F 91 H 20 177/83 H 98 10/08/18 08:00 10/08/18 08:00 10/08/18 08:00 10/08/18 08:00 10/08/18 08:00 Intake and Output: 10/08/18 10/08/18 06:59 18:59 Intake Total 340 Balance 340 - Medications Medications: Current Medications Amlodipine Besylate (Norvasc) 5 mg PO DAILY [facility] Last Admin: 10/08/18 10:03 Dose: Not Given Clopidogrel Bisulfate (Plavix) 75 mg PO DAILY [facility] Last Admin: 10/08/18 10:03 Dose: 75 mg Enoxaparin Sodium (Lovenox) 40 mg SC DAILY [facility] Last Admin: 10/08/18 10:03 Dose: 40 mg Famotidine (Pepcid) 20 mg PO DAILY [facility] Last Admin: 10/08/18 10:03 Dose: 20 mg Ceftriaxone Sodium (Rocephin Iv 1 Gm Duplex) 50 mls @ 100 mls/hr IVPB Q24H [facility]; Protocol Last Admin: 10/07/18 21:04 Dose: 100 mls/hr Latanoprost (Xalatan Opht) 0 ml OU HS [facility] Last Admin: 10/07/18 21:04 Dose: 2.5 ml Lisinopril (Zestril) 20 mg PO DAILY [facility] Last Admin: 10/08/18 10:03 Dose: Not Given Paroxetine HCl (Paxil) 10 mg PO DAILY [facility] Last Admin: 10/08/18 10:03 Dose: 10 mg Quetiapine Fumarate (Seroquel) 100 mg PO HS [facility] Last Admin: 10/07/18 21:03 Dose: 100 mg Tramadol HCl (Ultram) 50 mg PO TID PRN PRN Reason: Pain, severe (8-10) Last Admin: 10/06/18 03:02 Dose: 50 mg Trazodone HCl (Desyrel) 50 mg PO HS PRN PRN Reason: Insomnia Last Admin: 10/07/18 00:41 Dose: 50 mg - Labs Labs: 10/08/18 07:12 10/08/18 07:12 Assessment and Plan - Assessment and Plan (Free Text) Assessment: follow up with dr Pereyra in 1-2 week -----call for appointment continue home medication new prescription given seroquel 50 mg po at hs per dr rodgers discontinue seroquel 100 mg activity as tolerated call dr Pereyra or go to the emergency room if symptom return or worsening
--- NOTE | 2018-10-08 13:36 | CP.PCM.PN ---
Subjective - Date & Time of Evaluation Date of Evaluation: 10/08/18 Time of Evaluation: 13:36 - Subjective Subjective: AFEBRILE COMFORTABLE . NO COMPLAINTS ANXIOUS TO GO HOME FOR THANKSGIVING. LABS REVIEWED. URINE CULTURES -VE GROWTH Objective - Vital Signs/Intake and Output Vital Signs (last 24 hours): Temp Pulse Resp BP Pulse Ox 98.4 F 91 H 20 177/83 H 98 10/08/18 08:00 10/08/18 08:00 10/08/18 08:00 10/08/18 08:00 10/08/18 08:00 Intake and Output: 10/08/18 10/08/18 06:59 18:59 Intake Total 340 Balance 340 - Labs Labs: 10/08/18 07:12 10/08/18 07:12 - Constitutional Appears: No Acute Distress - Head Exam Head Exam: NORMAL INSPECTION - Eye Exam Eye Exam: EOMI, Normal appearance - ENT Exam ENT Exam: Normal Oropharynx - Neck Exam Neck Exam: Normal Inspection - Respiratory Exam Respiratory Exam: Clear to Ausculation Bilateral - GI/Abdominal Exam GI & Abdominal Exam: Soft, Normal Bowel Sounds. absent: Tenderness - Extremities Exam Extremities Exam: absent: Calf Tenderness, Pedal Edema - Neurological Exam Neurological Exam: Alert, Awake, CN II-XII Intact, Oriented x3, Reflexes Normal - Psychiatric Exam Psychiatric exam: Normal Mood - Skin Skin Exam: Normal Color, Warm Assessment and Plan (1) Altered mental status Assessment & Plan: IMPROVED. SEEN BY PSYCH AND CLEARED FOR D/C Status: Acute (2) Acute UTI (urinary tract infection) Assessment & Plan: IMPROVED . DC ALL ABX . ALL CULTURES -VE. CASE DISCUSSED WITH EMBROIDERY SPECIALIST MR. LEE. Status: Acute (3) Myoclonus Assessment & Plan: NO ANXIETY . NO MYCLONUS. Status: Acute (4) CAD (coronary artery disease) Status: Acute (5) Hypertension Status: Acute (6) Opioid use disorder, severe, dependence Assessment & Plan: PER PSYCHIATRY. Status: Acute
--- NOTE | 2018-10-08 13:51 | CP.PCM.DIS ---
Provider - Provider Date of Admission: 10/05/18 13:32 Attending physician: Yanni Pereyra MD Time Spent in preparation of Discharge (in minutes): 35 Hospital Course - Lab Results Lab Results: Micro Results 10/06/18 10:00 Blood-Venous Blood Culture - Preliminary NO GROWTH AFTER 48 HOURS 10/06/18 10:30 Blood-Venous Blood Culture - Preliminary NO GROWTH AFTER 48 HOURS 10/06/18 20:13 Urine,Clean Catch Urine Culture - Final No Growth (<1,000 CFU/ML) Most Recent Lab Values WBC 7.2 K/uL (4.8-10.8) 10/08/18 07:12 RBC 4.29 Mil/uL (3.80-5.20) 10/08/18 07:12 Hgb 12.2 g/dL (11.0-16.0) 10/08/18 07:12 Hct 37.3 % (34.0-47.0) 10/08/18 07:12 MCV 86.9 fL (81.0-99.0) 10/08/18 07:12 MCH 28.4 pg (27.0-31.0) 10/08/18 07:12 MCHC 32.7 g/dL (33.0-37.0) L 10/08/18 07:12 RDW 14.3 % (11.5-14.5) 10/08/18 07:12 Plt Count 201 K/uL (130-400) 10/08/18 07:12 MPV 9.5 fL (7.2-11.7) 10/08/18 07:12 Neut % (Auto) 65.5 % (50.0-75.0) 10/07/18 07:06 Lymph % (Auto) 22.4 % (20.0-40.0) 10/07/18 07:06 Bartholomew % (Auto) 9.0 % (0.0-10.0) 10/07/18 07:06 Eos % (Auto) 2.4 % (0.0-4.0) 10/07/18 07:06 Baso % (Auto) 0.7 % (0.0-2.0) 10/07/18 07:06 Neut # (Auto) 3.9 K/uL (1.8-7.0) 10/07/18 07:06 Lymph # (Auto) 1.3 K/uL (1.0-4.3) 10/07/18 07:06 Bartholomew # (Auto) 0.5 K/uL (0.0-0.8) 10/07/18 07:06 Eos # (Auto) 0.1 K/uL (0.0-0.7) 10/07/18 07:06 Baso # (Auto) 0.0 K/uL (0.0-0.2) 10/07/18 07:06 Sodium 143 mmol/L (132-148) 10/08/18 07:12 Potassium 3.8 mmol/L (3.6-5.2) 10/08/18 07:12 Chloride 101 mmol/L (98-107) 10/08/18 07:12 Carbon Dioxide 31 mmol/L (22-30) H 10/08/18 07:12 Anion Gap 15 (10-20) 10/08/18 07:12 BUN 12 mg/dL (7-17) 10/08/18 07:12 Creatinine 0.6 mg/dL (0.7-1.2) L 10/08/18 07:12 Est GFR ( Amer) > 60 10/08/18 07:12 Est GFR (Non-Af Amer) > 60 10/08/18 07:12 POC Glucose (mg/dL) 115 mg/dL (65-110) H 10/05/18 09:59 Random Glucose 100 mg/dL (65-105) 10/08/18 07:12 Calcium 8.7 mg/dl (8.6-10.4) 10/08/18 07:12 Total Bilirubin 0.4 mg/dL (0.2-1.3) 10/08/18 07:12 AST 17 U/L (14-36) 10/08/18 07:12 ALT 23 U/L (9-52) 10/08/18 07:12 Alkaline Phosphatase 80 U/L (38-126) 10/08/18 07:12 Total Protein 6.8 g/dL (6.3-8.3) 10/08/18 07:12 Albumin 3.6 g/dL (3.5-5.0) 10/08/18 07:12 Globulin 3.2 gm/dL (2.2-3.9) 10/08/18 07:12 Albumin/Globulin Ratio 1.1 (1.0-2.1) 10/08/18 07:12 Urine Color Yellow (YELLOW) 10/06/18 20:13 Urine Clarity Clear (Clear) 10/06/18 20:13 Urine pH 6.0 (5.0-8.0) 10/06/18 20:13 Ur Specific Parsons 1.017 (1.003-1.030) 10/06/18 20:13 Urine Protein 1+ mg/dL (NEGATIVE) H 10/06/18 20:13 Urine Glucose (UA) Normal mg/dL (Normal) 10/06/18 20:13 Urine Ketones 1+ mg/dL (NEGATIVE) H 10/06/18 20:13 Urine Blood Negative (NEGATIVE) 10/06/18 20:13 Urine Nitrate Negative (NEGATIVE) 10/06/18 20:13 Urine Bilirubin Negative (NEGATIVE) 10/06/18 20:13 Urine Urobilinogen Normal mg/dL (0.2-1.0) 10/06/18 20:13 Ur Leukocyte Esterase 1+ Alka/uL (Negative) H 10/06/18 20:13 Urine WBC (Auto) 22 /hpf (0-5) H 10/06/18 20:13 Urine RBC (Auto) 5 /hpf (0-3) H 10/06/18 20:13 Ur Squamous Epith Cells < 1 /hpf (0-5) 10/06/18 20:13 Urine Bacteria Few (<OCC) H 10/06/18 20:13 Urine Opiates Screen Negative (NEGATIVE) 10/05/18 11:25 Urine Methadone Screen Negative (NEGATIVE) 10/05/18 11:25 Ur Barbiturates Screen Negative (NEGATIVE) 10/05/18 11:25 Ur Phencyclidine Scrn Negative (NEGATIVE) 10/05/18 11:25 Ur Amphetamines Screen Negative (NEGATIVE) 10/05/18 11:25 U Benzodiazepines Scrn Negative (NEGATIVE) 10/05/18 11:25 U Oth Cocaine Metabols Negative (NEGATIVE) 10/05/18 11:25 U Cannabinoids Screen Negative (NEGATIVE) 10/05/18 11:25 Alcohol, Quantitative < 10 mg/dl (0-10) 10/05/18 10:30 - Hospital Course Hospital Course: 68 years old white woman has been admitted for possible sedative withdrawals and unspecified tremors and UTI. Few months ago patient was admitted on the psych floor for detox for narcotics and sedatives. After discharge patient was not taking any medication but last week patient allegedly took some Valium from her husbands bottle and presented to [facility] with change of mental status drowsiness. After 48 hours patients mental condition improved she had no complaints and was discharged home. Today patient presents back again with change of mental status confusion disorientation and according to the delusional. Patient is also exhibiting abnormal involuntary movements of the upper and lower extremities. There is no evidence of seizures. PAST HIST. 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 PT. WAS RXED WITH IV AB AND PSYCH. MEDS ID/PSYCH CONSULTED ALL SEPTIC W/U NEG PT REGAINED HER FULL CEREBRAL CAPACITY D/W PSYCH/ID/ , PT WAS D/C HOME Discharge Exam - Head Exam Head Exam: NORMAL INSPECTION Discharge Plan - Discharge Medications Prescriptions: QUEtiapine [SEROquel] 50 mg PO HS 30 Days tab - Follow Up Plan Condition: GOOD Disposition: HOME/ ROUTINE Instructions: Coronary Heart Disease (DC), Quetiapine, Urinary Tract Infection in Women (DC) Additional Instructions: follow up with dr Pereyra in 1-2 week -----call for appointment continue home medication new prescription given seroquel 50 mg po at hs per dr rodgers discontinue seroquel 100 mg activity as tolerated call dr Pereyra or go to the emergency room if symptom return or worsening Referrals: Saad Rodgers MD [Staff Provider] - Phylicia Holliday MD [Staff Provider] - Yanni Pereyra MD [Staff Provider] -
== END 2018-10-08 13:25 | disposition home or self-care (01) ==
LOC: C.ER 09:47 → INTOOBSV 13:32 → C.9E 13:32 → C.5S 14:59
PROVIDERS: ADMIT Internal Medicine Cardiovascular Disease; ATTEND Internal Medicine Cardiovascular Disease
DX: N39.0 Urinary tract infection, site not specified (principal); G25.3 Myoclonus; F11.20 Opioid dependence, uncomplicated; F03.90 Unspecified dementia, unspecified severity, without behavioral disturbance, psychotic disturbance, mood disturbance, and anxiety; E78.5 Hyperlipidemia, unspecified; E78.00 Pure hypercholesterolemia, unspecified; F31.9 Bipolar disorder, unspecified; I10 Essential (primary) hypertension; I25.10 Atherosclerotic heart disease of native coronary artery without angina pectoris; H91.93 Unspecified hearing loss, bilateral; G91.9 Hydrocephalus, unspecified; Z98.2 Presence of cerebrospinal fluid drainage device; Z86.73 Personal history of transient ischemic attack (TIA), and cerebral infarction without residual deficits; Z95.5 Presence of coronary angioplasty implant and graft
CPT/HCPCS: 36415; 80053; 81001; 82948; 85025; 85027; 87040; 87086; 93005; 97110; 97116; 97162; 97166; 97530; 97535; 99285; G0378; G0480; G8978; G8979; G8987; G8988; J0696; J1650; J7040

== ENCOUNTER 2018-10-29 06:42 | Emergency (ER) | payer MEDICARE, BC ==
[2018-10-29 06:42] VITALS: BMI 24.1
[2018-10-29 06:52] VITALS: O2SAT 99
[2018-10-29] MEDS ORDERED: Sodium Chloride 0.9% 1,000 ML IV ONE (07:19)
--- NOTE | 2018-10-29 07:23 | C.PDOC ---
History Of Present Illness 68 y/o female, w/PMhx of bipolar disorder and dementia, presents to the ER complaining of cramping abdominal pain which has been present for the past 3 days. Patient states that she has associated multiple episode of diarrhea. Otherwise, patient denies having fever, chills, nausea, vomiting, dysuria, and hematuria. Time Seen by Provider: 10/29/18 07:13 Chief Complaint (Nursing): GI Problem History Per: Patient History/Exam Limitations: clinical condition Onset/Duration Of Symptoms: Days Current Symptoms Are (Timing): Still Present Severity: Moderate Location Of Pain/Discomfort: Diffuse Quality Of Discomfort: Cramping Associated Symptoms: Diarrhea. denies: Fever, Chills, Nausea, Vomiting, Urinary Symptoms Recent travel outside of the [place]: No Past Medical History Reviewed: Historical Data, Nursing Documentation, Vital Signs Vital Signs: Last Vital Signs Temp 98.0 F 10/29/18 06:49 Pulse 89 10/29/18 06:49 Resp 20 10/29/18 06:49 BP 153/90 H 10/29/18 06:49 Pulse Ox 99 10/29/18 06:49 - Medical History PMH: Anemia, Anxiety, Arthritis, Back Problems, Bipolar Disorder, CVA, Dementia, Depression, HTN, Hypercholesterolemia, Migraine Denies: Diabetes, Hepatitis, HIV, Chronic Kidney Disease, Seizures, Sexually Transmitted Disease Surgical History: Back Surgery, Tonsillectomy - [facility] Procedures DETOXIFICATION SERVICES FOR SUBSTANCE ABUSE TREATMENT (08/05/18) FLUOROSCOPY OF LEFT HEART USING LOW OSMOLAR CONTRAST (06/28/17) FLUOROSCOPY OF MULT COR ART USING L OSM CONTRAST (06/28/17) GROUP TAG CLERK FOR SUBSTANCE ABUSE TREATMENT, PSYCHOEDUCATION (08/05/18) INDIV PSYCHOTHERAPY FOR SUBSTANCE ABUSE TREATMENT, SUPPORT (08/05/18) INSERTION OF INFUSION DEV INTO SUP VENA CAVA, PERC APPROACH (01/24/18) MEASURE OF CARDIAC SAMPL & PRESSURE, L HEART, PERC APPROACH (06/28/17) MEDICATION MANAGEMENT (08/05/18) REPOSITION LEFT UPPER FEMUR WITH INT FIX, OPEN APPROACH (02/20/17) TRANSFUSE NONAUT RED BLOOD CELLS IN PERIPH VEIN, PERC (02/20/17) VENTRICL SHUNT-ABDOMEN (02/10/14) Family History: States: No Known Family Hx - Social History Hx Tobacco Use: No Hx Alcohol Use: No Hx Substance Use: No - Immunization History Hx Tetanus Toxoid Vaccination: No Hx Influenza Vaccination: Yes Hx Pneumococcal Vaccination: No Review Of Systems Except As Marked, All Systems Reviewed And Found Negative. Constitutional: Negative for: Fever, Chills Gastrointestinal: Positive for: Abdominal Pain, Diarrhea. Negative for: Nausea, Vomiting Genitourinary: Negative for: Dysuria, Hematuria Physical Exam - Physical Exam Appears: Non-toxic, No Acute Distress Skin: Normal Color, Warm, Dry Head: Atraumatic, Normacephalic Eye(s): bilateral: Normal Inspection Nose: Normal Oral Mucosa: Moist Neck: Supple Chest: Symmetrical Cardiovascular: Rhythm Regular Respiratory: Normal Breath Sounds, No Rales, No Rhonchi, No Wheezing Gastrointestinal/Abdominal: Soft, Tenderness ( tenderness to lower abdomen (R>L)), No Guarding, No Rebound Neurological/Psych: Oriented x3, Normal Speech ED Course And Treatment - Laboratory Results Result Diagrams: 10/29/18 07:38 10/29/18 07:38 Lab Interpretation: No Acute Changes O2 Sat by Pulse Oximetry: 99 (RA) Pulse Ox Interpretation: Normal - CT Scan/US No standard instances Other Rad Studies (CT/US): Read By Radiologist, Radiology Report Reviewed CT/US Interpretation: FINDINGS: LOWER THORAX: Unremarkable. LIVER: A tiny lucency is stable at the left lobe liver laterally measuring just under 1 cm size once again. GALLBLADDER AND BILE DUCTS: Unremarkable. PANCREAS: Unremarkable. No gross lesion or ductal dilatation. SPLEEN: Unremarkable. ADRENALS: Unremarkable. No mass. KIDNEYS AND URETERS: Limited mid to lower pole left parapelvic cysts/intrarenal cysts reiterated. No hydronephrosis. No overt suspicious parenchymal finding bilaterally. VASCULATURE: Unremarkable. No aortic aneurysm. No aortic atherosclerotic calcification or mural plaque present. BOWEL: No bowel obstruction identified. Hyperdense material in the colon and distal small bowel may reflect patient's ingestion of Kaopectate rather than oral contrast with technologist not provided the patient oral contrast material on discussion of the case with attack during the evaluation of this CT exam. A mild amount of retained fecal material scattered throughout the colon obscuring the evaluation. Further, collapse of distal small bowel, particularly the sigmoid segment, limits the evaluation as well. No pericolic reaction is identified here. Mural thickening is difficult to completely exclude and there is a limited possibility of sigmoid colitis or even diverticulitis given presence of few sigmoid diverticula. Trace fluid is seen in the pelvis likely is a function of the ventriculoperitoneal shunt catheter. Clinically correlate further. The stomach contains mild amount of fluid and air and is otherwise limited evaluation. APPENDIX: Unremarkable. Normal appendix. PERITONEUM: Trace fluid in the pelvis may be a function of BULK CLERK shunt catheter. No free air. LYMPH NODES: Unremarkable. No enlarged lymph nodes. BLADDER: Unremarkable. REPRODUCTIVE: Unremarkable. BONES: No acute fracture. OTHER FINDINGS: Partially imaged likely ventriculoperitoneal shunt catheter terminates at the right lower quadrant once again. IMPRESSION: 1. No bowel obstruction appreciable. Prior segmental colitis pattern appears resolved although evaluation of the sigmoid segment is compromised due to collapse and retained fecal material. No pericolic reaction or fluid collection to suggest colitis however mural thickening is difficult to completely exclude. Consider potential limited colitis. Further clinical correlation is recommended here. 2. Partial capture of distal ventriculoperitoneal shunt catheter identified terminating at the right lower quadrant abdomen with trace fluid in the pelvis, likely related. 3. Tiny lucency left lobe liver stable. 4. Limited parapelvic/intrarenal cysts mid to lower pole left kidney. No obstructive uropathy bilaterally or radiodense urolithiasis. Progress Note: Treated with IVF NSS and macrobid. On re-evaluation abdomen soft non-tender, in no distress Reassessment Condition: Improved Medical Decision Making Medical Decision Making: Plan: --Labs --UA --CT-Abd & Pelv. --IV Fluids Disposition Counseled Patient/Family Regarding: Studies Performed, Diagnosis, Need For Followup, Rx Given - Disposition Referrals: [facility] [Outside] [email or web address] [Outside] Disposition: HOME/ ROUTINE Disposition Time: 10:00 Condition: GOOD Additional Instructions: Follow up with your PMD for further evaluation Prescriptions: Nitrofurantoin Macrocrystals [Macrobid] 1 cap PO BID #14 cap Instructions: Urinary Tract Infections in Adults, Viral Gastroenteritis, Adult (DC) Forms: [facility] (Serbian) - POA Present On Arrival: None - Clinical Impression Clinical Impression: Gastroenteritis, UTI (urinary tract infection) - PA / CHAINSTITCH TUNNEL ELASTIC OPERATOR / Resident Statement MD/DO has reviewed & agrees with the documentation as recorded. - Scribe Statement The provider has reviewed the documentation as recorded by the Maxime Gooden Provider Attestation All medical record entries made by the Doniibmelissa were at my direction and personally dictated by me. I have reviewed the chart and agree that the record accurately reflects my personal performance of the history, physical exam, medical decision making, and the department course for this patient. I have also personally directed, reviewed, and agree with the discharge instructions and disposition.
[2018-10-29] MEDS ORDERED: Sodium Chloride 0.9% 1,000 ML ONE (07:40)
[2018-10-29 07:44] LABS: BASO # 0.1 K/uL (0.0-0.2); BASO % 0.9 % (0.0-2.0); EOS # 0.1 K/uL (0.0-0.7); EOS % 1.2 % (0.0-4.0); HEMOGLOBIN 13.8 g/dL (11.0-16.0); LYMPH # 1.7 K/uL (1.0-4.3); LYMPH % 21.9 % (20.0-40.0); MEAN CORPUSCULAR HEMOGLOBIN 29.7 pg (27.0-31.0); MEAN CORPUSCULAR HGB CONC 33.1 g/dL (33.0-37.0); MEAN PLATELET VOLUME 10.1 fL (7.2-11.7); MONO # 0.4 K/uL (0.0-0.8); MONO % 5.7 % (0.0-10.0); NEUT # 5.4 K/uL (1.8-7.0); NEUT % 70.3 % (50.0-75.0); RBC 4.64 Mil/uL (3.80-5.20); WHITE BLOOD COUNT 7.7 K/uL (4.8-10.8)
[2018-10-29 07:46] LABS: MEAN CELL VOLUME 89.7 fL (81.0-99.0)
[2018-10-29 08:09] LABS: ALB/GLOB RATIO 1.3 (1.0-2.1); ALBUMIN 4.6 g/dL (3.5-5.0); ALT/SGPT 15 U/L (9-52); AST/SGOT 17 U/L (14-36); BLOOD UREA NITROGEN 24 mg/dL (7-17); CALCIUM 9.7 mg/dl (8.6-10.4); GFR NON-AFRICAN AMERICAN > 60; LIPASE 82 U/L (23-300)
[2018-10-29 08:23] VITALS: BP 153/90; PULSE 89; RESP 20; TEMP 98
--- NOTE | 2018-10-29 09:28 | CT ---
Date of service: 10/29/2018 PROCEDURE: CT Abdomen and Pelvis without intravenous contrast HISTORY: Pain COMPARISON: Noncontrast abdomen pelvis CT 01/24/2018. TECHNIQUE: Helical CT of the abdomen and pelvis was performed without oral or intravenous contrast as per referring physician request. Coronal and sagittal reformats were generated Contrast dose: None Radiation dose: Total exam DLP = 369.11 mGy-cm. This CT exam was performed using one or more of the following dose reduction techniques: Automated exposure control, adjustment of the mA and/or kV according to patient size, and/or use of iterative reconstruction technique. FINDINGS: LOWER THORAX: Unremarkable. LIVER: A tiny lucency is stable at the left lobe liver laterally measuring just under 1 cm size once again. GALLBLADDER AND BILE DUCTS: Unremarkable. PANCREAS: Unremarkable. No gross lesion or ductal dilatation. SPLEEN: Unremarkable. ADRENALS: Unremarkable. No mass. KIDNEYS AND URETERS: Limited mid to lower pole left parapelvic cysts/intrarenal cysts reiterated. No hydronephrosis. No overt suspicious parenchymal finding bilaterally. VASCULATURE: Unremarkable. No aortic aneurysm. No aortic atherosclerotic calcification or mural plaque present. BOWEL: No bowel obstruction identified. Hyperdense material in the colon and distal small bowel may reflect patient's ingestion of Kaopectate rather than oral contrast with technologist not provided the patient oral contrast material on discussion of the case with attack during the evaluation of this CT exam. A mild amount of retained fecal material scattered throughout the colon obscuring the evaluation. Further, collapse of distal small bowel, particularly the sigmoid segment, limits the evaluation as well. No pericolic reaction is identified here. Mural thickening is difficult to completely exclude and there is a limited possibility of sigmoid colitis or even diverticulitis given presence of few sigmoid diverticula. Trace fluid is seen in the pelvis likely is a function of the ventriculoperitoneal shunt catheter. Clinically correlate further. The stomach contains mild amount of fluid and air and is otherwise limited evaluation. APPENDIX: Unremarkable. Normal appendix. PERITONEUM: Trace fluid in the pelvis may be a function of EMPLOYEE BENEFITS DIRECTOR shunt catheter. No free air. LYMPH NODES: Unremarkable. No enlarged lymph nodes. BLADDER: Unremarkable. REPRODUCTIVE: Unremarkable. BONES: No acute fracture. OTHER FINDINGS: Partially imaged likely ventriculoperitoneal shunt catheter terminates at the right lower quadrant once again. IMPRESSION: 1. No bowel obstruction appreciable. Prior segmental colitis pattern appears resolved although evaluation of the sigmoid segment is compromised due to collapse and retained fecal material. No pericolic reaction or fluid collection to suggest colitis however mural thickening is difficult to completely exclude. Consider potential limited colitis. Further clinical correlation is recommended here. 2. Partial capture of distal ventriculoperitoneal shunt catheter identified terminating at the right lower quadrant abdomen with trace fluid in the pelvis, likely related. 3. Tiny lucency left lobe liver stable. 4. Limited parapelvic/intrarenal cysts mid to lower pole left kidney. No obstructive uropathy bilaterally or radiodense urolithiasis.
[2018-10-29 09:33] LABS: SQUAMOUS EPITHIAL 16 /hpf (0-5); URINE BACTERIA MANY (<OCC); URINE BILIRUBIN NEGATIVE (NEGATIVE); URINE BLOOD 1+ (NEGATIVE); URINE CLARITY Hazy (Clear); URINE COLOR Yellow (YELLOW); URINE GLUCOSE (UA) NORMAL (Normal); URINE LEUKOCYTE ESTERASE 2+ Leu/uL (Negative); URINE PROTEIN 1+ mg/dL (NEGATIVE); URINE UROBILINOGEN NORMAL mg/dL (0.2-1.0)
== END 2018-10-29 10:28 | disposition home or self-care (01) ==
LOC: C.ER 06:42
DX: K52.9 Noninfective gastroenteritis and colitis, unspecified (principal); N39.0 Urinary tract infection, site not specified

== ENCOUNTER 2018-10-29 17:48 | Inpatient (IN) | payer MEDICARE, BC ==
[2018-10-29 17:49] VITALS: BMI 24.1
[2018-10-29] MEDS ORDERED: Sodium Chloride 0.9% 1,000 ML IV ONE (19:21)
--- NOTE | 2018-10-29 19:21 | C.PDOC ---
History Of Present Illness The patient presents to the ED for evaluation of abdominal pain, vomiting and diarrhea which began around 3 days ago. Patient was evaluated in this ED earlier today for the same complaint and had a negative workup. Her symptoms improved in the ED and she was discharged. Patient states her abdominal pain returned shortly after and she has been sent by her PMD for a re-evaluation. Patient denies fever, chills. Time Seen by Provider: 10/29/18 19:20 Chief Complaint (Nursing): Abdominal Pain History Per: Patient History/Exam Limitations: no limitations Onset/Duration Of Symptoms: Days (3) Current Symptoms Are (Timing): Still Present Context: Other Severity: Mild Pain Scale Rating Of: 4 Location Of Pain/Discomfort: Diffuse Radiation Of Pain To:: None Quality Of Discomfort: "Pain" Associated Symptoms: Vomiting, Diarrhea. denies: Fever, Chills Exacerbating Factors: None Alleviating Factors: None Last Bowel Movement: Today Recent travel outside of the [place]: No Additional History Per: Patient Abnormal Vaginal Bleeding: No Past Medical History Reviewed: Historical Data, Nursing Documentation, Vital Signs Vital Signs: Last Vital Signs Temp 98 F 10/29/18 17:55 Pulse 121 H 10/29/18 17:55 Resp 18 10/29/18 17:55 BP 115/73 10/29/18 17:55 Pulse Ox 96 10/29/18 17:55 - Medical History PMH: Anemia, Anxiety, Arthritis, Back Problems, Bipolar Disorder, CVA, Dementia, Depression, HTN, Hypercholesterolemia, Migraine Denies: Diabetes, Hepatitis, HIV, Chronic Kidney Disease, Seizures, Sexually Transmitted Disease Surgical History: Back Surgery, Tonsillectomy - [facility] Procedures DETOXIFICATION SERVICES FOR SUBSTANCE ABUSE TREATMENT (08/05/18) FLUOROSCOPY OF LEFT HEART USING LOW OSMOLAR CONTRAST (06/28/17) FLUOROSCOPY OF MULT COR ART USING L OSM CONTRAST (06/28/17) GROUP PULP MILL TEAM LEADER FOR SUBSTANCE ABUSE TREATMENT, PSYCHOEDUCATION (08/05/18) INDIV PSYCHOTHERAPY FOR SUBSTANCE ABUSE TREATMENT, SUPPORT (08/05/18) INSERTION OF INFUSION DEV INTO SUP VENA CAVA, PERC APPROACH (01/24/18) MEASURE OF CARDIAC SAMPL & PRESSURE, L HEART, PERC APPROACH (06/28/17) MEDICATION MANAGEMENT (08/05/18) REPOSITION LEFT UPPER FEMUR WITH INT FIX, OPEN APPROACH (02/20/17) TRANSFUSE NONAUT RED BLOOD CELLS IN PERIPH VEIN, PERC (02/20/17) VENTRICL SHUNT-ABDOMEN (02/10/14) Family History: States: Unknown Family Hx - Social History Hx Tobacco Use: No Hx Alcohol Use: No Hx Substance Use: No - Immunization History Hx Tetanus Toxoid Vaccination: No Hx Influenza Vaccination: Yes Hx Pneumococcal Vaccination: No Review Of Systems Constitutional: Negative for: Fever, Chills Cardiovascular: Negative for: Chest Pain, Palpitations Respiratory: Negative for: Cough, Shortness of Breath Gastrointestinal: Positive for: Nausea, Vomiting, Abdominal Pain, Diarrhea. Negative for: Constipation Genitourinary: Negative for: Dysuria, Frequency, Hematuria, Vaginal Discharge, Vaginal Bleeding Musculoskeletal: Negative for: Back Pain Skin: Negative for: Rash, Lesions, Jaundice, Bruising Neurological: Negative for: Weakness, Numbness Physical Exam - Physical Exam Appears: Non-toxic, No Acute Distress Skin: Warm, Dry Head: Normacephalic Eye(s): bilateral: Normal Inspection Oral Mucosa: Moist Neck: Supple Chest: Symmetrical, No Deformity, No Tenderness Cardiovascular: Rhythm Regular, No Murmur Respiratory: No Rales, No Rhonchi, No Wheezing Gastrointestinal/Abdominal: Soft, Tenderness (mild tenderness to lower abdomen (R>L)), No Guarding, No Rebound Back: Normal Inspection Extremity: Normal ROM, Capillary Refill (less than 2 seconds ) Extremity: Bilateral: Atraumatic Neurological/Psych: Oriented x3 Gait: With Assistance ED Course And Treatment - Laboratory Results Result Diagrams: 10/29/18 20:02 10/29/18 20:02 ECG: Interpreted By Me, Viewed By Me ECG Rhythm: Sinus Rhythm (108), Nonspecific Changes (freq pvc's, lae) O2 Sat by Pulse Oximetry: 96 (on RA) Pulse Ox Interpretation: Normal Progress Note: Bloodwork, urialysis, EKG ordered and reviewed. Protonix IVP and IV Fluids given. Disposition Discussed With : Yanni Pereyra Comment: accepted the pt [facility] is service and took over the care at 9:09 PM Doctor Will See Patient In The: Hospital Counseled Patient/Family Regarding: Studies Performed, Diagnosis - Disposition Disposition: HOSPITALIZED Disposition Time: 19:21 Condition: FAIR Forms: [facility] (Palestinian) - POA Present On Arrival: Poor Glycemic Control - Clinical Impression Clinical Impression: Abdominal pain, Diarrhea, Colitis - Scribe Statement The provider has reviewed the documentation as recorded by the Scribe (Sherrill Trevizo) Provider Attestation: All medical record entries made by the Scribe were at my direction and personally dictated by me. I have reviewed the chart and agree that the record accurately reflects my personal performance of the history, physical exam, medical decision making, and the department course for this patient. I have also personally directed, reviewed, and agree with the discharge instructions and disposition. Decision To Admit - Pt Status Changed To: Hospital Disposition Of: Inpatient - Admit Certification Admit to Inpatient:: After my assessment, the patient will require hospitalization for at least two midnights. This is because of the severity of symptoms shown, intensity of services needed, and/or the medical risk in this patient being treated as an outpatient. - InPatient: Physician Admission Certification:: After my assessment, the patient will require hospitalization for at least two midnights. This is because of the severity of symptoms shown, intensity of services needed, and/or the medical risk in this patient being treated as an outpatient. - . Bed Request Type: Regular Admitting Physician: Yanni Pereyra Patient Diagnosis: Abdominal pain, Diarrhea, Colitis
[2018-10-29 20:07] LABS: BASO # 0.1 K/uL (0.0-0.2); BASO % 1.2 % (0.0-2.0); EOS # 0.1 K/uL (0.0-0.7); EOS % 0.7 % (0.0-4.0); HEMOGLOBIN 13.1 g/dL (11.0-16.0); LYMPH # 2.2 K/uL (1.0-4.3); LYMPH % 23.3 % (20.0-40.0); MEAN CELL VOLUME 88.1 fL (81.0-99.0); MEAN CORPUSCULAR HEMOGLOBIN 28.7 pg (27.0-31.0); MEAN CORPUSCULAR HGB CONC 32.5 g/dL (33.0-37.0); MEAN PLATELET VOLUME 9.6 fL (7.2-11.7); MONO # 0.6 K/uL (0.0-0.8); MONO % 6.8 % (0.0-10.0); NEUT # 6.4 K/uL (1.8-7.0); RBC 4.58 Mil/uL (3.80-5.20); RED CELL DISTRIBUTION WIDTH 15.1 % (11.5-14.5); WHITE BLOOD COUNT 9.4 K/uL (4.8-10.8)
[2018-10-29 20:20] LABS: VENOUS BLOOD GAS BASE EXCESS -10.9 mmol/L (0.0-2.0); VENOUS BLOOD GAS PCO2 25 mmHg (40-60); VENOUS BLOOD GAS PO2 62 mm/Hg (30-55); VENOUS BLOOD PH 7.33 (7.32-7.43)
[2018-10-29 20:25] LABS: ALB/GLOB RATIO 1.2 (1.0-2.1); ALBUMIN 4.3 g/dL (3.5-5.0); ALT/SGPT 14 U/L (9-52); AST/SGOT 20 U/L (14-36); BLOOD UREA NITROGEN 26 mg/dL (7-17); CALCIUM 9.5 mg/dl (8.6-10.4); GFR NON-AFRICAN AMERICAN > 60; LIPASE 92 U/L (23-300)
[2018-10-29] MEDS ORDERED: Piperacillin/Tazobact 3.375 gm 100 ML IVPB STA (21:04)
[2018-10-29] MEDS: metroNIDAZOLE IV 500 mg/100 ml 500 MG/100 ML BAG IVPB SCH (22:00)
[2018-10-29] MEDS: Ciprofloxacin 400mg/200ml D5W 400 MG/200 ML BAG IVPB SCH (23:00)
[2018-10-30] MEDS: metroNIDAZOLE IV 500 mg/100 ml 500 MG/100 ML BAG IVPB SCH ×3 (06:08→21:31)
--- NOTE | 2018-10-30 08:50 | CP.PCM.CON ---
<Dominick Vang - Last Filed: 10/30/18 08:32> History of Present Illness - History of Present Illness History of Present Illness: PGY-4 GI Fellow Consult Note THE FOLLOWING MOSTLY OBTAINED FROM CHART REVIEW AND HOSPITAL STAFF PT IS POOR HISTORIAN, BEING TANGENTIAL AND NOT ANSWERING DIRECT QUESTIONING, YES/NO QUESTIONS 68 y/o female with a PMHx of CAD s/p LAD stent 2016(unclear if on DAPT), HTN, CVA,Bipolar, depression, Congen hydrocephalus s/p PRINTING AGENT shunt, presenting with complaint of nausea, vomiting and diarrhea of 3 days duration. She initially presented in earlier on 10/29 but had unremarkable w/u in ED and was sent home after symptoms seem to resolve. However, she returned later in the day and was subsequently admitted for further evaluation. In the ED, she was found to be tachycardic, but HR later improved, CT scan revealed questionable sigmoid colitis, Pip/tazo ordered and GI called for further evaluation. During my encounter, she was ambulating in the room with a walker and sitter at bedside. Pt states that she is doing well, she reports sleeping thoughout the night with her last BM being in the ED the night prior. She denied any abd pain, N/V to me this AM. She also states that she is taking PO without difficulty. Otherwise, when ask about medications and other questions she began talking about family members and the surrounding neighborhood, and when later asked about colonoscopy she started to talk about how she is drinking water in order to urinate. During a later visit, she stated that she thinks she had a Colonoscopy about 15 years ago. Of note, she was admitted in Spring 2017 for ischemic vs infectious colitis and instructed to follow up as outpatient with Colonscopy, but never did. Unable to obtain ROS due to tangential thoughts (mild orquidea?) MHx: See above SurgHx: See above Meds: Reviewed in MAR SocHx: Denies tobacco, etoh or drugs; but some questionable documentation of opiods in the past FamHx: Neg for colon cancer All: [place] Past Patient History - Infectious Disease Hx of Infectious Diseases: None - Past Medical History & Family History Past Medical History?: Yes - Past Social History Smoking Status: Never Smoked - CARDIAC Hx Hypercholesterolemia: Yes Hx Hypertension: Yes - PULMONARY Hx Respiratory Disorders: No Hx Tuberculosis: No - NEUROLOGICAL Hx Dementia: Yes Hx Migraine: Yes Hx Seizures: No - HEENT Hx HEENT Problems: Yes Hx Deafness: Yes (Bilateral hearing loss, doesn't wear hearing aids) - RENAL Hx Chronic Kidney Disease: No - ENDOCRINE/METABOLIC Hx Endocrine Disorders: No - HEMATOLOGICAL/ONCOLOGICAL Hx Anemia: Yes Hx Human Immunodeficiency Virus (HIV): No - INTEGUMENTARY Hx Dermatological Problems: No - MUSCULOSKELETAL/RHEUMATOLOGICAL Hx Falls: Yes - GENITOURINARY/GYNECOLOGICAL Hx Sexually Transmitted Disorders: No - PSYCHIATRIC Hx Substance Use: No - SURGICAL HISTORY Hx Tonsillectomy: Yes - ANESTHESIA Hx Anesthesia: Yes Hx Anesthesia Reactions: No Hx Malignant Hyperthermia: No Meds Allergies/Adverse Reactions: Allergies Allergy/AdvReac Type Severity Reaction Status Date / Time pregabalin [From Lyrica] Allergy PSYCHOSIS Verified 10/29/18 06:52 - Medications Medications: Current Medications Ciprofloxacin (Cipro 400mg/200ml Dsw) 400 mg in 200 mls @ 133 mls/hr IVPB Q12H [facility]; Protocol Last Admin: 10/29/18 23:00 Dose: 133 mls/hr Metronidazole (Flagyl) 500 mg in 100 mls @ 100 mls/hr IVPB Q8H [facility]; Protocol Last Admin: 10/30/18 06:08 Dose: Not Given Physical Exam - Constitutional Appears: Well, No Acute Distress - Head Exam Head Exam: ATRAUMATIC, NORMAL INSPECTION - Eye Exam Eye Exam: EOMI. absent: Scleral icterus - ENT Exam ENT Exam: Mucous Membranes Moist. absent: Mucous Membranes Dry - Respiratory Exam Respiratory Exam: Clear to Auscultation Bilateral, NORMAL BREATHING PATTERN. absent: Accessory Muscle Use - Cardiovascular Exam Cardiovascular Exam: REGULAR RHYTHM, RRR - GI/Abdominal Exam GI & Abdominal Exam: Normal Bowel Sounds, Soft. absent: Bruit, Diminished Bowel Sounds, Distended, Firm, Guarding, Hernia, Mass, Organomegaly, Pulsatile Mass, Rebound, Rigid, Tenderness - Rectal Exam Rectal Exam: Deferred - Extremities Exam Extremities exam: Positive for: normal inspection. Negative for: pedal edema - Neurological Exam Neurological exam: Abnormal Gait (slow, using walker), Alert, CN II-XII Intact Additional comments: Oriented x 2, though date was Oct 27, 2018 - Psychiatric Exam Psychiatric exam: Manic (mild), Normal Affect - Skin Skin Exam: Dry, Intact Results - Vital Signs Recent Vital Signs: Last Vital Signs Temp 97.1 F L 10/30/18 07:59 Pulse 67 10/30/18 07:59 Resp 20 10/30/18 07:59 BP 152/71 H 10/30/18 07:59 Pulse Ox 97 10/30/18 07:59 - Labs Result Diagrams: 10/29/18 20:02 10/29/18 20:02 Labs: Laboratory Results - last 24 hr 10/29/18 10/29/18 10/29/18 20:00 20:02 20:02 WBC 9.4 RBC 4.58 Hgb 13.1 Hct 40.4 MCV 88.1 MCH 28.7 MCHC 32.5 L RDW 15.1 H Plt Count 229 MPV 9.6 Neut % (Auto) 68.0 Lymph % (Auto) 23.3 [place] % (Auto) 6.8 Eos % (Auto) 0.7 Baso % (Auto) 1.2 Neut # (Auto) 6.4 Lymph # (Auto) 2.2 [place] # (Auto) 0.6 Eos # (Auto) 0.1 Baso # (Auto) 0.1 pO2 62 H VBG pH 7.33 VBG pCO2 25 L VBG HCO3 16.2 VBG Total CO2 14.0 L VBG O2 Sat (Calc) 92.8 H VBG Base Excess -10.9 L VBG Potassium 1.8 L* Sodium 154.0 H 142 Chloride 123.0 H 108 H Glucose 66 Lactate 1.0 Crit Value Called To Sierra dunne Crit Value Called By Linda rt Crit Value Read Back Y Blood Gas Notified Time 2018 Potassium 3.7 Carbon Dioxide 19 L Anion Gap 19 BUN 26 H Creatinine 0.7 Est GFR ( Amer) > 60 Est GFR (Non-Af Amer) > 60 Random Glucose 114 H Calcium 9.5 Total Bilirubin 0.6 AST 20 ALT 14 Alkaline Phosphatase 110 Total Protein 7.9 Albumin 4.3 Globulin 3.6 Albumin/Globulin Ratio 1.2 Lipase 92 Venous Blood Potassium 1.8 L* Assessment & Plan - Assessment and Plan (Free Text) Assessment: 68 yo WF with Bipolar, Depression, Anxiety, CAD s/p stenting 2017, h/o PRINTING AGENT shunt presenting with N/V and diarrhea. # Nausea/Vomiting, Diarrhea: Acute, <30 days. Suspect related to viral gastroenteritis, perhaps some colitis related to that seen on sigmoid colon though improved from previous CT in Spring; she never followed up with repeat CSPY. [place] improved, afebrile, no leukocytosis and symptoms improved/resolved since admission. Plan: - Cipro + Metronidazole x 5 days - Adv diet as tolerated - Supportive care - Outpatient Colonoscopy Thank you for the consult; will sign off. Please call if questions. Pt seen and examined with Dr. Ulrich. Please see attestation for further details/changes Dominick Vang, PGY-4 <Deangelo Ulrich - Last Filed: 10/30/18 09:49> Meds - Medications Medications: Current Medications Heparin Sodium (Porcine) (Heparin) 5,000 units SC Q12 [facility] Ciprofloxacin (Cipro 400mg/200ml Dsw) 400 mg in 200 mls @ 133 mls/hr IVPB Q12H [facility]; Protocol Last Admin: 10/29/18 23:00 Dose: 133 mls/hr Metronidazole (Flagyl) 500 mg in 100 mls @ 100 mls/hr IVPB Q8H [facility]; Protocol Last Admin: 10/30/18 06:08 Dose: Not Given Results - Vital Signs Recent Vital Signs: Last Vital Signs Temp 97.1 F L 10/30/18 07:59 Pulse 67 10/30/18 07:59 Resp 20 10/30/18 07:59 BP 152/71 H 10/30/18 07:59 Pulse Ox 97 10/30/18 07:59 - Labs Result Diagrams: 10/29/18 20:02 10/29/18 20:02 Labs: Laboratory Results - last 24 hr 10/29/18 10/29/18 10/29/18 20:00 20:02 20:02 WBC 9.4 RBC 4.58 Hgb 13.1 Hct 40.4 MCV 88.1 MCH 28.7 MCHC 32.5 L RDW 15.1 H Plt Count 229 MPV 9.6 Neut % (Auto) 68.0 Lymph % (Auto) 23.3 [place] % (Auto) 6.8 Eos % (Auto) 0.7 Baso % (Auto) 1.2 Neut # (Auto) 6.4 Lymph # (Auto) 2.2 [place] # (Auto) 0.6 Eos # (Auto) 0.1 Baso # (Auto) 0.1 pO2 62 H VBG pH 7.33 VBG pCO2 25 L VBG HCO3 16.2 VBG Total CO2 14.0 L VBG O2 Sat (Calc) 92.8 H VBG Base Excess -10.9 L VBG Potassium 1.8 L* Sodium 154.0 H 142 Chloride 123.0 H 108 H Glucose 66 Lactate 1.0 Crit Value Called To [place] Crit Value Called By Linda rt Crit Value Read Back Y Blood Gas Notified Time 2018 Potassium 3.7 Carbon Dioxide 19 L Anion Gap 19 BUN 26 H Creatinine 0.7 Est GFR ( Amer) > 60 Est GFR (Non-Af Amer) > 60 Random Glucose 114 H Calcium 9.5 Total Bilirubin 0.6 AST 20 ALT 14 Alkaline Phosphatase 110 Total Protein 7.9 Albumin 4.3 Globulin 3.6 Albumin/Globulin Ratio 1.2 Lipase 92 Venous Blood Potassium 1.8 L* Attending/Attestation - Attestation I have personally seen and examined this patient.: Yes I have fully participated in the care of the patient.: Yes I have reviewed all pertinent clinical information: Yes Notes (Text): 10/30/18 09:44 I have seen and examined patient with GI fellow. Agree with above documentation with the following additions. In brief, this is a 68 year old female with history of bipolar disorder, CAD s/p stent, HTN, hydrocephalus s/p PRINTING AGENT shunt, who presents to hospital with complaint of diarrhea which started 3 days ago. She reports sudden onset symptoms with up to 3 loose non-bloody bowel movements daily. She denies abdominal pain, nausea, vomiting, fever/chills, weight loss, rectal bleeding, recent travel, antibiotic use, sick contacts, or unusual food consumption. She is seen today ambulating in hallway with walker, appears quite comfortable. She did not have any episodes of diarrhea overnight and is able to tolerate PO diet without difficulty. She had a colonoscopy nearly 15 years ago which was normal as per patient. Bipolar disorder CAD s/p stent HTN Hydrocephalus s/p PRINTING AGENT shunt Diarrhea - resolving CT imaging reviewed by me showing questionable left sided colitis - Diet as tolerated - Continue with antibiotic therapy to complete 5 day course - Obtain stool studies - From GI standpoint, if tolerating PO diet patient can likely be discharged home with subsequent outpatient follow up and endoscopic evaluation. Will monitor patient clinical course.
[2018-10-30] MEDS: Ciprofloxacin 400mg/200ml D5W 400 MG/200 ML BAG IVPB SCH ×2 (10:39→22:34)
--- NOTE | 2018-10-30 10:51 | CARD ---
APPROVED REPORT Date of service: 10/29/2018 EKG Measurement Heart [id number] <Conclusion> Sinus tachycardia with frequent premature ventricular complexes Possible Left atrial enlargement Borderline ECG
--- NOTE | 2018-10-30 11:41 | RAD ---
Date of service: 10/30/2018 PROCEDURE: 07/05/2018 HISTORY: s/p fall COMPARISON: 07/05/[address] CT 10/29/2018 TECHNIQUE: AP pelvis and frog's leg view. FINDINGS: The 3 screws traversing a proximal right femoral neck fracture with medial cortical sclerosis here is similar in appearance proximal femur foreshorten seen on end in this projection and on the attempted frog-leg. Some persistent faint residual fracture line of this medial right femoral fracture with sclerotic borders is faintly perceived on series 1920, image 2. Background generalized osteopenia otherwise noted. The left intertrochanteric chronic appearing fracture minimal deformity compression screw and intramedullary anai appears intact. No residual fracture lines here appreciated. No hardware failure apparent Bilateral faint vascular calcifications over each medial thigh noted. Partially visualized is a inferred ventriculoperitoneal shunt catheter over the right lower abdominal quadrant. IMPRESSION: No interval fractures appreciated. Bilateral hip intact hardware Other findings as above.
[2018-10-30 12:31] LABS: BASO # 0.1 K/uL (0.0-0.2); BASO % 0.7 % (0.0-2.0); EOS # 0.2 K/uL (0.0-0.7); EOS % 2.1 % (0.0-4.0); HEMOGLOBIN 12.1 g/dL (11.0-16.0); LYMPH # 1.8 K/uL (1.0-4.3); LYMPH % 21.9 % (20.0-40.0); MEAN CELL VOLUME 89.5 fL (81.0-99.0); MEAN CORPUSCULAR HEMOGLOBIN 29.9 pg (27.0-31.0); MEAN CORPUSCULAR HGB CONC 33.4 g/dL (33.0-37.0); MEAN PLATELET VOLUME 10.1 fL (7.2-11.7); MONO # 0.6 K/uL (0.0-0.8); MONO % 7.8 % (0.0-10.0); NEUT # 5.5 K/uL (1.8-7.0); NEUT % 67.5 % (50.0-75.0); RBC 4.04 Mil/uL (3.80-5.20); RED CELL DISTRIBUTION WIDTH 15.1 % (11.5-14.5); WHITE BLOOD COUNT 8.1 K/uL (4.8-10.8)
[2018-10-30 12:47] LABS: ALB/GLOB RATIO 1.3 (1.0-2.1); ALBUMIN 3.9 g/dL (3.5-5.0); ALT/SGPT 20 U/L (9-52); AST/SGOT 31 U/L (14-36); BLOOD UREA NITROGEN 19 mg/dL (7-17); CALCIUM 8.8 mg/dl (8.6-10.4); GFR NON-AFRICAN AMERICAN > 60
--- NOTE | 2018-10-30 12:54 | CP.PCM.CON ---
History of Present Illness - History of Present Illness History of Present Illness: INFECTIOUS DISEASE CONSULT: HPI: The patient presents to the ED for evaluation of abdominal pain, vomiting and diarrhea which began around 3 days ago. Patient was evaluated in this ED earlier today for the same complaint and had a negative workup. Her symptoms improved in the ED and she was discharged. Patient states her abdominal pain returned shortly after, and she has been sent by her PMD for a re-evaluation. Patient denies fever, chills. PT SAYS AFTER SHE WAS SENT HOME FROM ER ,HER DIARRHOEA PERSISTED,AND SHE FELT VERY WEAK. CT ABDOMEN /PELVIS W/O PO OR IV CONTRAST- -VE BOWEL OBSTRUCTION, LIMITED COLITIS DISTAL. nO OBSTRUCTIVE UROPATHY WITH BILATERAL RADIODENSE UROLITHIASIS. PATIENT WAS ADVISED ADMISSION FOR WORKUP OF HER COLITIS AND GENERALIZED WEAKNESS AND HYPOKALEMIA. PATIENT PRESENTLY DENIES ANY NAUSEA VOMITING. DENIES ANY FEVER OR CHILLS. INFECTIOUS DISEASE CONSULTATION REQUESTED BY PMD FOR COLITIS AND PROFUSE DIARRHEA. HX OBTAINED FROM THE CHART PATIENT UNABLE TO GIVE DETAILS AND DRIFTS AWAY FROM THE QUESTIONS. pATIENT PRESENTLY STARTED ON iv cIPRO AND iv fLAGYL NOTED. PMH: Anemia, Anxiety, Arthritis, Back Problems, Bipolar Disorder, CVA, Dementia, Depression, HTN, Hypercholesterolemia, Migraine Denies: Diabetes, Hepatitis, HIV, Chronic Kidney Disease, Seizures, Sexually Transmitted Disease Surgical History: Back Surgery, Tonsillectomy - [facility] Procedures DETOXIFICATION SERVICES FOR SUBSTANCE ABUSE TREATMENT (08/05/18) FLUOROSCOPY OF LEFT HEART USING LOW OSMOLAR CONTRAST (06/28/17) FLUOROSCOPY OF MULT COR ART USING L OSM CONTRAST (06/28/17) GROUP DIESEL LUBE TECH FOR SUBSTANCE ABUSE TREATMENT, PSYCHOEDUCATION (08/05/18) INDIV PSYCHOTHERAPY FOR SUBSTANCE ABUSE TREATMENT, SUPPORT (08/05/18) INSERTION OF INFUSION DEV INTO SUP VENA CAVA, PERC APPROACH (01/24/18) MEASURE OF CARDIAC SAMPL & PRESSURE, L HEART, PERC APPROACH (06/28/17) MEDICATION MANAGEMENT (08/05/18) REPOSITION LEFT UPPER FEMUR WITH INT FIX, OPEN APPROACH (02/20/17) TRANSFUSE NONAUT RED BLOOD CELLS IN PERIPH VEIN, PERC (02/20/17) VENTRICL SHUNT-ABDOMEN (02/10/14) Family History: States: No Known Family Hx - Social History Hx Tobacco Use: No Hx Alcohol Use: No Hx Substance Use: No - Immunization History Hx Tetanus Toxoid Vaccination: No Hx Influenza Vaccination: Yes Hx Pneumococcal Vaccination: No ALLERGY; PREGABALIN. Review of Systems - Constitutional Constitutional: Malaise, Weakness. absent: Chills, Fever - EENT Eyes: absent: Photophobia Nose/Mouth/Throat: absent: Dry Mouth, Mouth Lesions - Cardiovascular Cardiovascular: absent: Chest Pain, Palpitations - Respiratory Respiratory: absent: Cough, Hemoptysis - Gastrointestinal Gastrointestinal: Abdominal Pain, Diarrhea (6- 7 BOWEL MOVEMENTS IN THE EVENING LAST NIGHT.), Temesmus. absent: Melena, Nausea, Vomiting - Genitourinary Genitourinary: absent: Dysuria, Freq UTI - Integumentary Integumentary: absent: Rash - Neurological Neurological: Confusion, Weakness - Psychiatric Psychiatric: Abnormal Sleep Pattern, Depression, Panic Attacks - Hematologic/Lymphatic Hematologic: As Per HPI. absent: Easy Bleeding, Easy Bruising, Lymphadenopathy Past Patient History - Infectious Disease Hx of Infectious Diseases: None - Past Medical History & Family History Past Medical History?: Yes - Past Social History Smoking Status: Never Smoked - CARDIAC Hx Hypercholesterolemia: Yes Hx Hypertension: Yes - PULMONARY Hx Respiratory Disorders: No Hx Tuberculosis: No - NEUROLOGICAL Hx Dementia: Yes Hx Migraine: Yes Hx Seizures: No - HEENT Hx HEENT Problems: Yes Hx Deafness: Yes (Bilateral hearing loss, doesn't wear hearing aids) - RENAL Hx Chronic Kidney Disease: No - ENDOCRINE/METABOLIC Hx Endocrine Disorders: No - HEMATOLOGICAL/ONCOLOGICAL Hx Anemia: Yes Hx Human Immunodeficiency Virus (HIV): No - INTEGUMENTARY Hx Dermatological Problems: No - MUSCULOSKELETAL/RHEUMATOLOGICAL Hx Falls: Yes - GENITOURINARY/GYNECOLOGICAL Hx Sexually Transmitted Disorders: No - PSYCHIATRIC Hx Substance Use: No - SURGICAL HISTORY Hx Tonsillectomy: Yes - ANESTHESIA Hx Anesthesia: Yes Hx Anesthesia Reactions: No Hx Malignant Hyperthermia: No Meds Allergies/Adverse Reactions: Allergies Allergy/AdvReac Type Severity Reaction Status Date / Time pregabalin [From Lyrica] Allergy PSYCHOSIS Verified 10/29/18 06:52 - Medications Medications: Current Medications Heparin Sodium (Porcine) (Heparin) 5,000 units SC Q12 [facility] Last Admin: 10/30/18 10:39 Dose: 5,000 units Ciprofloxacin (Cipro 400mg/200ml Dsw) 400 mg in 200 mls @ 133 mls/hr IVPB Q12H [facility]; Protocol Last Admin: 10/30/18 10:39 Dose: 133 mls/hr Metronidazole (Flagyl) 500 mg in 100 mls @ 100 mls/hr IVPB Q8H [facility]; Protocol Last Admin: 10/30/18 06:08 Dose: Not Given Physical Exam - Constitutional Appears: No Acute Distress, Confused, Cachectic, Chronically Ill - Head Exam Head Exam: NORMAL INSPECTION - Eye Exam Eye Exam: EOMI, PERRL. absent: Scleral icterus - ENT Exam ENT Exam: Mucous Membranes Dry, Normal Oropharynx - Neck Exam Neck exam: Negative for: Lymphadenopathy, Thyromegaly - Respiratory Exam Respiratory Exam: Decreased Breath Sounds, NORMAL BREATHING PATTERN - Cardiovascular Exam Cardiovascular Exam: Tachycardia, REGULAR RHYTHM, +S1, +S2 - GI/Abdominal Exam GI & Abdominal Exam: Hypoactive Bowel Sounds, Soft, Tenderness (TENDERNESS LEFT LOWER QUADRANT.). absent: Distended, Guarding - Extremities Exam Extremities exam: Positive for: normal capillary refill, pedal pulses present. Negative for: calf tenderness, pedal edema - Neurological Exam Neurological exam: Alert, CN II-XII Intact - Psychiatric Exam Psychiatric exam: Flat Affect - Skin Skin Exam: Normal Color, Warm Results - Vital Signs Recent Vital Signs: Last Vital Signs Temp 97.1 F L 10/30/18 07:59 Pulse 67 10/30/18 07:59 Resp 20 10/30/18 07:59 BP 152/71 H 10/30/18 07:59 Pulse Ox 97 10/30/18 07:59 - Labs Result Diagrams: 10/31/18 07:38 10/31/18 07:38 Labs: Laboratory Results - last 24 hr 10/29/18 10/29/18 10/29/18 20:00 20:02 20:02 WBC 9.4 RBC 4.58 Hgb 13.1 Hct 40.4 MCV 88.1 MCH 28.7 MCHC 32.5 L RDW 15.1 H Plt Count 229 MPV 9.6 Neut % (Auto) 68.0 Lymph % (Auto) 23.3 [place] % (Auto) 6.8 Eos % (Auto) 0.7 Baso % (Auto) 1.2 Neut # (Auto) 6.4 Lymph # (Auto) 2.2 [place] # (Auto) 0.6 Eos # (Auto) 0.1 Baso # (Auto) 0.1 pO2 62 H VBG pH 7.33 VBG pCO2 25 L VBG HCO3 16.2 VBG Total CO2 14.0 L VBG O2 Sat (Calc) 92.8 H VBG Base Excess -10.9 L VBG Potassium 1.8 L* Sodium 154.0 H 142 Chloride 123.0 H 108 H Glucose 66 Lactate 1.0 Crit Value Called To [place] Crit Value Called By Linda rt Crit Value Read Back Y Blood Gas Notified Time 2018 Potassium 3.7 Carbon Dioxide 19 L Anion Gap 19 BUN 26 H Creatinine 0.7 Est GFR ( Amer) > 60 Est GFR (Non-Af Amer) > 60 Random Glucose 114 H Calcium 9.5 Total Bilirubin 0.6 AST 20 ALT 14 Alkaline Phosphatase 110 Total Protein 7.9 Albumin 4.3 Globulin 3.6 Albumin/Globulin Ratio 1.2 Lipase 92 Venous Blood Potassium 1.8 L* 10/30/18 10/30/18 12:18 12:18 WBC 8.1 RBC 4.04 Hgb 12.1 Hct 36.1 MCV 89.5 MCH 29.9 MCHC 33.4 RDW 15.1 H Plt Count 182 MPV 10.1 Neut % (Auto) 67.5 Lymph % (Auto) 21.9 [place] % (Auto) 7.8 Eos % (Auto) 2.1 Baso % (Auto) 0.7 Neut # (Auto) 5.5 Lymph # (Auto) 1.8 [place] # (Auto) 0.6 Eos # (Auto) 0.2 Baso # (Auto) 0.1 pO2 VBG pH VBG pCO2 VBG HCO3 VBG Total CO2 VBG O2 Sat (Calc) VBG Base Excess VBG Potassium Sodium 143 Chloride 109 H Glucose Lactate Crit Value Called To Crit Value Called By Crit Value Read Back Blood Gas Notified Time Potassium 3.3 L Carbon Dioxide 23 Anion Gap 14 BUN 19 H Creatinine 0.5 L Est GFR ( Amer) > 60 Est GFR (Non-Af Amer) > 60 Random Glucose 102 Calcium 8.8 Total Bilirubin 0.4 AST 31 ALT 20 Alkaline Phosphatase 103 Total Protein 6.9 Albumin 3.9 Globulin 3.0 Albumin/Globulin Ratio 1.3 Lipase Venous Blood Potassium - Imaging and Cardiology CT scan ABDOMEN AND PELVIS.- pelvis Status: Report reviewed by me (SEE FULL REPORT.) Assessment & Plan (1) Abdominal pain Status: Acute (2) Colitis Status: Acute (3) Diarrhea Status: Acute (4) Hypokalemia Status: Acute (5) HTN (hypertension) Status: Acute (6) Manic bipolar I disorder Status: Acute - Assessment and Plan (Free Text) Plan: PLAN; PANCULTURE DIARRHOEA W/U STOOLS FOR C DIFFICILE TOXIN. STOOLS FOR LEUKOCYTES/ CULTURE STOOLS FOR GIARDIA AG. CONTINUE IV CIPRO 400MG IVPB Q 12HRLY. 10/29/18. CONTINUE IV FLAGYL 500MG IVPB Q 8HRLY.10/29/18. IV FLUIDS AND REPLENISH K NEEDED. ENTERIC PRECAUTIONS. WILL F/U NEEDED . THANK YOU.
--- NOTE | 2018-10-30 14:30 | CP.PCM.HP ---
History of Present Illness - History of Present Illness History of Present Illness: Patient was evaluated in the emergency room the CAT scan showed possible colitis. Patient is admitted for further treatment. PAST HIST. Patient has history of hypertension history of bipolar with depression and insomnia. Patient had bilateral hip prosthesis secondary to fractures from falls. Patient has a ventricular peritoneal shunt from the hydrocephalus. Patient also has recurrent UTIs in the past. PERSONAL HIST: Smoking. N Alcohol. N Allergy N Travel_- . FAMILY HIST : ROS : Constitutional: Negative for weight change Eyes: Negative for redness, swelling, itching, discharge, vision changes, blurry vision, double vision, glaucoma, cataracts, Ears: Negative for hearing loss, ringing, , tinnitus, vertigo Nose: Negative for rhinorrhea, stuffiness, sniffing, itching, postnasal drip, discoloration, nasal congestion and epistaxis. Throat: Negative for throat clearing, sore throat, hoarseness, difficulty swallowing and difficulty speaking. Respiratory: Negative for cough, , sputum production, chest tightness, wheezing, pleuritic chest pain ,daytime somnolence, chronic cough, hemoptysis, snoring at night, Cardiovascular: Negative for chest pain, palpitations, orthopnea, PND, Edema of legs, leg cramps, angina, claudication, , irregular heartbeat, Neurology: Negative for irritability, muscle weakness, numbness and tingling, seizures, tremors, migraines, slurred speech, syncope, memory loss, mood changes, recurrent headaches Gastrointestinal: Negative for difficulty swallowing, diarrhea, constipation, black stools, rectal bleeding, nausea, flatulence, reflux, poor appetite Genitourinary: Negative for frequent urination, hematuria, discharge, incontinence, urinary retention, frequent UTI, Psychiatric: Negative for depression, anxiety/panic, suicidal tendencies, Musculoskeletal: Negative for swollen joints, back pain, , neck pain, morning stiffness of joints, . Skin: Negative for rash, ulcers, itching, dry skin and pigmented lesions. P/E: Constitutional: Appears stated age and in no apparent distress. Head: Normocephalic. Ears: External ear canals patent without inflammation. Tympanic membranes intact with normal light reflex and landmark. Eyes: Pupils are central, bilaterally equal, symmetrical and reacts to light with normal movements and no icterus or pallor. Nose: External nares are patent. Mucosa is pink Mouth-Throat: Good general appearance and condition. No post-pharyngeal/oropharyngeal erythema and tonsillar hypertrophy. Good dental hygiene. Neck-Lymphatic: Neck is supple with normal ROM, no thyromegaly, lymph nodes or masses. JVD is normal with no carotid bruit. Lungs: Clear to percussion and auscultation with bilateral normal air entry. Cardiovascular: S1 and S2 are normal with no murmurs, gallops and rub. GI Exam: No hepatomegaly. Abdomen is soft and tender. No Organomegaly , masses or hernias are evident and bowel sounds are normal and active. Neurology: Higher function and all cranial nerves intact, with no gross motor or sensory deficit. Superficial and deep reflexes are normal with downwards planters. No cerebellar deficit with normal gait. Musculoskeletal: No tender spots with normal curvature of the spine with no swelling or restricted ROM of the small and large joints. Extremities: Homans sign absent. Intact pulses with no pitting edema, calf tenderness or skin color changes. Skin: No rash, eruptions or abnormal skin pigmentation LAB/RADIOLOGY: ASSESMENT : Acute diarrhea with abdominal pain with abnormal CT of the abdomen rule out infectious inflammatory cause of diarrhea. Bipolar depression Hypertension Bilateral hip prosthesis PLAN: See orders. Present on Admission - Present on Admission Any Indicators Present on Admission: No Past Patient History - Infectious Disease Hx of Infectious Diseases: None - Past Medical History & Family History Past Medical History?: Yes - Past Social History Smoking Status: Never Smoked - CARDIAC Hx Hypercholesterolemia: Yes Hx Hypertension: Yes - PULMONARY Hx Respiratory Disorders: No Hx Tuberculosis: No - NEUROLOGICAL Hx Dementia: Yes Hx Migraine: Yes Hx Seizures: No - HEENT Hx HEENT Problems: Yes Hx Deafness: Yes (Bilateral hearing loss, doesn't wear hearing aids) - RENAL Hx Chronic Kidney Disease: No - ENDOCRINE/METABOLIC Hx Endocrine Disorders: No - HEMATOLOGICAL/ONCOLOGICAL Hx Anemia: Yes Hx Human Immunodeficiency Virus (HIV): No - INTEGUMENTARY Hx Dermatological Problems: No - MUSCULOSKELETAL/RHEUMATOLOGICAL Hx Falls: Yes - GENITOURINARY/GYNECOLOGICAL Hx Sexually Transmitted Disorders: No - PSYCHIATRIC Hx Substance Use: No - SURGICAL HISTORY Hx Tonsillectomy: Yes - ANESTHESIA Hx Anesthesia: Yes Hx Anesthesia Reactions: No Hx Malignant Hyperthermia: No Meds Allergies/Adverse Reactions: Allergies Allergy/AdvReac Type Severity Reaction Status Date / Time pregabalin [From Lyrica] Allergy PSYCHOSIS Verified 10/29/18 06:52 Results - Vital Signs Recent Vital Signs: Last Vital Signs Temp 97.1 F L 10/30/18 07:59 Pulse 67 10/30/18 07:59 Resp 20 10/30/18 07:59 BP 152/71 H 10/30/18 07:59 Pulse Ox 97 10/30/18 07:59 - Labs Result Diagrams: 10/30/18 12:18 10/30/18 12:18 Labs: Laboratory Results - last 24 hr 10/29/18 10/29/18 10/29/18 20:00 20:02 20:02 WBC 9.4 RBC 4.58 Hgb 13.1 Hct 40.4 MCV 88.1 MCH 28.7 MCHC 32.5 L RDW 15.1 H Plt Count 229 MPV 9.6 Neut % (Auto) 68.0 Lymph % (Auto) 23.3 [place] % (Auto) 6.8 Eos % (Auto) 0.7 Baso % (Auto) 1.2 Neut # (Auto) 6.4 Lymph # (Auto) 2.2 [place]ier # (Auto) 0.6 Eos # (Auto) 0.1 Baso # (Auto) 0.1 pO2 62 H VBG pH 7.33 VBG pCO2 25 L VBG HCO3 16.2 VBG Total CO2 14.0 L VBG O2 Sat (Calc) 92.8 H VBG Base Excess -10.9 L VBG Potassium 1.8 L* Sodium 154.0 H 142 Chloride 123.0 H 108 H Glucose 66 Lactate 1.0 Crit Value Called To [place] Crit Value Called By Linda rt Crit Value Read Back Y Blood Gas Notified Time 2018 Potassium 3.7 Carbon Dioxide 19 L Anion Gap 19 BUN 26 H Creatinine 0.7 Est GFR ( Amer) > 60 Est GFR (Non-Af Amer) > 60 Random Glucose 114 H Calcium 9.5 Total Bilirubin 0.6 AST 20 ALT 14 Alkaline Phosphatase 110 Total Protein 7.9 Albumin 4.3 Globulin 3.6 Albumin/Globulin Ratio 1.2 Lipase 92 Venous Blood Potassium 1.8 L* 10/30/18 10/30/18 12:18 12:18 WBC 8.1 RBC 4.04 Hgb 12.1 Hct 36.1 MCV 89.5 MCH 29.9 MCHC 33.4 RDW 15.1 H Plt Count 182 MPV 10.1 Neut % (Auto) 67.5 Lymph % (Auto) 21.9 [place]ier % (Auto) 7.8 Eos % (Auto) 2.1 Baso % (Auto) 0.7 Neut # (Auto) 5.5 Lymph # (Auto) 1.8 [place] # (Auto) 0.6 Eos # (Auto) 0.2 Baso # (Auto) 0.1 pO2 VBG pH VBG pCO2 VBG HCO3 VBG Total CO2 VBG O2 Sat (Calc) VBG Base Excess VBG Potassium Sodium 143 Chloride 109 H Glucose Lactate Crit Value Called To Crit Value Called By Crit Value Read Back Blood Gas Notified Time Potassium 3.3 L Carbon Dioxide 23 Anion Gap 14 BUN 19 H Creatinine 0.5 L Est GFR ( Amer) > 60 Est GFR (Non-Af Amer) > 60 Random Glucose 102 Calcium 8.8 Total Bilirubin 0.4 AST 31 ALT 20 Alkaline Phosphatase 103 Total Protein 6.9 Albumin 3.9 Globulin 3.0 Albumin/Globulin Ratio 1.3 Lipase Venous Blood Potassium
[2018-10-30] MEDS: Potassium Chloride 10 mEq ER Tab PO SCH (14:31)
[2018-10-31] MEDS: metroNIDAZOLE IV 500 mg/100 ml 500 MG/100 ML BAG IVPB SCH ×3 (05:30→21:03)
[2018-10-31 07:44] LABS: BASO # 0.1 K/uL (0.0-0.2); BASO % 1.1 % (0.0-2.0); EOS # 0.2 K/uL (0.0-0.7); EOS % 2.8 % (0.0-4.0); HEMOGLOBIN 11.6 g/dL (11.0-16.0); LYMPH # 1.5 K/uL (1.0-4.3); LYMPH % 26.3 % (20.0-40.0); MEAN CELL VOLUME 88.9 fL (81.0-99.0); MEAN CORPUSCULAR HEMOGLOBIN 29.4 pg (27.0-31.0); MEAN CORPUSCULAR HGB CONC 33.1 g/dL (33.0-37.0); MEAN PLATELET VOLUME 9.5 fL (7.2-11.7); MONO # 0.4 K/uL (0.0-0.8); MONO % 6.7 % (0.0-10.0); NEUT # 3.6 K/uL (1.8-7.0); NEUT % 63.1 % (50.0-75.0); NRBC % 0.1 % (0.0-2.0); RBC 3.94 Mil/uL (3.80-5.20); WHITE BLOOD COUNT 5.8 K/uL (4.8-10.8)
[2018-10-31 08:03] LABS: SQUAMOUS EPITHIAL 3 /hpf (0-5); URINE BACTERIA MANY (<OCC); URINE BILIRUBIN NEGATIVE (NEGATIVE); URINE BLOOD 1+ (NEGATIVE); URINE CLARITY Clear (Clear); URINE COLOR Yellow (YELLOW); URINE GLUCOSE (UA) NORMAL (Normal); URINE LEUKOCYTE ESTERASE TRACE Leu/uL (Negative); URINE PROTEIN 1+ mg/dL (NEGATIVE); URINE UROBILINOGEN NORMAL mg/dL (0.2-1.0)
[2018-10-31] MEDS: Potassium Chloride 10 mEq ER Tab PO SCH (08:14)
[2018-10-31 08:26] LABS: ALB/GLOB RATIO 1.1 (1.0-2.1); ALBUMIN 3.5 g/dL (3.5-5.0); ALT/SGPT 20 U/L (9-52); AST/SGOT 25 U/L (14-36); BLOOD UREA NITROGEN 9 mg/dL (7-17); CALCIUM 8.2 mg/dl (8.6-10.4); GFR NON-AFRICAN AMERICAN > 60
[2018-10-31] MEDS: Ciprofloxacin 400mg/200ml D5W 400 MG/200 ML BAG IVPB SCH ×2 (12:10→22:15)
--- NOTE | 2018-10-31 12:16 | CP.PCM.PN ---
Subjective - Date & Time of Evaluation Date of Evaluation: 10/31/18 Time of Evaluation: 12:16 - Subjective Subjective: CHIEF COMPLAINTS TODAY : AFEBRILE, C/O 2 SOFT STOOLS LESS ABDOMINAL PAIN DENIES N/V ROS. HEENT : N. Resp : No cough, wheezing ,pleuritic CP ,or hemoptysis Cardio : No anginal CP, PND, orthopnea, palpitation GI : No, n/v ,+VE DIARRHOEA, NO GI bleeding , +VE ABDOMINAL PAIN. 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 Musculoskel : No joint swelling , Derm : No rash Psych : Normal affect. Ext : No swelling ,calf pain PE. Pt. is alert awake in no distress. V.S As noted in the chart Head ,ear nose,throat and eyes : Normal. Neck : Supple with normal carotids. Lungs: Clear air entry. Heart : S1 & S2 normal with S4. No murmur. Abd : Soft LESS TENDERNESS LOWER QUANDARANTS , with normal bowel sounds. Neuro : Moves all ext. with no localized deficit. Ext : No edema with intact pulses.Non tender calves Derm : No rashes or decubitus ulcer. LABS/RADIOLOGY: Stool LEUKOCYTES -VE. BLOOD CULTURES -VE X2SETS X 24HRS ASSESSMENT/PLAN : Continue IV CIPRO/IV FLAGYL. F/U CULTURES.. IV FLUIDS AND REPLENISH K NEEDED. ENTERIC PRECAUTIONS. Objective - Vital Signs/Intake and Output Vital Signs (last 24 hours): Temp Pulse Resp BP Pulse Ox 98.1 F 89 20 146/84 97 10/31/18 00:00 10/31/18 00:00 10/31/18 00:00 10/31/18 00:00 10/31/18 00:00 Intake and Output: 10/31/18 10/31/18 06:59 18:59 Intake Total 1040 Balance 1040 - Medications Medications: Current Medications Heparin Sodium (Porcine) (Heparin) 5,000 units SC Q12 [facility] Last Admin: 10/31/18 09:32 Dose: 5,000 units Ciprofloxacin (Cipro 400mg/200ml Dsw) 400 mg in 200 mls @ 133 mls/hr IVPB Q12H [facility]; Protocol Last Admin: 10/31/18 12:10 Dose: 133 mls/hr Metronidazole (Flagyl) 500 mg in 100 mls @ 100 mls/hr IVPB Q8H [facility]; Protocol Last Admin: 10/31/18 05:30 Dose: 100 mls/hr Potassium Chloride (Klor-Con 10) 10 meq PO BRK [facility] Last Admin: 10/31/18 08:14 Dose: 10 meq - Labs Labs: 10/31/18 07:38 10/31/18 07:38 Assessment and Plan (1) Abdominal pain Status: Acute (2) Colitis Status: Acute (3) Diarrhea Status: Acute (4) Hypokalemia Status: Acute (5) HTN (hypertension) Status: Acute (6) Manic bipolar I disorder Status: Acute
[2018-10-31 13:03] LABS: C DIFF TOXIN A B NEGATIVE (NEGATIVE)
--- NOTE | 2018-10-31 13:48 | CP.PCM.PN ---
Subjective - Date & Time of Evaluation Date of Evaluation: 10/31/18 Time of Evaluation: 13:46 - Subjective Subjective: CHIEF COMPLAINTS TODAY : Patient has less abdominal pain no nausea or vomiting but still has loose stools ROS. HEENT : N. Resp : No cough, wheezing ,pleuritic CP ,or hemoptysis Cardio : No anginal CP, PND, orthopnea, palpitation GI : No, n/v ,diarrhea or GI bleeding . 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 Musculoskel : No joint swelling , Derm : No rash Psych : Normal affect. Ext : No swelling ,calf pain PE. Pt. is alert awake in no distress. V.S As noted in the chart Head ,ear nose,throat and eyes : Normal. Neck : Supple with normal carotids. Lungs: Clear air entry. Heart : S1 & S2 normal with S4. No murmur. Abd : Soft tender with normal bowel sounds. Neuro : Moves all ext. with no localized deficit. Ext : No edema with intact pulses.Non tender calves Derm : No rashes or decubitus ulcer. LABS/RADIOLOGY: Stool and urine examination pending ASSESSMENT/PLAN : Continue IV antibiotics. Objective - Vital Signs/Intake and Output Vital Signs (last 24 hours): Temp Pulse Resp BP Pulse Ox 98.1 F 89 20 146/84 97 10/31/18 00:00 10/31/18 00:00 10/31/18 00:00 10/31/18 00:00 10/31/18 00:00 Intake and Output: 10/31/18 10/31/18 11:59 23:59 Intake Total 540 Balance 540 - Medications Medications: Current Medications Heparin Sodium (Porcine) (Heparin) 5,000 units SC Q12 [facility] Last Admin: 10/31/18 09:32 Dose: 5,000 units Ciprofloxacin (Cipro 400mg/200ml Dsw) 400 mg in 200 mls @ 133 mls/hr IVPB Q12H [facility]; Protocol Last Admin: 10/31/18 12:10 Dose: 133 mls/hr Metronidazole (Flagyl) 500 mg in 100 mls @ 100 mls/hr IVPB Q8H [facility]; Protocol Last Admin: 10/31/18 05:30 Dose: 100 mls/hr Potassium Chloride (Klor-Con 10) 10 meq PO BRK [facility] Last Admin: 10/31/18 08:14 Dose: 10 meq Potassium Chloride (K-Dur 20 Meq Er Tab) 20 meq PO ONCE ONE Stop: 10/31/18 14:01 - Labs Labs: 10/31/18 07:38 10/31/18 07:38
[2018-10-31] MEDS ORDERED: Potassium Chloride 20 mEq ER Tab PO SCH (14:00)
[2018-10-31] MEDS ORDERED: Potassium Chloride 20 mEq ER Tab PO ONE (14:00)
[2018-10-31 15:38] LABS: FECAL LEUKOCYTES NEGATIVE (NEGATIVE)
[2018-11-01 00:03] VITALS: RESP 20
[2018-11-01] MEDS: metroNIDAZOLE IV 500 mg/100 ml 500 MG/100 ML BAG IVPB SCH ×3 (05:12→21:18)
[2018-11-01] MEDS: Potassium Chloride 10 mEq ER Tab PO SCH (10:33)
[2018-11-01] MEDS: Ciprofloxacin 400mg/200ml D5W 400 MG/200 ML BAG IVPB SCH ×2 (10:38→23:11)
--- NOTE | 2018-11-01 14:48 | CP.PCM.PN ---
Subjective - Date & Time of Evaluation Date of Evaluation: 11/01/18 Time of Evaluation: 14:47 - Subjective Subjective: CHIEF COMPLAINTS TODAY : AFEBRILE, 2 FORMED STOOLS LESS ABDOMINAL PAIN DENIES N/V WANTS REGULAR FOOD ROS. HEENT : N. Resp : No cough, wheezing ,pleuritic CP ,or hemoptysis Cardio : No anginal CP, PND, orthopnea, palpitation GI : No, n/v ,+VE DIARRHOEA, NO GI bleeding , +VE ABDOMINAL PAIN. WELD FITTER : No headache, vertigo, focal deficit. Musculoskel : No joint swelling , Derm : No rash Psych : Normal affect. Ext : No swelling ,calf pain PE. Pt. is alert awake in no distress. V.S As noted in the chart Head ,ear nose,throat and eyes : Normal. Neck : Supple with normal carotids. Lungs: Clear air entry. Heart : S1 & S2 normal with S4. No murmur. Abd : Soft LESS TENDERNESS LOWER QUANDARANTS , with normal bowel sounds. Neuro : Moves all ext. with no localized deficit. Ext : No edema with intact pulses.Non tender calves Derm : No rashes or decubitus ulcer. LABS/RADIOLOGY: C.DIFFICILE STOOLS -VE Stool LEUKOCYTES -VE. BLOOD CULTURES -VE X2SETS X 24HRS ASSESSMENT/PLAN : Continue IV CIPRO D/C IV FLAGYL. PO FLAGYL 250MG TID 11/02/18 F/U CULTURES.. IV FLUIDS AND REPLENISH K NEEDED. ENTERIC PRECAUTIONS. Objective - Vital Signs/Intake and Output Vital Signs (last 24 hours): Temp Pulse Resp BP Pulse Ox 97.9 F 100 H 20 136/76 95 11/01/18 07:00 11/01/18 07:00 11/01/18 07:00 11/01/18 07:00 11/01/18 07:00 - Medications Medications: Current Medications Heparin Sodium (Porcine) (Heparin) 5,000 units SC Q12 [facility] Last Admin: 11/01/18 10:33 Dose: 5,000 units Ciprofloxacin (Cipro 400mg/200ml Dsw) 400 mg in 200 mls @ 133 mls/hr IVPB Q12H [facility]; Protocol Last Admin: 11/01/18 10:38 Dose: 133 mls/hr Metronidazole (Flagyl) 500 mg in 100 mls @ 100 mls/hr IVPB Q8H [facility]; Protocol Last Admin: 11/01/18 14:32 Dose: 100 mls/hr Potassium Chloride (Klor-Con 10) 10 meq PO BRK [facility] Last Admin: 11/01/18 10:33 Dose: 10 meq Zolpidem Tartrate (Ambien) 5 mg PO HS PRN PRN Reason: Insomnia Last Admin: 10/31/18 22:56 Dose: 5 mg - Labs Labs: 10/31/18 07:38 10/31/18 07:38 Assessment and Plan (1) Abdominal pain Status: Acute (2) Colitis Status: Acute (3) Diarrhea Status: Acute (4) Hypokalemia Status: Acute (5) HTN (hypertension) Status: Acute (6) Manic bipolar I disorder Status: Acute
--- NOTE | 2018-11-01 14:54 | CP.PCM.PN ---
Subjective - Date & Time of Evaluation Date of Evaluation: 11/01/18 Time of Evaluation: 14:54 - Subjective Subjective: CHIEF COMPLAINTS TODAY : Patient has less abdominal pain no nausea or vomiting but still has loose stools ROS. HEENT : N. Resp : No cough, wheezing ,pleuritic CP ,or hemoptysis Cardio : No anginal CP, PND, orthopnea, palpitation GI : No, n/v ,diarrhea or GI bleeding . 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 Musculoskel : No joint swelling , Derm : No rash Psych : Normal affect. Ext : No swelling ,calf pain PE. Pt. is alert awake in no distress. V.S As noted in the chart Head ,ear nose,throat and eyes : Normal. Neck : Supple with normal carotids. Lungs: Clear air entry. Heart : S1 & S2 normal with S4. No murmur. Abd : Soft tender with normal bowel sounds. Neuro : Moves all ext. with no localized deficit. Ext : No edema with intact pulses.Non tender calves Derm : No rashes or decubitus ulcer. LABS/RADIOLOGY: Stool and urine examination pending ASSESSMENT/PLAN : Continue IV antibiotics. Objective - Vital Signs/Intake and Output Vital Signs (last 24 hours): Temp Pulse Resp BP Pulse Ox 97.9 F 100 H 20 136/76 95 11/01/18 07:00 11/01/18 07:00 11/01/18 07:00 11/01/18 07:00 11/01/18 07:00 - Medications Medications: Current Medications Heparin Sodium (Porcine) (Heparin) 5,000 units SC Q12 [facility] Last Admin: 11/01/18 10:33 Dose: 5,000 units Ciprofloxacin (Cipro 400mg/200ml Dsw) 400 mg in 200 mls @ 133 mls/hr IVPB Q12H [facility]; Protocol Last Admin: 11/01/18 10:38 Dose: 133 mls/hr Metronidazole (Flagyl) 500 mg in 100 mls @ 100 mls/hr IVPB Q8H [facility]; Protocol Last Admin: 11/01/18 14:32 Dose: 100 mls/hr Potassium Chloride (Klor-Con 10) 10 meq PO BRK [facility] Last Admin: 11/01/18 10:33 Dose: 10 meq Zolpidem Tartrate (Ambien) 5 mg PO HS PRN PRN Reason: Insomnia Last Admin: 12/14/18 22:56 Dose: 5 mg - Labs Labs: 10/31/18 07:38 10/31/18 07:38
[2018-11-02 08:14] LABS: BASO % 0.9 % (0.0-2.0); EOS # 0.2 K/uL (0.0-0.7); EOS % 3.1 % (0.0-4.0); HEMOGLOBIN 11.5 g/dL (11.0-16.0); LYMPH # 1.2 K/uL (1.0-4.3); LYMPH % 24.2 % (20.0-40.0); MEAN CELL VOLUME 89.4 fL (81.0-99.0); MEAN CORPUSCULAR HEMOGLOBIN 29.3 pg (27.0-31.0); MEAN CORPUSCULAR HGB CONC 32.8 g/dL (33.0-37.0); MEAN PLATELET VOLUME 9.7 fL (7.2-11.7); MONO # 0.4 K/uL (0.0-0.8); MONO % 8.4 % (0.0-10.0); NEUT # 3.3 K/uL (1.8-7.0); NEUT % 63.4 % (50.0-75.0); RBC 3.94 Mil/uL (3.80-5.20); RED CELL DISTRIBUTION WIDTH 15.2 % (11.5-14.5); WHITE BLOOD COUNT 5.2 K/uL (4.8-10.8)
[2018-11-02 08:22] LABS: ALB/GLOB RATIO 1.2 (1.0-2.1); ALBUMIN 3.5 g/dL (3.5-5.0); ALT/SGPT 22 U/L (9-52); AST/SGOT 18 U/L (14-36); BLOOD UREA NITROGEN 9 mg/dL (7-17); CALCIUM 8.6 mg/dl (8.6-10.4); GFR NON-AFRICAN AMERICAN > 60
[2018-11-02] MEDS: Potassium Chloride 10 mEq ER Tab PO SCH (09:34)
[2018-11-02] MEDS: Ciprofloxacin 400mg/200ml D5W 400 MG/200 ML BAG IVPB SCH ×2 (10:10→22:04)
[2018-11-02] MEDS ORDERED: Potassium Chloride 20 mEq ER Tab PO ONE (11:35)
--- NOTE | 2018-11-02 15:06 | CP.PCM.PN ---
Subjective - Date & Time of Evaluation Date of Evaluation: 11/02/18 Time of Evaluation: 15:05 - Subjective Subjective: Patient has no further diarrhea. Vital signs are stable. Stool for Salmonella or Shigella is negative. Potassium is low on by mouth KCl. If stable will discharge in a.m. Objective - Vital Signs/Intake and Output Vital Signs (last 24 hours): Temp Pulse Resp BP Pulse Ox 98.1 F 86 20 154/74 H 97 11/02/18 08:00 11/02/18 08:00 11/02/18 08:00 11/02/18 08:00 11/02/18 08:00 Intake and Output: 11/02/18 11/02/18 11:59 23:59 Intake Total 200 Balance 200 - Medications Medications: Current Medications Gabapentin (Neurontin) 300 mg PO BID [facility] Heparin Sodium (Porcine) (Heparin) 5,000 units SC Q12 [facility] Last Admin: 11/02/18 09:33 Dose: 5,000 units Ciprofloxacin (Cipro 400mg/200ml Dsw) 400 mg in 200 mls @ 133 mls/hr IVPB Q12H [facility]; Protocol Last Admin: 11/02/18 10:10 Dose: 133 mls/hr Lisinopril (Zestril) 40 mg PO DAILY [facility] Last Admin: 11/02/18 11:56 Dose: 40 mg Metronidazole (Flagyl) 250 mg PO Q8H [facility]; Protocol Last Admin: 11/02/18 09:36 Dose: 250 mg Potassium Chloride (Klor-Con 10) 10 meq PO BRK [facility] Last Admin: 11/02/18 09:34 Dose: 10 meq Quetiapine Fumarate (Seroquel) 25 mg PO HS [facility] Zolpidem Tartrate (Ambien) 5 mg PO HS PRN PRN Reason: Insomnia Last Admin: 11/01/18 21:19 Dose: 5 mg - Labs Labs: 11/02/18 07:51 11/02/18 07:49
--- NOTE | 2018-11-02 19:21 | CP.PCM.PN ---
Subjective - Date & Time of Evaluation Date of Evaluation: 11/02/18 Time of Evaluation: 19:21 - Subjective Subjective: CHIEF COMPLAINTS TODAY : AFEBRILE, FEELING BETTER . K + LOW ROS. HEENT : N. Resp : No cough, wheezing ,pleuritic CP ,or hemoptysis Cardio : No anginal CP, PND, orthopnea, palpitation GI : No, n/v ,+VE DIARRHOEA, NO GI bleeding , +VE ABDOMINAL PAIN. ROAD PATCHER : No headache, vertigo, focal deficit. Musculoskel : No joint swelling , Derm : No rash Psych : Normal affect. Ext : No swelling ,calf pain PE. Pt. is alert awake in no distress. V.S As noted in the chart Head ,ear nose,throat and eyes : Normal. Neck : Supple with normal carotids. Lungs: Clear air entry. Heart : S1 & S2 normal with S4. No murmur. Abd : Soft LESS TENDERNESS LOWER QUANDARANTS , with normal bowel sounds. Neuro : Moves all ext. with no localized deficit. Ext : No edema with intact pulses.Non tender calves Derm : No rashes or decubitus ulcer. LABS/RADIOLOGY: C.DIFFICILE STOOLS -VE Stool LEUKOCYTES -VE. BLOOD CULTURES -VE X2SETS X 24HRS ASSESSMENT/PLAN : Continue IV CIPRO D/C IV FLAGYL. PO FLAGYL 250MG TID 11/02/18 F/U CULTURES.. IV FLUIDS AND REPLENISH K NEEDED. ENTERIC PRECAUTIONS. Objective - Vital Signs/Intake and Output Vital Signs (last 24 hours): Temp Pulse Resp BP Pulse Ox 97.9 F 90 20 154/81 H 98 11/02/18 16:06 11/02/18 16:06 11/02/18 16:06 11/02/18 16:06 11/02/18 16:06 Intake and Output: 11/02/18 11/03/18 18:59 06:59 Intake Total 900 Balance 900 - Medications Medications: Current Medications Gabapentin (Neurontin) 300 mg PO BID [facility] Last Admin: 11/02/18 17:47 Dose: 300 mg Heparin Sodium (Porcine) (Heparin) 5,000 units SC Q12 [facility] Last Admin: 11/02/18 09:33 Dose: 5,000 units Ciprofloxacin (Cipro 400mg/200ml Dsw) 400 mg in 200 mls @ 133 mls/hr IVPB Q12H [facility]; Protocol Last Admin: 11/02/18 10:10 Dose: 133 mls/hr Lisinopril (Zestril) 40 mg PO DAILY [facility] Last Admin: 11/02/18 11:56 Dose: 40 mg Metronidazole (Flagyl) 250 mg PO Q8H [facility]; Protocol Last Admin: 11/02/18 09:36 Dose: 250 mg Potassium Chloride (Klor-Con 10) 10 meq PO BRK [facility] Last Admin: 11/02/18 09:34 Dose: 10 meq Quetiapine Fumarate (Seroquel) 25 mg PO HS [facility] Zolpidem Tartrate (Ambien) 5 mg PO HS PRN PRN Reason: Insomnia Last Admin: 11/01/18 21:19 Dose: 5 mg - Labs Labs: 11/02/18 07:51 11/02/18 07:49 Assessment and Plan (1) Abdominal pain Status: Acute (2) Colitis Status: Acute (3) Diarrhea Status: Acute (4) Hypokalemia Status: Acute (5) HTN (hypertension) Status: Acute (6) Manic bipolar I disorder Status: Acute
[2018-11-02] MEDS ORDERED: Home Med 1 UNIT (Zolpidem [Ambien] 10 MG) PO SCH (22:00)
[2018-11-03 08:00] VITALS: BP 149/84; PULSE 79; TEMP 98; O2SAT 96
[2018-11-03] MEDS: Potassium Chloride 10 mEq ER Tab PO SCH (08:27)
[2018-11-03] MEDS: Ciprofloxacin 400mg/200ml D5W 400 MG/200 ML BAG IVPB SCH (11:16)
--- NOTE | 2018-11-03 12:05 | CP.PCM.PN ---
Subjective - Date & Time of Evaluation Date of Evaluation: 11/03/18 Time of Evaluation: 12:05 Objective - Vital Signs/Intake and Output Vital Signs (last 24 hours): Temp Pulse Resp BP Pulse Ox 98.0 F 79 20 149/84 96 11/03/18 07:57 11/03/18 07:57 11/03/18 07:57 11/03/18 07:57 11/03/18 07:57 Intake and Output: 11/03/18 11/03/18 06:59 18:59 Intake Total 200 Balance 200 - Medications Medications: Current Medications Gabapentin (Neurontin) 300 mg PO BID [facility] Last Admin: 11/03/18 11:13 Dose: 300 mg Heparin Sodium (Porcine) (Heparin) 5,000 units SC Q12 [facility] Last Admin: 11/03/18 11:14 Dose: 5,000 units Ciprofloxacin (Cipro 400mg/200ml Dsw) 400 mg in 200 mls @ 133 mls/hr IVPB Q12H [facility]; Protocol Last Admin: 11/03/18 11:16 Dose: 133 mls/hr Lisinopril (Zestril) 40 mg PO DAILY [facility] Last Admin: 11/03/18 11:14 Dose: 40 mg Metronidazole (Flagyl) 250 mg PO Q8H [facility]; Protocol Last Admin: 11/03/18 11:14 Dose: 250 mg Potassium Chloride (Klor-Con 10) 10 meq PO BRK [facility] Last Admin: 11/03/18 08:27 Dose: 10 meq Quetiapine Fumarate (Seroquel) 25 mg PO HS [facility] Last Admin: 11/02/18 22:18 Dose: 25 mg Zolpidem Tartrate (Ambien) 5 mg PO HS PRN PRN Reason: Insomnia Last Admin: 11/02/18 22:02 Dose: 5 mg - Labs Labs: 11/02/18 07:51 11/02/18 07:49 Assessment and Plan (1) Abdominal pain Status: Acute (2) Colitis Status: Acute (3) Diarrhea Status: Acute (4) Hypokalemia Status: Acute (5) HTN (hypertension) Status: Acute (6) Manic bipolar I disorder Status: Acute
[2018-11-03 14:13] LABS: BLOOD UREA NITROGEN 10 mg/dL (7-17); CALCIUM 8.6 mg/dl (8.6-10.4); GFR NON-AFRICAN AMERICAN > 60
--- NOTE | 2018-11-03 14:18 | CP.PCM.DIS ---
Provider - Provider Date of Admission: 10/29/18 21:08 Attending physician: Yanni Pereyra MD Consults: 10/31/18 13:49 Psychiatry Consult Routine Comment: Consulting Provider: Radha Nam Consulting Physician: Radha Nam Reason for Consult: ADJUSTMENT OF MEDS 10/31/18 20:00 Infectious Disease Consult Routine Comment: Consulting Provider: Phylicia Holliday Consulting Physician: Phylicia Holliday Reason for Consult: colitis Time Spent in preparation of Discharge (in minutes): 30 Hospital Course - Lab Results Lab Results: Micro Results 10/29/18 20:15 Blood Blood Culture - Preliminary NO GROWTH AFTER 4 DAYS 10/29/18 19:45 Blood Blood Culture - Preliminary NO GROWTH AFTER 4 DAYS 10/29/18 Unknown Stool Stool Culture - Final NO SALMONELLA, SHIGELLA OR CAMPYLOBACTER ISOLATED. 10/31/18 07:08 Urine Urine Culture - Final No Growth (<1,000 CFU/ML) Most Recent Lab Values WBC 5.2 K/uL (4.8-10.8) 11/02/18 07:51 RBC 3.94 Mil/uL (3.80-5.20) 11/02/18 07:51 Hgb 11.5 g/dL (11.0-16.0) 11/02/18 07:51 Hct 35.2 % (34.0-47.0) 11/02/18 07:51 MCV 89.4 fL (81.0-99.0) 11/02/18 07:51 MCH 29.3 pg (27.0-31.0) 11/02/18 07:51 MCHC 32.8 g/dL (33.0-37.0) L 11/02/18 07:51 RDW 15.2 % (11.5-14.5) H 11/02/18 07:51 Plt Count 154 K/uL (130-400) 11/02/18 07:51 MPV 9.7 fL (7.2-11.7) 11/02/18 07:51 Neut % (Auto) 63.4 % (50.0-75.0) 11/02/18 07:51 Lymph % (Auto) 24.2 % (20.0-40.0) 11/02/18 07:51 Cloud % (Auto) 8.4 % (0.0-10.0) 11/02/18 07:51 Eos % (Auto) 3.1 % (0.0-4.0) 11/02/18 07:51 Baso % (Auto) 0.9 % (0.0-2.0) 11/02/18 07:51 Neut # (Auto) 3.3 K/uL (1.8-7.0) 11/02/18 07:51 Lymph # (Auto) 1.2 K/uL (1.0-4.3) 11/02/18 07:51 Cloud # (Auto) 0.4 K/uL (0.0-0.8) 11/02/18 07:51 Eos # (Auto) 0.2 K/uL (0.0-0.7) 11/02/18 07:51 Baso # (Auto) 0.0 K/uL (0.0-0.2) 11/02/18 07:51 pO2 62 mm/Hg (30-55) H 10/29/18 20:00 VBG pH 7.33 (7.32-7.43) 10/29/18 20:00 VBG pCO2 25 mmHg (40-60) L 10/29/18 20:00 VBG HCO3 16.2 mmol/L 10/29/18 20:00 VBG Total CO2 14.0 mmol/L (22-28) L 10/29/18 20:00 VBG O2 Sat (Calc) 92.8 % (40-65) H 10/29/18 20:00 VBG Base Excess -10.9 mmol/L (0.0-2.0) L 10/29/18 20:00 VBG Potassium 1.8 mmol/L (3.6-5.2) L* 10/29/18 20:00 Sodium 154.0 mmol/l (132-148) H 10/29/18 20:00 Chloride 123.0 mmol/L (98-107) H 10/29/18 20:00 Glucose 66 mg/dl (65-105) 10/29/18 20:00 Lactate 1.0 mmol/L (0.7-2.1) 10/29/18 20:00 Crit Value Called To [place] 10/29/18 20:00 Crit Value Called By Linda rt 10/29/18 20:00 Crit Value Read Back Y 10/29/18 20:00 Blood Gas Notified Time 201810/29/18 20:00 Sodium 139 mmol/L (132-148) 11/03/18 13:38 Potassium 4.3 mmol/L (3.6-5.2) 11/03/18 13:38 Chloride 102 mmol/L (98-107) 11/03/18 13:38 Carbon Dioxide 29 mmol/L (22-30) 11/03/18 13:38 Anion Gap 13 (10-20) 11/03/18 13:38 BUN 10 mg/dL (7-17) 11/03/18 13:38 Creatinine 0.7 mg/dL (0.7-1.2) 11/03/18 13:38 Est GFR ( Amer) > 60 11/03/18 13:38 Est GFR (Non-Af Amer) > 60 11/03/18 13:38 POC Glucose (mg/dL) 90 mg/dL (65-110) 10/30/18 21:33 Random Glucose 101 mg/dL (65-105) 11/03/18 13:38 Calcium 8.6 mg/dl (8.6-10.4) 11/03/18 13:38 Total Bilirubin 0.3 mg/dL (0.2-1.3) 11/02/18 07:49 AST 18 U/L (14-36) 11/02/18 07:49 ALT 22 U/L (9-52) 11/02/18 07:49 Alkaline Phosphatase 84 U/L (38-126) 11/02/18 07:49 Total Protein 6.4 g/dL (6.3-8.3) 11/02/18 07:49 Albumin 3.5 g/dL (3.5-5.0) 11/02/18 07:49 Globulin 2.9 gm/dL (2.2-3.9) 11/02/18 07:49 Albumin/Globulin Ratio 1.2 (1.0-2.1) 11/02/18 07:49 Lipase 92 U/L (23-300) 10/29/18 20:02 Venous Blood Potassium 1.8 mmol/L (3.6-5.2) L* 10/29/18 20:00 Urine Color Yellow (YELLOW) 10/31/18 07:08 Urine Clarity Clear (Clear) 10/31/18 07:08 Urine pH 6.0 (5.0-8.0) 10/31/18 07:08 Ur Specific [place] 1.021 (1.003-1.030) 10/31/18 07:08 Urine Protein 1+ mg/dL (NEGATIVE) H 10/31/18 07:08 Urine Glucose (UA) Normal mg/dL (Normal) 10/31/18 07:08 Urine Ketones 1+ mg/dL (NEGATIVE) H 10/31/18 07:08 Urine Blood 1+ (NEGATIVE) H 10/31/18 07:08 Urine Nitrate Positive (NEGATIVE) H 10/31/18 07:08 Urine Bilirubin Negative (NEGATIVE) 10/31/18 07:08 Urine Urobilinogen Normal mg/dL (0.2-1.0) 10/31/18 07:08 Ur Leukocyte Esterase Trace [place]/uL (Negative) 10/31/18 07:08 Urine WBC (Auto) 2 /hpf (0-5) 10/31/18 07:08 Urine RBC (Auto) 10 /hpf (0-3) H 10/31/18 07:08 Ur Squamous Epith Cells 3 /hpf (0-5) 10/31/18 07:08 Urine Bacteria Many (<OCC) H 10/31/18 07:08 Hyaline Casts 3-5 /lpf (0-2) H 10/31/18 07:08 Stool Leukocytes, Qual Negative (NEGATIVE) 10/30/18 07:08 C. difficile Ag & Toxin Negative (NEGATIVE) 10/30/18 07:08 Giardia Antigen Not detected (Not Detected) 10/30/18 07:08 - Hospital Course Hospital Course: Patient was evaluated in the emergency room the CAT scan showed possible colitis. Patient is admitted for further treatment. PAST HIST. Patient has history of hypertension history of bipolar with depression and insomnia. Patient had bilateral hip prosthesis secondary to fractures from falls. Patient has a ventricular peritoneal shunt from the hydrocephalus. Patient also has recurrent UTIs in the past. patient was treateth IV fluids and IV anibiotics. GI consult was obtained. Advised to continue IV antibiotics and outpatient Colonoscopy. Patient improved on IV antibiotics. There was no any furthe abdominal pain. Stool workup was negative. Patient was discharged home no antibiotics. Discharge Exam - Head Exam Head Exam: NORMAL INSPECTION Discharge Plan - Follow Up Plan Condition: FAIR Disposition: HOME/ ROUTINE Instructions: Diarrhea in Adolescents and Adults, Hypokalemia (DC) Additional Instructions: Please f/u with Dr. Pereyra office in 1 week Please resume all home medications Referrals: Yanni Pereyra MD [Staff Provider] -
== END 2018-11-03 15:26 | disposition home or self-care (01) | DRG 392 ==
LOC: C.ER 17:48 → C.9E 21:08 → C.5S 23:02 → C.3T 10-31 22:13
PROVIDERS: ADMIT Internal Medicine Cardiovascular Disease; ATTEND Internal Medicine Cardiovascular Disease
DX: K52.9 Noninfective gastroenteritis and colitis, unspecified (principal); E87.6 Hypokalemia; G91.9 Hydrocephalus, unspecified; F31.30 Bipolar disorder, current episode depressed, mild or moderate severity, unspecified; I10 Essential (primary) hypertension; I25.10 Atherosclerotic heart disease of native coronary artery without angina pectoris; F03.90 Unspecified dementia, unspecified severity, without behavioral disturbance, psychotic disturbance, mood disturbance, and anxiety; E78.00 Pure hypercholesterolemia, unspecified; F41.9 Anxiety disorder, unspecified; H91.93 Unspecified hearing loss, bilateral; Z98.2 Presence of cerebrospinal fluid drainage device; Z95.5 Presence of coronary angioplasty implant and graft; Z86.73 Personal history of transient ischemic attack (TIA), and cerebral infarction without residual deficits; Z87.440 Personal history of urinary (tract) infections

== ENCOUNTER 2019-01-02 14:20 | Outpatient (CLI) | payer MEDICARE, BC | END 2019-01-02 14:21 | disposition home or self-care (01) | LOC: C.MAMMO 14:21 | DX: Z12.31 Encounter for screening mammogram for malignant neoplasm of breast (principal) ==

== ENCOUNTER 2019-01-09 12:41 | Outpatient (CLI) | payer MEDICARE, BC | END 2019-01-09 12:42 | disposition home or self-care (01) | LOC: C.DEXAIC 12:41 | DX: Z13.820 Encounter for screening for osteoporosis (principal) ==

== ENCOUNTER 2019-03-12 15:10 | Outpatient (CLI) | payer MEDICARE, BC | END 2019-03-12 15:11 | disposition home or self-care (01) | LOC: C.RADIC 15:10 ==